=== PATIENT | male | born 1965 | race African-American/Black ===

== ENCOUNTER 2016-10-08 12:25 | Emergency (ER) | payer OTHER ==
[~2016-10-08] VITALS: Ht 188 cm; Wt 117.0 kg
[~2016-10-08 12:25] MED LIST: AMLO10TA2 PO; KEPP10002 PO; LISI-515 PO
[2016-10-08 12:27] VITALS: BP 197/133; PULSE 78; RESP 20; TEMP 98.2; O2SAT 98
[2016-10-08] MEDS ORDERED: LISI-515 PO (12:59)
[2016-10-08] MEDS ORDERED: KEPP10002 PO (12:59)
--- NOTE | 2016-10-08 12:59 | PD ---
HPI . Refill request Chief Complaint: Medication Refill Request Time Seen by Provider: 12:52 Travel History International Travel<30 days: No Contact w/Intl Traveler<30days: No Traveled to known affect area: No History of Present Illness HPI Patient presents stating that he is out of his blood pressure and seizure medication. He states he's been out for about a month. Does not have any specific complaints today. 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, SLURRED SPEECH) Diabetes: Yes Diminished Hearing: No Endocrine: Yes Genitourinary: No Hypertension: Yes Psychiatric: No Reproductive: No Respiratory: Yes Seizures: Yes Past Surgical History AICD: No Genitourinary Surgery: No Pacemaker: No Other Surgery: No Social History Alcohol Use: No Tobacco Use: Yes (LIGHT SMOKER 3-4 CIG PER DAY) Substance Use: No Allergies-Medications (Allergen,Severity, Reaction): Coded Allergies: No Known Allergies (Verified , 08/19/16) Reported Meds & Prescriptions Reported Meds & Active Scripts Active Amlodipine (Amlodipine Besylate) 10 Mg Tab 10 Mg PO DAILY Keppra (Levetiracetam) 1,000 Mg Tab 1,000 Mg PO BID Keppra (Levetiracetam) 1,000 Mg Tab 1,000 Mg PO BID Reported Lisinopril 20 Mg Tab 20 Mg PO DAILY Review of Systems Except as stated in HPI: all other systems reviewed are Neg HENT: Positive: Headaches Physical Exam Narrative GENERAL: This is a patient with an old stroke. He is in no acute distress. SKIN: Warm and dry. HEAD: Atraumatic. Normocephalic. EYES: Pupils equal and round. ENT: No nasal bleeding or discharge. Mucous membranes pink and moist. NECK: Trachea midline. Neck is supple CARDIOVASCULAR: Regular rate and rhythm. Heart sounds are normal. RESPIRATORY: No accessory muscle use. Lungs are clear with full air movement throughout. GASTROINTESTINAL: Abdomen soft, non-tender, nondistended. MUSCULOSKELETAL: No obvious deformities. No edema. NEUROLOGICAL: Awake and alert. No obvious cranial nerve deficits. Motor grossly within normal limits. Slurred speech compatible with previous stroke. PSYCHIATRIC: Appropriate mood and affect; insight and judgment normal. Data Data Last Documented VS Vital Signs Date Time Temp Pulse Resp B/P Pulse Ox O2 Delivery O2 Flow Rate FiO2 10/08/16 12:27 98.2 78 20 197/133 98 Room Air MDM Medical Decision Making Medical Screen Exam Complete: Yes Emergency Medical Condition: Yes Differential Diagnosis Differential diagnosis includes but is not limited to benign essential hypertension, urgency, hypertensive emergency, hepatic encephalopathy. Narrative Course Patient presents requesting refill of his hypertensive and anti-seizure medications. Diagnosis Primary Impression: Hypertension Qualified Code: I10 - Essential hypertension Additional Impression: Seizure disorder Med/Other Pt SpecificInfo: Prescription(s) given Scripts Levetiracetam (Keppra)1,000 Mg Tab1,000 Mg PO BID #60 TAB Ref 0 Prov:Laura Shaffer MD 10/08/16 Lisinopril 20 Mg Tab20 Mg PO DAILY #30 TAB Ref 0 Prov:Laura Shaffer MD 10/08/16 Disposition: 01 DISCHARGE HOME Condition: Stable Laura Shaffer MD Oct 08, 2016 12:59
[2016-10-08 13:25] VITALS: BP 180/82; TEMP 97.8
== END 2016-10-08 13:25 | disposition home or self-care (01) ==
LOC: NEPB 12:25
DX: I10 Essential (primary) hypertension (principal); R56.9 Unspecified convulsions; R47.81 Slurred speech; E11.9 Type 2 diabetes mellitus without complications; Z76.0 Encounter for issue of repeat prescription; Z72.0 Tobacco use; Z86.73 Personal history of transient ischemic attack (TIA), and cerebral infarction without residual deficits
CPT/HCPCS: 99281

== ENCOUNTER 2016-11-09 14:13 | Emergency (ER) | payer OTHER ==
[~2016-11-09] VITALS: Ht 182.9 cm; Wt 120.0 kg
[~2016-11-09 14:13] MED LIST changes: -AMLO10TA2 PO
[2016-11-09 14:14] VITALS: BP 197/122; PULSE 89; RESP 18; TEMP 98.5; O2SAT 98
--- NOTE | 2016-11-09 18:59 | PD ---
HPI Chief Complaint: Medication Refill Request, hypertension, seizure this am Time Seen by Provider: 18:54 Travel History International Travel<30 days: No Contact w/Intl Traveler<30days: No Traveled to known affect area: No History of Present Illness HPI Patient is a 51-year-old male presenting to [facility] for medication refill. He states she's been out of his Keppra and lisinopril for 2 weeks. Patient reports having a seizure this morning that was witnessed by his girlfriend. He denies any physical complaints at this time. He denies any illicit drug use. He does admit to smoking 1-2 cigarettes daily. Patient's past medical history includes CVA, hypertension, seizures, diabetes mellitus. [facility] Past Medical History Asthma: Yes Blood Disorders: No Cancer: No High Cholesterol: Yes Cerebrovascular Accident: Yes Diabetes: Yes Diminished Hearing: No Genitourinary: No Hypertension: Yes Psychiatric: No Reproductive: No Respiratory: Yes Seizures: Yes Past Surgical History Surgical History: No Previous Surgery AICD: No Genitourinary Surgery: No Pacemaker: No Other Surgery: No Social History Alcohol Use: No Tobacco Use: Yes Substance Use: No Allergies-Medications (Allergen,Severity, Reaction): Coded Allergies: No Known Allergies (Verified , 11/09/16) Reported Meds & Prescriptions Reported Meds & Active Scripts Active Lisinopril 20 Mg Tab 20 Mg PO DAILY Keppra (Levetiracetam) 1,000 Mg Tab 1,000 Mg PO BID Review of Systems Except as stated in HPI: all other systems reviewed are Neg Neurologic: Positive: Other (residual left-sided weakness) Physical Exam Narrative GENERAL: Thin, well-developed, alert gentleman. Resting comfortably in no acute distress. SKIN: Warm and dry. HEAD: Atraumatic. Normocephalic. Left facial droop. EYES: Pupils equal and round. No scleral icterus. No injection or drainage. ENT: No nasal bleeding or discharge. Mucous membranes pink and moist. NECK: Trachea midline. No JVD. CARDIOVASCULAR: Regular rate and rhythm. Systolic murmur appreciated. RESPIRATORY: No accessory muscle use. Clear to auscultation. Breath sounds equal bilaterally. GASTROINTESTINAL: Abdomen soft, non-tender, nondistended. Hepatic and splenic margins not palpable. MUSCULOSKELETAL: No obvious deformities. No clubbing. No cyanosis. No edema. NEUROLOGICAL: Awake and alert. No obvious cranial nerve deficits. Residual left -sided weakness. Slightly slurred speech secondary to left facial droop speech. PSYCHIATRIC: Appropriate mood and affect; insight and judgment normal. Data Data Last Documented VS Vital Signs Date Time Temp Pulse Resp B/P Pulse Ox O2 Delivery O2 Flow Rate FiO2 11/09/16 19:30 95 16 200/132 99 11/09/16 14:14 98.5 Room Air Orders Complete Blood Count With Diff (11/09/16 18:53) Drug Screen, Random Urine (11/09/16 18:53) Electrocardiogram (11/09/16 ) Comprehensive Metabolic Panel (11/09/16 18:53) Ua Includes Microscopic (11/09/16 18:53) Labs Laboratory Tests Test 11/09/16 19:00 White Blood Count 5.9 TH/MM3 Red Blood Count 3.78 MIL/MM3 Hemoglobin 11.7 GM/DL Hematocrit 34.3 % Mean Corpuscular Volume 90.6 FL Mean Corpuscular Hemoglobin 31.0 PG Mean Corpuscular Hemoglobin 34.2 % Concent Red Cell Distribution Width 16.6 % Platelet Count 212 TH/MM3 Mean Platelet Volume 9.3 FL Neutrophils (%) (Auto) 59.5 % Lymphocytes (%) (Auto) 29.6 % Monocytes (%) (Auto) 7.0 % Eosinophils (%) (Auto) 2.9 % Basophils (%) (Auto) 1.0 % Neutrophils # (Auto) 3.5 TH/MM3 Lymphocytes # (Auto) 1.8 TH/MM3 Monocytes # (Auto) 0.4 TH/MM3 Eosinophils # (Auto) 0.2 TH/MM3 Basophils # (Auto) 0.1 TH/MM3 CBC Comment DIFF FINAL Differential Comment Sodium Level 143 MEQ/L Potassium Level 4.3 MEQ/L Chloride Level 110 MEQ/L Carbon Dioxide Level 24.6 MEQ/L Anion Gap 8 MEQ/L Blood Urea Nitrogen 41 MG/DL Creatinine 3.19 MG/DL Estimat Glomerular Filtration 25 ML/MIN Rate Random Glucose 130 MG/DL Calcium Level 8.4 MG/DL Total Bilirubin 0.2 MG/DL Aspartate Amino Transf 17 U/L (AST/SGOT) Alanine Aminotransferase 25 U/L (ALT/SGPT) Alkaline Phosphatase 112 U/L Total Protein 7.3 GM/DL Albumin 3.4 GM/DL MDM Medical Decision Making Medical Screen Exam Complete: Yes Emergency Medical Condition: Yes Interpretation(s) Vital Signs Date Time Temp Pulse Resp B/P Pulse Ox O2 Delivery O2 Flow Rate FiO2 11/09/16 14:14 98.5 89 18 197/122 98 Room Air Differential Diagnosis Hypertensive urgency versus seizure disorder versus medication noncompliance versus medication refill versus other Narrative Course Patient's 51-year-old male presenting to emergency department for medication refill. Patient stated that he had a seizure earlier this morning that was witnessed by his girlfriend. Patient's blood pressure is elevated, he has not taken blood pressure medications or seizure medication in 2 weeks. He denies any physical complaints at this time. Patient had a CVA 2 years ago and has residual left-sided weakness and slurred speech. Workup initiated in triage, care patient will be transferred to provider when medical bed is available. Jaylyn Gonzalez Nov 09, 2016 18:59
[2016-11-09 19:30] VITALS: BP 200/132; PULSE 95; RESP 16; O2SAT 99
[2016-11-09 19:32] LABS: AUTOMATED NEUTROPHIL # 3.5 TH/MM3 (1.8-7.7); BASOPHIL # 0.1 TH/MM3 (0-0.2); EOSINOPHIL # 0.2 TH/MM3 (0-0.4); EOSINOPHIL % 2.9 % (0.0-4.0); HEMATOCRIT 34.3 % (39.0-51.0); HEMO FLAGS DIFF FINAL; LYMPH % 29.6 % (9.0-44.0); LYMPHOCYTE # 1.8 TH/MM3 (1.0-4.8); MEAN CELL VOLUME 90.6 FL (80.0-100.0); MEAN CORPUSCULAR HGB CONC 34.2 % (32.0-36.0); NEUT % 59.5 % (16.0-70.0); PLATELET COUNT 212 TH/MM3 (150-450); RED BLOOD COUNT 3.78 MIL/MM3 (4.50-5.90); RED CELL DISTRIBUTION WIDTH 16.6 % (11.6-17.2); WHITE BLOOD COUNT 5.9 TH/MM3 (4.0-11.0)
[2016-11-09 19:53] LABS: ANION GAP 8 MEQ/L (5-15); AST (GOT) 17 U/L (15-37); BICARBONATE 24.6 MEQ/L (21.0-32.0); BLOOD UREA NITROGEN 41 MG/DL (7-18); CHLORIDE 110 MEQ/L (98-107); GLOMERULAR FILTRATION RATE 25 ML/MIN (>89); POTASSIUM 4.3 MEQ/L (3.5-5.1); SODIUM (NA) 143 MEQ/L (136-145)
[2016-11-09 19:57] LABS: ALKALINE PHOSPHATASE 112 U/L (45-117); ALT (GPT) 25 U/L (12-78); TOTAL BILIRUBIN ADULT 0.2 MG/DL (0.2-1.0)
--- NOTE | 2016-11-09 20:11 | PD ---
Physical Exam Time Seen by Provider: 20:11 Narrative 51-year-old male with a history of hypertension, seizure disorder, CVA with left -sided deficits presents to the emergency department requesting medication refills. Patient was seen by provider in triage were initiated workup, please see her documentation. The patient states he has been out of his Keppra for 2 weeks and that this morning around 5 AM he had a seizure lasting about 1 minute witnessed by his girlfriend. States that it resolved on its own and he did experience some mild dizziness following the seizure. States that the dizziness has also resolved since then. States that he has been out of his lisinopril for 2 days. He is here requesting refills of these medications. He denies any chest pain, shortness of breath, lightheadedness, nausea, vomiting, numbness or tingling, weakness. No other complaints. GENERAL: Well-nourished and well-developed pleasant patient in no acute distress who is nontoxic appearing. SKIN: Warm and dry. HEAD: Normocephalic and atraumatic. EYES: No injection, drainage, or hyphema noted. PERRLA. EOMI. ENT: No nasal drainage noted. Oropharynx is clear. NECK: Supple and the trachea is midline. CARDIOVASCULAR: Regular rate and rhythm. RESPIRATORY: Breath sounds are equal bilaterally with no accessory muscle use, wheezing, rhonchi, or crackles. GASTROINTESTINAL: Abdomen is soft, non-tender, and nondistended. MUSCULOSKELETAL: No obvious deformities, swelling, cyanosis, or ecchymosis is present throughout the upper and lower extremities. Patient has full range of motion without any signs of neurovascular compromise. NEUROLOGICAL: Awake, alert, and oriented. Normal speech and gait. Cranial nerves are grossly intact. Chronic left sided facial droop with left sided weakness. Data Data Last Documented VS Vital Signs Date Time Temp Pulse Resp B/P Pulse Ox O2 Delivery O2 Flow Rate FiO2 11/09/16 20:44 95 16 200/135 100 11/09/16 14:14 98.5 Room Air Orders Complete Blood Count With Diff (11/09/16 18:53) Electrocardiogram (11/09/16 ) Comprehensive Metabolic Panel (11/09/16 18:53) Clonidine (Catapres) (11/09/16 20:15) Levetiracetam (Keppra) (11/09/16 20:30) Labs Laboratory Tests Test 11/09/16 19:00 White Blood Count 5.9 TH/MM3 Red Blood Count 3.78 MIL/MM3 Hemoglobin 11.7 GM/DL Hematocrit 34.3 % Mean Corpuscular Volume 90.6 FL Mean Corpuscular Hemoglobin 31.0 PG Mean Corpuscular Hemoglobin 34.2 % Concent Red Cell Distribution Width 16.6 % Platelet Count 212 TH/MM3 Mean Platelet Volume 9.3 FL Neutrophils (%) (Auto) 59.5 % Lymphocytes (%) (Auto) 29.6 % Monocytes (%) (Auto) 7.0 % Eosinophils (%) (Auto) 2.9 % Basophils (%) (Auto) 1.0 % Neutrophils # (Auto) 3.5 TH/MM3 Lymphocytes # (Auto) 1.8 TH/MM3 Monocytes # (Auto) 0.4 TH/MM3 Eosinophils # (Auto) 0.2 TH/MM3 Basophils # (Auto) 0.1 TH/MM3 CBC Comment DIFF FINAL Differential Comment Sodium Level 143 MEQ/L Potassium Level 4.3 MEQ/L Chloride Level 110 MEQ/L Carbon Dioxide Level 24.6 MEQ/L Anion Gap 8 MEQ/L Blood Urea Nitrogen 41 MG/DL Creatinine 3.19 MG/DL Estimat Glomerular Filtration 25 ML/MIN Rate Random Glucose 130 MG/DL Calcium Level 8.4 MG/DL Total Bilirubin 0.2 MG/DL Aspartate Amino Transf 17 U/L (AST/SGOT) Alanine Aminotransferase 25 U/L (ALT/SGPT) Alkaline Phosphatase 112 U/L Total Protein 7.3 GM/DL Albumin 3.4 GM/DL [facility] Supervised Visit with EDINSON: No Differential Diagnosis Medication refill versus medication noncompliance versus seizure disorder Narrative Course 51-year-old male presents to the emergency department requesting medication refills for his Keppra and lisinopril. States he had a seizure earlier this morning. Patient is afebrile. He is hypertensive with a blood pressure of 200/ 132. Physical examination is unremarkable. Labs show chronic kidney disease consistent with previous lab values, otherwise unremarkable. We'll give him clonidine 0.2 mg orally here in the ED. He'll be discharged with a week's supply of his Keppra and lisinopril. Stressed the importance of outpatient follow-up with a primary care physician. Patient verbalizes understanding and agreement with treatment plan. I discussed the case with my attending physician Dr. Ponce who is aware of the patients history, physical examination findings, and treatment plan. Diagnosis Primary Impression: Seizure disorder Additional Impressions: Noncompliance with medications Encounter for medication refill Referrals: Primary Care Physician 3 days Patient Instructions: General Instructions Additional Instruction: Take medications as prescribed. Follow-up with your Primary Care Physician. Return to the ED for any acute worsening of symptoms. Med/Other Pt SpecificInfo: Prescription(s) given Scripts Lisinopril 20 Mg Tab20 Mg PO DAILY 7 Days Ref 0 Prov:Roxanna Ponce MD 11/09/16 Levetiracetam (Keppra)1,000 Mg Tab1,000 Mg PO BID 7 Days Ref 0 Prov:Roxanna Ponce MD 11/09/16 Disposition: 01 DISCHARGE HOME Condition: Stable Allison Smith Nov 09, 2016 20:11
[2016-11-09] MEDS ORDERED: LISI-515 PO (20:12)
[2016-11-09] MEDS ORDERED: KEPP10002 PO (20:12)
[2016-11-09] MEDS ORDERED: cloNIDine HCL 0.2 MG TAB PO ONE (20:15)
[2016-11-09] MEDS ORDERED: levETIRAcetam 500 MG TAB PO ONE (20:30)
[2016-11-09 20:44] VITALS: BP 200/135
--- NOTE | 2016-11-10 13:01 | EKG ---
Date Performed: 11/09/2016 Time Performed: 19:17:04 PTAGE: 51 years EKG: Sinus rhythm POSSIBLE LEFT ATRIAL ENLARGEMENT POSSIBLE LEFT VENTRICULAR HYPERTROPHY POSSIBLE SEPTAL MYOCARDIAL IN FARCTION ABNORMAL ECG PREVIOUS TRACING : 02/19/2016 14.56 Compared to previous tracing, heart rate has increased, QRS voltage in the limb leads has increased. DOCTOR: Vincent Joshua Interpretating Date/Time 11/10/2016 12:59:24
== END 2016-11-09 20:30 | disposition home or self-care (01) ==
LOC: NEPC 14:13
DX: G40.909 Epilepsy, unspecified, not intractable, without status epilepticus (principal); I10 Essential (primary) hypertension; R94.31 Abnormal electrocardiogram [ECG] [EKG]; E11.9 Type 2 diabetes mellitus without complications; E78.00 Pure hypercholesterolemia, unspecified; Z76.0 Encounter for issue of repeat prescription; Z91.14 Patient's other noncompliance with medication regimen; Z72.0 Tobacco use; Z87.09 Personal history of other diseases of the respiratory system; Z86.73 Personal history of transient ischemic attack (TIA), and cerebral infarction without residual deficits
CPT/HCPCS: 80053; 85025; 93005

== ENCOUNTER 2016-12-26 23:42 | Inpatient (IN) | payer OTHER, MEDICARE ==
[~2016-12-26] VITALS: Ht 188 cm; Wt 86.3 kg
[2016-12-26 23:47] VITALS: BP 139/109; PULSE 148; RESP 20; O2SAT 100
[2016-12-27] VITALS (11 sets, daily range): BP systolic 131–179; BP diastolic 89–120; PULSE 67–123; RESP 12–20; TEMP 97.4–97.8; O2SAT 95–100
[2016-12-27] MEDS ORDERED: DILTIAZEM HCL 25 MG/5 ML VIAL IV ONE ×2
[2016-12-27] MEDS ORDERED: SODIUM CHLORIDE 0.9% FLUSH 10 ML FLUSH IVF PRN
[2016-12-27] MEDS ORDERED: DILTIAZEM INJ 125 MG in SODIUM CHLORIDE 0.9% INJ 100 ML IV SCH ×2
--- NOTE | 2016-12-27 00:12 | RADRPT ---
EXAM DATE/TIME: 12/26/2016 23:48 [facility] COMPARISON: CT BRAIN W/O CONTRAST, February 19, 2016, 15:04. INDICATIONS : Altered mental status and seizure. RADIATION DOSE: 56.35 CTDIvol (mGy) MEDICAL HISTORY : Seizures. Hypertension. Diabetes mellitus type 2.CVA. SURGICAL HISTORY : None. ENCOUNTER: Initial ACUITY: 1 day PAIN SCALE: Non-responsive LOCATION: cranial TECHNIQUE: Multiple contiguous axial images were obtained of the head. Using automated exposure control and adj ustment of the mA and/or kV according to patient size, radiation dose was kept as low as reasonably a chievable to obtain optimal diagnostic quality images. FINDINGS: CEREBRUM: Unchanged areas of encephalomalacia are seen involving the right frontal and temporal lobes as well a s the left occipital lobe. Periventricular low attenuation change involving both cerebral hemispheres . The ventricles are normal for age. No evidence of midline shift, mass lesion, hemorrhage or acute infarction. No extra-axial fluid collections are seen. POSTERIOR FOSSA: The cerebellum and brainstem are intact. The 4th ventricle is midline. The cerebellopontine angle i s unremarkable. EXTRACRANIAL: The visualized portion of the orbits is intact. SKULL: The calvaria is intact. No evidence of skull fracture. CONCLUSION: 1. No acute intracranial abnormality. 2. Prior infarctions as detailed above. 3. Chronic small vessel ischemic change. Gume Shahid Jr., MD on December 27, 2016 at 0:09 Board Certified Radiologist. This report was verified electronically.
[2016-12-27 00:57] LABS: AUTOMATED NEUTROPHIL # 6.3 TH/MM3 (1.8-7.7); BASOPHIL # 0.1 TH/MM3 (0-0.2); BASOPHIL % 0.8 % (0.0-2.0); EOSINOPHIL # 0.1 TH/MM3 (0-0.4); EOSINOPHIL % 1.6 % (0.0-4.0); HEMATOCRIT 31.8 % (39.0-51.0); HEMO FLAGS DIFF FINAL; LYMPH % 18.9 % (9.0-44.0); LYMPHOCYTE # 1.6 TH/MM3 (1.0-4.8); MEAN CELL VOLUME 92.6 FL (80.0-100.0); MEAN CORPUSCULAR HEMOGLOBIN 29.6 PG (27.0-34.0); MONO % 4.7 % (0.0-8.0); PLATELET COUNT 189 TH/MM3 (150-450); RED BLOOD COUNT 3.44 MIL/MM3 (4.50-5.90); WHITE BLOOD COUNT 8.6 TH/MM3 (4.0-11.0)
[2016-12-27 01:13] LABS: AMPHETAMINE, URINE NEG (NEG); BARBITURATES, URINE NEG (NEG); COCAINE, URINE NEG (NEG)
[2016-12-27 01:23] LABS: ALKALINE PHOSPHATASE 91 U/L (45-117); CREATINE KINASE 203 U/L (39-308); TOTAL BILIRUBIN ADULT 0.1 MG/DL (0.2-1.0)
--- NOTE | 2016-12-27 01:25 | PD ---
HPI Chief Complaint: Seizure Time Seen by Provider: 23:50 Travel History International Travel<30 days: No Contact w/Intl Traveler<30days: No Traveled to known affect area: No ([place]) History of Present Illness HPI 51-year-old male arrives to the ER by EMS. He was evidently with friends and began seizing. EMS reports tonic activity with a port and leftward conjugate gaze deviation. He has a history of epilepsy and takes Keppra for it. Evidently he missed the evening's dose. EMS administered Ativan 2 mg 3 times. Evidently the patient was answering questions at various points throughout throughout EMS transport. Upon ER arrival the patient was unable to participate with history of present illness. His gag reflex was intact. His heart was 160 upon arrival here. Blood glucose was within normal range. Blood pressure was also about 140 systolic. PFSH Past Medical History Asthma: Yes Blood Disorders: No Cancer: No High Cholesterol: Yes Cerebrovascular Accident: Yes Diabetes: Yes Patient Takes Glucophage: No ([place]) Diminished Hearing: No Genitourinary: No Hypertension: Yes Psychiatric: No Reproductive: No Respiratory: Yes Seizures: Yes Tetanus Vaccination: Unknown Past Surgical History AICD: No Genitourinary Surgery: No Pacemaker: No Other Surgery: No Social History Alcohol Use: No (unknown ) Tobacco Use: Yes (unknown) Substance Use: No Allergies-Medications (Allergen,Severity, Reaction): Coded Allergies: No Known Allergies (Verified , 11/09/16) Reported Meds & Prescriptions Reported Meds & Active Scripts Active Lisinopril 20 Mg Tab 20 Mg PO DAILY 7 Days Keppra (Levetiracetam) 1,000 Mg Tab 1,000 Mg PO BID 7 Days Lisinopril 20 Mg Tab 20 Mg PO DAILY Keppra (Levetiracetam) 1,000 Mg Tab 1,000 Mg PO BID Review of Systems ROS Limitations: Clinical Condition, Altered Mental Status Physical Exam Narrative GENERAL: 51 WNWD, moderate distress with apparent tremor like activity SKIN: Focused skin assessment warm/dry. HEAD: Atraumatic. Normocephalic. EYES: Conjugate L lateral gaze deviation. ENT: No nasal bleeding or discharge. Mucous membranes pink and moist. NECK: Trachea midline. No JVD. CARDIOVASCULAR: Tachycardia at approx 160. Irregular. RESPIRATORY: No accessory muscle use. Clear to auscultation. Breath sounds equal bilaterally. GASTROINTESTINAL: Abdomen soft, non-tender, nondistended. Hepatic and splenic margins not palpable. MUSCULOSKELETAL: No obvious deformities. No clubbing. No cyanosis. No edema. NEUROLOGICAL: minimal tremor diffusely, pt localizes to pain, he attempts to open his eyes when asked to do so however can just barely upon them, non-verbal in ER, + gag reflex PSYCHIATRIC: Unable to assess. Data Data Last Documented VS Vital Signs Date Time Temp Pulse Resp B/P Pulse Ox O2 Delivery O2 Flow Rate FiO2 12/27/16 00:16 123 20 144/101 100 Room Air Temp 97.7, vs reviewed Orders Complete Blood Count With Diff (12/26/16 23:50) Alcohol (Ethanol) (12/26/16 23:50) Drug Screen, Random Urine (12/26/16 23:50) Electrocardiogram (12/26/16 ) Ct Brain W/O Iv Contrast(Rout) (12/26/16 ) Blood Glucose (12/26/16 23:50) Ecg Monitoring (12/26/16 23:50) Iv Access Insert/Monitor (12/26/16 23:50) Oximetry (12/26/16 23:50) Oxygen Administration (12/26/16 23:50) Cath For Specimen (12/26/16 23:50) Comprehensive Metabolic Panel (12/26/16 23:50) Sodium Chloride 0.9% Flush (Ns Flush) (12/27/16 00:00) Ua Includes Microscopic (12/26/16 23:50) Diltiazem Inj (Cardizem Inj) (12/27/16 00:00) Diltiazem Inj (Cardizem Inj) (12/27/16 00:00) Diltiazem Inj (Cardizem Inj) (12/27/16 00:00) Creatine Kinase (Cpk) (12/27/16 00:05) Troponin I (12/27/16 00:05) Sodium Chlor 0.9% 1000 Ml Inj (Ns 1000 M (12/27/16 01:30) Urine Culture (12/27/16 01:30) Admit Order (Ed Use Only) (12/27/16 02:24) Labs Laboratory Tests Test 12/27/16 12/27/16 00:05 00:16 White Blood Count 8.6 TH/MM3 Red Blood Count 3.44 MIL/MM3 Hemoglobin 10.2 GM/DL Hematocrit 31.8 % Mean Corpuscular Volume 92.6 FL Mean Corpuscular Hemoglobin 29.6 PG Mean Corpuscular Hemoglobin 32.0 % Concent Red Cell Distribution Width 16.0 % Platelet Count 189 TH/MM3 Mean Platelet Volume 8.8 FL Neutrophils (%) (Auto) 74.0 % Lymphocytes (%) (Auto) 18.9 % Monocytes (%) (Auto) 4.7 % Eosinophils (%) (Auto) 1.6 % Basophils (%) (Auto) 0.8 % Neutrophils # (Auto) 6.3 TH/MM3 Lymphocytes # (Auto) 1.6 TH/MM3 Monocytes # (Auto) 0.4 TH/MM3 Eosinophils # (Auto) 0.1 TH/MM3 Basophils # (Auto) 0.1 TH/MM3 CBC Comment DIFF FINAL Differential Comment Sodium Level 142 MEQ/L Potassium Level 4.5 MEQ/L Chloride Level 112 MEQ/L Carbon Dioxide Level 18.7 MEQ/L Anion Gap 11 MEQ/L Blood Urea Nitrogen 55 MG/DL Creatinine 3.97 MG/DL Estimat Glomerular Filtration 19 ML/MIN Rate Random Glucose 107 MG/DL Calcium Level 8.4 MG/DL Total Bilirubin 0.1 MG/DL Aspartate Amino Transf 15 U/L (AST/SGOT) Alanine Aminotransferase 11 U/L (ALT/SGPT) Alkaline Phosphatase 91 U/L Total Creatine Kinase 203 U/L Troponin I LESS THAN 0.02 NG/ML Total Protein 6.9 GM/DL Albumin 3.4 GM/DL Ethyl Alcohol Level LESS THAN 3 MG/DL Urine Color YELLOW Urine Turbidity HAZY Urine pH 6.0 Urine Specific [place] 1.017 Urine Protein 300 mg/dL Urine Glucose (UA) NEG mg/dL Urine Ketones NEG mg/dL Urine Occult Blood SMALL Urine Nitrite NEG Urine Bilirubin NEG Urine Urobilinogen LESS THAN 2.0 MG/DL Urine Leukocyte Esterase NEG Urine RBC 3 /hpf Urine WBC 6 /hpf Urine Squamous Epithelial <1 /hpf Cells Urine Amorphous Sediment RARE Urine Bacteria RARE /hpf Urine Mucus FEW /lpf Urine Opiates Screen NEG Urine Barbiturates Screen NEG Urine Amphetamines Screen NEG Urine Benzodiazepines Screen NEG Urine Cocaine Screen NEG Urine Cannabinoids Screen NEG MDM Medical Decision Making Medical Screen Exam Complete: Yes Emergency Medical Condition: Yes Medical Record Reviewed: Yes Differential Diagnosis Status epilepticus, electrolyte imbalance, infection, polypharmacy, antiepileptic noncompliance, drug abuse, intracranial mass Narrative Course CBC & BMP Diagram 12/27/16 00:05 LFTs normal Tn < 0.02 UA no UTI Urine drug ledezma-negative EtOH negative The patient received 2 L crystalloid here. 20 mg diltiazem given here. Heart rate sinus at time of admission. He has been resting throughout his ER stay. He was following commands upon arrival when he was tremulous. No leukocytosis or fever. Admission for monitoring and further diagnostic evaluation. Discussed with Dr. Dumont. Diagnosis Primary Impression: Seizure disorder Additional Impression: Altered mental status Qualified Code: R41.82 - Altered mental status, unspecified altered mental status type Admitting Information Admitting Physician Requests: Admit Jey Cha MD Dec 27, 2016 01:25
[2016-12-27] MEDS ORDERED: SODIUM CHLOR 0.9% 1000 ML INJ 1,000 ML IV ONE (01:30)
[2016-12-27 01:39] LABS: ALT (GPT) 11 U/L (12-78); ANION GAP 11 MEQ/L (5-15); AST (GOT) 15 U/L (15-37); BICARBONATE 18.7 MEQ/L (21.0-32.0); BLOOD UREA NITROGEN 55 MG/DL (7-18); CHLORIDE 112 MEQ/L (98-107); GLOMERULAR FILTRATION RATE 19 ML/MIN (>89); POTASSIUM 4.5 MEQ/L (3.5-5.1); SODIUM (NA) 142 MEQ/L (136-145)
[2016-12-27 02:09] LABS: BACTERIA, URINE RARE /hpf; BLOOD, URINE SMALL (NEG); GLUCOSE,URINE NEG (NEG); KETONE, URINE NEG (NEG); MUCUS URINE FEW /lpf (OCC); NITRITE,URINE NEG (NEG); SQUAMOUS EPITHELIAL CELL URINE <1 /hpf (0-5); URINE COLOR YELLOW (YELLW/STRAW)
--- NOTE | 2016-12-27 03:22 | HHI.HP ---
[facility] Service [facility] Primary Care Physician Unknown Admission Diagnosis Seizures, AMS Diagnoses: Chief Complaint: Seizure Travel History International Travel<30 Days: No Contact w/Intl Traveler <30 Da: No Traveled to Known Affected Are: No (iliana) History of Present Illness 51-year-old male with past medical history significant for seizure disorder for which he takes Keppra, CVA, hypertension, and diabetes mellitus was brought into the emergency department by EMS. He was with friends when he began seizing. EMS reports seizure-like activity with a leftward conjugate gaze. He was given 2 mg of Ativan 3 by EMS prior to arrival in the emergency department. The patient was apparently answering questions at various points in time throughout EMS transport. Upon arrival to the emergency department the patient was unable to participate in the history of present illness. He does respond to sternal rub and will open his eyes on command. Review of Systems Unable to obtain review of systems secondary to clinical condition Past Family Social History Past Medical History (Obtained from medical record) Seizure disorder CVA Hypertension Diabetes mellitus Past Surgical History None Reported Medications Reported Meds & Active Scripts Active Lisinopril 20 Mg Tab 20 Mg PO DAILY 7 Days Keppra (Levetiracetam) 1,000 Mg Tab 1,000 Mg PO BID 7 Days Lisinopril 20 Mg Tab 20 Mg PO DAILY Keppra (Levetiracetam) 1,000 Mg Tab 1,000 Mg PO BID Allergies: Coded Allergies: No Known Allergies (Verified , 11/09/16) Family History Noncontributory Social History Smokes 45 cigarettes per day. Denies alcohol and illicit drug use. Physical Exam Vital Signs Vital Signs Date Time Temp Pulse Resp B/P Pulse Ox O2 Delivery O2 Flow Rate FiO2 12/27/16 00:16 123 20 144/101 100 Room Air 12/26/16 23:47 148 20 139/109 100 Physical Exam Gen.: No acute distress Head: Normocephalic. Atraumatic. EENT: Pupils pinpoint. Nose without drainage. Airway intact. Throat without injection. Cardiovascular: Regular rate and rhythm. No murmurs, rubs or gallops. Respiratory: Lungs clear to auscultation bilaterally in the anterior renteria. No wheezes or rhonchi. Abdomen: Soft, nontender, nondistended. No peritoneal signs. Musculoskeletal: No gross deformities. No edema. Skin: No obvious rashes or erythema. Neuro: Responded to sternal rub. Would open eyes on command. Laboratory Laboratory Tests Test 12/27/16 12/27/16 00:05 00:16 White Blood Count 8.6 Red Blood Count 3.44 Hemoglobin 10.2 Hematocrit 31.8 Mean Corpuscular Volume 92.6 Mean Corpuscular Hemoglobin 29.6 Mean Corpuscular Hemoglobin 32.0 Concent Red Cell Distribution Width 16.0 Platelet Count 189 Mean Platelet Volume 8.8 Neutrophils (%) (Auto) 74.0 Lymphocytes (%) (Auto) 18.9 Monocytes (%) (Auto) 4.7 Eosinophils (%) (Auto) 1.6 Basophils (%) (Auto) 0.8 Neutrophils # (Auto) 6.3 Lymphocytes # (Auto) 1.6 Monocytes # (Auto) 0.4 Eosinophils # (Auto) 0.1 Basophils # (Auto) 0.1 CBC Comment DIFF FINAL Differential Comment Sodium Level 142 Potassium Level 4.5 Chloride Level 112 Carbon Dioxide Level 18.7 Anion Gap 11 Blood Urea Nitrogen 55 Creatinine 3.97 Estimat Glomerular Filtration 19 Rate Random Glucose 107 Calcium Level 8.4 Total Bilirubin 0.1 Aspartate Amino Transf 15 (AST/SGOT) Alanine Aminotransferase 11 (ALT/SGPT) Alkaline Phosphatase 91 Total Creatine Kinase 203 Troponin I LESS THAN 0.02 Total Protein 6.9 Albumin 3.4 Ethyl Alcohol Level LESS THAN 3 Urine Color YELLOW Urine Turbidity HAZY Urine pH 6.0 Urine Specific [place] 1.017 Urine Protein 300 Urine Glucose (UA) NEG Urine Ketones NEG Urine Occult Blood SMALL Urine Nitrite NEG Urine Bilirubin NEG Urine Urobilinogen LESS THAN 2.0 Urine Leukocyte Esterase NEG Urine RBC 3 Urine WBC 6 Urine Squamous Epithelial <1 Cells Urine Amorphous Sediment RARE Urine Bacteria RARE Urine Mucus FEW Urine Opiates Screen NEG Urine Barbiturates Screen NEG Urine Amphetamines Screen NEG Urine Benzodiazepines Screen NEG Urine Cocaine Screen NEG Urine Cannabinoids Screen NEG Date/Time Procedure Status Source Growth 12/27/16 00:16 Urine Culture Received Urine Catheterized Urine Pending Result Diagram: 12/27/16 0005 12/27/16 0005 Assessment and Plan Problem List: (1) Diabetes mellitus type 2 ICD Code: 250.00 (2) Chronic kidney disease ICD Code: N18.9 Status: Acute (3) Hypertension ICD Code: I10 Status: Acute (4) Seizure disorder ICD Code: G40.909 Status: Acute Assessment and Plan 51-year-old male who presents with: 1. Seizure disorder/questionable seizure versus altered mental status Unclear when patient last took his Keppra Was intermittently responsive during interaction with EMS, question whether seizure versus altered mental status CT head showed prior CVAs and small vessel changes without acute event Neurology consulted and appreciate their recommendations EEG pending 2. Tachycardia Patient tachycardic to the 140s on arrival to the ED EKG pending Given 20 mg diltiazem with resolution of tachycardia Telemetry 3. Chronic kidney disease Patient's creatinine 3.97, BUN 55 (baseline 3) Gentle hydration 4. Hypertension Continue home medications Hydralazine when necessary 5. Type 2 diabetes mellitus Sliding scale insulin 6. FEN Normal saline at 100 cc/hour Monitor electrolytes Diabetic diet once swallow eval passed Physician Certification 2 Midnight Certification Type: Admission for Inpatient Services Order for Inpatient Services The services are ordered in accordance with Medicare regulations or non- Medicare payer requirements, as applicable. In the case of services not specified as inpatient-only, they are appropriately provided as inpatient services in accordance with the 2-midnight benchmark. Estimated LOS (days): 2 2 days is the estimated time the patient will need to remain in the hospital, assuming treatment plan goals are met and no additional complications. Post-Hospital Plan: Home Thais Dumont MD R3 Dec 27, 2016 03:22
[2016-12-27] MEDS ORDERED: DEXTROSE 50% IN WATER 50 ML VIAL(D50) IV PUSH PRN (03:30)
[2016-12-27] MEDS ORDERED: GLUCAGON 1 MG/ML VIAL OTHER PRN (03:30)
[2016-12-27] MEDS ORDERED: SODIUM CHLORIDE 0.9% FLUSH 10 ML FLUSH IV FLUSH PRN (03:30)
[2016-12-27] MEDS: hydrALAZINE HCL 20 MG/ML VIAL IV PUSH PRN ×2 (04:26→07:23)
[2016-12-27] MEDS ORDERED: CHLORHEXIDINE GLUCONATE 2 % 1 PACK (2 CLOTHS)(extra cloths) TOPICAL PRN (06:30)
[2016-12-27] MEDS: INSULIN ASPART SUPPLEMENTAL SCALE SQ SCH ×4 (06:44→20:28)
[2016-12-27] MEDS ORDERED: SODIUM CHLOR 0.9% 1000 ML INJ 1,000 ML IV SCH (08:30)
[2016-12-27] MEDS ORDERED: LISINOPRIL 20 MG TAB PO SCH (09:00)
[2016-12-27] MEDS: SODIUM CHLORIDE 0.9% FLUSH 10 ML FLUSH IV FLUSH SCH ×2 (09:00→20:28)
[2016-12-27] MEDS ORDERED: levETIRAcetam 500 MG TAB PO SCH (09:00)
[2016-12-27] MEDS: LABETALOL HCL 100 MG/20 ML VIAL IV PUSH PRN ×2 (09:16→22:12)
--- NOTE | 2016-12-27 09:16 | MB ---
cc: SHARA FERRIS M.D. DATE OF CONSULTATION: 12/27/2016 REASON FOR CONSULTATION: This is a 51-year-old with history of seizures and stroke. HISTORY OF PRESENT ILLNESS The patient came in yesterday with seizures apparently witnessed by friends. He was given Ativan in multiple occasions, total of 6 mg given. After transfer to the intensive care unit, no further seizures. He has a history of a stroke apparently in 2012 or 2013 causing left hemiparesis. He walks with a quad cane. He takes Keppra and he admits to me that he ran out of the Keppra a week or so ago. The dose appears to be 1000 mg twice a day. He takes lisinopril and also has a history of hypertension and diabetes. On exam the patient was asleep but awakened and started verbalizing some short phrases, provides information. He knows he is at [place]. He gave me the history about running out of Keppra. He apparently follows with Dr. Garcia. He has a spastic left hemiparesis. The arm is quite more spastic, he starts raising the left arm and it is flexed at the elbow. He is able to raise the left leg with less spasticity. The reflexes are brisk on the left with left Babinski. He also has relatively brisk reflexes on the right. He gazed to the right and left and was able to count fingers. There is left facial weakness and left-sided lip injury. LABORATORY DATA The white count was 8.6, hemoglobin 10.2, platelets 189. Sodium, potassium normal. BUN 55, creatinine 3.97, calcium 8.4. Urine toxicology negative. IMAGING STUDIES CT head shows no acute abnormality, prior infarctions. ASSESSMENT Multiple seizures yesterday. Poor compliance to anticonvulsant medications. Prior stroke with left spastic hemiparesis. He is back on the Keppra 1000 mg twice a day. He is having an EEG today. We will need additional history in terms of a stroke to determine any further evaluation and treatment. There is ongoing renal failure, uncertain if this is all new or chronic. Diabetes mellitus. I observed that this patient has been in the hospital on multiple occasions before because of seizures. I will follow the neurological course. Thank you for asking us to assist in his care. MD JIMMY Masterson/[facility] /8:46 AM /8:59 AM
[2016-12-27] MEDS: levETIRAcetam INJ 1,000 MG in SODIUM CHLORIDE 0.9% INJ 100 ML IV SCH ×2 (10:04→20:29)
[2016-12-27] MEDS ORDERED: amLODIPine BESYLATE 5 MG TAB PO SCH (10:30)
[2016-12-27] MEDS: cloNIDine HCL 0.1 MG TAB PO PRN ×2 (10:50→21:18)
[2016-12-27] MEDS ORDERED: DEXTROSE 50% IN WATER 50 ML SYRINGE ONE (11:57)
[2016-12-27] MEDS ORDERED: niCARdipine INJ 25 MG in SODIUM CHLOR 0.9% 250 ML INJ 250 ML IV SCH (12:15)
[2016-12-27] MEDS: DEXT 5%-NACL 0.45% 1000 ML INJ 1,000 ML IV SCH (12:21)
--- NOTE | 2016-12-27 13:13 | HHI.PR ---
Subjective Remarks f/u for seizure and post ictal. patient continues to be post ictal but can be aroused. I asked him in regards to his arm weakness and he stated that is not new. Otherwise he does not want to answer my questions. When I asked patient multiple times he finally yelled ." stop yelling at me!" Other no other events except difficulty controlling BP which is now controlled with cardene gtt. Objective Vitals Vital Signs Date Time Temp Pulse Resp B/P Pulse Ox O2 Delivery O2 Flow Rate FiO2 12/27/16 06:31 97.8 102 12 173/115 95 12/27/16 04:26 85 18 162/107 99 Nasal Cannula 12/27/16 04:25 100 12/27/16 03:30 78 19 179/110 99 Room Air 12/27/16 02:00 90 19 152/98 99 Room Air 12/27/16 00:16 123 20 144/101 100 Room Air 12/26/16 23:47 148 20 139/109 100 Result Diagram: 12/27/16 0005 12/27/16 0005 Objective Remarks GENERAL: in NAD and lethargic. EYES: No scleral icterus. No injection or drainage. PEARRLA NECK: Supple, trachea midline. No JVD or lymphadenopathy. CARDIOVASCULAR: Regular rate and rhythm without murmurs, gallops, or rubs. RESPIRATORY: Breath sounds equal bilaterally. No accessory muscle use. GASTROINTESTINAL: Abdomen soft, non-tender, nondistended. NEURO\\: too lethargic to participate but did yell at me. Patient unable to move RUE. able to move other other ext. right LE 4/4 Medications and IVs Current Medications Sodium Chloride (NS Flush) 2 ml UNSCH PRN IVF FLUSH AFTER USING IV ACCESS Last administered on 12/27/16 03:13; Start 12/27/16 at 00:00; Stop 12/27/16 at 03:39 ; Status DC Diltiazem HCl (Cardizem Inj) 20 mg ONCE ONCE IV Last administered on 00:11; Start 12/27/16 at 00:00; Stop 12/27/16 at 02:26; Status DC Diltiazem HCl 20 mg 20 mg ONCE ONCE IV ; Start 12/27/16 at 00:00; Stop at 01:26; Status DC Diltiazem HCl 125 mg/Sodium Chloride 125 ml @ 0 mls/hr TITRATE IV ; Start at 00:00; Stop 12/27/16 at 01:26; Status DC Sodium Chloride (NS 1000 ml Inj) 1,000 ml @ 999 mls/hr BOLUS ONCE IV Last administered on 12/27/16 03:12; Start 12/27/16 at 01:30; Stop 12/27/16 at 02:30 ; Status DC Sodium Chloride (NS Flush) 2 ml UNSCH PRN IV FLUSH FLUSH AFTER USING IV ACCESS ; Start 12/27/16 at 03:30 Sodium Chloride (NS Flush) 2 ml BID IV FLUSH Last administered on 12/27/16 09: 00; Start 12/27/16 at 09:00 Levetriacetam (Keppra) 1,000 mg BID PO ; Start 12/27/16 at 09:00; Stop 12/27/16 at 09:00; Status DC Lisinopril (Prinivil) 20 mg DAILY PO ; Start 12/27/16 at 09:00; Stop 12/27/16 at 09:00; Status DC Dextrose (D50w (Vial) Inj) 25 ml UNSCH PRN IV PUSH HYPOGLYCEMIA-SEE COMMENTS; Start 12/27/16 at 03:30 Glucagon (Glucagon Inj) 1 mg UNSCH PRN OTHER HYPOGLYCEMIA-SEE COMMENTS; Start 12/27/16 at 03:30 Insulin Aspart (NovoLOG SUPPLEMENTAL SCALE) 1 ACHS SLIDING SCALE SQ ; Start at 07:00 Hydralazine HCl (Apresoline Inj) 10 mg Q4H PRN IV PUSH SBP>180, DBP>100 Last administered on 12/27/16 07:23; Start 12/27/16 at 03:45 Miscellaneous Information Patient in critical care unit? Ass... Q361D .XX Last administered on 12/27/16 06:30; Start 12/27/16 at 06:30 Chlorhexidine Gluconate (Chlorhexidine 2% Cloth) 3 pack DAILY@04 TOPICAL ; Start 12/28/16 at 04:00; Stop 01/01/17 at 04:01 Chlorhexidine Gluconate (Chlorhexidine 2% Cloth) 3 pack UNSCH PRN TOPICAL HYGIENIC CARE; Start 12/27/16 at 06:30; Stop 01/01/17 at 06:24 Labetalol HCl 10 mg 10 mg Q4H PRN IV PUSH SBP >180 or DBP >100 Last administered on 12/27/16 09:16; Start 12/27/16 at 08:30 Sodium Chloride 1,000 ml @ 70 mls/hr [id number] IV Last administered on 09:17; Start 12/27/16 at 08:30; Stop 12/27/16 at 12:05; Status DC Levetriacetam/ Sodium Chloride (Keppra Inj/NS Inj) 110 ml @ 420 mls/hr Q12HR IV Last administered on 12/27/16 10:04; Start 12/27/16 at 09:00 Clonidine (Catapres) 0.1 mg Q8HR PRN PO SBP>180 or DBP>100 Last administered on 12/27/16 10:50; Start 12/27/16 at 10:30 Amlodipine Besylate (Norvasc) 5 mg DAILY PO Last administered on 12/27/16 10: 50; Start 12/27/16 at 10:30 Dextrose 50 ml 50 ml STK-MED ONCE .ROUTE Last administered on 12/27/16 12:14; Start 12/27/16 at 11:57; Stop 12/27/16 at 11:58; Status DC Nicardipine HCl 25 mg/Sodium Chloride 260 ml @ 0 mls/hr TITRATE IV Last administered on 12/27/16 12:30; Start 12/27/16 at 12:15 Dextrose/Sodium Chloride (D5W-1/2 NS 1000 ml Inj) 1,000 ml @ 84 mls/hr [id number] IV Last administered on 12/27/16 12:21; Start 12/27/16 at 12:15 A/P Problem List: (1) Diabetes mellitus type 2 ICD Code: 250.00 (2) Chronic kidney disease ICD Code: N18.9 Status: Acute (3) Hypertension ICD Code: I10 Status: Acute (4) Seizure disorder ICD Code: G40.909 Status: Acute Assessment and Plan 51-year-old male who presents with: 1. Seizure disorder/questionable seizure versus altered mental status Unclear when patient last took his Keppra Was intermittently responsive during interaction with EMS, question whether seizure versus altered mental status CT head showed prior CVAs and small vessel changes without acute event EEG pending -will get Keppra level and change to IV since he is lethargic and still post ictal. -neurologist ff 2. Tachycardia Patient tachycardic to the 140s on arrival to the ED IMPROVED. most likely due to agitation. Telemetry 3. Acute Chronic kidney disease Patient's creatinine 3.97, BUN 55 (baseline 3) Gentle hydration -avoid nephrotoxins -strict I/O. 4. Hypertension -uncontrolled. tried Hydralazine, labetolol, clonidine with no improvement. -start Cardene gtt. add amlodipine. held madeleine due to acute on CKD. will restart once this improved. 5. Type 2 diabetes mellitus Sliding scale insulin 6. FEN change to D5 1/2 NS due to decrease PO intake. Monitor electrolytes Diabetic diet once swallow eval passed Discharge Planning d/w patient's nurse Laure Paulino MD Dec 27, 2016 13:13
--- NOTE | 2016-12-27 19:10 | MG ---
cc: SHARA FERRIS M.D. Lab No: Date: 12/27/2016 Age: 51 Sex: M Race: REQUESTING: Dr. Padilla. HISTORY: EEG was obtained on this 51-year-old patient with history of recurrent seizures. DESCRIPTION OF THE RECORDING: The patient is described as awake and asleep. There is low amplitude beta background suggesting sleep activity. Some intermixed alpha rhythms are seen and also some sleep spindles. Eventually the patient awakens and there is lot of muscle artifact and the background seems reactive but then the patient quickly falls back asleep. Occasional brief awakening is noted during this recording. Photic stimulation disclosed no change. INTERPRETATION: Normal predominantly asleep EEG. Only limited awake type of amount of recording is documented. No epileptiform features present. MD JIMMY Masterosn/[facility] /6:51 PM /7:07 PM
[2016-12-28] VITALS (14 sets, daily range): BP systolic 130–154; BP diastolic 92–105; PULSE 53–80; RESP 14–22; TEMP 97–97.5; O2SAT 98–100
[2016-12-28] MEDS: DEXT 5%-NACL 0.45% 1000 ML INJ 1,000 ML IV SCH ×2 (01:04→13:34)
[2016-12-28] MEDS: CHLORHEXIDINE GLUCONATE 2 % 1 PACK (2 CLOTHS)(taper/protocol) TOPICAL SCH (04:00)
[2016-12-28] MEDS: INSULIN ASPART SUPPLEMENTAL SCALE SQ SCH ×4 (06:30→21:00)
[2016-12-28 06:53] LABS: HEMATOCRIT 31.1 % (39.0-51.0); MEAN CELL VOLUME 91.9 FL (80.0-100.0); MEAN CORPUSCULAR HGB CONC 32.6 % (32.0-36.0); PLATELET COUNT 184 TH/MM3 (150-450); RED BLOOD COUNT 3.39 MIL/MM3 (4.50-5.90); RED CELL DISTRIBUTION WIDTH 16.5 % (11.6-17.2); REVIEW FLAG FINAL; WHITE BLOOD COUNT 4.2 TH/MM3 (4.0-11.0)
[2016-12-28 07:25] LABS: BICARBONATE 22.2 MEQ/L (21.0-32.0); MAGNESIUM 2.5 MG/DL (1.5-2.5); POTASSIUM 4.4 MEQ/L (3.5-5.1)
[2016-12-28] MEDS: levETIRAcetam INJ 1,000 MG in SODIUM CHLORIDE 0.9% INJ 100 ML IV SCH ×2 (07:39→22:37)
[2016-12-28] MEDS: cloNIDine HCL 0.1 MG TAB PO PRN (11:05)
--- NOTE | 2016-12-28 11:10 | HHI.PR ---
Review/Management Daily Summary 12/28 no further seizures eeg seen more alert and responsive will monitor continue keppra 1000 mg bid etc Subjective Subjective Comments No acute events reported No headache No chest pain No dyspnea Active Medications Current Medications Medications (Trade) Dose Ordered Sig/Mae Route Start Time Stop Time Status Last Admin (NS Flush) 2 ml UNSCH PRN IV FLUSH 12/27/16 03:30 (NS Flush) 2 ml BID IV FLUSH 12/27/16 09:00 12/27/16 20:28 (D50w (Vial) Inj) 25 ml UNSCH PRN IV PUSH 12/27/16 03:30 (Glucagon Inj) 1 mg UNSCH PRN OTHER 12/27/16 03:30 (Apresoline Inj) 10 mg Q4H PRN IV PUSH 12/27/16 03:45 12/27/16 07:23 Miscellaneous Information Patient in critical care unit? Ass... Q361D .XX 12/27/16 06:30 12/27/16 06:30 (Chlorhexidine 2% Cloth) 3 pack DAILY@04 TOPICAL 12/28/16 04:00 01/01/17 04:01 12/28/16 04:00 (Chlorhexidine 2% Cloth) 3 pack UNSCH PRN TOPICAL 12/27/16 06:30 01/01/17 06:24 Labetalol HCl 10 mg 10 mg Q4H PRN IV PUSH 12/27/16 08:30 12/27/16 22:12 (Keppra Inj/NS Inj) 110 ml @ 420 mls/hr Q12HR IV 12/27/16 09:00 12/28/16 07:39 Clonidine 0.1 mg 0.1 mg Q8HR PRN PO 12/27/16 10:30 12/27/16 21:18 (D5W-1/2 NS 1000 ml Inj) 1,000 ml @ 84 mls/hr [id number] IV 12/27/16 12:15 12/28/16 01:04 (Norvasc) 10 mg DAILY PO 12/28/16 09:00 12/28/16 07:40 Allergies Allergies Coded Allergies No Known Allergies (Verified11/09/16) Exam I&O / VS 12/27/16 12/27/16 12/28/16 15:00 23:00 07:00 Intake Total 450 ml 945 ml 677 ml Output Total 800 ml 950 ml 325 ml Balance -350 ml -5 ml 352 ml Intake Oral 240 ml IV Total 450 ml 705 ml 677 ml Output Urine Total 800 ml 950 ml 325 ml Vital Signs Date Time Temp Pulse Resp B/P Pulse Ox O2 Delivery O2 Flow Rate FiO2 12/28/16 10:00 53 12/28/16 08:00 97.0 73 16 154/105 100 12/28/16 08:00 53 12/28/16 06:00 67 12/28/16 04:00 69 14 130/93 100 12/28/16 04:00 69 12/28/16 02:00 75 12/28/16 00:00 73 12/28/16 00:00 97.5 73 16 130/92 100 12/27/16 22:00 67 12/27/16 20:00 75 12/27/16 20:00 97.4 75 16 131/93 100 12/27/16 16:00 97.5 89 18 136/89 100 12/27/16 12:00 97.4 91 16 176/120 100 Eye: PERRL, EOMI, Other Respiratory: Lungs CTA, BS equal, Symmetrical expansion Cardiology: Normal rate, No murmur Musculoskeletal: Tenderness Objective Micro and Labs Laboratory Tests Test 12/28/16 06:04 White Blood Count 4.2 Red Blood Count 3.39 Hemoglobin 10.2 Hematocrit 31.1 Mean Corpuscular Volume 91.9 Mean Corpuscular Hemoglobin 30.0 Mean Corpuscular Hemoglobin 32.6 Concent Red Cell Distribution Width 16.5 Platelet Count 184 Mean Platelet Volume 8.7 Sodium Level 144 Potassium Level 4.4 Chloride Level 115 Carbon Dioxide Level 22.2 Anion Gap 7 Blood Urea Nitrogen 43 Creatinine 3.31 Estimat Glomerular Filtration 24 Rate Random Glucose 86 Calcium Level 8.5 Magnesium Level 2.5 Date/Time Procedure Status Source Growth 12/27/16 00:16 Urine Culture Received Urine Catheterized Urine Pending David Martinez MD Dec 28, 2016 11:10
[2016-12-28] MEDS: hydrALAZINE HCL 50 MG TAB PO SCH ×2 (13:34→22:37)
--- NOTE | 2016-12-28 15:00 | HHI.PR ---
Subjective Remarks f/u for seizure patient has no complaints. He is asking where his clothes and phone is at. He stated that his BP usually runs high but couldn't tell me values. When I continues to ask patient he was annoyed and did not want to answer me anymore. Objective Vitals Vital Signs Date Time Temp Pulse Resp B/P Pulse Ox O2 Delivery O2 Flow Rate FiO2 12/28/16 12:00 53 12/28/16 12:00 97.0 65 16 142/101 100 12/28/16 10:00 53 12/28/16 08:00 97.0 73 16 154/105 100 12/28/16 08:00 98 12/28/16 08:00 53 12/28/16 06:00 67 12/28/16 04:00 69 14 130/93 100 12/28/16 04:00 69 12/28/16 02:00 75 12/28/16 00:00 73 12/28/16 00:00 97.5 73 16 130/92 100 12/27/16 22:00 67 12/27/16 20:00 75 12/27/16 20:00 97.4 75 16 131/93 100 12/27/16 16:00 97.5 89 18 136/89 100 I/O 12/27/16 12/27/16 12/27/16 12/28/16 12/28/16 12/28/16 07:00 15:00 23:00 07:00 15:00 23:00 Intake Total 450 ml 945 ml 677 ml Output Total 800 ml 950 ml 325 ml Balance -350 ml -5 ml 352 ml Intake Oral 240 ml IV Total 450 ml 705 ml 677 ml Output Urine Total 800 ml 950 ml 325 ml Result Diagram: 12/28/16 0604 12/28/16 0604 Objective Remarks GENERAL: in NAD and lethargic. EYES: No scleral icterus. No injection or drainage. PEARLA NECK: Supple, trachea midline. No JVD or lymphadenopathy. CARDIOVASCULAR: Regular rate and rhythm without murmurs, gallops, or rubs. RESPIRATORY: Breath sounds equal bilaterally. No accessory muscle use. GASTROINTESTINAL: Abdomen soft, non-tender, nondistended. NEURO: AAO X 3. Patient unable to move RUE. able to move other other ext. right LE 4/4 Medications and IVs Current Medications Sodium Chloride (NS Flush) 2 ml UNSCH PRN IVF FLUSH AFTER USING IV ACCESS Last administered on 12/27/16 03:13; Start 12/27/16 at 00:00; Stop 12/27/16 at 03:39 ; Status DC Diltiazem HCl (Cardizem Inj) 20 mg ONCE ONCE IV Last administered on 00:11; Start 12/27/16 at 00:00; Stop 12/27/16 at 02:26; Status DC Diltiazem HCl 20 mg 20 mg ONCE ONCE IV ; Start 12/27/16 at 00:00; Stop at 01:26; Status DC Diltiazem HCl 125 mg/Sodium Chloride 125 ml @ 0 mls/hr TITRATE IV ; Start at 00:00; Stop 12/27/16 at 01:26; Status DC Sodium Chloride (NS 1000 ml Inj) 1,000 ml @ 999 mls/hr BOLUS ONCE IV Last administered on 12/27/16 03:12; Start 12/27/16 at 01:30; Stop 12/27/16 at 02:30 ; Status DC Sodium Chloride (NS Flush) 2 ml UNSCH PRN IV FLUSH FLUSH AFTER USING IV ACCESS ; Start 12/27/16 at 03:30 Sodium Chloride (NS Flush) 2 ml BID IV FLUSH Last administered on 12/27/16 20: 28; Start 12/27/16 at 09:00 Levetriacetam (Keppra) 1,000 mg BID PO ; Start 12/27/16 at 09:00; Stop 12/27/16 at 09:00; Status DC Lisinopril (Prinivil) 20 mg DAILY PO ; Start 12/27/16 at 09:00; Stop 12/27/16 at 09:00; Status DC Dextrose (D50w (Vial) Inj) 25 ml UNSCH PRN IV PUSH HYPOGLYCEMIA-SEE COMMENTS; Start 12/27/16 at 03:30 Glucagon (Glucagon Inj) 1 mg UNSCH PRN OTHER HYPOGLYCEMIA-SEE COMMENTS; Start 12/27/16 at 03:30 Insulin Aspart (NovoLOG SUPPLEMENTAL SCALE) 1 ACHS SLIDING SCALE SQ ; Start at 07:00 Hydralazine HCl (Apresoline Inj) 10 mg Q4H PRN IV PUSH SBP>180, DBP>100 Last administered on 12/27/16 07:23; Start 12/27/16 at 03:45 Miscellaneous Information Patient in critical care unit? Ass... Q361D .XX Last administered on 12/27/16 06:30; Start 12/27/16 at 06:30 Chlorhexidine Gluconate (Chlorhexidine 2% Cloth) 3 pack DAILY@04 TOPICAL Last administered on 12/28/16 04:00; Start 12/28/16 at 04:00; Stop 01/01/17 at 04:01 Chlorhexidine Gluconate (Chlorhexidine 2% Cloth) 3 pack UNSCH PRN TOPICAL HYGIENIC CARE; Start 12/27/16 at 06:30; Stop 01/01/17 at 06:24 Labetalol HCl 10 mg 10 mg Q4H PRN IV PUSH SBP >180 or DBP >100 Last administered on 12/27/16 22:12; Start 12/27/16 at 08:30 Sodium Chloride 1,000 ml @ 70 mls/hr [id number] IV Last administered on 09:17; Start 12/27/16 at 08:30; Stop 12/27/16 at 12:05; Status DC Levetriacetam/ Sodium Chloride (Keppra Inj/NS Inj) 110 ml @ 420 mls/hr Q12HR IV Last administered on 12/28/16 07:39; Start 12/27/16 at 09:00 Clonidine (Catapres) 0.1 mg Q8HR PRN PO SBP>180 or DBP>100 Last administered on 12/28/16 11:05; Start 12/27/16 at 10:30 Amlodipine Besylate (Norvasc) 5 mg DAILY PO Last administered on 12/27/16 10: 50; Start 12/27/16 at 10:30; Stop 12/27/16 at 20:54; Status DC Dextrose 50 ml 50 ml STK-MED ONCE .ROUTE Last administered on 12/27/16 12:14; Start 12/27/16 at 11:57; Stop 12/27/16 at 11:58; Status DC Nicardipine HCl 25 mg/Sodium Chloride 260 ml @ 0 mls/hr TITRATE IV Last administered on 12/27/16 12:30; Start 12/27/16 at 12:15; Stop 12/27/16 at 18:30 ; Status DC Dextrose/Sodium Chloride (D5W-1/2 NS 1000 ml Inj) 1,000 ml @ 84 mls/hr [id number] IV Last administered on 12/28/16 13:34; Start 12/27/16 at 12:15 Amlodipine Besylate (Norvasc) 10 mg DAILY PO Last administered on 12/28/16 07: 40; Start 12/28/16 at 09:00 Hydralazine HCl (Apresoline) 50 mg Q12HR PO Last administered on 12/28/16 13: 34; Start 12/28/16 at 11:45 A/P Problem List: (1) Diabetes mellitus type 2 ICD Code: 250.00 (2) Chronic kidney disease ICD Code: N18.9 Status: Acute (3) Hypertension ICD Code: I10 Status: Acute (4) Seizure disorder ICD Code: G40.909 Status: Acute Assessment and Plan 51-year-old male who presents with: 1. Seizure disorder/questionable seizure versus altered mental status Unclear when patient last took his Keppra Was intermittently responsive during interaction with EMS, question whether seizure versus altered mental status CT head showed prior CVAs and small vessel changes without acute event EEG pending normal predominantly asleep EEG. -neurologist ff per neurologist continue with current regimen. 2. Tachycardia RESOLVED. most likely due to agitation. Telemetry 3. Acute Chronic kidney disease -IMPROVING with hydration. Patient's creatinine 3.97, BUN 55 (baseline 3) now3.33 back to baseline. Gentle hydration -avoid nephrotoxins -strict I/O. 4. Hypertension -improving. s/p cardene gtt -continue amlodipine and will add hydralazine. 5. Type 2 diabetes mellitus Sliding scale insulin Discharge Planning lethargy is improving. once cleared by neurologist can be d/c home. Laure Paulino MD Dec 28, 2016 15:00 Diabetic diet once swallow eval passed Discharge Planning d/w patient's nurse Laure Paulino MD Dec 28, 2016 15:00 Laure Paulino MD Dec 28, 2016 15:00
--- NOTE | 2016-12-28 17:31 | EKG ---
Date Performed: 12/26/2016 Time Performed: 23:47:36 PTAGE: 51 years EKG: Supraventricular tachycardia INCOMPLETE RIGHT BUNDLE BRANCH BLOCK VOLTAGE CRITERIA FOR LVH POSSIBLE SEPTAL MYOCARDIAL INFARCTION SVT is new compared to previous ABNORMAL ECG INTERPRETATION [facility] ON A DEFAULT AGE OF 40 YEARS PREVIOUS TRACING : 11/09/2016 19.17 DOCTOR: Seb Banerjee Interpretating Date/Time 12/28/2016 17:30:20
[2016-12-28] MEDS: SODIUM CHLORIDE 0.9% FLUSH 10 ML FLUSH IV FLUSH SCH (22:37)
[2016-12-28] MEDS: LABETALOL HCL 100 MG/20 ML VIAL IV PUSH PRN (22:40)
[2016-12-28] MEDS: hydrALAZINE HCL 20 MG/ML VIAL IV PUSH PRN (23:00)
[2016-12-29] VITALS (11 sets, daily range): BP systolic 134–172; BP diastolic 87–104; PULSE 67–105; RESP 10–21; TEMP 97.2–98.2; O2SAT 98–100
[2016-12-29] MEDS: DEXT 5%-NACL 0.45% 1000 ML INJ 1,000 ML IV SCH ×3 (03:41→21:29)
[2016-12-29] MEDS: CHLORHEXIDINE GLUCONATE 2 % 1 PACK (2 CLOTHS)(taper/protocol) TOPICAL SCH (04:00)
[2016-12-29] MEDS: INSULIN ASPART SUPPLEMENTAL SCALE SQ SCH ×4 (06:02→21:00)
[2016-12-29] MEDS: hydrALAZINE HCL 50 MG TAB PO SCH ×2 (09:11→21:20)
[2016-12-29] MEDS: SODIUM CHLORIDE 0.9% FLUSH 10 ML FLUSH IV FLUSH SCH ×2 (09:11→21:20)
[2016-12-29] MEDS: levETIRAcetam INJ 1,000 MG in SODIUM CHLORIDE 0.9% INJ 100 ML IV SCH ×2 (09:11→21:20)
--- NOTE | 2016-12-29 15:04 | HHI.PR ---
Subjective Remarks f/u for seizure and post ictal state Patient is found sitting right next to the bed eating his lunch. He has no complaints and stated that he is doing a lot better. Patient stated that he feels like he is back to his baseline. He also stated that he has an appointment with the neurologist on 01/14/17. Patient stated that a week before he presented to the hospital he ran out of his Keppra. Patient stated that when he is on his Keppra he does well. He has no other complaints. Objective Vitals Vital Signs Date Time Temp Pulse Resp B/P Pulse Ox O2 Delivery O2 Flow Rate FiO2 12/29/16 10:00 73 12/29/16 08:00 97.8 73 12 134/93 99 12/29/16 08:00 73 12/29/16 06:00 69 12/29/16 04:00 97.4 67 10 148/95 100 12/29/16 04:00 75 12/29/16 02:00 75 12/29/16 00:00 97.6 88 16 145/91 100 12/29/16 00:00 88 12/28/16 22:00 78 12/28/16 20:27 100 12/28/16 20:00 72 12/28/16 19:45 97.5 80 22 150/96 100 12/28/16 18:00 53 12/28/16 16:00 97.0 65 16 143/94 100 12/28/16 16:00 53 I/O 12/28/16 12/28/16 12/28/16 12/29/16 12/29/16 12/29/16 07:00 15:00 23:00 07:00 15:00 23:00 Intake Total 677 ml 970 ml 1521 ml 616 ml Output Total 325 ml 851 ml 400 ml 300 ml Balance 352 ml 119 ml 1121 ml 316 ml Intake Oral 320 ml IV Total 677 ml 650 ml 1521 ml 616 ml Output Urine Total 325 ml 850 ml 400 ml 300 ml Stool Total 1 ml Result Diagram: 12/28/1604 12/28/16 06 Objective Remarks GENERAL: in NAD eating his lunch at the bedside. EYES: No scleral icterus. No injection or drainage. PEARLA NECK: Supple, trachea midline. No JVD or lymphadenopathy. CARDIOVASCULAR: Regular rate and rhythm without murmurs, gallops, or rubs. RESPIRATORY: Breath sounds equal bilaterally. No accessory muscle use. GASTROINTESTINAL: Abdomen soft, non-tender, nondistended. NEURO: AAO X 3 and alert. Decreased movement in his left upper extremity which is his baseline. Medications and IVs Current Medications Sodium Chloride (NS Flush) 2 ml UNSCH PRN IVF FLUSH AFTER USING IV ACCESS Last administered on 12/27/16 03:13; Start 12/27/16 at 00:00; Stop 12/27/16 at 03:39 ; Status DC Diltiazem HCl (Cardizem Inj) 20 mg ONCE ONCE IV Last administered on 00:11; Start 12/27/16 at 00:00; Stop 12/27/16 at 02:26; Status DC Diltiazem HCl 20 mg 20 mg ONCE ONCE IV ; Start 12/27/16 at 00:00; Stop at 01:26; Status DC Diltiazem HCl 125 mg/Sodium Chloride 125 ml @ 0 mls/hr TITRATE IV ; Start at 00:00; Stop 12/27/16 at 01:26; Status DC Sodium Chloride (NS 1000 ml Inj) 1,000 ml @ 999 mls/hr BOLUS ONCE IV Last administered on 12/27/16 03:12; Start 12/27/16 at 01:30; Stop 12/27/16 at 02:30 ; Status DC Sodium Chloride (NS Flush) 2 ml UNSCH PRN IV FLUSH FLUSH AFTER USING IV ACCESS ; Start 12/27/16 at 03:30 Sodium Chloride (NS Flush) 2 ml BID IV FLUSH Last administered on 12/29/16 09: 11; Start 12/27/16 at 09:00 Levetriacetam (Keppra) 1,000 mg BID PO ; Start 12/27/16 at 09:00; Stop 12/27/16 at 09:00; Status DC Lisinopril (Prinivil) 20 mg DAILY PO ; Start 12/27/16 at 09:00; Stop 12/27/16 at 09:00; Status DC Dextrose (D50w (Vial) Inj) 25 ml UNSCH PRN IV PUSH HYPOGLYCEMIA-SEE COMMENTS; Start 12/27/16 at 03:30 Glucagon (Glucagon Inj) 1 mg UNSCH PRN OTHER HYPOGLYCEMIA-SEE COMMENTS; Start 12/27/16 at 03:30 Insulin Aspart (NovoLOG SUPPLEMENTAL SCALE) 1 ACHS SLIDING SCALE SQ ; Start at 07:00 Hydralazine HCl (Apresoline Inj) 10 mg Q4H PRN IV PUSH SBP>180, DBP>100 Last administered on 12/28/16 23:00; Start 12/27/16 at 03:45 Miscellaneous Information Patient in critical care unit? Ass... Q361D .XX Last administered on 12/27/16 06:30; Start 12/27/16 at 06:30 Chlorhexidine Gluconate (Chlorhexidine 2% Cloth) 3 pack DAILY@04 TOPICAL Last administered on 12/28/16 04:00; Start 12/28/16 at 04:00; Stop 01/01/17 at 04:01 Chlorhexidine Gluconate (Chlorhexidine 2% Cloth) 3 pack UNSCH PRN TOPICAL HYGIENIC CARE; Start 12/27/16 at 06:30; Stop 01/01/17 at 06:24 Labetalol HCl 10 mg 10 mg Q4H PRN IV PUSH SBP >180 or DBP >100 Last administered on 12/28/16 22:40; Start 12/27/16 at 08:30 Sodium Chloride 1,000 ml @ 70 mls/hr [id number] IV Last administered on 09:17; Start 12/27/16 at 08:30; Stop 12/27/16 at 12:05; Status DC Levetriacetam/ Sodium Chloride (Keppra Inj/NS Inj) 110 ml @ 420 mls/hr Q12HR IV Last administered on 12/29/16 09:11; Start 12/27/16 at 09:00 Clonidine (Catapres) 0.1 mg Q8HR PRN PO SBP>180 or DBP>100 Last administered on 12/28/16 11:05; Start 12/27/16 at 10:30 Amlodipine Besylate (Norvasc) 5 mg DAILY PO Last administered on 12/27/16 10: 50; Start 12/27/16 at 10:30; Stop 12/27/16 at 20:54; Status DC Dextrose 50 ml 50 ml STK-MED ONCE .ROUTE Last administered on 12/27/16 12:14; Start 12/27/16 at 11:57; Stop 12/27/16 at 11:58; Status DC Nicardipine HCl 25 mg/Sodium Chloride 260 ml @ 0 mls/hr TITRATE IV Last administered on 12/27/16 12:30; Start 12/27/16 at 12:15; Stop 12/27/16 at 18:30 ; Status DC Dextrose/Sodium Chloride (D5W-1/2 NS 1000 ml Inj) 1,000 ml @ 84 mls/hr [id number] IV Last administered on 12/29/16 03:41; Start 12/27/16 at 12:15 Amlodipine Besylate (Norvasc) 10 mg DAILY PO Last administered on 12/29/16 09: 11; Start 12/28/16 at 09:00 Hydralazine HCl (Apresoline) 50 mg Q12HR PO Last administered on 12/29/16 09: 11; Start 12/28/16 at 11:45 A/P Problem List: (1) Diabetes mellitus type 2 ICD Code: 250.00 (2) Chronic kidney disease ICD Code: N18.9 Status: Acute (3) Hypertension ICD Code: I10 Status: Acute (4) Seizure disorder ICD Code: G40.909 Status: Acute Assessment and Plan 51-year-old male who presents with: 1. Seizure disorder/questionable seizure versus altered mental status Per patient he last took his Keppra 1 week before he was admitted to the hospital. -He is currently back to his baseline. CT head showed prior CVAs and small vessel changes without acute event EEG pending normal predominantly asleep EEG. -Continue with Keppra 1000 mg by mouth twice a day. 2. Tachycardia RESOLVED. most likely due to agitation. Telemetry 3. Acute Chronic kidney disease -IMPROVING with hydration. Patient's creatinine 3.97, BUN 55 (baseline 3) now3.33 back to baseline. Gentle hydration -avoid nephrotoxins -strict I/O. 4. Hypertension -improving. s/p cardene gtt -continue amlodipine and hydralazine. 5. Type 2 diabetes mellitus Sliding scale insulin Discharge Planning Patient seems back to his baseline. Once patient is cleared by neurologist he can be discharged home. Dealt with charge nurse Bianca in regards to this. I will give patient a month's supply of Keppra which should carry him over until he sees his neurologist on 01/14/17. Laure Paulino MD Dec 29, 2016 15:04
[2016-12-29] MEDS: hydrALAZINE HCL 20 MG/ML VIAL IV PUSH PRN (21:20)
[2016-12-30] VITALS (14 sets, daily range): BP systolic 148–189; BP diastolic 92–134; PULSE 72–118; RESP 11–33; TEMP 97.7–99.1; O2SAT 95–100
[2016-12-30] MEDS: CHLORHEXIDINE GLUCONATE 2 % 1 PACK (2 CLOTHS)(taper/protocol) TOPICAL SCH (04:00)
[2016-12-30] MEDS: INSULIN ASPART SUPPLEMENTAL SCALE SQ SCH ×4 (04:56→19:38)
[2016-12-30] MEDS: hydrALAZINE HCL 50 MG TAB PO SCH ×2 (08:22→19:36)
[2016-12-30] MEDS: levETIRAcetam INJ 1,000 MG in SODIUM CHLORIDE 0.9% INJ 100 ML IV SCH ×2 (08:23→19:36)
[2016-12-30] MEDS: SODIUM CHLORIDE 0.9% FLUSH 10 ML FLUSH IV FLUSH SCH ×2 (08:23→19:37)
--- NOTE | 2016-12-30 10:50 | HHI.PR ---
Review/Management Daily Summary 12/28 no further seizures eeg seen more alert and responsive will monitor continue keppra 1000 mg bid etc [id number] no seizures sitting in chair and talking knows had seizure because of not taking meds he wants to follow neuro momin with his neuro dr Alexus logan to d/c to rehab on keppra po Subjective Subjective Comments No acute events reported No headache No chest pain No dyspnea Active Medications Current Medications Medications (Trade) Dose Ordered Sig/Mae Route Start Time Stop Time Status Last Admin (NS Flush) 2 ml UNSCH PRN IV FLUSH 12/27/16 03:30 (NS Flush) 2 ml BID IV FLUSH 12/27/16 09:00 12/30/16 08:23 (D50w (Vial) Inj) 25 ml UNSCH PRN IV PUSH 12/27/16 03:30 (Glucagon Inj) 1 mg UNSCH PRN OTHER 12/27/16 03:30 (Apresoline Inj) 10 mg Q4H PRN IV PUSH 12/27/16 03:45 12/29/16 21:20 Miscellaneous Information Patient in critical care unit? Ass... Q361D .XX 12/27/16 06:30 12/27/16 06:30 (Chlorhexidine 2% Cloth) 3 pack DAILY@04 TOPICAL 12/28/16 04:00 01/01/17 04:01 12/30/16 04:00 (Chlorhexidine 2% Cloth) 3 pack UNSCH PRN TOPICAL 12/27/16 06:30 01/01/17 06:24 Labetalol HCl 10 mg 10 mg Q4H PRN IV PUSH 12/27/16 08:30 12/28/16 22:40 (Keppra Inj/NS Inj) 110 ml @ 420 mls/hr Q12HR IV 12/27/16 09:00 12/30/16 08:23 Clonidine 0.1 mg 0.1 mg Q8HR PRN PO 12/27/16 10:30 12/28/16 11:05 (D5W-1/2 NS 1000 ml Inj) 1,000 ml @ 84 mls/hr [id number] IV 12/27/16 12:15 12/29/16 21:29 (Norvasc) 10 mg DAILY PO 12/28/16 09:00 12/30/16 08:22 (Apresoline) 50 mg Q12HR PO 12/28/16 11:45 12/30/16 08:22 Allergies Allergies Coded Allergies No Known Allergies (Verified11/09/16) Exam I&O / VS 12/29/16 12/29/16 12/30/16 15:00 23:00 07:00 Intake Total 576 ml 670 ml Output Total 500 ml 900 ml Balance 76 ml -230 ml IV Total 576 ml 670 ml Output Urine Total 500 ml 900 ml # Voids 2 # Bowel Movements 1 Vital Signs Date Time Temp Pulse Resp B/P Pulse Ox O2 Delivery O2 Flow Rate FiO2 12/30/16 10:00 112 12/30/16 09:41 98 21 12/30/16 08:00 99.1 84 23 168/109 98 12/30/16 08:00 84 12/30/16 06:00 72 12/30/16 04:00 84 12/30/16 04:00 97.7 84 11 148/92 100 12/30/16 02:00 81 12/30/16 00:00 118 12/30/16 00:00 98.0 118 33 189/134 100 12/29/16 22:00 105 12/29/16 20:00 83 12/29/16 20:00 98.2 83 13 153/104 98 12/29/16 16:00 88 12/29/16 16:00 98.1 98 20 143/87 98 12/29/16 14:00 92 12/29/16 12:00 86 12/29/16 12:00 97.2 91 21 172/92 99 Eye: PERRL, EOMI, Other Respiratory: Lungs CTA, BS equal, Symmetrical expansion Cardiology: Normal rate, No murmur Musculoskeletal: Tenderness Objective Micro and Labs Date/Time Procedure Status Source Growth 12/27/16 00:16 Urine Culture - Final Complete Urine Catheterized Urine NO GROWTH IN 48 HOURS. David Martinez MD Dec 30, 2016 10:50
[2016-12-30] MEDS ORDERED: AMLO10 PO (10:53)
[2016-12-30] MEDS ORDERED: HYDR50TA15 PO (10:53)
--- NOTE | 2016-12-30 10:53 | HHI.DS ---
Discharge Summary Admission Date Dec 27, 2016 at 02:26 Discharge Date: Dec 30, 2016 Admitting Diagnosis Seizures, AMS (1) Seizure disorder ICD Code: G40.909 Diagnosis: Principal (2) Diabetes mellitus type 2 ICD Code: 250.00 Diagnosis: Secondary (3) Chronic kidney disease ICD Code: N18.9 Diagnosis: Secondary (4) Noncompliance with medications ICD Code: Z91.14 Diagnosis: Principal (5) Uncontrolled hypertension ICD Code: I10 Diagnosis: Principal Procedures See hospital course. Brief History - From Admission 51-year-old male with past medical history significant for seizure disorder for which he takes Keppra, CVA, hypertension, and diabetes mellitus was brought into the emergency department by EMS. He was with friends when he began seizing. EMS reports seizure-like activity with a leftward conjugate gaze. He was given 2 mg of Ativan 3 by EMS prior to arrival in the emergency department. The patient was apparently answering questions at various points in time throughout EMS transport. Upon arrival to the emergency department the patient was unable to participate in the history of present illness. He does respond to sternal rub and will open his eyes on command. CBC/BMP: 12/28/16 0604 12/28/16 0604 Significant Findings Laboratory Tests Test 12/28/16 06:04 Red Blood Count 3.39 MIL/MM3 (4.50-5.90) Hemoglobin 10.2 GM/DL (13.0-17.0) Hematocrit 31.1 % (39.0-51.0) Chloride Level 115 MEQ/L (98-107) Blood Urea Nitrogen 43 MG/DL (7-18) Creatinine 3.31 MG/DL (0.60-1.30) Estimat Glomerular Filtration 24 ML/MIN (>89) Rate Imaging Last Impressions Head CT 12/26/16 0000 Signed Impressions: Service Date/Time: Monday, December 26, 2016 23:48 - CONCLUSION: 1. No acute intracranial abnormality. 2. Prior infarctions as detailed above. 3. Chronic small vessel ischemic change. Gume Shahid Jr., MD PE at Discharge GENERAL: in NAD eating his lunch at the bedside. EYES: No scleral icterus. No injection or drainage. PEARLA NECK: Supple, trachea midline. No JVD or lymphadenopathy. CARDIOVASCULAR: Regular rate and rhythm without murmurs, gallops, or rubs. RESPIRATORY: Breath sounds equal bilaterally. No accessory muscle use. GASTROINTESTINAL: Abdomen soft, non-tender, nondistended. NEURO: AAO X 3 and alert. Decreased movement in his left upper extremity which is his baseline. Pt update on day of discharge Follow-up for seizure post ictal state Patient denied any complaints. he stated he is back to his baseline. He has not had any seizure activity since he was admitted to the hospital. Hospital Course 51-year-old male who presents with seizure and is now post ictal 1. Seizure disorder Per patient he last took his Keppra 1 week before he was admitted to the hospital. -CT head showed prior CVAs and small vessel changes without acute event -Patient was started And he was postictal for a couple days. Likely cause of seizure is due to noncompliance as patient hasn't been on his Keppra for 1 week prior to hospitalization. -He had a EEG done which was relatively normal. At the time of discharge patient was back to his baseline. -He is currently back to his baseline. 2. Tachycardia -Initially presented with tachycardia but that resolved quickly. -most likely due to agitation. Telemetry 3. Acute Chronic kidney disease -IMPROVING with hydration. Most likely secondary to dehydration due to seizures. Patient's creatinine 3.97, BUN 55 (baseline 3) now3.33 back to baseline. Gentle hydration -avoid nephrotoxins -strict I/O. 4. Hypertension -Usually uncontrolled. Per patient he does run high but is unsure the value. He was given amlodipine and multiple IV dose of medication with no improvement so was put on the Cardene drip. Blood pressure quickly improved where he was able to be weaned off. Hydralazine was then added. His lisinopril was held secondary to renal sufficiency. Patient to follow-up with his PCP regards lisinopril. 5. Type 2 diabetes mellitus -during hospital course sugars were well controlled. Sliding scale insulin Pt Condition on Discharge: Good Discharge Disposition: Discharge to SNF Discharge Time: <= 30 minutes Discharge Instructions DIET: Follow Instructions for: Heart Healthy Diet, Diabetic Diet Activities you can perform: Regular-No Restrictions Activities to Avoid: Driving Other Activity Instructions: Patient stated that he cannot drive, operate heavy machinery, or swimming alone for at least 6 months or until cleared by his neurologist. Follow up Referrals: Neurology - 2 Weeks SNF/[facility]/HH - 2 Days New Medications: Amlodipine (Norvasc) 10 Mg Tab 10 MG PO DAILY hypertension #30 Ref 0 TAB Hydralazine (Hydralazine) 50 Mg Tab 50 MG PO Q12HR hypertension #60 Ref 0 TAB Continued Medications: Levetiracetam (Keppra) 1,000 Mg Tab 1000 MG PO BID Control Seizures #60 Ref 0 TAB Discontinued Medications: Lisinopril (Lisinopril) 20 Mg Tab 20 MG PO DAILY #30 Ref 0 TAB Lisinopril (Lisinopril) 20 Mg Tab 20 MG PO DAILY Days 7 Ref 0 TAB Laure Paulino MD Dec 30, 2016 10:53
--- NOTE | 2016-12-30 10:53 | HHI.DCPOC ---
Discharge Care Plan Diagnosis: (1) Seizure disorder (2) Chronic kidney disease Goals to Promote Your Health * To prevent worsening of your condition and complications * To maintain your health at the optimal level Directions to Meet Your Goals Take your medications as prescribed Follow your dietary instruction Follow activity as directed Keep your appointments as scheduled Take your immunizations and boosters as scheduled If your symptoms worsen call your PCP, if no PCP go to Urgent Care Center or Emergency Room Smoking is Dangerous to Your Health. Avoid second hand smoke Call the 24-hour hour crisis hotline for domestic abuse at Laure Paulino MD Dec 30, 2016 10:53
[2016-12-30] MEDS: DEXT 5%-NACL 0.45% 1000 ML INJ 1,000 ML IV SCH ×2 (11:46→23:40)
[2016-12-31] VITALS (8 sets, daily range): BP systolic 142–160; BP diastolic 93–106; PULSE 71–103; RESP 11–22; TEMP 97.8–98.6; O2SAT 95–98
[2016-12-31] MEDS: CHLORHEXIDINE GLUCONATE 2 % 1 PACK (2 CLOTHS)(taper/protocol) TOPICAL SCH (04:00)
[2016-12-31] MEDS: INSULIN ASPART SUPPLEMENTAL SCALE SQ SCH ×2 (07:00→11:00)
[2016-12-31] MEDS: hydrALAZINE HCL 50 MG TAB PO SCH (07:49)
[2016-12-31] MEDS: levETIRAcetam INJ 1,000 MG in SODIUM CHLORIDE 0.9% INJ 100 ML IV SCH (07:51)
[2016-12-31] MEDS: SODIUM CHLORIDE 0.9% FLUSH 10 ML FLUSH IV FLUSH SCH (07:51)
[2016-12-31] MEDS: DEXT 5%-NACL 0.45% 1000 ML INJ 1,000 ML IV SCH (07:52)
== END 2016-12-31 13:44 | DRG 101 ==
LOC: NEPC 23:42 → NEDA 12-27 02:26 → HIME 12-27 06:15
PROVIDERS: ADMIT Family Medicine; ATTEND Family Medicine
DX: G40.909 Epilepsy, unspecified, not intractable, without status epilepticus (principal); E11.22 Type 2 diabetes mellitus with diabetic chronic kidney disease; I69.354 Hemiplegia and hemiparesis following cerebral infarction affecting left non-dominant side; I12.9 Hypertensive chronic kidney disease with stage 1 through stage 4 chronic kidney disease, or unspecified chronic kidney disease; R00.0 Tachycardia, unspecified; E86.0 Dehydration; N18.9 Chronic kidney disease, unspecified; Z79.4 Long term (current) use of insulin; Z91.14 Patient's other noncompliance with medication regimen
CPT/HCPCS: 70450; 80048; 80053; 80177; 80307; 81001; 82550; 82948; 83735; 84484; 85025; 85027; 87086; 87641; 93005; 95819; 96374; J0360; J1815; J1953; J7030; J7050; P9612

== ENCOUNTER 2017-01-03 02:49 | Emergency (ER) | payer OTHER ==
[~2017-01-03] VITALS: Ht 185.4 cm; Wt 82.0 kg
[2017-01-03] VITALS (7 sets, daily range): BP systolic 148–178; BP diastolic 92–112; PULSE 72–115; RESP 14–20; TEMP 97.8; O2SAT 94–98
[~2017-01-03 02:49] MED LIST changes: +AMLO10 PO; +HYDR50TA15 PO; -LISI-515 PO
--- NOTE | 2017-01-03 03:24 | PD ---
HPI Chief Complaint: Respiratory Distress Time Seen by Provider: 03:19 Travel History International Travel<30 days: No Contact w/Intl Traveler<30days: No Traveled to known affect area: No History of Present Illness HPI 50 year-old male presents to the emergency department by EMS transport non- emergently from [facility]. Patient is a recent resident of [facility] where he was admitted after hospital admission for seizure. 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 Here patient denies any pain. Patient states that he cannot breathe out of his nose and can only breathe through his mouth. Patient presents with dry oral mucous membranes. Patient denies any recent injury or fall. Patient denies chest pain. Patient denies fever or chills. Patient denies any pain, intensity 0/10. No recent seizure activity. Patient has been compliant with medications are provided by [facility] staff. [facility] Past Medical History Narrative Medical Asthma, dyslipidemia, CVA with left-sided weakness, diabetes, hypertension, seizure; no surgeries; denies alcohol or tobacco use: Nursing notes reviewed Asthma: Yes Blood Disorders: No Cancer: No High Cholesterol: Yes Cerebrovascular Accident: Yes Diabetes: Yes Patient Takes Glucophage: No Diminished Hearing: No Genitourinary: No Hypertension: Yes Psychiatric: No Reproductive: No Respiratory: Yes Seizures: Yes Past Surgical History AICD: No Genitourinary Surgery: No Pacemaker: No Other Surgery: No Social History Alcohol Use: No (unknown ) Tobacco Use: Yes (unknown) Substance Use: No Allergies-Medications (Allergen,Severity, Reaction): Coded Allergies: No Known Allergies (Verified , 01/03/17) Reported Meds & Prescriptions Reported Meds & Active Scripts Active Hydralazine (Hydralazine HCl) 50 Mg Tab 50 Mg PO Q12HR Norvasc (Amlodipine Besylate) 10 Mg Tab 10 Mg PO DAILY Keppra (Levetiracetam) 1,000 Mg Tab 1,000 Mg PO BID Reported Nicotine Patch (Nicotine) 21 Mg/24 Hr Patch 21 Mg T-DERMAL DAILY Vasotec (Enalapril Maleate) 10 Mg Tab 10 Mg PO DAILY Review of Systems Except as stated in HPI: all other systems reviewed are Neg General / Constitutional: No: Fever, Chills HENT: No: Headaches, Congestion Cardiovascular: No: Chest Pain or Discomfort Respiratory: Positive: Shortness of Breath, No: Cough Gastrointestinal: No: Nausea, Vomiting, Abdominal Pain Genitourinary: No: Flank Pain Musculoskeletal: No: Myalgias, Arthralgias, Edema Skin: No Rash Neurologic: No: Weakness, Syncope Psychiatric: No: Anxiety Hematologic/Lymphatic: No: Lymph Node Enlargement Physical Exam Narrative GENERAL: Well-developed adult male in no acute distress no respiratory distress some mild hoarseness of speech without stridor. SKIN: Warm and dry. HEAD: Normocephalic. EYES: No scleral icterus. No injection or drainage. NECK: Supple, trachea midline. No JVD or lymphadenopathy. CARDIOVASCULAR: Regular rate and rhythm without murmurs, gallops, or rubs. RESPIRATORY: Breath sounds equal bilaterally few prolonged expiratory wheezes. No accessory muscle use. GASTROINTESTINAL: Abdomen soft, non-tender, nondistended. MUSCULOSKELETAL: No cyanosis, or edema. BACK: Nontender without obvious deformity. No CVA tenderness. Data Data Last Documented VS Vital Signs Date Time Temp Pulse Resp B/P Pulse Ox O2 Delivery O2 Flow Rate FiO2 01/03/17 06:56 99 18 159/105 94 01/03/17 06:48 Room Air 01/03/17 02:52 97.8 Orders Complete Blood Count With Diff (01/03/17 03:19) Basic Metabolic Panel (Bmp) (01/03/17 03:19) B-Type Natriuretic Peptide (01/03/17 03:19) Act Partial Throm Time (Ptt) (01/03/17 03:19) Prothrombin Time / Inr (Pt) (01/03/17 03:19) Magnesium (Mg) (01/03/17 03:19) Troponin I (01/03/17 03:19) Iv Access Insert/Monitor (01/03/17 03:19) Electrocardiogram (01/03/17 03:19) Ecg Monitoring (01/03/17 03:19) Oximetry (01/03/17 03:19) Oxygen Administration (01/03/17 03:19) Chest, Single Ap (01/03/17 03:19) Sodium Chloride 0.9% Flush (Ns Flush) (01/03/17 03:30) Urinalysis - C+S If Indicated (01/03/17 05:19) Urinary Catheter Insert/Apply (01/03/17 05:19) Sodium Chlor 0.9% 250 Ml Inj (Ns 250 Ml (01/03/17 06:15) Sodium Chlor 0.9% 1000 Ml Inj (Ns 1000 M (01/03/17 06:15) Labetalol Inj (Trandate Inj) (01/03/17 06:15) Urine Culture (01/03/17 05:56) Ceftriaxone Inj (Rocephin Inj) (01/03/17 06:45) Amlodipine (Norvasc) (01/03/17 06:45) Levetiracetam (Keppra) (01/03/17 06:45) Labetalol Inj (Trandate Inj) (01/03/17 07:45) Labs Laboratory Tests Test 01/03/17 01/03/17 03:23 05:56 White Blood Count 7.9 TH/MM3 Red Blood Count 3.43 MIL/MM3 Hemoglobin 10.5 GM/DL Hematocrit 31.5 % Mean Corpuscular Volume 91.9 FL Mean Corpuscular Hemoglobin 30.5 PG Mean Corpuscular Hemoglobin 33.2 % Concent Red Cell Distribution Width 16.5 % Platelet Count 277 TH/MM3 Mean Platelet Volume 8.2 FL Neutrophils (%) (Auto) 89.5 % Lymphocytes (%) (Auto) 5.8 % Monocytes (%) (Auto) 4.3 % Eosinophils (%) (Auto) 0.0 % Basophils (%) (Auto) 0.4 % Neutrophils # (Auto) 7.1 TH/MM3 Lymphocytes # (Auto) 0.5 TH/MM3 Monocytes # (Auto) 0.3 TH/MM3 Eosinophils # (Auto) 0.0 TH/MM3 Basophils # (Auto) 0.0 TH/MM3 CBC Comment DIFF FINAL Differential Comment Prothrombin Time 10.0 SEC Prothromb Time International 0.9 RATIO Ratio Activated Partial 28.5 SEC Thromboplast Time Sodium Level 143 MEQ/L Potassium Level 4.7 MEQ/L Chloride Level 112 MEQ/L Carbon Dioxide Level 23.0 MEQ/L Anion Gap 8 MEQ/L Blood Urea Nitrogen 44 MG/DL Creatinine 3.50 MG/DL Estimat Glomerular Filtration 22 ML/MIN Rate Random Glucose 164 MG/DL Calcium Level 9.0 MG/DL Magnesium Level 2.6 MG/DL Troponin I 0.03 NG/ML B-Type Natriuretic Peptide 30 PG/ML Urine Color YELLOW Urine Turbidity HAZY Urine pH 5.5 Urine Specific [place] 1.013 Urine Protein 100 mg/dL Urine Glucose (UA) NEG mg/dL Urine Ketones NEG mg/dL Urine Occult Blood NEG Urine Nitrite NEG Urine Bilirubin NEG Urine Urobilinogen LESS THAN 2.0 MG/DL Urine Leukocyte Esterase NEG Urine RBC 2 /hpf Urine WBC LESS THAN 1 /hpf Urine Bacteria MOD /hpf Urine Mucus FEW /lpf Microscopic Urinalysis Comment CATH-CULTURE IND MDM Medical Decision Making Medical Screen Exam Complete: Yes Emergency Medical Condition: Yes Medical Record Reviewed: Yes Interpretation(s) EKG: Sinus tachycardia rate 109 left atrial enlargement left axis deviation and LVH incomplete right bundle-branch block no acute ST elevation or injury pattern change noted Last Impressions Chest X-Ray 01/03/17318 Signed Impressions: Service Date/Time: Tuesday, January 03, 2017 03:51 - CONCLUSION: Mild bibasilar atelectasis. Horacio Rivera MD CBC & BMP Diagram 01/03/17 03:23 Troponin I: 0.03, within normal range Urinalysis: Catheterized specimen moderate bacteria cultures indicated patient given first dose of IV antibiotic Rocephin 1 g Differential Diagnosis Reactive airways disease, bronchitis, viral syndrome, laryngitis, ACS, MO, PE Narrative Course Patient with complaint of shortness of breath stating he can't breathe through his nose noted to be tachycardic and hypertensive; specimens collected and sent for resulting Patient complaint nurse that he needed to urinate but was unable to do so urinary catheter was placed and patient was identified to have urinary retention of 900 cc of urine urinary catheter In place and specimen sent for resulting improvement blood pressure and heart rate Patient remains hypertensive with recent hospitalization with difficult management of his blood pressure requiring nicardipine infusion during hospitalization. Labetalol 10 mg IV administered At 8 AM blood pressure 146/106 heart rate 85 and sinus rhythm room air O2 saturation 98% patient reports he feels improved is desirous of being discharged ; patient has just completed or IV antibiotic and is stable for outpatient management will be return to [facility] to continue with blood pressure management ongoing seizure medications and new prescription for antibiotic for UTI. Diagnosis Primary Impression: UTI (urinary tract infection) Qualified Code: N30.00 - Acute cystitis without hematuria Additional Impressions: HTN (hypertension) Qualified Code: I10 - Essential hypertension Chronic kidney disease Qualified Code: N18.9 - Chronic kidney disease, unspecified stage Referrals: Primary Care Physician 2 days Patient Instructions: General Instructions Additional Instructions: Continue current medications as prescribed Complete course of antibiotic Return to the emergency department for any concerns or change in condition Follow-up with primary care provider to have urinary catheter removed in 2 days Take acetaminophen/Tylenol every 4 hours as needed for fever 100.4F or greater Med/Other Pt SpecificInfo: Prescription(s) given Scripts Cephalexin (Keflex)500 Mg [id number] Mg PO Q6H 7 Days Ref 0 Prov:Adrienne Frias MD 01/03/17 Disposition: 01 DISCHARGE HOME Condition: Stable Adrienne Frias MD Jan 03, 2017 03:23
[2017-01-03] MEDS ORDERED: SODIUM CHLORIDE 0.9% FLUSH 10 ML FLUSH IVF PRN (03:30)
[2017-01-03 03:37] LABS: AUTOMATED NEUTROPHIL # 7.1 TH/MM3 (1.8-7.7); BASOPHIL % 0.4 % (0.0-2.0); HEMATOCRIT 31.5 % (39.0-51.0); HEMO FLAGS DIFF FINAL; LYMPH % 5.8 % (9.0-44.0); LYMPHOCYTE # 0.5 TH/MM3 (1.0-4.8); MEAN CELL VOLUME 91.9 FL (80.0-100.0); MEAN CORPUSCULAR HEMOGLOBIN 30.5 PG (27.0-34.0); MEAN CORPUSCULAR HGB CONC 33.2 % (32.0-36.0); MONO % 4.3 % (0.0-8.0); NEUT % 89.5 % (16.0-70.0); PLATELET COUNT 277 TH/MM3 (150-450); RED BLOOD COUNT 3.43 MIL/MM3 (4.50-5.90); RED CELL DISTRIBUTION WIDTH 16.5 % (11.6-17.2); WHITE BLOOD COUNT 7.9 TH/MM3 (4.0-11.0)
[2017-01-03 03:49] LABS: APTT (PATIENT) 28.5 SEC (24.3-30.1); INTERNATIONAL NORMALIZED RATIO 0.9 RATIO
[2017-01-03 04:05] LABS: MAGNESIUM 2.6 MG/DL (1.5-2.5); POTASSIUM 4.7 MEQ/L (3.5-5.1)
--- NOTE | 2017-01-03 04:28 | RADRPT ---
EXAM DATE/TIME: 01/03/2017 03:51 [facility] COMPARISON: CHEST SINGLE AP, January 20, 2016, 16:41. INDICATIONS : Short of breath. MEDICAL HISTORY : Hypertension. SURGICAL HISTORY : None. ENCOUNTER: Initial ACUITY: 1 day PAIN SCORE: 6/10 LOCATION: Bilateral chest FINDINGS: There is mild bibasilar atelectasis. No pleural effusion seen. No pneumothorax. Heart size upper limits of normal. Thoracic aorta is mildly tortuous. CONCLUSION: Mild bibasilar atelectasis. Horacio Rivera MD on January 03, 2017 at 4:25 Board Certified Radiologist. This report was verified electronically.
[2017-01-03] MEDS ORDERED: SODIUM CHLOR 0.9% 1000 ML INJ 1,000 ML IV SCH (06:15)
[2017-01-03] MEDS ORDERED: SODIUM CHLOR 0.9% 250 ML INJ 250 ML IV ONE (06:15)
[2017-01-03] MEDS ORDERED: LABETALOL HCL 100 MG/20 ML VIAL IV PUSH ONE ×2 (06:15→07:45)
[2017-01-03 06:23] LABS: BACTERIA, URINE MOD /hpf; BLOOD, URINE NEG (NEG); COMMENT (UR) CATH-CULTURE IND; CULTURE IF INDICATED CATH CULTURE IND; GLUCOSE,URINE NEG (NEG); KETONE, URINE NEG (NEG); MUCUS URINE FEW /lpf (OCC); NITRITE,URINE NEG (NEG); PH, URINE 5.5 (5.0-8.5); URINE COLOR YELLOW (YELLW/STRAW)
[2017-01-03] MEDS ORDERED: NICO21DI2 T-DERMAL (06:39)
[2017-01-03] MEDS ORDERED: VASO10TA8 PO (06:39)
[2017-01-03] MEDS ORDERED: cefTRIAXone INJ 1,000 MG in SODIUM CHLORIDE 0.9% INJ 100 ML IV ONE (06:45)
[2017-01-03] MEDS ORDERED: levETIRAcetam 500 MG TAB PO ONE (06:45)
[2017-01-03] MEDS ORDERED: CEPH-460 PO (08:18)
--- NOTE | 2017-01-03 18:41 | EKG ---
Date Performed: 01/03/2017 Time Performed: 03:32:20 PTAGE: 51 years EKG: SINUS TACHYCARDIA POSSIBLE LEFT ATRIAL ENLARGEMENT MARKED LEFT AXIS DEVIATION INCOMPLETE RI GHT BUNDLE BRANCH BLOCK POSSIBLE LEFT VENTRICULAR HYPERTROPHY NONSPECIFIC T-WAVE ABNORMALITY ABNORMAL ECG PREVIOUS TRACING : 12/26/2016 23.47 Compared to the previous tracing rate slower DOCTOR: Mallory Estrada Interpretating Date/Time 01/03/2017 18:40:14
== END 2017-01-03 10:44 | disposition home or self-care (01) ==
LOC: NEPC 02:49
DX: N39.0 Urinary tract infection, site not specified (principal); I12.9 Hypertensive chronic kidney disease with stage 1 through stage 4 chronic kidney disease, or unspecified chronic kidney disease; R00.0 Tachycardia, unspecified; R06.02 Shortness of breath; I45.10 Unspecified right bundle-branch block; J45.909 Unspecified asthma, uncomplicated; E78.00 Pure hypercholesterolemia, unspecified; E11.9 Type 2 diabetes mellitus without complications; Z72.0 Tobacco use; R94.31 Abnormal electrocardiogram [ECG] [EKG]
CPT/HCPCS: 51702; 71010; 80048; 81001; 83735; 83880; 84484; 85025; 85610; 85730; 87086; 93005; 96365; 96375; 96376; 99284; J0696; J7030

== ENCOUNTER 2017-02-17 13:02 | Emergency (ER) | payer OTHER ==
[~2017-02-17] VITALS: Ht 182.9 cm; Wt 100.0 kg
[~2017-02-17 13:02] MED LIST changes: +CEPH-460 PO; +NICO21DI2 T-DERMAL; +VASO10TA8 PO
[2017-02-17 13:13] VITALS: BP 173/126; PULSE 72; RESP 20; TEMP 98.7; O2SAT 98
--- NOTE | 2017-02-17 13:18 | PD ---
Physical Exam Time Seen by Provider: 13:13 Narrative 51 year old male brought in by ambulance for evaluation of elevated BP & dizziness. Patients behavioral health care coordinator called EMS after she checked his blood pressure and it was apparently high. The actual reading is unknown. Patient reports dizziness x 30 minutes. He denies headache, visual changes, chest pain, or sob. Hx of previous stroke with left sided deficits. Patient seen at triage desk. VS reviewed. Patient waiting bed placement. MDM Supervised Visit with EDINSON: Esthela Palafox Feb 17, 2017 13:18
[2017-02-17] MEDS ORDERED: LISI-515 PO ×2 (13:26→13:41)
--- NOTE | 2017-02-17 13:26 | PD ---
HPI . here for elevated bp and refills Chief Complaint: Hypertension Time Seen by Provider: 13:26 Travel History International Travel<30 days: No Contact w/Intl Traveler<30days: No Traveled to known affect area: No History of Present Illness HPI 51-year-old male with history of hypertension, diabetes, CVA in 2013 here with complaints of elevated blood pressure. Patient was brought in by EMS due to elevated blood pressure. He tells me that he ran out of his blood pressure medications about a week ago as he was doubling up to keep his blood pressure under control. He tells me he called his primary care provider Dr. Garcia and was told that they would not provide him with early refills on lisinopril, therefore he decided to come to the emergency department. The tells me that he needs a refill on his Keppra as he took his last pill today. He tells me he was dizzy. He has no dizziness now. He says he intermittently gets dizzy at home. He denies any other issues. He has no complaints. PFSH Past Medical History Asthma: Yes Blood Disorders: No Cancer: No High Cholesterol: Yes Cerebrovascular Accident: Yes (2013) Diabetes: Yes Diminished Hearing: No Genitourinary: No Hypertension: Yes Psychiatric: No Reproductive: No Respiratory: Yes Seizures: Yes Past Surgical History AICD: No Genitourinary Surgery: No Pacemaker: No Other Surgery: No Social History Alcohol Use: No (unknown ) Tobacco Use: Yes (unknown) Substance Use: No Allergies-Medications (Allergen,Severity, Reaction): Coded Allergies: No Known Allergies (Verified , 02/17/17) Reported Meds & Prescriptions Reported Meds & Active Scripts Active Lisinopril 20 Mg Tab 20 Mg PO BID 30 Days Keppra (Levetiracetam) 1,000 Mg Tab 1,000 Mg PO BID 30 Days Review of Systems General / Constitutional: No: Fever Eyes: No: Visual changes HENT: No: Headaches Cardiovascular: No: Chest Pain or Discomfort Respiratory: No: Shortness of Breath Gastrointestinal: No: Abdominal Pain Genitourinary: No: Dysuria Musculoskeletal: No: Pain Skin: No Rash Neurologic: No: Weakness Psychiatric: No: Depression Endocrine: No: Polydipsia Hematologic/Lymphatic: No: Easy Bruising Physical Exam Narrative GENERAL: AAO x 3, no acute distress, Well-nourished, well-developed patient. SKIN: Warm and dry. No visible rashes or bruising. HEAD: Normocephalic and atraumatic. EYES: No scleral icterus. No injection or drainage. EOM intact, PERRLA ENT: No nasal drainage noted. Mucous membranes pink. Airway patent. left sided facial droop (chronic due to old CVA) NECK: Supple, trachea midline. No JVD. CARDIOVASCULAR: Regular rate and rhythm without murmurs, gallops, or rubs. RESPIRATORY: Breath sounds equal bilaterally. No accessory muscle use. No rhonchi or rales. GASTROINTESTINAL: Abdomen soft, non-tender, nondistended. EXTREMITIES: No cyanosis or edema. BACK: Nontender without obvious deformity. No CVA tenderness. 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 Data Data Last Documented VS Vital Signs Date Time Temp Pulse Resp B/P Pulse Ox O2 Delivery O2 Flow Rate FiO2 02/17/17 13:50 186/121 02/17/17 13:13 98.7 72 20 98 Room Air Orders Lisinopril (Prinivil) (02/17/17 14:00) MDM Medical Decision Making Medical Screen Exam Complete: Yes Emergency Medical Condition: Yes Medical Record Reviewed: Yes Differential Diagnosis Uncontrolled hypertension, medication refill, Narrative Course 51-year-old male here with complaints of hypertension. Patient requesting refills on his lisinopril and Keppra. I've advised him that I will provide him with refills, but ultimately he will need to follow-up with his primary care provider. He is currently asymptomatic and only here for medication refills at they were declined by his primary care provider. Patient verbalized understanding of instructions, questions were answered, and thanked me for their care. I advised them if their condition worsens, please return to the nearest emergency room for further care. Diagnosis Primary Impression: HTN (hypertension) Qualified Code: I10 - Essential hypertension Additional Impression: Encounter for medication refill Patient Instructions: General Instructions Med/Other Pt SpecificInfo: Prescription(s) given Scripts Lisinopril 20 Mg Tab20 Mg PO BID 30 Days Ref 0 Prov:Marta Polanco MD 02/17/17 Levetiracetam (Keppra)1,000 Mg Tab1,000 Mg PO BID 30 Days Ref 0 Prov:Marta Polanco MD 02/17/17 Disposition: 01 DISCHARGE HOME Condition: Stable Leela Rodriguez Feb 17, 2017 13:26
[2017-02-17 13:31] VITALS: BP 195/125
[2017-02-17] MEDS ORDERED: KEPP10002 PO (13:41)
[2017-02-17 13:50] VITALS: BP 186/121
[2017-02-17] MEDS ORDERED: LISINOPRIL 20 MG TAB PO ONE (14:00)
== END 2017-02-17 14:51 | disposition home or self-care (01) ==
LOC: NEPD 13:02
DX: I10 Essential (primary) hypertension (principal); Z76.0 Encounter for issue of repeat prescription
CPT/HCPCS: 99284

== ENCOUNTER 2017-04-04 10:59 | Inpatient (IN) | payer OTHER, MEDICARE ==
[~2017-04-04] VITALS: Ht 188 cm; Wt 75.0 kg
[~2017-04-04 10:59] MED LIST changes: -AMLO10 PO; -CEPH-460 PO; -HYDR50TA15 PO; +LISI-515 PO; -NICO21DI2 T-DERMAL; -VASO10TA8 PO
[2017-04-04 11:12] VITALS: BP 197/123; PULSE 59; RESP 20; TEMP 98.3; O2SAT 100
--- NOTE | 2017-04-04 11:14 | PD ---
HPI Chief Complaint: Numbness/Tingling Time Seen by Provider: 11:11 Travel History International Travel<30 days: No Contact w/Intl Traveler<30days: No History of Present Illness HPI 51 YO M with PMH of HTN, CKD, DMT2, seizures, stroke with residual left sided deficit presents to the ED via EMS for evaluation of ~2 hour history of numbness and tingling of the "middle of my body." Onset gradual, as he was eating breakfast. Accompanied by dull headache. Patient states that symptoms resolved spontaneously after "30 minutes or so." Asymptomatic on presentation. Denies dizziness, speech difficulties, memory problems, changes in physical deficits. He states that these symptoms are similar to aura of seizure in the past. Patient states that he has been out of lisinopril and Keppra for two weeks. Also states that he hasn't taken ASA or blood thinners "in a while." PCP Dr. Garcia. [facility] Past Medical History Asthma: Yes (child) Blood Disorders: No Cancer: No High Cholesterol: Yes Cerebrovascular Accident: Yes (2014) Diabetes: Yes Diminished Hearing: No Genitourinary: No Hypertension: Yes Psychiatric: No Reproductive: No Respiratory: Yes Seizures: Yes Past Surgical History AICD: No Genitourinary Surgery: No Pacemaker: No Other Surgery: No Social History Alcohol Use: No Tobacco Use: Yes Substance Use: No Allergies-Medications (Allergen,Severity, Reaction): Coded Allergies: No Known Allergies (Verified , 02/17/17) Reported Meds & Prescriptions Reported Meds & Active Scripts Active Lisinopril 20 Mg Tab 20 Mg PO BID 30 Days Keppra (Levetiracetam) 1,000 Mg Tab 1,000 Mg PO BID 30 Days Review of Systems Except as stated in HPI: all other systems reviewed are Neg Physical Exam Narrative GENERAL: Well-nourished, well-developed AA male in NAD. SKIN: Focused skin assessment warm/dry. HEAD: Normocephalic. EYES: No scleral icterus. No injection or drainage. NECK: Supple, trachea midline. No JVD or lymphadenopathy. CARDIOVASCULAR: Regular rate and rhythm without murmurs, gallops, or rubs. RESPIRATORY: Breath sounds equal bilaterally. No accessory muscle use. GASTROINTESTINAL: Abdomen soft, non-tender, nondistended. MUSCULOSKELETAL: No cyanosis, or edema. NEUROLOGICAL: Awake and alert. Cranial nerves II through XII intact. Motor and sensory grossly within normal limits. Left sided deficit of strength which the patient states is his normal. Normal speech. No pronator drift. BACK: Nontender without obvious deformity. No CVA tenderness. Data Data Last Documented VS Vital Signs Date Time Temp Pulse Resp B/P Pulse Ox O2 Delivery O2 Flow Rate FiO2 04/04/17 12:40 61 168/113 04/04/17 12:15 18 100 Room Air 04/04/17 11:12 98.3 Orders Electrocardiogram (04/04/17 11:21) Prothrombin Time / Inr (Pt) (04/04/17 11:21) Act Partial Throm Time (Ptt) (04/04/17 11:21) Complete Blood Count With Diff (04/04/17 11:21) Comprehensive Metabolic Panel (04/04/17 11:21) Creatine Kinase (Cpk) (04/04/17 11:21) Drug Screen, Random Urine (04/04/17 11:21) Troponin I (04/04/17 11:21) Urinalysis - C+S If Indicated (04/04/17 11:21) Chest, Single Ap (04/04/17 11:21) Ecg Monitoring (04/04/17 11:21) Iv Access Insert/Monitor (04/04/17 11:21) Oximetry (04/04/17 11:21) Sodium Chloride 0.9% Flush (Ns Flush) (04/04/17 11:30) Ct Brain W/O Iv Contrast(Rout) (04/04/17 11:21) Nicardipine Inj (Cardene Inj) (04/04/17 11:45) Admit Order (Ed Use Only) (04/04/17 13:41) Labs Laboratory Tests Test 04/04/17 04/04/17 11:10 12:35 White Blood Count 4.7 TH/MM3 Red Blood Count 3.43 MIL/MM3 Hemoglobin 10.5 GM/DL Hematocrit 31.9 % Mean Corpuscular Volume 93.0 FL Mean Corpuscular Hemoglobin 30.6 PG Mean Corpuscular Hemoglobin 33.0 % Concent Red Cell Distribution Width 14.9 % Platelet Count 202 TH/MM3 Mean Platelet Volume 8.9 FL Neutrophils (%) (Auto) 61.6 % Lymphocytes (%) (Auto) 29.5 % Monocytes (%) (Auto) 5.4 % Eosinophils (%) (Auto) 2.9 % Basophils (%) (Auto) 0.6 % Neutrophils # (Auto) 2.9 TH/MM3 Lymphocytes # (Auto) 1.4 TH/MM3 Monocytes # (Auto) 0.3 TH/MM3 Eosinophils # (Auto) 0.1 TH/MM3 Basophils # (Auto) 0.0 TH/MM3 CBC Comment DIFF FINAL Differential Comment Prothrombin Time 10.6 SEC Prothromb Time International 1.0 RATIO Ratio Activated Partial 30.3 SEC Thromboplast Time Sodium Level 139 MEQ/L Potassium Level 4.0 MEQ/L Chloride Level 108 MEQ/L Carbon Dioxide Level 23.7 MEQ/L Anion Gap 7 MEQ/L Blood Urea Nitrogen 51 MG/DL Creatinine 4.08 MG/DL Estimat Glomerular Filtration 19 ML/MIN Rate Random Glucose 91 MG/DL Calcium Level 8.8 MG/DL Total Bilirubin 0.3 MG/DL Aspartate Amino Transf 9 U/L (AST/SGOT) Alanine Aminotransferase 12 U/L (ALT/SGPT) Alkaline Phosphatase 96 U/L Total Creatine Kinase 138 U/L Troponin I LESS THAN 0.02 NG/ML Total Protein 7.1 GM/DL Albumin 3.4 GM/DL Urine Color LIGHT-YELLOW Urine Turbidity CLEAR Urine pH 5.5 Urine Specific [place] 1.011 Urine Protein 30 mg/dL Urine Glucose (UA) NEG mg/dL Urine Ketones NEG mg/dL Urine Occult Blood TRACE Urine Nitrite NEG Urine Bilirubin NEG Urine Urobilinogen LESS THAN 2.0 MG/DL Urine Leukocyte Esterase NEG Urine RBC 1 /hpf Urine WBC 1 /hpf Microscopic Urinalysis Comment CULT NOT INDICATED Urine Opiates Screen NEG Urine Barbiturates Screen NEG Urine Amphetamines Screen NEG Urine Benzodiazepines Screen NEG Urine Cocaine Screen NEG Urine Cannabinoids Screen NEG MDM Medical Decision Making Medical Screen Exam Complete: Yes Emergency Medical Condition: Yes Differential Diagnosis hypertensive urgency versus hypertensive emergency versus CVA versus TIA versus noncompliance versus other Narrative Course 51 YO M with PMH of HTN, CKD, DMT2, seizure, stroke with residual left sided weakness presents to the ED via EMS of evaluation of 2 hour history of numbness and tingling of "the middle of my body" and dull headache. Symptoms onset gradually at rest, lasted 30 mins, resolved spontaneously. Denies dizziness, speech difficulties, memory problems, changes in physical deficits. Symptoms are similar to aura of seizure in the past. Patient states that he has been out of lisinopril and Keppra for two weeks. PCP Dr. Garcia. BP 197/123 on presentation. No new focal neuro deficit on exam. CBC: WBC 4.7, Hgb 10.5 CMP: BUN 51, Cr 4.08, slightly worse than baseline Coags: INR 1.0 UA: no culture indicated. Drug screen: negative CT Brain: Old infarction, negative for acute process per radiology read. EKG: rate 60, sinus rhythm. [place] intervals 208, QRS 98, QTC 440 ms. Left axis deviation. No acute ST changes. Reviewed by Dr. Cho. CXR: No acute disease per radiology read. Cardiac enzymes: negative x 1 Dr. Cho spoke with Dr. Ibarra and a Cardene drip was initiated. BP 165/ 106 on recheck. Plan to admit for TIA, hypertensive urgency. Patient is agreeable. Dr. Paulino agrees to accept the patient to the medicine service. Please see medicine notes for disposition. Rocio Rick Apr 04, 2017 11:14
[2017-04-04] MEDS ORDERED: SODIUM CHLORIDE 0.9% FLUSH 10 ML FLUSH IVF PRN (11:30)
[2017-04-04] MEDS ORDERED: niCARdipine INJ 25 MG in SODIUM CHLOR 0.9% 250 ML INJ 250 ML IV ONE (11:45)
--- NOTE | 2017-04-04 11:53 | RADRPT ---
EXAM DATE/TIME: 04/04/2017 11:43 [facility] COMPARISON: CHEST SINGLE AP, January 03, 2017, 3:51. INDICATIONS : Shortness of breath. MEDICAL HISTORY : Diabetes mellitus type II. SURGICAL HISTORY : None. ENCOUNTER: Initial ACUITY: 1 day PAIN SCORE: 0/10 LOCATION: Bilateral chest FINDINGS: A single view of the chest demonstrates the lungs to be symmetrically aerated without evidence of mas s, infiltrate or effusion. The cardiomediastinal contours are unremarkable. Osseous structures are intact. CONCLUSION: No acute disease. Franco Pichardo MD FACR on April 04, 2017 at 11:52 Board Certified Radiologist. This report was verified electronically.
--- NOTE | 2017-04-04 11:55 | PD ---
Physical Exam Narrative GENERAL: Well-nourished, well-developed patient. SKIN: Warm and dry. HEAD: Normocephalic and atraumatic. EYES: No injection or drainage. ENT: No nasal drainage noted. NECK: Supple, trachea midline. CARDIOVASCULAR: Regular rate and rhythm RESPIRATORY: no increased effort. No accessory muscle use. GASTROINTESTINAL: Abdomen nondistended. NEUROLOGICAL: Awake. Left-sided deficit noted which patient states is at his baseline otherwise nonfocal exam. Normal speech. Data Data Last Documented VS Vital Signs Date Time Temp Pulse Resp B/P Pulse Ox O2 Delivery O2 Flow Rate FiO2 04/04/17 12:40 61 168/113 04/04/17 12:15 18 100 Room Air 04/04/17 11:12 98.3 Orders Electrocardiogram (04/04/17 11:21) Prothrombin Time / Inr (Pt) (04/04/17 11:21) Act Partial Throm Time (Ptt) (04/04/17 11:21) Complete Blood Count With Diff (04/04/17 11:21) Comprehensive Metabolic Panel (04/04/17 11:21) Creatine Kinase (Cpk) (04/04/17 11:21) Drug Screen, Random Urine (04/04/17 11:21) Troponin I (04/04/17 11:21) Urinalysis - C+S If Indicated (04/04/17 11:21) Chest, Single Ap (04/04/17 11:21) Ecg Monitoring (04/04/17 11:21) Iv Access Insert/Monitor (04/04/17 11:21) Oximetry (04/04/17 11:21) Sodium Chloride 0.9% Flush (Ns Flush) (04/04/17 11:30) Ct Brain W/O Iv Contrast(Rout) (04/04/17 11:21) Nicardipine Inj (Cardene Inj) (04/04/17 11:45) Admit Order (Ed Use Only) (04/04/17 13:41) Labs Laboratory Tests Test 04/04/17 04/04/17 11:10 12:35 White Blood Count 4.7 TH/MM3 Red Blood Count 3.43 MIL/MM3 Hemoglobin 10.5 GM/DL Hematocrit 31.9 % Mean Corpuscular Volume 93.0 FL Mean Corpuscular Hemoglobin 30.6 PG Mean Corpuscular Hemoglobin 33.0 % Concent Red Cell Distribution Width 14.9 % Platelet Count 202 TH/MM3 Mean Platelet Volume 8.9 FL Neutrophils (%) (Auto) 61.6 % Lymphocytes (%) (Auto) 29.5 % Monocytes (%) (Auto) 5.4 % Eosinophils (%) (Auto) 2.9 % Basophils (%) (Auto) 0.6 % Neutrophils # (Auto) 2.9 TH/MM3 Lymphocytes # (Auto) 1.4 TH/MM3 Monocytes # (Auto) 0.3 TH/MM3 Eosinophils # (Auto) 0.1 TH/MM3 Basophils # (Auto) 0.0 TH/MM3 CBC Comment DIFF FINAL Differential Comment Prothrombin Time 10.6 SEC Prothromb Time International 1.0 RATIO Ratio Activated Partial 30.3 SEC Thromboplast Time Sodium Level 139 MEQ/L Potassium Level 4.0 MEQ/L Chloride Level 108 MEQ/L Carbon Dioxide Level 23.7 MEQ/L Anion Gap 7 MEQ/L Blood Urea Nitrogen 51 MG/DL Creatinine 4.08 MG/DL Estimat Glomerular Filtration 19 ML/MIN Rate Random Glucose 91 MG/DL Calcium Level 8.8 MG/DL Total Bilirubin 0.3 MG/DL Aspartate Amino Transf 9 U/L (AST/SGOT) Alanine Aminotransferase 12 U/L (ALT/SGPT) Alkaline Phosphatase 96 U/L Total Creatine Kinase 138 U/L Troponin I LESS THAN 0.02 NG/ML Total Protein 7.1 GM/DL Albumin 3.4 GM/DL Urine Color LIGHT-YELLOW Urine Turbidity CLEAR Urine pH 5.5 Urine Specific [place] 1.011 Urine Protein 30 mg/dL Urine Glucose (UA) NEG mg/dL Urine Ketones NEG mg/dL Urine Occult Blood TRACE Urine Nitrite NEG Urine Bilirubin NEG Urine Urobilinogen LESS THAN 2.0 MG/DL Urine Leukocyte Esterase NEG Urine RBC 1 /hpf Urine WBC 1 /hpf Microscopic Urinalysis Comment CULT NOT INDICATED Urine Opiates Screen NEG Urine Barbiturates Screen NEG Urine Amphetamines Screen NEG Urine Benzodiazepines Screen NEG Urine Cocaine Screen NEG Urine Cannabinoids Screen NEG MDM Supervised Visit with EDINSON: Yes Interpretation(s) CBC & BMP Diagram 04/04/17 11:10 Last [address] 04/04/17 1121 Signed Impressions: Service Date/Time: Tuesday, April 04, 2017 11:31 - CONCLUSION: Old infarction otherwise negative for an acute process. Franco Pichardo MD FACR Chest X-Ray 04/04/17 1121 Signed Impressions: Service Date/Time: Tuesday, April 04, 2017 11:43 - CONCLUSION: No acute disease. Franco Pichardo MD FACR Narrative Course I, Dr. connell, have reviewed the advance practice practitioner's documentation and am in agreement, met with the patient face to face, made the diagnosis, and the medical decision making was done by me. *My assessment and Findings: 51-year-old male presents with developing left- sided numbness at 9:30 this morning that has now resolved. He states he is off of his seizure and blood pressure medication and has been off of it for a couple weeks. He states that he's had a stroke a couple years ago that is made him weak on the left before and he feels like he is back to his baseline now. He denies other significant complaints at this time. Given time of symptoms discuss with neurology and records reviewed. Cardene was started for blood pressure control and he will be admitted for further care BP improved on Cardene. We will allow permissive hypertension with current blood pressure 177/104 on low dose Cardene Critical Care Narrative Aggregate critical care time was 31 minutes. Time to perform other separately billable procedures was not included in the critical care time. My time did not include minutes spent treating any other patients simultaneously or on activities that did not directly contribute to the patient's treatment. The services I provided to this patient were to treat and/or prevent clinically significant deterioration that could result in: stroke, I provided critical care services requiring my management, as noted below: Chart data review, documentation time, medication orders and management, vital sign assessments/reviewing monitor data, ordering and reviewing lab tests, ordering and interpreting/reviewing x-rays and diagnostic studies, care of the patient and discussion of the patient with the admitting physicians. Physician Communication Physician Communication dr renee agrees no stroke alert given symptoms at baseline and to bp control, will start cardene after discussed bp goals with him and antihypertensive choice Diagnosis Primary Impression: Uncontrolled hypertension Additional Impression: Left sided numbness Admitting Information Admitting Physician Requests: Admit Kaylen Connell MD Apr 04, 2017 11:55
[2017-04-04 12:02] LABS: AUTOMATED NEUTROPHIL # 2.9 TH/MM3 (1.8-7.7); BASOPHIL % 0.6 % (0.0-2.0); EOSINOPHIL # 0.1 TH/MM3 (0-0.4); EOSINOPHIL % 2.9 % (0.0-4.0); HEMATOCRIT 31.9 % (39.0-51.0); HEMO FLAGS DIFF FINAL; LYMPH % 29.5 % (9.0-44.0); LYMPHOCYTE # 1.4 TH/MM3 (1.0-4.8); MEAN CORPUSCULAR HEMOGLOBIN 30.6 PG (27.0-34.0); MONO % 5.4 % (0.0-8.0); NEUT % 61.6 % (16.0-70.0); PLATELET COUNT 202 TH/MM3 (150-450); RED BLOOD COUNT 3.43 MIL/MM3 (4.50-5.90); RED CELL DISTRIBUTION WIDTH 14.9 % (11.6-17.2); WHITE BLOOD COUNT 4.7 TH/MM3 (4.0-11.0)
[2017-04-04 12:13] LABS: APTT (PATIENT) 30.3 SEC (24.3-30.1); PROTHROMBIN TIME - PATIENT 10.6 SEC (9.8-11.6)
[2017-04-04 12:15] VITALS: BP 174/116; PULSE 60; RESP 18; O2SAT 100
--- NOTE | 2017-04-04 12:20 | RADRPT ---
EXAM DATE/TIME: 04/04/2017 11:31 [facility] COMPARISON: CT BRAIN W/O CONTRAST, December 26, 2016, 23:48. INDICATIONS : Left sided numbness, tingling,weakness for a week. RADIATION DOSE: 56.39 CTDIvol (mGy) MEDICAL HISTORY : Cardiovascular disease. Seizures. Hypertension. Old CVA, Diabetes SURGICAL HISTORY : None. ENCOUNTER: Initial ACUITY: 1 week PAIN SCALE: 0/10 LOCATION: Cranial TECHNIQUE: Multiple contiguous axial images were obtained of the head. Using automated exposure control and adj ustment of the mA and/or kV according to patient size, radiation dose was kept as low as reasonably a chievable to obtain optimal diagnostic quality images. DICOM format image data is available electro nically for review and comparison. FINDINGS: There is an old infarct in the right orbital frontal region and the left occipital region. There is moderate central and cortical atrophy. There is dilatation of ventricular and sulcal spaces. There is no parenchymal hemorrhage, evidence for acute infarction or mass lesion. Posterior fossa is unremarkable. CONCLUSION: Old infarction otherwise negative for an acute process. Franco Pichardo MD FACR on April 04, 2017 at 11:51 Board Certified Radiologist. This report was verified electronically.
[2017-04-04 12:36] LABS: ANION GAP 7 MEQ/L (5-15); AST (GOT) 9 U/L (15-37); BICARBONATE 23.7 MEQ/L (21.0-32.0); BLOOD UREA NITROGEN 51 MG/DL (7-18); CHLORIDE 108 MEQ/L (98-107); GLOMERULAR FILTRATION RATE 19 ML/MIN (>89); SODIUM (NA) 139 MEQ/L (136-145)
[2017-04-04 12:37] LABS: ALT (GPT) 12 U/L (12-78)
[2017-04-04 12:40] VITALS: BP 168/113; PULSE 61
[2017-04-04 12:41] LABS: ALKALINE PHOSPHATASE 96 U/L (45-117); CREATINE KINASE 138 U/L (39-308); TOTAL BILIRUBIN ADULT 0.3 MG/DL (0.2-1.0)
[2017-04-04 12:50] LABS: BLOOD, URINE TRACE (NEG); COMMENT (UR) CULT NOT INDICATED; CULTURE IF INDICATED CULT NOT INDICATED; GLUCOSE,URINE NEG (NEG); KETONE, URINE NEG (NEG); NITRITE,URINE NEG (NEG); PH, URINE 5.5 (5.0-8.5); URINE COLOR LIGHT-YELLOW (YELLW/STRAW)
[2017-04-04 13:00] LABS: AMPHETAMINE, URINE NEG (NEG); BARBITURATES, URINE NEG (NEG); COCAINE, URINE NEG (NEG)
[2017-04-04] MEDS ORDERED: LACTULOSE SYRUP 20 GM/30 ML CUP PO PRN (14:30)
[2017-04-04] MEDS ORDERED: ENALAPRILAT 1.25 MG/ML VIAL IV PUSH PRN (14:30)
[2017-04-04] MEDS ORDERED: LISINOPRIL 20 MG TAB PO SCH (14:30)
[2017-04-04] MEDS ORDERED: ONDANSETRON HCL 4 MG/2 ML VIAL IVP PRN (14:30)
[2017-04-04] MEDS ORDERED: NALOXONE HCL 0.4 MG/ML AMP IV PRN (14:30)
[2017-04-04] MEDS ORDERED: SENNOSIDES 8.6 MG TAB PO PRN (14:30)
[2017-04-04] MEDS ORDERED: BISACODYL 10 MG SUPP RECTAL PRN (14:30)
[2017-04-04] MEDS ORDERED: MAGNESIUM HYDROXIDE SUSP 30 ML CUP PO PRN (14:30)
[2017-04-04] MEDS ORDERED: SODIUM CHLORIDE 0.9% FLUSH 10 ML FLUSH IV FLUSH PRN (14:30)
[2017-04-04] MEDS ORDERED: TEMAZEPAM 15 MG CAP PO PRN (14:30)
--- NOTE | 2017-04-04 14:35 | HHI.HP ---
HPI Service [facility] Hospitalists Primary Care Physician Horacio Garcia MD Admission Diagnosis TIA, hypertensive urgency Diagnoses: Chief Complaint: Headache LUE numbness/tingling Uncontrolled HTN Travel History International Travel<30 Days: No Contact w/Intl Traveler <30 Da: No Traveled to Known Affected Are: No History of Present Illness This is a 51 yo male with a PMHX significant for CVA with residual left sided weakness, HTN, seizure disorder and DM who presented to [facility] ED with complaints of left upper extremity numbness. Patient reports he developed a severe headache followed by numbness in the left arm that lasted for about 30mins before resolving on its on. He admits he ran out of his medications about 2 weeks ago due to transportation issues. He denies any associated slurred speech, weakness or blurry vision. He also denies any associated dizziness, N/V, chest pain, shortness of breath or abdominal pain. Patient has a smoking history but reports quitting 2 weeks ago. He denies any recent illness or fever/chills. He denies any recent seizure activity. His last seizure was 2 1/2 yrs ago per patient report. He is not on any anticoagulation at home. In the ED, patients blood pressure was 197/123. CT head was negative. His creatinine is elevated at 4.08. Review of Systems Except as stated in HPI: all other systems reviewed are Neg Past Family Social History Past Medical History H/O CVA with residual left hemiparesis HTN Seizure disorder DM Past Surgical History Patient denies any previous surgeries. Reported Medications Keppra 1000mg po BID Lisinopril 20mg po BID Allergies: Coded Allergies: No Known Allergies (Verified , 02/17/17) Active Ordered Medications Current Medications Medications (Trade) Dose Ordered Sig/Mae Route Start Time Stop Time Status Last Admin (NS Flush) 2 ml UNSCH PRN IVF 04/04/17 11:30 Family History Mother and Grandmother, HTN Social History Patient reports history of tobacco use of 3-4 cigarettes/day x 20years but quit 2 weeks ago Patient denies any alcohol consumption or illicit drug use. He is legally but does not know where his is. He lives alone and ambulates with the assistance of a cane. Physical Exam Vital Signs Vital Signs Date Time Temp Pulse Resp B/P Pulse Ox O2 Delivery O2 Flow Rate FiO2 04/04/17 12:40 61 168/113 04/04/17 12:15 60 18 174/116 100 Room Air 04/04/17 11:12 58 20 100 Room Air 04/04/17 11:12 98.3 59 20 197/123 100 Physical Exam GENERAL: This is a well-nourished, well-developed patient, in no apparent distress. Awake and alert. Sitting up on side of hospital bed. SKIN: No rashes, ecchymoses or lesions. Cool and dry. HEAD: Atraumatic. Normocephalic. No temporal or scalp tenderness. Slight left facial droop noted. EYES: Pupils equal round and reactive. Extraocular motions intact. No scleral icterus. No injection or drainage. ENT: Nose without bleeding or purulent drainage. Throat without erythema, tonsillar hypertrophy or exudate. Uvula midline. Airway patent. NECK: Trachea midline. No lymphadenopathy. Supple, nontender, no meningeal signs. CARDIOVASCULAR: Regular rate and rhythm without murmurs, gallops, or rubs. RESPIRATORY: Clear to auscultation. Breath sounds equal bilaterally. No wheezes , rales, or rhonchi. GASTROINTESTINAL: Abdomen soft, non-tender, nondistended. No hepato-splenomegaly , or palpable masses. No guarding. MUSCULOSKELETAL: Extremities without clubbing, cyanosis, or edema. No joint tenderness, effusion, or edema noted. No calf tenderness. NEUROLOGICAL: Awake and alert. Able to move all extremities. Motor and sensory function RUE and RLE grossly intact, 5/5. Decreased motor function LUE 4+/5 and LLE 4-/5. Slow but appropriate responses. Slightly dysarthric speech. Laboratory Laboratory Tests Test 04/04/17 04/04/17 11:10 12:35 White Blood Count 4.7 Red Blood Count 3.43 Hemoglobin 10.5 Hematocrit 31.9 Mean Corpuscular Volume 93.0 Mean Corpuscular Hemoglobin 30.6 Mean Corpuscular Hemoglobin 33.0 Concent Red Cell Distribution Width 14.9 Platelet Count 202 Mean Platelet Volume 8.9 Neutrophils (%) (Auto) 61.6 Lymphocytes (%) (Auto) 29.5 Monocytes (%) (Auto) 5.4 Eosinophils (%) (Auto) 2.9 Basophils (%) (Auto) 0.6 Neutrophils # (Auto) 2.9 Lymphocytes # (Auto) 1.4 Monocytes # (Auto) 0.3 Eosinophils # (Auto) 0.1 Basophils # (Auto) 0.0 CBC Comment DIFF FINAL Differential Comment Prothrombin Time 10.6 Prothromb Time International 1.0 Ratio Activated Partial 30.3 Thromboplast Time Sodium Level 139 Potassium Level 4.0 Chloride Level 108 Carbon Dioxide Level 23.7 Anion Gap 7 Blood Urea Nitrogen 51 Creatinine 4.08 Estimat Glomerular Filtration 19 Rate Random Glucose 91 Calcium Level 8.8 Total Bilirubin 0.3 Aspartate Amino Transf 9 (AST/SGOT) Alanine Aminotransferase 12 (ALT/SGPT) Alkaline Phosphatase 96 Total Creatine Kinase 138 Troponin I LESS THAN 0.02 Total Protein 7.1 Albumin 3.4 Urine Color LIGHT-YELLOW Urine Turbidity CLEAR Urine pH 5.5 Urine Specific [place] 1.011 Urine Protein 30 Urine Glucose (UA) NEG Urine Ketones NEG Urine Occult Blood TRACE Urine Nitrite NEG Urine Bilirubin NEG Urine Urobilinogen LESS THAN 2.0 Urine Leukocyte Esterase NEG Urine RBC 1 Urine WBC 1 Microscopic Urinalysis Comment CULT NOT INDICATED Urine Opiates Screen NEG Urine Barbiturates Screen NEG Urine Amphetamines Screen NEG Urine Benzodiazepines Screen NEG Urine Cocaine Screen NEG Urine Cannabinoids Screen NEG Result Diagram: 04/04/17 1110 04/04/17 1110 Imaging Last Impressions Head CT 04/04/17 1121 Signed Impressions: Service Date/Time: Tuesday, April 04, 2017 11:31 - CONCLUSION: Old infarction otherwise negative for an acute process. Franco Pichardo MD FACR Chest X-Ray 04/04/17 1121 Signed Impressions: Service Date/Time: Tuesday, April 04, 2017 11:43 - CONCLUSION: No acute disease. Fracno Pichardo MD FACR Assessment and Plan Assessment and Plan 51 yo male with a PMHX significant for CVA with residual left sided weakness, HTN, seizure disorder and DM who presented to [facility] ED with complaints of left upper extremity numbness and found to have BP of 197/123. Rule out CVA H/O previous CVA with residual left hemiparesis - CT head personally reviewed and negative for ICH - allow permissive HTN x 24hrs. Stop Cardene gtt. - MRI - Carotid US - MRA Head - ECHO - Lipitor 40mg daily - ASA daily - obtain fasting lipid panel and HgbA1c - bedside swallow evaluation - PT and OT eval/tx Hypertensive urgency Medication noncompliance - hold patients home ACEI due to poor kidney fxn and allowing permissive HTN - Labetalol 10mg IVq2h prn SBP>220 or DBP>120 or Hydralazine 20mg [id number] SBP> 220 or DBP>120 - monitor BP - obtain TSH level - consult case management to assist with obtaining medications due to patient repetitively running out due to transportation issues - if MRI negative, will begin antihypertensive tx Hypertensive nephropathy Acute on chronic kidney disease - creatinine 4.08, baseline appears to be around 3 - also may be due to dehydration - avoid nephrotoxic agents - IVF - repeat labs in am Seizure disorder - resume home dose of Keppra - seizure precautions DM - accuchecks - ISS - obtain HgbA1c DVT prophylaxis - bilateral SCD/GALLO samson Discussed Condition With patient, nursing staff Collaborating MD Comments Patient was interviewed. He stated that he had left forearm numbness and tingling and weakness. He stated that he could not lift his left forearm that occurred today 30 minutes after headache. He stated this is worse than his residual CVA. He stated that he still has weakness and has not improved and continues to be symptomatic. Patient stated that he has been off his medication for 2 weeks. He stated that he doesn't have transportation to get his medication. Otherwise he has no complaints. He denies any headache, chest pain, shortness of breathing, nausea or vomiting at the moment. Patient is a poor historian in which may be due to his history of seizures and CVA and is noncompliant. All other review symptoms were reviewed and all negative. Gen NAD HEENT: PERRLA, EOMI CV RRR. no r/m/g Resp CTA B/L NEURO CN 2-12 intake. Left arm able to squeeze same as right but will not life arm due to weakness. otherwise strength is intact. he seems to not want to lift his left arm himself and stated it's because of weakness. Sensation is grossly intact. Rule out CVA -Patient does have a history of CVA. Since he continues to be symptomatic will need to rule out CVA. CT scan of the brain is negative for any intracranial hemorrhage. -Will follow stroke protocol. -Allow permissive hypertension. So will stop the Cardizem drip. -PT/OT/ST -Continue aspirin and atorvastatin. Hypertensive urgency -Will need to rule out CVA. -Once that is ruled out will start him on oral antihypertensive medication. Acute on chronic renal failure/hypertensive renal failure -Most likely secondary to dehydration -Will replenish fluid. -strict ins and outs. Avoid nephrotoxins. Continue to monitor creatinine. Seizure disorder -Resume home medication. Noncompliance -Per patient he is not able to get his medication due to transportation. Will consult case management see if anything we could do about this. Attestation The exam, history, and the medical decision-making described in the above note were completed with the assistance of the mid-level provider. I reviewed and agree with the findings presented. I attest that I had a [id number] encounter with the patient on the same day, and personally performed and documented my assessment and findings in the medical record. Physician Certification 2 Midnight Certification Type: Admission for Inpatient Services Order for Inpatient Services The services are ordered in accordance with Medicare regulations or non- Medicare payer requirements, as applicable. In the case of services not specified as inpatient-only, they are appropriately provided as inpatient services in accordance with the 2-midnight benchmark. Estimated LOS (days): 3 3 days is the estimated time the patient will need to remain in the hospital, assuming treatment plan goals are met and no additional complications. Post-Hospital Plan: Not yet determined Jeannine Watson Apr 04, 2017 14:35 Laure Paulino MD Apr 04, 2017 15:31
[2017-04-04] MEDS ORDERED: ATORVASTATIN 40 MG TAB PO ONE (14:45)
[2017-04-04] MEDS: levETIRAcetam 500 MG TAB PO SCH ×2 (14:52→20:44)
[2017-04-04] MEDS: SODIUM CHLOR 0.9% 1000 ML INJ 1,000 ML IV SCH (14:52)
[2017-04-04] MEDS ORDERED: ASPIRIN EC 81 MG TABEC PO ONE (15:00)
[2017-04-04] MEDS ORDERED: DEXTROSE 50% IN WATER 50 ML VIAL(D50) IV PRN (15:15)
[2017-04-04] MEDS ORDERED: LABETALOL HCL 100 MG/20 ML VIAL IV PRN (15:15)
[2017-04-04] MEDS ORDERED: GLUCAGON 1 MG/ML VIAL OTHER PRN (15:15)
--- NOTE | 2017-04-04 15:18 | RADRPT ---
EXAM DATE/TIME: 04/04/2017 14:49 [facility] COMPARISON: No previous studies available for comparison. INDICATIONS : Bilateral leg swelling. MEDICAL HISTORY : Hypercholesterolemia. Hypertension. Seizures. Stroke. Diabetes. SURGICAL HISTORY : None. ENCOUNTER: Initial ACUITY: 1 day PAIN SCORE: 1/10 LOCATION: Bilateral legs. TECHNIQUE: Venous ultrasound of the left and right leg was performed from the inguinal ligament to the proximal calf. Real-time, color Doppler and spectral tracing, compression and augmentation techniques were us ed. FINDINGS: RIGHT LEG: There is normal compressibility of the deep venous system from the inguinal region to the proximal ca lf. No echogenic clot is seen in the lumen of the common femoral, femoral, popliteal, and posterior tibial veins. There is a normal response of the venous system to proximal and distal augmentation an d respiration. LEFT LEG: There is normal compressibility of the deep venous system from the inguinal region to the proximal ca lf. No echogenic clot is seen in the lumen of the common femoral, femoral, popliteal, and posterior tibial veins. There is a normal response of the venous system to proximal and distal augmentation an d respiration. CONCLUSION: No evidence of deep venous thrombosis within the lower extremities. Boni Ash MD on April 04, 2017 at 15:16 Board Certified Radiologist. This report was verified electronically.
[2017-04-04] MEDS ORDERED: hydrALAZINE HCL 20 MG/ML VIAL IV PUSH PRN (15:30)
--- NOTE | 2017-04-04 15:53 | EKG ---
Date Performed: 04/04/2017 Time Performed: 11:12:55 PTAGE: 51 years EKG: Sinus rhythm MARKED LEFT AXIS DEVIATION VOLTAGE CRITERIA FOR LVH NONSPECIFIC T-WAVE ABNORMALITY ABNORMAL ECG Comp ared to PREVIOUS TRACING , QRS voltage is more prominent and the T-wave changes are new. PREVIOUS TRACIN01/03/2017 03.32 DOCTOR: David Barger Interpretating Date/Time 04/04/2017 15:53:18
--- NOTE | 2017-04-04 15:58 | PD.CONS ---
History of Present Illness Service Neurology Consult Requested By er Reason for Consult tia Primary Care Physician Horacio Garcia MD History of Present Illness 51 y/o m admitted for hypertensive urgency. presented to [facility] ED with complaints of left upper extremity numbness and concerns about his bp as he ran out of meds 2 weeks ago. does not take aspirin qd. ct brain- old strokes. glucose 91, blood pressure 197/123 numbness resolved. denies any new symptom. He denies any recent illness or fever/chills. He denies any recent seizure activity. His last seizure was 2 1/2 yrs ago per patient; states he had sz's associated with his stroke. . He is not on any anticoagulation at home. has residual gait d/o, speech changes since his stroke. 2012 left occipital/temporal lobe stroke Review of Systems Except as stated in HPI: all other systems reviewed are Neg Past Family Social History Past Medical History 02/2013 left hemispheric stroke HTN Seizure disorder DM Past Surgical History Patient denies any previous surgeries. Reported Medications Keppra 1000mg po BID Lisinopril 20mg po BID Allergies: Coded Allergies: No Known Allergies (Verified , 02/17/17) Family History Mother and Grandmother, HTN Social History tobacco use quit 2 weeks ago Patient denies any alcohol consumption or illicit drug use. He lives alone and ambulates with the assistance of a cane. Review of Systems All other ROS: ROS reviewed as documented in chart Past Family Social History Allergies: Coded Allergies: No Known Allergies (Verified , 02/17/17) Active Ordered Medications Current Medications Medications (Trade) Dose Ordered Sig/Mae Route Start Time Stop Time Status Last Admin (NS Flush) 2 ml UNSCH PRN IV FLUSH 04/04/17 14:30 (NS Flush) 2 ml BID IV FLUSH 04/04/17 21:00 (Tylenol) 650 mg Q4H PRN PO 04/04/17 14:30 (Zofran Inj) 4 mg Q6H PRN IVP 04/04/17 14:30 (Restoril) 15 mg HS PRN PO 04/04/17 14:30 (Narcan Inj) 0.4 mg UNSCH PRN IV 04/04/17 14:30 (Selena-Colace) 1 tab BID PO 04/04/17 21:00 (Milk Of Magnesia Liq) 30 ml Q12H PRN PO 04/04/17 14:30 (Senokot) 17.2 mg Q12H PRN PO 04/04/17 14:30 (Dulcolax Supp) 10 mg DAILY PRN RECTAL 04/04/17 14:30 (Lactulose Liq) 30 ml DAILY PRN PO 04/04/17 14:30 Levetriacetam 1000 mg 1,000 mg BID PO 04/04/17 14:30 04/04/17 14:52 (NS 1000 ml Inj) 1,000 ml @ 84 mls/hr [id number] IV 04/04/17 14:30 04/04/17 14:52 (Lipitor) 40 mg DAILY PO 04/05/17 09:00 (Trandate Inj) 10 mg Q2H PRN IV 04/04/17 15:15 (D50w (Vial) Inj) 50 ml UNSCH PRN IV 04/04/17 15:15 (Glucagon Inj) 1 mg UNSCH PRN OTHER 04/04/17 15:15 (Aspirin) 325 mg DAILY PO 04/04/17 16:00 (Heparin Inj) 5,000 units BID SQ 04/04/17 21:00 (Apresoline Inj) 20 mg Q4H PRN IV PUSH 04/04/17 15:30 Exam I&O / VS Vital Signs Date Time Temp Pulse Resp B/P Pulse Ox O2 Delivery O2 Flow Rate FiO2 04/04/17 12:40 61 168/113 04/04/17 12:15 60 18 174/116 100 Room Air 04/04/17 11:12 58 20 100 Room Air 04/04/17 11:12 98.3 59 20 197/123 100 General: Alert and Oriented, No acute distress Eye: PERRL, EOMI, Other Respiratory: Non-labored respirations, BS equal, Symmetrical expansion Cardiology: Normal rate, No murmur Musculoskeletal: Tenderness Neurologic: Alert, Oriented Psychiatric: Cooperative Exam Comments ox 3, mild dysarthric speech, follows, eomi, minimal rt upper hh, mild reduced rt nlf, no focal weakness but slow [place] on rt side, wide based gait with cane Review/Management Diagnosis/Plan: (1) Hypertension Plan: gradually bring down to normotensive range restart home bp meds compliance with meds strongly encouraged to pt (2) Chronic ischemic left [employer] stroke Plan: needs to control bp and take aspirin daily at high risk for recurrent stroke with elevated bp's and past hx of stroke- d/w pt (3) Noncompliance with diet and medication regimen (4) Chronic kidney disease Problem Qualifiers (1) Hypertension: Qualified Code: I10 - Essential hypertension (2) Chronic kidney disease: Qualified Code: N18.9 - Chronic kidney disease, unspecified CKD stage Carlitos Ibarra MD Apr 04, 2017 15:58
[2017-04-04] MEDS: INSULIN ASPART SUPPLEMENTAL SCALE SQ SCH ×2 (16:00→21:00)
--- NOTE | 2017-04-04 16:29 | RADRPT ---
EXAM DATE/TIME: 04/04/2017 14:40 [facility] COMPARISON: No previous studies available for comparison. INDICATIONS : Syncope. MEDICAL HISTORY : Hypercholesterolemia. Hypertension. Seizures. Stroke. Diabetes. SURGICAL HISTORY : None. ENCOUNTER: Initial ACUITY: 1 day PAIN SCORE: 10 LOCATION: Bilateral neck PEAK SYSTOLIC VELOCITIES (cm/sec): ICA/CCA RATIO: Right: 1.3 Left: 2.0 ICA: Right: 93 Left: 126 CCA: Right: 72 Left: 61 ECA: Right: 76 Left: 72 VERTEBRAL: Right: 36 antegrade Left: 58 antegrade Elevated flow velocities and ICA/CCA ratios have been found to correlate with increased degrees of vessel stenosis, calculated as percentage of diameter relative to a normal segment of distal ICA/CCA FINDINGS: RIGHT CAROTID: No significant stenosis is visualized. The waveforms are within normal limits. LEFT CAROTID: Mild plaque formation in the common carotid artery and carotid bulb. No widening of the spectral wav eform in the internal carotid artery. VERTEBRAL ARTERIES: Antegrade flow is seen in both vertebral arteries. MISCELLANEOUS: None. CONCLUSION: 1. Normal hemodynamic profile right carotid. 2. Mild plaque formation in the left carotid with hemodynamic parameters characteristic of 50-69% luis manuel nosis. Gume Uriarte MD on April 04, 2017 at 16:25 Board Certified Radiologist. This report was verified electronically.
[2017-04-04] MEDS: ASPIRIN 325 MG TAB PO SCH (16:46)
--- NOTE | 2017-04-04 17:11 | RADRPT ---
EXAM DATE/TIME: 04/04/2017 16:46 [facility] COMPARISON: No previous studies available for comparison. INDICATIONS : Cephalgia. MEDICAL HISTORY : Hypertension. Cerebrovascular disease. SURGICAL HISTORY : None. ENCOUNTER: Initial ACUITY: 1 day PAIN SCORE: 0/10 LOCATION: cranial Please note a normal MRA of the brain does not entirely exclude the possibility of a small aneurysm, nor the possibility of distal intracranial vessel disease. TECHNIQUE: 3D time of flight MRA was performed. Source images, multiplanar STS MIP, and 3D volume MIP reconstru ctions were reviewed. FINDINGS: There is excellent visualization of the major intracranial arteries out to the second-order branch ve ssels. There is no evidence for aneurysm, vessel truncation or stenosis, and no evidence for vascula r malformation. Both posterior cerebral arteries arise from the anterior circulation. No flow seen in the anterior communicating artery. CONCLUSION: No evidence of vessel truncation or aneurysm. Gume Uriarte MD on April 04, 2017 at 17:07 Board Certified Radiologist. This report was verified electronically.
--- NOTE | 2017-04-04 17:43 | RADRPT ---
EXAM DATE/TIME: 04/04/2017 16:46 [facility] COMPARISON: CT BRAIN W/O CONTRAST, April 04, 2017, 11:31. INDICATIONS : Cephalgia. MEDICAL HISTORY : Hypertension. Cerebrovascular disease. SURGICAL HISTORY : None. ENCOUNTER: Initial ACUITY: 1 day PAIN SCORE: 0/10 LOCATION: Cranial TECHNIQUE: Multiplanar, multisequence MRI of the brain was performed without contrast. FINDINGS: Encephalomalacia is noted within the right frontal parietal lobe and left occipital lobe consistent w ith old infarcts. Moderate to severe periventricular and subcortical white matter small vessel ische rhina changes are noted bilaterally. Scattered old lacunar infarcts are noted within the bilateral bas al ganglia. Cerebral atrophy is noted. There are old lacunar infarcts or focal ischemic changes inv olving the right eva. There is no acute infarct, midline shift or extra-axial fluid collections. N o acute hemorrhage is noted. CONCLUSION: 1. Old infarcts involving the right the right frontal parietal and left occipital lobes. 2. Scattered old lacunar infarcts within the bilateral basal ganglia. 3. Focal signal abnormalities with the right eva consistent with focal ischemic changes versus old l acunar infarcts. 4. Severe periventricular and subcortical white matter small vessel ischemic changes bilaterally. 5. No acute infarct, acute hemorrhage, midline shift or extra-axial fluid collections. 6. Cerebral atrophy. Boni Ash MD on April 04, 2017 at 17:23 Board Certified Radiologist. This report was verified electronically.
[2017-04-04 18:00] VITALS: BP 164/121; PULSE 65; RESP 14; TEMP 98.2; O2SAT 99
[2017-04-04 20:00] VITALS: BP 168/109; PULSE 52; RESP 18; TEMP 97.7; O2SAT 100
[2017-04-04] MEDS: SODIUM CHLORIDE 0.9% FLUSH 10 ML FLUSH IV FLUSH SCH (20:43)
[2017-04-04] MEDS: DOCUSATE SODIUM 50 MG/SENNA 8.6 MG TAB PO SCH (20:44)
[2017-04-04] MEDS: HEPARIN SODIUM - SQ 10,000 UNITS/ML VIAL SQ SCH (20:44)
[2017-04-04 22:00] VITALS: BP 166/108; PULSE 56; RESP 11; O2SAT 99
[2017-04-05] VITALS (14 sets, daily range): BP systolic 152–178; BP diastolic 100–117; PULSE 48–80; RESP 12–18; TEMP 97.8–98.1; O2SAT 96–100
[2017-04-05] MEDS: SODIUM CHLOR 0.9% 1000 ML INJ 1,000 ML IV SCH ×2 (02:57→14:20)
[2017-04-05] MEDS: INSULIN ASPART SUPPLEMENTAL SCALE SQ SCH ×4 (06:44→21:00)
[2017-04-05 06:49] LABS: AUTOMATED NEUTROPHIL # 1.9 TH/MM3 (1.8-7.7); BASOPHIL % 0.7 % (0.0-2.0); EOSINOPHIL # 0.1 TH/MM3 (0-0.4); EOSINOPHIL % 3.1 % (0.0-4.0); HEMATOCRIT 31.5 % (39.0-51.0); HEMO FLAGS DIFF FINAL; LYMPH % 46.6 % (9.0-44.0); MEAN CELL VOLUME 91.8 FL (80.0-100.0); MEAN CORPUSCULAR HGB CONC 33.8 % (32.0-36.0); MONO % 5.7 % (0.0-8.0); NEUT % 43.9 % (16.0-70.0); PLATELET COUNT 199 TH/MM3 (150-450); RED BLOOD COUNT 3.43 MIL/MM3 (4.50-5.90); RED CELL DISTRIBUTION WIDTH 14.5 % (11.6-17.2); WHITE BLOOD COUNT 4.3 TH/MM3 (4.0-11.0)
[2017-04-05 07:15] LABS: ALT (GPT) 11 U/L (12-78); ANION GAP 8 MEQ/L (5-15); AST (GOT) 7 U/L (15-37); BICARBONATE 23.3 MEQ/L (21.0-32.0); BLOOD UREA NITROGEN 45 MG/DL (7-18); CHLORIDE 112 MEQ/L (98-107); GLOMERULAR FILTRATION RATE 23 ML/MIN (>89); SODIUM (NA) 143 MEQ/L (136-145)
[2017-04-05 07:17] LABS: ALKALINE PHOSPHATASE 92 U/L (45-117); LDL CHOLESTEROL 136 MG/DL (0-99); TOTAL BILIRUBIN ADULT 0.3 MG/DL (0.2-1.0)
[2017-04-05] MEDS: DOCUSATE SODIUM 50 MG/SENNA 8.6 MG TAB PO SCH ×2 (08:37→20:45)
[2017-04-05] MEDS: SODIUM CHLORIDE 0.9% FLUSH 10 ML FLUSH IV FLUSH SCH ×2 (08:37→20:46)
[2017-04-05] MEDS: ATORVASTATIN 40 MG TAB PO SCH (08:38)
[2017-04-05] MEDS: ASPIRIN 325 MG TAB PO SCH (08:40)
[2017-04-05] MEDS: HEPARIN SODIUM - SQ 10,000 UNITS/ML VIAL SQ SCH ×2 (08:40→20:46)
[2017-04-05] MEDS: levETIRAcetam 500 MG TAB PO SCH ×2 (08:42→20:45)
[2017-04-05] MEDS ORDERED: ASPIRIN EC 81 MG TABEC PO SCH (09:00)
[2017-04-05] MEDS ORDERED: cloNIDine HCL 0.1 MG TAB PO SCH (13:30)
--- NOTE | 2017-04-05 13:55 | ECHRPT ---
Indication: CVA/TIA CONCLUSIONS The left ventricular systolic function is normal with an estimated ejection fraction in the range of 55-60%. Mildly dilated left ventricle. Doppler parameters are consistent with impaired left ventricular relaxtion (grade 1 diastolic dysfun ction). [id number] mitral valve regurgitation. Mild aortic valve regurgitation. BP: / HR: Rhythm: Sinus MEASUREMENTS (Male / Female) Normal Values Technical Quality:Good 2D ECHO LV Diastolic Diameter PLAX 5.3 cm 4.2 - 5.9 / 3.9 - 5.3 cm LV Systolic Diameter PLAX 3.9 cm IVS Diastolic Thickness 1.6 cm 0.6 - 1.0 / 0.6 - 0.9 cm LVPW Diastolic Thickness 0.9 cm 0.6 - 1.0 / 0.6 - 0.9 cm LV Relative Wall Thickness 0.5 LA Systolic Diameter LX 3.8 cm 3.0 - 4.0 / 2.7 - 3.8 cm DOPPLER AV Peak Velocity 150.0 cm/s AV Peak Gradient 9.0 mmHg LVOT Peak Velocity 97.5 cm/s LVOT Peak Gradient 3.8 mmHg MR Peak Velocity 525.0 cm/s MR Peak Gradient 110.3 mmHg Mitral E Point Velocity 51.3 cm/s Mitral A Point Velocity 64.2 cm/s Mitral E to A Ratio 0.8 LV E' Lateral Velocity 5.6 cm/s Mitral E to LV E' Lateral Ratio 9.2 TR Peak Velocity 140.0 cm/s TR Peak Gradient 7.8 mmHg FINDINGS LEFT VENTRICLE Mildly dilated left ventricle. The left ventricular systolic function is normal with an estimated ejection fraction in the range of 55-60%. Doppler parameters are consistent with impaired left ventricular relaxtion (grade 1 diastolic dysfun ction). There is assymetric septal hypertrophy. RIGHT VENTRICLE Normal right ventricular size and systolic function. LEFT ATRIUM The left atrial size is upper limits of normal. RIGHT ATRIUM The right atrial size is normal. ATRIAL SEPTUM The interatrial septum not well visualized. AORTA The aortic root and proximal ascending aorta are normal in size on limited imaging. MITRAL VALVE Structurally normal mitral valve. [id number] mitral valve regurgitation. No mitral valve stenosis. AORTIC VALVE Probably trileaflet although difficult to determine Mild aortic valve regurgitation. No aortic valve stenosis. TRICUSPID VALVE Structurally normal tricuspid valve. There is trace tricuspid valve regurgitation. PULMONARY VALVE The pulmonary valve is not well visualized. VESSELS The inferior vena cava is normal in size. PERICARDIUM No pericardial effusion. Seb Cha DO (Electronically Signed) Final Date:05 April 2017 13:54
[2017-04-05] MEDS: hydrALAZINE HCL 50 MG TAB PO SCH ×2 (14:09→20:45)
--- NOTE | 2017-04-05 15:20 | HHI.PR ---
Subjective Remarks Follow-up for chronic stroke, seizure disorder, noncompliance, and hypertensive urgency Patient has no complaints. He is asking when he can go home. He stated that his left arm feels better. Denied any chest pain, headache, visual changes, lightheadedness or dizziness or shortness of breathing. Dealt with patient's nurse at the bedside. Objective Vitals Vital Signs Date Time Temp Pulse Resp B/P Pulse Ox O2 Delivery O2 Flow Rate FiO2 04/05/17 12:00 97.9 48 18 171/108 100 04/05/17 12:00 49 04/05/17 10:00 56 04/05/17 08:00 68 04/05/17 08:00 97.9 68 12 178/117 100 04/05/17 07:00 100 Room Air 04/05/17 06:00 58 04/05/17 06:00 58 13 167/110 96 04/05/17 04:00 97.8 54 14 165/105 100 04/05/17 04:00 54 04/05/17 02:00 60 13 178/109 98 04/05/17 02:00 60 04/05/17 00:00 98.0 60 13 156/101 100 04/05/17 00:00 60 04/04/17 22:00 56 04/04/17 22:00 56 11 166/108 99 04/04/17 20:00 52 04/04/17 20:00 97.7 52 18 168/109 100 04/04/17 19:00 100 Room Air 04/04/17 18:00 98.2 65 14 164/121 99 I/O 04/04/17 04/04/17 04/04/17 04/05/17 04/05/17 04/05/17 07:00 15:00 23:00 07:00 15:00 23:00 Intake Total 25 ml 599 ml 598 ml Output Total 450 ml 900 ml Balance 25 ml 149 ml -302 ml Intake Oral 250 ml IV Total 25 ml 349 ml 598 ml Output Urine Total 450 ml 900 ml # Voids 1 # Bowel Movements 0 0 Result Diagram: 04/05/17 0625 04/05/17 0625 Imaging Last Impressions Head CT 04/04/17 1121 Signed Impressions: Service Date/Time: Tuesday, April 04, 2017 11:31 - CONCLUSION: Old infarction otherwise negative for an acute process. Franco Pichardo MD FACR Chest X-Ray 04/04/17 1121 Signed Impressions: Service Date/Time: Tuesday, April 04, 2017 11:43 - CONCLUSION: No acute disease. Franco Pichardo MD FACR Lower Extremity Ultrasound 04/04/17 0000 Signed Impressions: Service Date/Time: Tuesday, April 04, 2017 14:49 - CONCLUSION: No evidence of deep venous thrombosis within the lower extremities. Boni Ash MD Head Magnetic Resonance Angiography 04/04/17 0000 Signed Impressions: Service Date/Time: Tuesday, April 04, 2017 16:46 - CONCLUSION: No evidence of vessel truncation or aneurysm. Gume Uriarte MD Carotid Artery Ultrasound 04/04/17 0000 Signed Impressions: Service Date/Time: Tuesday, April 04, 2017 14:40 - CONCLUSION: 1. Normal hemodynamic profile right carotid. 2. Mild plaque formation in the left carotid with hemodynamic parameters characteristic of 50-69%% stenosis. Gume Uriarte MD Brain MRI 04/04/17 0000 Signed Impressions: Service Date/Time: Tuesday, April 04, 2017 16:46 - CONCLUSION: 1. Old infarcts involving the right the right frontal parietal and left occipital lobes. 2. Scattered old lacunar infarcts within the bilateral basal ganglia. 3. Focal signal abnormalities with the right eva consistent with focal ischemic changes versus old lacunar infarcts. 4. Severe periventricular and subcortical white matter small vessel ischemic changes bilaterally. 5. No acute infarct, acute hemorrhage, midline shift or extra-axial fluid collections. 6. Cerebral atrophy. Boni Ash MD Objective Remarks GENERAL: In no acute distress CARDIOVASCULAR: Regular rate and rhythm without murmurs, gallops, or rubs. RESPIRATORY: Breath sounds equal bilaterally. No accessory muscle use. GASTROINTESTINAL: Abdomen soft, non-tender, nondistended. MUSCULOSKELETAL: No cyanosis, or edema. Neurological: AAO 3. Cranial 2-12 intact. 5/5 UE and LE strength but patient does have decrease range of motion of his left arm not due to pain. He said this is due to his prior stroke. Medications and IVs Current Medications Sodium Chloride 2 ml 2 ml UNSCH PRN IVF FLUSH AFTER USING IV ACCESS; Start at 11:30; Stop 04/04/17 at 15:22; Status DC Nicardipine HCl/ Sodium Chloride (Cardene Inj/NS 250 ml Inj) 260 ml @ 0 mls/hr TITRATE ONCE IV Last administered on 04/04/17 11:59; Start 04/04/17 at 11:45 ; Stop 04/04/17 at 15:04; Status DC Sodium Chloride (NS Flush) 2 ml UNSCH PRN IV FLUSH FLUSH AFTER USING IV ACCESS ; Start 04/04/17 at 14:30 Sodium Chloride (NS Flush) 2 ml BID IV FLUSH Last administered on 04/05/17 08: 37; Start 04/04/17 at 21:00 Acetaminophen (Tylenol) 650 mg Q4H PRN PO TEMP > 100.4; Start 04/04/17 at 14:30 Ondansetron HCl (Zofran Inj) 4 mg Q6H PRN IVP NAUSEA OR VOMITING; Start at 14:30 Temazepam (Restoril) 15 mg HS PRN PO INSOMNIA; Start 04/04/17 at 14:30 Naloxone HCl (Narcan Inj) 0.4 mg UNSCH PRN IV SEE LABEL COMMENTS; Start at 14:30 Senna/Docusate Sodium (Selena-Colace) 1 tab BID PO Last administered on 08:37; Start 04/04/17 at 21:00 Magnesium Hydroxide (Milk Of Magnesia Liq) 30 ml Q12H PRN PO MILD - MODERATE CONSTIPATION; Start 04/04/17 at 14:30 Sennosides (Senokot) 17.2 mg Q12H PRN PO MODERATE - SEVERE CONSTIPATION; Start 04/04/17 at 14:30 Bisacodyl (Dulcolax Supp) 10 mg DAILY PRN RECTAL SEVERE CONSITIPATION; Start at 14:30 Lactulose (Lactulose Liq) 30 ml DAILY PRN PO SEVERE CONSITIPATION; Start at 14:30 Enalaprilat (Vasotec Inj) 1.25 mg Q6H PRN IV PUSH SBP>220, DBP>120; Start at 14:30; Stop 04/04/17 at 15:22; Status DC Levetriacetam (Keppra) 1,000 mg BID PO Last administered on 04/05/17 08:42; Start 04/04/17 at 14:30 Lisinopril 20 mg 20 mg BID PO ; Start 04/04/17 at 14:30; Stop 04/04/17 at 14:30 ; Status DC Sodium Chloride (NS 1000 ml Inj) 1,000 ml @ 84 mls/hr [id number] IV Last administered on 04/05/17 02:57; Start 04/04/17 at 14:30 Atorvastatin Calcium (Lipitor) 40 mg ONCE ONCE PO Last administered on 16:46; Start 04/04/17 at 14:45; Stop 04/04/17 at 14:55; Status DC Atorvastatin Calcium (Lipitor) 40 mg DAILY PO Last administered on 04/05/17 08 :38; Start 04/05/17 at 09:00 Aspirin (Ecotrin Ec) 81 mg ONCE ONCE PO ; Start 04/04/17 at 15:00; Stop at 15:01; Status Cancel Aspirin (Ecotrin Ec) 81 mg DAILY PO ; Start 04/05/17 at 09:00; Stop 04/05/17 at 09:00; Status DC Labetalol HCl (Trandate Inj) 10 mg Q2H PRN IV For SBP > 220 or DBP > 120 Last administered on 04/04/17 21:05; Start 04/04/17 at 15:15 Dextrose (D50w (Vial) Inj) 50 ml UNSCH PRN IV HYPOGLYCEMIA-SEE COMMENTS; Start 04/04/17 at 15:15 Glucagon (Glucagon Inj) 1 mg UNSCH PRN OTHER HYPOGLYCEMIA-SEE COMMENTS; Start 04/04/17 at 15:15 Insulin Aspart (NovoLOG SUPPLEMENTAL SCALE) 1 ACHS SLIDING SCALE SQ ; Start at 16:00 Aspirin (Aspirin) 325 mg DAILY PO Last administered on 04/05/17 08:40; Start 04/04/17 at 16:00 Heparin Sodium (Porcine) (Heparin Inj) 5,000 units BID SQ Last administered on 04/05/17 08:40; Start 04/04/17 at 21:00 Hydralazine HCl (Apresoline Inj) 20 mg Q4H PRN IV PUSH SBP>220 or DBP>120; Start 04/04/17 at 15:30 Amlodipine Besylate (Norvasc) 10 mg DAILY PO Last administered on 04/04/17 20: 43; Start 04/04/17 at 20:00 Clonidine (Catapres) 0.1 mg Q12HR PO ; Start 04/05/17 at 13:30; Stop 04/05/17 at 13:30; Status DC Hydralazine HCl (Apresoline) 50 mg Q12HR PO Last administered on 04/05/17 14: 09; Start 04/05/17 at 13:30 A/P Assessment and Plan 51 yo male with a PMHX significant for CVA with residual left sided weakness, HTN, seizure disorder and DM who presented to [facility] ED with complaints of left upper extremity numbness and found to have BP of 197/123. Chronic ischemia left [employer] stroke -CT scan was negative for any acute stroke. Shows old strokes. Carotid ultrasound showed mild plaque formation in the left carotid with hemodynamic parameters characteristic of 50-69%% stenosis. MRA showed Old infarcts involving the right the right frontal parietal and left occipital lobes, and scattered old lacunar infarcts within the bilateral basal ganglia, focal signal abnormalities with the right eva consistent with focal ischemic changes versus old lacunar infarcts and severe periventricular and subcortical white matter small vessel ischemic changes bilaterally. -ECHO showed grade 1 diastolic dysfunction and EF of 55%. -Neurologist was consulted. Recommend to control bp and take aspirin daily. Hypertensive urgency -Due to Medication noncompliance - Per neurologist will need to slowly control blood pressure. - Patient was put on amlodipine. Continues to be uncontrolled. Blood pressure choice limited due to acute on chronic renal failure and bradycardia. -Will add hydralazine. Acute on chronic kidney disease -Due to dehydration. - creatinine 4.08, baseline appears to be around 3 -Patient appears to be has baseline now. - avoid nephrotoxic agents Seizure disorder - Continue with Keppra. - seizure precautions Noncompliance with medication -Case management consulted. DVT prophylaxis - bilateral SCD/GALLO hose Discharge Planning Patient can be transferred out of the [facility]. Once blood pressure is better controlled he can be discharged to home. Laure Paulino MD Apr 05, 2017 15:20 Acute on chronic kidney disease - creatinine 4.08, baseline appears to be around 3 - also may be due to dehydration - avoid nephrotoxic agents - IVF - repeat labs in am Seizure disorder - resume home dose of Keppra - seizure precautions DM - accuchecks - ISS - obtain HgbA1c DVT prophylaxis - bilateral SCD/GALLO hose Laure Paulino MD Apr 05, 2017 15:20 Laure Paulino MD Apr 05, 2017 15:20
[2017-04-05 16:23] LABS: HEMOGLOBIN A1a 1.2 %; HEMOGLOBIN A1b 1.5 %; HEMOGLOBIN Ao 84.5 %; HEMOGLOBIN F 0.3 %; HEMOGLOBIN LA1C 1.9 %; HEMOGLOBIN P3 5.9 %
[2017-04-06] VITALS (29 sets, daily range): BP systolic 148–180; BP diastolic 98–127; PULSE 66–106; RESP 16–20; TEMP 97.7–98.9; O2SAT 96–100
[2017-04-06] MEDS: ACETAMINOPHEN 325 MG TAB PO PRN ×2 (00:59→20:41)
[2017-04-06] MEDS: SODIUM CHLOR 0.9% 1000 ML INJ 1,000 ML IV SCH (02:09)
[2017-04-06] MEDS ORDERED: hydrALAZINE HCL 50 MG TAB PO ONE (04:00)
[2017-04-06] MEDS: INSULIN ASPART SUPPLEMENTAL SCALE SQ SCH ×4 (07:00→20:11)
[2017-04-06 08:48] LABS: BICARBONATE 18.8 MEQ/L (21.0-32.0)
[2017-04-06 08:50] LABS: POTASSIUM 5.4 MEQ/L (3.5-5.1)
[2017-04-06] MEDS: HEPARIN SODIUM - SQ 10,000 UNITS/ML VIAL SQ SCH ×2 (08:50→20:41)
[2017-04-06] MEDS: ASPIRIN 325 MG TAB PO SCH (08:50)
[2017-04-06] MEDS: levETIRAcetam 500 MG TAB PO SCH ×2 (08:51→20:41)
[2017-04-06] MEDS: ATORVASTATIN 40 MG TAB PO SCH (08:51)
[2017-04-06] MEDS: SODIUM CHLORIDE 0.9% FLUSH 10 ML FLUSH IV FLUSH SCH ×2 (08:52→20:41)
[2017-04-06] MEDS: DOCUSATE SODIUM 50 MG/SENNA 8.6 MG TAB PO SCH ×2 (08:52→20:40)
[2017-04-06] MEDS: hydrALAZINE HCL 50 MG TAB PO SCH ×2 (08:52→18:07)
--- NOTE | 2017-04-06 09:11 | HHI.PR ---
Subjective Remarks in no acute distress. no new complaints. denies pain. BP still elevated. Objective Vitals Vital Signs Date Time Temp Pulse Resp B/P Pulse Ox O2 Delivery O2 Flow Rate FiO2 04/06/17 08:00 98.5 70 18 158/107 99 04/06/17 08:00 82 04/06/17 07:42 Room Air 04/06/17 07:00 77 04/06/17 06:00 89 04/06/17 05:00 89 04/06/17 04:00 74 04/06/17 04:00 97.7 66 18 175/122 100 04/06/17 03:00 75 04/06/17 02:00 76 04/06/17 01:00 86 04/06/17 00:30 98.0 69 20 180/127 99 04/06/17 00:00 86 04/05/17 23:00 74 04/05/17 22:30 62 04/05/17 22:30 98.0 62 18 163/116 99 04/05/17 21:43 100 21 04/05/17 20:00 98.1 58 18 170/110 99 04/05/17 19:00 100 Room Air 04/05/17 18:00 80 04/05/17 16:00 77 04/05/17 16:00 98.1 77 18 152/100 100 04/05/17 14:00 55 04/05/17 12:00 97.9 48 18 171/108 100 04/05/17 12:00 49 04/05/17 10:00 56 I/O 04/05/17 04/05/17 04/05/17 04/06/17 04/06/17 04/06/17 07:00 15:00 23:00 07:00 15:00 23:00 Intake Total 598 ml 1102 ml 420 ml Output Total 900 ml 650 ml 1200 ml Balance -302 ml 452 ml -780 ml Intake Oral 480 ml 420 ml IV Total 598 ml 622 ml Output Urine Total 900 ml 650 ml 1200 ml # Bowel Movements 0 0 Result Diagram: 04/05/17 0625 04/06/17 0745 Imaging Last Impressions Head CT 04/04/17 1121 Signed Impressions: Service Date/Time: Tuesday, April 04, 2017 11:31 - CONCLUSION: Old infarction otherwise negative for an acute process. Franco Pichardo MD FACR Chest X-Ray 04/04/17 1121 Signed Impressions: Service Date/Time: Tuesday, April 04, 2017 11:43 - CONCLUSION: No acute disease. Franco Pichardo MD FACR Lower Extremity Ultrasound 04/04/17 0000 Signed Impressions: Service Date/Time: Tuesday, April 04, 2017 14:49 - CONCLUSION: No evidence of deep venous thrombosis within the lower extremities. Boni Ash MD Head Magnetic Resonance Angiography 04/04/17 0000 Signed Impressions: Service Date/Time: Tuesday, April 04, 2017 16:46 - CONCLUSION: No evidence of vessel truncation or aneurysm. Gume Uriarte MD Carotid Artery Ultrasound 04/04/17 0000 Signed Impressions: Service Date/Time: Tuesday, April 04, 2017 14:40 - CONCLUSION: 1. Normal hemodynamic profile right carotid. 2. Mild plaque formation in the left carotid with hemodynamic parameters characteristic of 50-69%% stenosis. Gume Uriarte MD Brain MRI 04/04/17 0000 Signed Impressions: Service Date/Time: Tuesday, April 04, 2017 16:46 - CONCLUSION: 1. Old infarcts involving the right the right frontal parietal and left occipital lobes. 2. Scattered old lacunar infarcts within the bilateral basal ganglia. 3. Focal signal abnormalities with the right eva consistent with focal ischemic changes versus old lacunar infarcts. 4. Severe periventricular and subcortical white matter small vessel ischemic changes bilaterally. 5. No acute infarct, acute hemorrhage, midline shift or extra-axial fluid collections. 6. Cerebral atrophy. Boni Ash MD Objective Remarks GENERAL: This is a well-nourished, well-developed patient, in no apparent distress. CARDIOVASCULAR: Regular rate and regular rhythm without murmurs, gallops, or rubs. RESPIRATORY: Clear to auscultation. Breath sounds equal bilaterally. No wheezes , rales, or rhonchi. GASTROINTESTINAL: Abdomen soft, non-tender, nondistended. Normal, active bowel sounds MUSCULOSKELETAL: Extremities without clubbing, cyanosis, or edema. NEURO: awake and alert Procedures none Medications and IVs Current Medications Sodium Chloride 2 ml 2 ml UNSCH PRN IVF FLUSH AFTER USING IV ACCESS; Start at 11:30; Stop 04/04/17 at 15:22; Status DC Nicardipine HCl/ Sodium Chloride (Cardene Inj/NS 250 ml Inj) 260 ml @ 0 mls/hr TITRATE ONCE IV Last administered on 04/04/17 11:59; Start 04/04/17 at 11:45 ; Stop 04/04/17 at 15:04; Status DC Sodium Chloride (NS Flush) 2 ml UNSCH PRN IV FLUSH FLUSH AFTER USING IV ACCESS ; Start 04/04/17 at 14:30 Sodium Chloride (NS Flush) 2 ml BID IV FLUSH Last administered on 04/06/17 08: 52; Start 04/04/17 at 21:00 Acetaminophen (Tylenol) 650 mg Q4H PRN PO TEMP > 100.4 Last administered on 04/06 00:59; Start 04/04/17 at 14:30 Ondansetron HCl (Zofran Inj) 4 mg Q6H PRN IVP NAUSEA OR VOMITING; Start at 14:30 Temazepam (Restoril) 15 mg HS PRN PO INSOMNIA; Start 04/04/17 at 14:30 Naloxone HCl (Narcan Inj) 0.4 mg UNSCH PRN IV SEE LABEL COMMENTS; Start at 14:30 Senna/Docusate Sodium (Selena-Colace) 1 tab BID PO Last administered on 20:45; Start 04/04/17 at 21:00 Magnesium Hydroxide (Milk Of Magnesia Liq) 30 ml Q12H PRN PO MILD - MODERATE CONSTIPATION; Start 04/04/17 at 14:30 Sennosides (Senokot) 17.2 mg Q12H PRN PO MODERATE - SEVERE CONSTIPATION; Start 04/04/17 at 14:30 Bisacodyl (Dulcolax Supp) 10 mg DAILY PRN RECTAL SEVERE CONSITIPATION; Start at 14:30 Lactulose (Lactulose Liq) 30 ml DAILY PRN PO SEVERE CONSITIPATION; Start at 14:30 Enalaprilat (Vasotec Inj) 1.25 mg Q6H PRN IV PUSH SBP>220, DBP>120; Start at 14:30; Stop 04/04/17 at 15:22; Status DC Levetriacetam (Keppra) 1,000 mg BID PO Last administered on 04/06/17 08:51; Start 04/04/17 at 14:30 Lisinopril 20 mg 20 mg BID PO ; Start 04/04/17 at 14:30; Stop 04/04/17 at 14:30 ; Status DC Sodium Chloride (NS 1000 ml Inj) 1,000 ml @ 84 mls/hr [id number] IV Last administered on 04/05/17 02:57; Start 04/04/17 at 14:30 Atorvastatin Calcium (Lipitor) 40 mg ONCE ONCE PO Last administered on 16:46; Start 04/04/17 at 14:45; Stop 04/04/17 at 14:55; Status DC Atorvastatin Calcium (Lipitor) 40 mg DAILY PO Last administered on 04/06/17 08: 51; Start 04/05/17 at 09:00 Aspirin (Ecotrin Ec) 81 mg ONCE ONCE PO ; Start 04/04/17 at 15:00; Stop at 15:01; Status Cancel Aspirin (Ecotrin Ec) 81 mg DAILY PO ; Start 04/05/17 at 09:00; Stop 04/05/17 at 09:00; Status DC Labetalol HCl (Trandate Inj) 10 mg Q2H PRN IV For SBP > 220 or DBP > 120 Last administered on 04/04/17 21:05; Start 04/04/17 at 15:15 Dextrose (D50w (Vial) Inj) 50 ml UNSCH PRN IV HYPOGLYCEMIA-SEE COMMENTS; Start 04/04/17 at 15:15 Glucagon (Glucagon Inj) 1 mg UNSCH PRN OTHER HYPOGLYCEMIA-SEE COMMENTS; Start 04/04/17 at 15:15 Insulin Aspart (NovoLOG SUPPLEMENTAL SCALE) 1 ACHS SLIDING SCALE SQ ; Start at 16:00 Aspirin (Aspirin) 325 mg DAILY PO Last administered on 04/06/17 08:50; Start at 16:00 Heparin Sodium (Porcine) (Heparin Inj) 5,000 units BID SQ Last administered on 04/06/17 08:50; Start 04/04/17 at 21:00 Hydralazine HCl (Apresoline Inj) 20 mg Q4H PRN IV PUSH SBP>220 or DBP>120; Start 04/04/17 at 15:30 Amlodipine Besylate (Norvasc) 10 mg DAILY PO Last administered on 04/06/17 08: 50; Start 04/04/17 at 20:00 Clonidine (Catapres) 0.1 mg Q12HR PO ; Start 04/05/17 at 13:30; Stop 04/05/17 at 13:30; Status DC Hydralazine HCl (Apresoline) 50 mg Q12HR PO Last administered on 04/06/17 08:52 ; Start 04/05/17 at 13:30 Hydralazine HCl (Apresoline) 50 mg ONCE ONCE PO Last administered on 04/06/17 04:03; Start 04/06/17 at 04:00; Stop 04/06/17 at 04:01; Status DC A/P Assessment and Plan Chronic ischemia stroke -CT scan was negative for any acute stroke. Shows old strokes. Carotid ultrasound showed mild plaque formation in the left carotid with hemodynamic parameters characteristic of 50-69%% stenosis. MRA showed Old infarcts involving the right the right frontal parietal and left occipital lobes, and scattered old lacunar infarcts within the bilateral basal ganglia, focal signal abnormalities with the right eva consistent with focal ischemic changes versus old lacunar infarcts and severe periventricular and subcortical white matter small vessel ischemic changes bilaterally. -ECHO showed grade 1 diastolic dysfunction and EF of 55%. -Neurologist was consulted. Recommend to control bp and take aspirin daily. Hypertensive urgency -Due to Medication noncompliance - Per neurologist will need to slowly control blood pressure. - Patient was put on amlodipine. Continues to be uncontrolled. Blood pressure choice limited due to acute on chronic renal failure and bradycardia. -will increase Hydralazine -continue to monitor and adjust the regimen as needed. Acute on chronic kidney disease -Due to dehydration. - baseline appears to be around 3 -Patient appears to be has baseline now. - avoid nephrotoxic agents Seizure disorder - Continue with Keppra. - seizure precautions Noncompliance with medication -Case management consulted. DVT prophylaxis - bilateral SCD/GALLO hose Discharge Planning dc home within the next 24-48 hrs if BP better controlled. case management for [facility]. Michael Choi MD Apr 06, 2017 09:11
--- NOTE | 2017-04-06 09:12 | HHI.FF ---
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 My clinical findings support the need for the requested home health care services because: Ltd mobility - disease progression I certify that my clinical findings support that this patient is homebound because: Unsteady gait/balance Michael Choi MD Apr 06, 2017 09:12
[2017-04-06] MEDS ORDERED: AMLO10 PO (15:32)
[2017-04-06] MEDS ORDERED: HYDR-3800 PO (15:32)
[2017-04-06] MEDS ORDERED: ASPI325T PO (15:32)
[2017-04-06] MEDS ORDERED: ATOR40TA16 PO (15:32)
[2017-04-07] VITALS (17 sets, daily range): BP systolic 143–165; BP diastolic 93–104; PULSE 68–99; RESP 17–18; TEMP 98.7–98.8; O2SAT 97–100
[2017-04-07] MEDS: hydrALAZINE HCL 50 MG TAB PO SCH ×2 (01:15→09:53)
[2017-04-07] MEDS: ACETAMINOPHEN 325 MG TAB PO PRN (03:55)
[2017-04-07] MEDS: INSULIN ASPART SUPPLEMENTAL SCALE SQ SCH (06:10)
--- NOTE | 2017-04-07 09:20 | HHI.PR ---
Subjective Remarks resting comfortably with no distress. denies chest pain or sob. no new complaints. Objective Vitals Vital Signs Date Time Temp Pulse Resp B/P Pulse Ox O2 Delivery O2 Flow Rate FiO2 04/07/17 07:00 98.8 86 18 143/94 100 04/07/17 07:00 85 04/07/17 07:00 100 Room Air 04/07/17 06:00 85 04/07/17 05:28 74 04/07/17 05:05 18 04/07/17 04:00 96 04/07/17 03:55 98.7 83 18 165/97 100 04/07/17 03:00 86 04/07/17 02:38 97 04/07/17 02:00 68 04/07/17 01:00 77 04/07/17 00:00 72 04/06/17 23:04 98.6 85 20 158/110 100 04/06/17 23:00 75 04/06/17 22:00 75 04/06/17 21:00 83 04/06/17 20:00 98.9 103 16 148/101 96 04/06/17 20:00 96 Room Air 04/06/17 19:30 94 04/06/17 18:00 78 04/06/17 17:00 76 04/06/17 16:51 98 21 04/06/17 16:00 72 04/06/17 15:45 98.2 75 20 158/98 99 04/06/17 15:00 66 04/06/17 14:00 82 04/06/17 13:00 80 04/06/17 12:00 78 04/06/17 11:08 98.0 75 20 148/99 99 04/06/17 11:00 75 04/06/17 10:00 84 I/O 04/06/17 04/06/17 04/06/17 04/07/17 04/07/17 04/07/17 07:00 15:00 23:00 07:00 15:00 23:00 Intake Total 420 ml 975 ml 240 ml Output Total 1200 ml 910 ml 700 ml Balance -780 ml 65 ml -460 ml Intake Oral 420 ml 975 ml 240 ml Output Urine Total 1200 ml 910 ml 700 ml # Bowel Movements 0 Result Diagram: 04/05/17 0625 04/06/17 1307 Imaging Last Impressions Head CT 04/04/171120 Signed Impressions: Service Date/Time: Tuesday, April 04, 2017 11:31 - CONCLUSION: Old infarction otherwise negative for an acute process. Franco Pichardo MD FACR Chest X-Ray 04/04/17 1121 Signed Impressions: Service Date/Time: Tuesday, April 04, 2017 11:43 - CONCLUSION: No acute disease. Franco Pichardo MD FACR Lower Extremity Ultrasound 04/04/17 0000 Signed Impressions: Service Date/Time: Tuesday, April 04, 2017 14:49 - CONCLUSION: No evidence of deep venous thrombosis within the lower extremities. Boni Ash MD Head Magnetic Resonance Angiography 04/04/17 0000 Signed Impressions: Service Date/Time: Tuesday, April 04, 2017 16:46 - CONCLUSION: No evidence of vessel truncation or aneurysm. Gume Uriarte MD Carotid Artery Ultrasound 04/04/17 0000 Signed Impressions: Service Date/Time: Tuesday, April 04, 2017 14:40 - CONCLUSION: 1. Normal hemodynamic profile right carotid. 2. Mild plaque formation in the left carotid with hemodynamic parameters characteristic of 50-69%% stenosis. Gume Uriarte MD Brain MRI 04/04/17 0000 Signed Impressions: Service Date/Time: Tuesday, April 04, 2017 16:46 - CONCLUSION: 1. Old infarcts involving the right the right frontal parietal and left occipital lobes. 2. Scattered old lacunar infarcts within the bilateral basal ganglia. 3. Focal signal abnormalities with the right eva consistent with focal ischemic changes versus old lacunar infarcts. 4. Severe periventricular and subcortical white matter small vessel ischemic changes bilaterally. 5. No acute infarct, acute hemorrhage, midline shift or extra-axial fluid collections. 6. Cerebral atrophy. Boni Ash MD Objective Remarks GENERAL: This is a well-nourished, well-developed patient, in no apparent distress. CARDIOVASCULAR: Regular rate and regular rhythm without murmurs, gallops, or rubs. RESPIRATORY: Clear to auscultation. Breath sounds equal bilaterally. No wheezes , rales, or rhonchi. GASTROINTESTINAL: Abdomen soft, non-tender, nondistended. Normal, active bowel sounds MUSCULOSKELETAL: Extremities without clubbing, cyanosis, or edema. NEURO: awake and alert Procedures none Medications and IVs Current Medications Sodium Chloride 2 ml 2 ml UNSCH PRN IVF FLUSH AFTER USING IV ACCESS; Start at 11:30; Stop 04/04/17 at 15:22; Status DC Nicardipine HCl/ Sodium Chloride (Cardene Inj/NS 250 ml Inj) 260 ml @ 0 mls/hr TITRATE ONCE IV Last administered on 04/04/17 11:59; Start 04/04/17 at 11:45 ; Stop 04/04/17 at 15:04; Status DC Sodium Chloride (NS Flush) 2 ml UNSCH PRN IV FLUSH FLUSH AFTER USING IV ACCESS ; Start 04/04/17 at 14:30 Sodium Chloride (NS Flush) 2 ml BID IV FLUSH Last administered on 04/06/17 20: 41; Start 04/04/17 at 21:00 Acetaminophen (Tylenol) 650 mg Q4H PRN PO TEMP > 100.4 Last administered on 04/07 03:55; Start 04/04/17 at 14:30 Ondansetron HCl (Zofran Inj) 4 mg Q6H PRN IVP NAUSEA OR VOMITING; Start at 14:30 Temazepam (Restoril) 15 mg HS PRN PO INSOMNIA; Start 04/04/17 at 14:30 Naloxone HCl (Narcan Inj) 0.4 mg UNSCH PRN IV SEE LABEL COMMENTS; Start at 14:30 Senna/Docusate Sodium (Selena-Colace) 1 tab BID PO Last administered on 04/06/17 20:40; Start 04/04/17 at 21:00 Magnesium Hydroxide (Milk Of Magnesia Liq) 30 ml Q12H PRN PO MILD - MODERATE CONSTIPATION; Start 04/04/17 at 14:30 Sennosides (Senokot) 17.2 mg Q12H PRN PO MODERATE - SEVERE CONSTIPATION; Start 04/04/17 at 14:30 Bisacodyl (Dulcolax Supp) 10 mg DAILY PRN RECTAL SEVERE CONSITIPATION; Start at 14:30 Lactulose (Lactulose Liq) 30 ml DAILY PRN PO SEVERE CONSITIPATION; Start at 14:30 Enalaprilat (Vasotec Inj) 1.25 mg Q6H PRN IV PUSH SBP>220, DBP>120; Start at 14:30; Stop 04/04/17 at 15:22; Status DC Levetriacetam (Keppra) 1,000 mg BID PO Last administered on 04/06/17 20:41; Start 04/04/17 at 14:30 Lisinopril 20 mg 20 mg BID PO ; Start 04/04/17 at 14:30; Stop 04/04/17 at 14:30 ; Status DC Sodium Chloride (NS 1000 ml Inj) 1,000 ml @ 84 mls/hr [id number] IV Last administered on 04/05/17 02:57; Start 04/04/17 at 14:30; Stop 04/06/17 at 09:35 ; Status DC Atorvastatin Calcium (Lipitor) 40 mg ONCE ONCE PO Last administered on 16:46; Start 04/04/17 at 14:45; Stop 04/04/17 at 14:55; Status DC Atorvastatin Calcium (Lipitor) 40 mg DAILY PO Last administered on 04/06/17 08: 51; Start 04/05/17 at 09:00 Aspirin (Ecotrin Ec) 81 mg ONCE ONCE PO ; Start 04/04/17 at 15:00; Stop at 15:01; Status Cancel Aspirin (Ecotrin Ec) 81 mg DAILY PO ; Start 04/05/17 at 09:00; Stop 04/05/17 at 09:00; Status DC Labetalol HCl (Trandate Inj) 10 mg Q2H PRN IV For SBP > 220 or DBP > 120 Last administered on 04/04/17 21:05; Start 04/04/17 at 15:15 Dextrose (D50w (Vial) Inj) 50 ml UNSCH PRN IV HYPOGLYCEMIA-SEE COMMENTS; Start 04/04/17 at 15:15 Glucagon (Glucagon Inj) 1 mg UNSCH PRN OTHER HYPOGLYCEMIA-SEE COMMENTS; Start 04/04/17 at 15:15 Insulin Aspart (NovoLOG SUPPLEMENTAL SCALE) 1 ACHS SLIDING SCALE SQ ; Start at 16:00 Aspirin (Aspirin) 325 mg DAILY PO Last administered on 04/06/17 08:50; Start at 16:00 Heparin Sodium (Porcine) (Heparin Inj) 5,000 units BID SQ Last administered on 04/06/17 20:41; Start 04/04/17 at 21:00 Hydralazine HCl (Apresoline Inj) 20 mg Q4H PRN IV PUSH SBP>220 or DBP>120; Start 04/04/17 at 15:30 Amlodipine Besylate (Norvasc) 10 mg DAILY PO Last administered on 04/06/17 08: 50; Start 04/04/17 at 20:00 Clonidine (Catapres) 0.1 mg Q12HR PO ; Start 04/05/17 at 13:30; Stop 04/05/17 at 13:30; Status DC Hydralazine HCl (Apresoline) 50 mg Q12HR PO Last administered on 04/06/17 08:52 ; Start 04/05/17 at 13:30; Stop 04/06/17 at 09:36; Status DC Hydralazine HCl (Apresoline) 50 mg ONCE ONCE PO Last administered on 04/06/17 04:03; Start 04/06/17 at 04:00; Stop 04/06/17 at 04:01; Status DC Hydralazine HCl (Apresoline) 50 mg Q8H PO Last administered on 04/07/17 01:15; Start 04/06/17 at 17:00 A/P Assessment and Plan Chronic ischemia stroke -CT scan was negative for any acute stroke. Shows old strokes. Carotid ultrasound showed mild plaque formation in the left carotid with hemodynamic parameters characteristic of 50-69%% stenosis. MRA showed Old infarcts involving the right the right frontal parietal and left occipital lobes, and scattered old lacunar infarcts within the bilateral basal ganglia, focal signal abnormalities with the right eva consistent with focal ischemic changes versus old lacunar infarcts and severe periventricular and subcortical white matter small vessel ischemic changes bilaterally. -ECHO showed grade 1 diastolic dysfunction and EF of 55%. -Neurologist was consulted. Recommend to control bp and take aspirin daily. Hypertensive urgency- BP improved. -Due to Medication noncompliance - Per neurologist will need to slowly control blood pressure. - Patient was put on amlodipine. Blood pressure choice limited due to acute on chronic renal failure and bradycardia. -continue Hydralazine -f/u as outpatient. Acute on chronic kidney disease -Due to dehydration. - baseline appears to be around 3 -Patient appears to be has baseline now. - avoid nephrotoxic agents Seizure disorder - Continue with Keppra. - seizure precautions Noncompliance with medication -Case management consulted. DVT prophylaxis - bilateral SCD/GALLO hose Discharge Planning dc home with HHC today. f/u with pcp. see med list. d/w the patient. Michael Choi MD Apr 07, 2017 09:20
--- NOTE | 2017-04-07 09:22 | HHI.DCPOC ---
Discharge Care Plan Diagnosis: (1) Uncontrolled hypertension Additional Problems uncontrolled hypertension. Goals to Promote Your Health * To prevent worsening of your condition and complications * To maintain your health at the optimal level Directions to Meet Your Goals Take your medications as prescribed Follow your dietary instruction Follow activity as directed Keep your appointments as scheduled Take your immunizations and boosters as scheduled If your symptoms worsen call your PCP, if no PCP go to Urgent Care Center or Emergency Room Smoking is Dangerous to Your Health. Avoid second hand smoke Call the 24-hour hour crisis hotline for domestic abuse at Michael Choi MD Apr 07, 2017 09:22
--- NOTE | 2017-04-07 09:23 | HHI.DS ---
Discharge Summary Admission Date Apr 04, 2017 at 13:46 Discharge Date: Apr 07, 2017 Admitting Diagnosis TIA, hypertensive urgency (1) Uncontrolled hypertension ICD Code: I10 Diagnosis: Principal Procedures none Brief History - From Admission This is a 51 yo male with a PMHX significant for CVA with residual left sided weakness, HTN, seizure disorder and DM who presented to [facility] ED with complaints of left upper extremity numbness. Patient reports he developed a severe headache followed by numbness in the left arm that lasted for about 30mins before resolving on its on. He admits he ran out of his medications about 2 weeks ago due to transportation issues. He denies any associated slurred speech, weakness or blurry vision. He also denies any associated dizziness, N/V, chest pain, shortness of breath or abdominal pain. Patient has a smoking history but reports quitting 2 weeks ago. He denies any recent illness or fever/chills. He denies any recent seizure activity. His last seizure was 2 1/2 yrs ago per patient report. He is not on any anticoagulation at home. In the ED, patients blood pressure was 197/123. CT head was negative. His creatinine is elevated at 4.08. CBC/BMP: 04/05/17 0625 04/06/17 1307 Significant Findings Laboratory Tests Test 04/04/17 04/04/17 04/04/17 04/05/17 11:10 12:35 17:56 06:25 Red Blood Count 3.43 MIL/MM3 3.43 MIL/MM3 (4.50-5.90) (4.50-5.90) Hemoglobin 10.5 GM/DL 10.6 GM/DL (13.0-17.0) (13.0-17.0) Hematocrit 31.9 % 31.5 % (39.0-51.0) (39.0-51.0) Activated Partial 30.3 SEC Thromboplast Time (24.3-30.1) Chloride Level 108 MEQ/L 112 MEQ/L (98-107) (98-107) Blood Urea Nitrogen 51 MG/DL (7-18) 45 MG/DL (7-18) Creatinine 4.08 MG/DL 3.43 MG/DL (0.60-1.30) (0.60-1.30) Estimat Glomerular Filtration 19 ML/MIN (>89) 23 ML/MIN (>89) Rate Aspartate Amino Transf 9 U/L (15-37) 7 U/L (15-37) (AST/SGOT) Troponin I LESS THAN 0.02 LESS THAN 0.02 NG/ML NG/ML (0.02-0.05) (0.02-0.05) Urine Protein 30 mg/dL (NEG-TRACE) Urine Occult Blood TRACE (NEG) Lymphocytes (%) (Auto) 46.6 % (9.0-44.0) Random Glucose 69 MG/DL (74-106) Calcium Level 8.4 MG/DL (8.5-10.1) Alanine Aminotransferase 11 U/L (12-78) (ALT/SGPT) Cholesterol Level 204 MG/DL (120-200) LDL Cholesterol 136 MG/DL (0-99) Test 04/06/17 07:45 Potassium Level 5.4 MEQ/L (3.5-5.1) Chloride Level 112 MEQ/L (98-107) Carbon Dioxide Level 18.8 MEQ/L (21.0-32.0) Blood Urea Nitrogen 46 MG/DL (7-18) Creatinine 3.34 MG/DL (0.60-1.30) Estimat Glomerular Filtration 24 ML/MIN (>89) Rate Calcium Level 8.3 MG/DL (8.5-10.1) Imaging Last Impressions Head CT 04/04/17 112 Signed Impressions: Service Date/Time: Tuesday, April 04, 2017 11:31 - CONCLUSION: Old infarction otherwise negative for an acute process. Franco Pichardo MD FACR Chest X-Ray 04/04/17 1121 Signed Impressions: Service Date/Time: Tuesday, April 04, 2017 11:43 - CONCLUSION: No acute disease. Franco Picahrdo MD FACR Lower Extremity Ultrasound 04/04/17 0000 Signed Impressions: Service Date/Time: Tuesday, April 04, 2017 14:49 - CONCLUSION: No evidence of deep venous thrombosis within the lower extremities. Boni Ash MD Head Magnetic Resonance Angiography 7/30/17 0000 Signed Impressions: Service Date/Time: Tuesday, April 04, 2017 16:46 - CONCLUSION: No evidence of vessel truncation or aneurysm. Gume Uriarte MD Carotid Artery Ultrasound 04/04/17 Signed Impressions: Service Date/Time: Tuesday, April 04, 2017 14:40 - CONCLUSION: 1. Normal hemodynamic profile right carotid. 2. Mild plaque formation in the left carotid with hemodynamic parameters characteristic of 50-69%% stenosis. Gume Uriarte MD Brain MRI 04/04/17 Signed Impressions: Service Date/Time: Tuesday, April 04, 2017 16:46 - CONCLUSION: 1. Old infarcts involving the right the right frontal parietal and left occipital lobes. 2. Scattered old lacunar infarcts within the bilateral basal ganglia. 3. Focal signal abnormalities with the right eva consistent with focal ischemic changes versus old lacunar infarcts. 4. Severe periventricular and subcortical white matter small vessel ischemic changes bilaterally. 5. No acute infarct, acute hemorrhage, midline shift or extra-axial fluid collections. 6. Cerebral atrophy. Boni Ash MD PE at Discharge GENERAL: This is a well-nourished, well-developed patient, in no apparent distress. CARDIOVASCULAR: Regular rate and regular rhythm without murmurs, gallops, or rubs. RESPIRATORY: Clear to auscultation. Breath sounds equal bilaterally. No wheezes , rales, or rhonchi. GASTROINTESTINAL: Abdomen soft, non-tender, nondistended. Normal, active bowel sounds MUSCULOSKELETAL: Extremities without clubbing, cyanosis, or edema. NEURO: awake and alert Hospital Course Chronic ischemia stroke -CT scan was negative for any acute stroke. Shows old strokes. Carotid ultrasound showed mild plaque formation in the left carotid with hemodynamic parameters characteristic of 50-69%% stenosis. MRA showed Old infarcts involving the right the right frontal parietal and left occipital lobes, and scattered old lacunar infarcts within the bilateral basal ganglia, focal signal abnormalities with the right eva consistent with focal ischemic changes versus old lacunar infarcts and severe periventricular and subcortical white matter small vessel ischemic changes bilaterally. -ECHO showed grade 1 diastolic dysfunction and EF of 55%. -Neurologist was consulted. Recommend to control bp and take aspirin daily. Hypertensive urgency- BP improved. -Due to Medication noncompliance - Per neurologist will need to slowly control blood pressure. - Patient was put on amlodipine. Blood pressure choice limited due to acute on chronic renal failure and bradycardia. -continue Hydralazine -f/u as outpatient. Acute on chronic kidney disease -Due to dehydration. - baseline appears to be around 3 -Patient appears to be has baseline now. - avoid nephrotoxic agents Seizure disorder - Continue with Keppra. - seizure precautions Noncompliance with medication -Case management consulted. DVT prophylaxis - bilateral SCD/GALLO hose Pt Condition on Discharge: Fair Discharge Disposition: Disch w/ Home Health Serv Discharge Time: <= 30 minutes Discharge Instructions DIET: Follow Instructions for: Heart Healthy Diet Activities you can perform: Regular-No Restrictions Follow up Referrals: Neurology PCP Follow-up New Medications: Amlodipine (Norvasc) 10 Mg Tab 10 MG PO DAILY hypertension Days 30 Ref 0 TAB Aspirin (Aspirin) 325 Mg Tab 325 MG PO DAILY cva Days 30 Ref 0 TAB Atorvastatin (Atorvastatin) 40 Mg Tab 40 MG PO DAILY dyslipidemia Days 30 Ref 0 TAB Hydralazine HCl (Hydralazine HCl) 50 Mg Tablet 50 MG PO Q8H hypertension Days 30 Ref 0 TAB Continued Medications: Levetiracetam (Keppra) 1,000 Mg Tab 1000 MG PO BID Control Seizures Days 30 Ref 0 TAB Discontinued Medications: Lisinopril (Lisinopril) 20 Mg Tab 20 MG PO BID Days 30 Ref 0 TAB Michael Choi MD Apr 07, 2017 09:22
[2017-04-07] MEDS: SODIUM CHLORIDE 0.9% FLUSH 10 ML FLUSH IV FLUSH SCH (09:52)
[2017-04-07] MEDS: ATORVASTATIN 40 MG TAB PO SCH (09:53)
[2017-04-07] MEDS: ASPIRIN 325 MG TAB PO SCH (09:53)
[2017-04-07] MEDS: DOCUSATE SODIUM 50 MG/SENNA 8.6 MG TAB PO SCH (09:53)
[2017-04-07] MEDS: levETIRAcetam 500 MG TAB PO SCH (09:53)
[2017-04-07] MEDS: HEPARIN SODIUM - SQ 10,000 UNITS/ML VIAL SQ SCH (09:54)
== END 2017-04-07 15:08 | disposition home health service (06) | DRG 305 ==
LOC: NEPE 10:59 → NEDA 13:46 → N03A 18:14 → HCIS 04-05 21:50
PROVIDERS: ADMIT Internal Medicine; ATTEND Internal Medicine
DX: I16.0 Hypertensive urgency (principal); N17.9 Acute kidney failure, unspecified; E11.22 Type 2 diabetes mellitus with diabetic chronic kidney disease; I69.354 Hemiplegia and hemiparesis following cerebral infarction affecting left non-dominant side; I12.9 Hypertensive chronic kidney disease with stage 1 through stage 4 chronic kidney disease, or unspecified chronic kidney disease; N18.9 Chronic kidney disease, unspecified; Z91.14 Patient's other noncompliance with medication regimen; Z91.11 Patient's noncompliance with dietary regimen; E86.0 Dehydration; G40.909 Epilepsy, unspecified, not intractable, without status epilepticus; Z87.891 Personal history of nicotine dependence
CPT/HCPCS: 70450; 70544; 70551; 71010; 76937; 80048; 80053; 80061; 80307; 81001; 82550; 82948; 83036; 84132; 84443; 84484; 85025; 85610; 85730; 87641; 93005; 93306; 93880; 93970; 96374; J1644; J7030; J7050

== ENCOUNTER 2017-04-30 13:52 | Emergency (ER) | payer MEDICARE, OTHER ==
[~2017-04-30] VITALS: Ht 188 cm; Wt 72.0 kg
[~2017-04-30 13:52] MED LIST changes: +AMLO10 PO; +ASPI325T PO; +ATOR40TA16 PO; +HYDR-3800 PO; -LISI-515 PO
[2017-04-30 14:35] VITALS: BP 130/80; PULSE 100; RESP 16; TEMP 98.7; O2SAT 97
[2017-04-30 15:00] VITALS: BP 149/100; PULSE 80; RESP 15; O2SAT 100
[2017-04-30] MEDS ORDERED: levETIRAcetam 500 MG TAB PO ONE (15:30)
--- NOTE | 2017-04-30 15:32 | PD ---
HPI Chief Complaint: General Weakness Time Seen by Provider: 15:01 Travel History International Travel<30 days: No Contact w/Intl Traveler<30days: No Traveled to known affect area: No History of Present Illness HPI This patient complains of some generalized weakness and malaise. He felt like he was going to have a seizure today. He did not actually have a seizure. He' s been off his seizure medicine for months. He saw his primary physician today and got a refill prescription for his Keppra 1000 twice a day. Symptoms severity is moderate. Duration one day. No alleviating factors. He denies fever or vomiting or diarrhea PFSH Past Medical History Asthma: Yes (child) Blood Disorders: No Cancer: No Cardiovascular Problems: Yes High Cholesterol: Yes Cerebrovascular Accident: Yes Diabetes: Yes (pt states when he lost weight his DM went away) Patient Takes Glucophage: No Diminished Hearing: No Endocrine: Yes Genitourinary: No Hypertension: Yes Neurologic: Yes Psychiatric: No Reproductive: No Respiratory: No Seizures: Yes (epilepsy ) Tetanus Vaccination: < 5 Years Past Surgical History Surgical History: No Previous Surgery AICD: No Genitourinary Surgery: No Pacemaker: No Other Surgery: No Social History Alcohol Use: No Tobacco Use: Yes Substance Use: No Allergies-Medications (Allergen,Severity, Reaction): Coded Allergies: No Known Allergies (Verified , 04/30/17) Reported Meds & Prescriptions Reported Meds & Active Scripts Active Hydralazine HCl 50 Mg Tablet 50 Mg PO Q8H 30 Days Atorvastatin (Atorvastatin Calcium) 40 Mg Tab 40 Mg PO DAILY 30 Days Aspirin 325 Mg Tab 325 Mg PO DAILY 30 Days Keppra (Levetiracetam) 1,000 Mg Tab 1,000 Mg PO BID 30 Days Review of Systems General / Constitutional: No: Fever Eyes: No: Visual changes HENT: No: Headaches Cardiovascular: No: Chest Pain or Discomfort Respiratory: No: Shortness of Breath Gastrointestinal: No: Abdominal Pain Genitourinary: No: Dysuria Musculoskeletal: Positive: Weakness, No: Pain Skin: No Rash Neurologic: Positive: Weakness, Seizures Psychiatric: No: Depression Endocrine: No: Polydipsia Hematologic/Lymphatic: No: Easy Bruising Physical Exam Narrative GENERAL: Well-nourished, well-developed patient in no apparent distress. SKIN: Focused skin assessment reveals no rash and nodules. Skin is Warm and dry. HEAD: Atraumatic. Normocephalic. EYES: Pupils equal and round. No scleral icterus. No injection or drainage. ENT: No nasal bleeding or discharge. Mucous membranes pink and moist. NECK: Trachea midline. No JVD. CARDIOVASCULAR: Regular rate and rhythm. No murmur appreciated. RESPIRATORY: No accessory muscle use. Clear to auscultation. Breath sounds equal bilaterally. GASTROINTESTINAL: Abdomen soft, non-tender, nondistended. Hepatic and splenic margins not palpable. MUSCULOSKELETAL: No obvious deformities. No clubbing. No cyanosis. No edema. NEUROLOGICAL: Awake and alert. No obvious cranial nerve deficits. Motor grossly within normal limits. Normal speech. PSYCHIATRIC: Appropriate mood and affect; insight and judgment normal. Data Data Last Documented VS Vital Signs Date Time Temp Pulse Resp B/P (MAP) Pulse Ox O2 Delivery O2 Flow Rate FiO2 04/30/17 15:00 80 15 149/100 (116) 100 Room Air 04/30/17 14:35 98.7 Orders Orders Iv Access Insert/Monitor (04/30/17 15:29) Complete Blood Count With Diff (04/30/17 15:29) Basic Metabolic Panel (Bmp) (04/30/17 15:29) Levetiracetam (Keppra) (04/30/17 15:30) Labs Laboratory Tests Test 04/30/17 15:32 White Blood Count 3.2 TH/MM3 Red Blood Count 3.01 MIL/MM3 Hemoglobin 9.1 GM/DL Hematocrit 27.8 % Mean Corpuscular Volume 92.5 FL Mean Corpuscular Hemoglobin 30.3 PG Mean Corpuscular Hemoglobin Concent 32.8 % Red Cell Distribution Width 15.5 % Platelet Count 132 TH/MM3 Mean Platelet Volume 8.9 FL Neutrophils (%) (Auto) 56.0 % Lymphocytes (%) (Auto) 36.8 % Monocytes (%) (Auto) 4.8 % Eosinophils (%) (Auto) 1.7 % Basophils (%) (Auto) 0.7 % Neutrophils # (Auto) 1.8 TH/MM3 Lymphocytes # (Auto) 1.2 TH/MM3 Monocytes # (Auto) 0.2 TH/MM3 Eosinophils # (Auto) 0.1 TH/MM3 Basophils # (Auto) 0.0 TH/MM3 CBC Comment AUTO DIFF Differential Comment AUTO DIFF CONFIRMED Blood Urea Nitrogen 50 MG/DL Creatinine 3.58 MG/DL Random Glucose 69 MG/DL Calcium Level 8.5 MG/DL Sodium Level 139 MEQ/L Potassium Level 4.3 MEQ/L Chloride Level 110 MEQ/L Carbon Dioxide Level 19.0 MEQ/L Anion Gap 10 MEQ/L Estimat Glomerular Filtration Rate 22 ML/MIN MDM Medical Decision Making Medical Screen Exam Complete: Yes Emergency Medical Condition: Yes Medical Record Reviewed: Yes Differential Diagnosis Acute on chronic renal failure, seizure aura, flu syndrome Narrative Course I have reviewed the patient's electronic medical record. Reviewed his prior lab studies. He does have chronic renal failure and hypertension which is poorly controlled IV placed CBC shows pancytopenia Metabolic profile shows he has chronic renal failure He has a systolic blood pressure of 149 Neurologically intact I gave him 1000 mg by mouth Keppra I observed him for several hours and he has had no neurologic complaint or seizure activity Should discuss his renal failure and pancytopenia with his physician stable for outpatient follow-up Diagnosis Primary Impression: Seizure disorder Additional Impression: Chronic kidney disease Qualified Codes: N18.9 - Chronic kidney disease, unspecified Additional Instructions: The patient was advised to follow up with their physician and return if they worsen. Discuss your abnormal CBC and renal function with your physician Start taking your Keppra Med/Other Pt SpecificInfo: Other Disposition: 01 DISCHARGE HOME Condition: Stable Alexis Cameron MD Apr 30, 2017 15:32
[2017-04-30 16:20] LABS: POTASSIUM 4.3 MEQ/L (3.5-5.1)
[2017-04-30 16:28] LABS: AUTOMATED NEUTROPHIL # 1.8 TH/MM3 (1.8-7.7); BASOPHIL % 0.7 % (0.0-2.0); EOSINOPHIL # 0.1 TH/MM3 (0-0.4); EOSINOPHIL % 1.7 % (0.0-4.0); HEMATOCRIT 27.8 % (39.0-51.0); LYMPH % 36.8 % (9.0-44.0); LYMPHOCYTE # 1.2 TH/MM3 (1.0-4.8); MEAN CELL VOLUME 92.5 FL (80.0-100.0); MEAN CORPUSCULAR HEMOGLOBIN 30.3 PG (27.0-34.0); MEAN CORPUSCULAR HGB CONC 32.8 % (32.0-36.0); MONO % 4.8 % (0.0-8.0); PLATELET COUNT 132 TH/MM3 (150-450); RED BLOOD COUNT 3.01 MIL/MM3 (4.50-5.90); RED CELL DISTRIBUTION WIDTH 15.5 % (11.6-17.2); WHITE BLOOD COUNT 3.2 TH/MM3 (4.0-11.0)
[2017-04-30 16:33] LABS: HEMO FLAGS AUTO DIFF
[2017-04-30 17:02] LABS: SCAN/DIFF AUTO DIFF CONFIRMED
== END 2017-04-30 20:02 | disposition home or self-care (01) ==
LOC: NEPC 13:52
DX: G40.909 Epilepsy, unspecified, not intractable, without status epilepticus (principal); E11.22 Type 2 diabetes mellitus with diabetic chronic kidney disease; I12.9 Hypertensive chronic kidney disease with stage 1 through stage 4 chronic kidney disease, or unspecified chronic kidney disease; N18.9 Chronic kidney disease, unspecified; D61.818 Other pancytopenia; R53.1 Weakness; R53.81 Other malaise; J45.909 Unspecified asthma, uncomplicated; E78.00 Pure hypercholesterolemia, unspecified
CPT/HCPCS: 80048; 85025; 99283

== ENCOUNTER 2017-07-20 17:39 | Inpatient (IN) | payer OTHER, MEDICARE ==
[~2017-07-20] VITALS: Ht 180.3 cm; Wt 87.8 kg
[2017-07-20] VITALS (12 sets, daily range): BP systolic 134–198; BP diastolic 97–126; PULSE 72–113; RESP 12–18; TEMP 87–90; O2SAT 97–100
[~2017-07-20 17:39] MED LIST changes: -AMLO10 PO; +ASPI-183 PO; -ASPI325T PO
[2017-07-20] MEDS ORDERED: SODIUM CHLORIDE 0.9% FLUSH 5 ML FLUSH IV FLUSH PRN (18:15)
[2017-07-20 18:47] LABS: AUTOMATED NEUTROPHIL # 3.7 TH/MM3 (1.8-7.7); BASOPHIL % 0.3 % (0.0-2.0); HEMATOCRIT 34.6 % (39.0-51.0); HEMO FLAGS DIFF FINAL; LYMPH % 11.4 % (9.0-44.0); LYMPHOCYTE # 0.5 TH/MM3 (1.0-4.8); MEAN CELL VOLUME 93.6 FL (80.0-100.0); MEAN CORPUSCULAR HEMOGLOBIN 31.1 PG (27.0-34.0); MEAN CORPUSCULAR HGB CONC 33.2 % (32.0-36.0); MONO % 2.7 % (0.0-8.0); NEUT % 85.6 % (16.0-70.0); PLATELET COUNT 212 TH/MM3 (150-450); RED CELL DISTRIBUTION WIDTH 16.4 % (11.6-17.2); WHITE BLOOD COUNT 4.4 TH/MM3 (4.0-11.0)
[2017-07-20 18:50] LABS: BLOOD, URINE LARGE (NEG); COMMENT (UR) CATH-CULT NOT IND; CULTURE IF INDICATED CATH CULTURE NOT IND; GLUCOSE,URINE NEG (NEG); KETONE, URINE NEG (NEG); NITRITE,URINE NEG (NEG); PH, URINE 6.5 (5.0-8.5); SQUAMOUS EPITHELIAL CELL URINE <1 /hpf (0-5); URINE COLOR LIGHT-YELLOW (YELLW/STRAW)
[2017-07-20 18:56] LABS: APTT (PATIENT) 29.8 SEC (24.3-30.1); INTERNATIONAL NORMALIZED RATIO 0.9 RATIO; PROTHROMBIN TIME - PATIENT 10.4 SEC (9.8-11.6)
[2017-07-20 18:59] LABS: ANION GAP 11 MEQ/L (5-15)
--- NOTE | 2017-07-20 19:15 | PD ---
Physical Exam Narrative I was asked by ED physician to put a central line in for a patient in critical condition. Data Data Last Documented VS Vital Signs Date Time Temp Pulse Resp B/P (MAP) Pulse Ox O2 Delivery O2 Flow Rate FiO2 07/20/17 18:18 72 16 198/126 (150) 99 15.00 07/20/17 18:18 87.0 07/20/17 18:00 100 Orders Orders Electrocardiogram (07/20/17 18:15) Ammonia (07/20/17 18:15) Complete Blood Count With Diff (07/20/17 18:15) Comprehensive Metabolic Panel (07/20/17 18:15) Creatine Kinase (Cpk) (07/20/17 18:15) Prothrombin Time / Inr (Pt) (07/20/17:) Act Partial Throm Time (Ptt) (07/20/17 18:15) Troponin I (07/20/17 18:15) Thyroid Stimulating Hormone (07/20/17 18:) Urinalysis - C+S If Indicated (07/20/17 18:) Lactic Acid Sepsis Protocol (07/20/17 18:15) Arterial Blood Gas (Abg) (07/20/17 18:15) Blood Culture (07/20/17 18:15) Chest, Single Ap (07/20/17 18:15) Ct Brain W/O Iv Contrast(Rout) (07/20/17 18:15) Blood Glucose (07/20/17 18:15) Ecg Monitoring (07/20/17 18:15) Iv Access Insert/Monitor (07/20/17 18:15) Oximetry (07/20/17 18:15) Sodium Chloride 0.9% Flush (Ns Flush) (07/20/17 18:15) Drug Screen, Random Urine (07/20/17 18:15) Alcohol (Ethanol) (07/20/17 18:15) Labs Laboratory Tests Test 07/20/17 18:30 07/20/17 18:34 07/20/17 18:40 White Blood Count 4.4 TH/MM3 Red Blood Count 3.70 MIL/MM3 Hemoglobin 11.5 GM/DL Hematocrit 34.6 % Mean Corpuscular Volume 93.6 FL Mean Corpuscular Hemoglobin 31.1 PG Mean Corpuscular Hemoglobin Concent 33.2 % Red Cell Distribution Width 16.4 % Platelet Count 212 TH/MM3 Mean Platelet Volume 8.4 FL Neutrophils (%) (Auto) 85.6 % Lymphocytes (%) (Auto) 11.4 % Monocytes (%) (Auto) 2.7 % Eosinophils (%) (Auto) 0.0 % Basophils (%) (Auto) 0.3 % Neutrophils # (Auto) 3.7 TH/MM3 Lymphocytes # (Auto) 0.5 TH/MM3 Monocytes # (Auto) 0.1 TH/MM3 Eosinophils # (Auto) 0.0 TH/MM3 Basophils # (Auto) 0.0 TH/MM3 CBC Comment DIFF FINAL Differential Comment Prothrombin Time 10.4 SEC Prothromb Time International Ratio 0.9 RATIO Activated Partial Thromboplast Time 29.8 SEC Lactic Acid Level 1.4 mmol/L Urine Color LIGHT-YELLOW Urine Turbidity CLEAR Urine pH 6.5 Urine Specific [place] 1.012 Urine Protein 300 mg/dL Urine Glucose (UA) NEG mg/dL Urine Ketones NEG mg/dL Urine Occult Blood LARGE Urine Nitrite NEG Urine Bilirubin NEG Urine Urobilinogen LESS THAN 2.0 MG/DL Urine Leukocyte Esterase NEG Urine RBC 3 /hpf Urine WBC 1 /hpf Urine Squamous Epithelial Cells <1 /hpf Microscopic Urinalysis Comment CATH-CULT NOT IND MDM Supervised Visit with EDINSON: No Procedures Procedure Narrative CENTRAL VENOUS LINE: The site was prepped with Betadine and sterilely draped. It was infiltrated with 1% lidocaine plain. The deep vein was cannulated using normal Seldinger technique. A triple lumen central line was placed in the left femoral vein site and secured with simple interrupted suture. The site was sterilely dressed. The patient tolerated the procedure well. Patient also has a small hematoma on the left molar area from attempts to establish a central line. Markus Castaneda MD Jul 20, 2017 19:15
[2017-07-20 19:55] LABS: ALKALINE PHOSPHATASE 96 U/L (45-117); ALT (GPT) 19 U/L (12-78); AST (GOT) 37 U/L (15-37); BICARBONATE 22.2 MEQ/L (21.0-32.0); BLOOD UREA NITROGEN 43 MG/DL (7-18); CHLORIDE 109 MEQ/L (98-107); CREATINE KINASE 794 U/L (39-308); GLOMERULAR FILTRATION RATE 22 ML/MIN (>89); SODIUM (NA) 142 MEQ/L (136-145); TOTAL BILIRUBIN ADULT 0.3 MG/DL (0.2-1.0)
[2017-07-20 19:56] LABS: ALCOHOL LESS THAN 3 MG/DL (0-5)
--- NOTE | 2017-07-20 20:03 | HHI.HP ---
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 Date of admission 07/20/2017. 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 Today, this patient was found per report obtunded by roommates. He was last seen in his normal state of health 07/19. They noted that he was having a flexed positioning, questionable decorticate positioning, and unequal pupils, left greater than right. The attempted to intubate the patient on the scene using lorazepam and etomidate without success. The ED physician was not able to get further history from roommates. CT brain revealed a left basal ganglia hemorrhage with extension to the left lateral ventricle, third and fourth ventricle with basilar cistern effacement. 1.3 cm [id number] shift. Patient started on hypertonic saline, mannitol, and tell CO2 between 35 and 40. Neurosurgery was consulted and placed a left ventriculostomy drain. Currently measuring ICPs closely. Review of Systems ROS Limitations: Intubated Past Family Social History Allergies: Coded Allergies: No Known Allergies (Verified Allergy, Unknown, 07/20/17) Past Medical History Right frontoparietal CVA/left occipital, bilateral basal ganglia and right pontine Obstructive sleep apnea Diabetes mellitus type 2 Hypertension Chronic kidney disease stage IV Seizure disorder Anemia likely consistent with anemia of chronic kidney disease Past Surgical History None Reported Medications Levetiracetam 1000 mg by mouth twice a day Atorvastatin 40 mg by mouth daily Hydralazine 50 mg by mouth every 8 hours Aspirin 325 mg by mouth daily Active Ordered Medications Reviewed in EMR Family History Mother and grandmother with hypertension. Mother with CVA. Brother 88 [place]. Social History 3-4 cigarettes a day 20 years. Quit 6 months ago. Very rare alcohol use. No documentation of illicit drug use Physical Exam Vital Signs Vital Signs Date Time Temp Pulse Resp B/P (MAP) Pulse Ox O2 Delivery O2 Flow Rate FiO2 07/20/17 19:21 100 18 195/124 (147) 99 15.00 07/20/17 19:11 113 18 146/100 (115) 97 15.00 07/20/17 18:18 72 16 198/126 (150) 99 15.00 07/20/17 18:18 87.0 72 16 198/126 (150) 99 15.00 07/20/17 18:13 72 16 198/126 (150) 99 07/20/17 18:00 100 100 07/20/17 17:45 100 Physical Exam GENERAL: 52-year-old aa male, currently orotracheally intubated SKIN: Warm and dry. HEAD: Atraumatic. Normocephalic. EYES: Left pupil 3 mm and slightly reactive. Pupil 2 mm and fixed. No scleral icterus. No injection or drainage. ENT: No nasal bleeding or discharge. Mucous membranes pink and moist. NECK: Trachea midline. No JVD. CARDIOVASCULAR: Regular rate and rhythm. S1, S2. No S4. RESPIRATORY: No accessory muscle use. Clear to auscultation. Breath sounds equal bilaterally. GASTROINTESTINAL: Abdomen soft, non-tender, nondistended. Hepatic and splenic margins not palpable. MUSCULOSKELETAL: Extremities without clubbing, cyanosis, or edema. No obvious deformities. Noted bilateral inguinal groin hematomas right greater than left. NEUROLOGICAL: Pupils as above. Positive gag. Does not withdraw to pain. Laboratory Laboratory Tests Test 07/20/17 18:30 07/20/17 18:34 07/20/17 18:40 White Blood Count 4.4 Red Blood Count 3.70 Hemoglobin 11.5 Hematocrit 34.6 Mean Corpuscular Volume 93.6 Mean Corpuscular Hemoglobin 31.1 Mean Corpuscular Hemoglobin Concent 33.2 Red Cell Distribution Width 16.4 Platelet Count 212 Mean Platelet Volume 8.4 Neutrophils (%) (Auto) 85.6 Lymphocytes (%) (Auto) 11.4 Monocytes (%) (Auto) 2.7 Eosinophils (%) (Auto) 0.0 Basophils (%) (Auto) 0.3 Neutrophils # (Auto) 3.7 Lymphocytes # (Auto) 0.5 Monocytes # (Auto) 0.1 Eosinophils # (Auto) 0.0 Basophils # (Auto) 0.0 CBC Comment DIFF FINAL Differential Comment Prothrombin Time 10.4 Prothromb Time International Ratio 0.9 Activated Partial Thromboplast Time 29.8 Blood Urea Nitrogen 43 Creatinine 3.52 Random Glucose 124 Total Protein 7.4 Albumin 3.5 Calcium Level 9.0 Alkaline Phosphatase 96 Aspartate Amino Transf (AST/SGOT) 37 Alanine Aminotransferase (ALT/SGPT) 19 Total Bilirubin 0.3 Sodium Level 142 Potassium Level 4.0 Chloride Level 109 Carbon Dioxide Level 22.2 Anion Gap 11 Estimat Glomerular Filtration Rate 22 Lactic Acid Level 1.4 Total Creatine Kinase 794 Troponin I 0.07 Thyroid Stimulating Hormone 3rd Gen 0.259 Ethyl Alcohol Level LESS THAN 3 Urine Color LIGHT-YELLOW Urine Turbidity CLEAR Urine pH 6.5 Urine Specific [place] 1.012 Urine Protein 300 Urine Glucose (UA) NEG Urine Ketones NEG Urine Occult Blood LARGE Urine Nitrite NEG Urine Bilirubin NEG Urine Urobilinogen LESS THAN 2.0 Urine Leukocyte Esterase NEG Urine RBC 3 Urine WBC 1 Urine Squamous Epithelial Cells <1 Microscopic Urinalysis Comment CATH-CULT NOT IND Ammonia 16 Date/Time Source Procedure Growth Status 07/20/17 18:15 Blood Peripheral Aerobic Blood Culture Pending Received 07/20/17 18:15 Blood Peripheral Anaerobic Blood Culture Pending Received Result Diagram: 07/20/17 1830 07/20/17 183 Imaging Last Impressions Head CT 07/20/171814 Signed Impressions: Service Date/Time: Thursday, July 20, 2017 19:12 - CONCLUSION: Large hemorrhage centered at the left basal ganglia with extension into the ventricles. The ventricles are enlarged. There is 1.3 cm of left to right midline shift and near effacement of the basal cisterns. MD Cayden Easleyi VTE Risk Assessment Capparvizi VTE Risk Assessment: Mod/High Risk (score >= 2) VTE Pharm Contraindication: Hemorrhage Caprini Risk Assessment Model Point Value = 1 Point Value = 2 Point Value = 3 Point Value = 5 Age 41-60 Minor surgery BMI > 25 kg/m2 Swollen legs Varicose veins or History of unexplained or recurrent spontaneous Oral contraceptives or hormone replacement Sepsis (< 1 month) Serious lung disease, including pneumonia (< 1 month) Abnormal pulmonary function Acute myocardial infarction Congestive heart failure (< 1 month) History of inflammatory bowel disease Medical patient at bed rest Age 61-74 Arthroscopic surgery Major open surgery (> 45 min) Laparoscopic surgery (> 45 min) Malignancy Confined to bed (> 72 hours) Immobilizing plaster cast Central venous access Age >= 75 History of VTE Family history of VTE Factor V Leiden Prothrombin [id number] Lupus anticoagulant Anticardiolipin antibodies Elevated serum homocysteine Heparin-induced thrombocytopenia Other congenital or acquired thrombophilia Stroke (< 1 month) Elective arthroplasty Hip, pelvis, or leg fracture Acute spinal cord injury (< 1 month) Prophylaxis Regimen Total Risk Factor Score Risk Level Prophylaxis Regimen 0-1 Low Early ambulation 2 Moderate Order ONE of the following: *Sequential Compression Device (SCD) *Heparin 5000 units SQ BID 3-4 Higher Order ONE of the following medications: *Heparin 5000 units SQ TID *Enoxaparin/Lovenox 40 mg SQ daily (WT < 150 kg, CrCl > 30 mL/min) *Enoxaparin/Lovenox 30 mg SQ daily (WT < 150 kg, CrCl > 10-29 mL/min) *Enoxaparin/Lovenox 30 mg SQ BID (WT < 150 kg, CrCl > 30 mL/min) AND/OR *Sequential Compression Device (SCD) 5 or more Highest Order ONE of the following medications: *Heparin 5000 units SQ TID (Preferred with Epidurals) *Enoxaparin/Lovenox 40 mg SQ daily (WT < 150 kg, CrCl > 30 mL/min) *Enoxaparin/Lovenox 30 mg SQ daily (WT < 150 kg, CrCl > 10-29 mL/min) *Enoxaparin/Lovenox 30 mg SQ BID (WT < 150 kg, CrCl > 30 mL/min) AND *Sequential Compression Device (SCD) Assessment and Plan Assessment and Plan Neuro/Psych: Left basal hemorrhage with intraventricular hemorrhages though left lateral, third and fourth ventricles with basilar cisterna effacement with a 1.3 cm left- to-right shift History of left frontoparietal, old left occipital, bilateral basal ganglia and right pontine CVA - Seizure disorder NOS Currently on propofol/midazolam and fentanyl drips titrating for ICP for sedation/analgesia while intubated No sedation vacation until okay with neurosurgery CT brain imaging as above. Repeat head CT in a.m. Dr. Nettles consulted right-sided ventriculostomy placed. Goal maintain ICPs less than 20 3% saline currently at 30 cc an hour. Goal sodium 150-155 Mannitol 12.5 g every 8 hours. Hold if serum osm > 310 End tidal CO2 35-40 Currently on levetiracetam 1000 mg IV twice a day EEG ordered for a.m. 07/21 Follow-up on CSF studies CV: Hypertension Dyslipidemia Elevated CPK 0.9% Saline at 84 cc an hour Currently on norepinephrine drip to maintain cerebral perfusion pressures greater than or equal to 60 Holding hydralazine 50 mill grams every 8 hours on vasopressors Holding atorvastatin 40 mill grams by mouth daily Holding aspirin 325 mg by mouth daily Resp: Acute respiratory failure History of [facility] /09/10/39 Ventilator bundle Albuterol/ipratropium aerosols every 4 hours with albuterol aerosols every 2 hours. Dyspnea End tidal CO2 between 35 and 40 Follow-up a.m. ABG and chest x-ray GI: Patient is currently nothing by mouth. LIWS Lansoprazole for GI prophylaxis Docusate sodium/senna 1 tablet twice a day for bowel regimen : Patel catheter for accurate I's and O's in a critically ill patient Endo: Diabetes mellitus Low TSH Hyperglycemia Sliding-scale insulin with Novulin R to maintain euglycemia/every 4 hours low regimen Follow-up on free T3/T4 Renal: Acute kidney injury in the setting of Chronic kidney disease stage IV Monitor urine output Accurate I's and O's Avoid nephrotoxic substances Follow-up on urine eosinophils and electrolytes Patient currently oliguric renal failure at the present time. We'll bladder scan Heme: Normocytic anemia Does not meet transfusion thresholds at this time Coags within normal limits. Recheck CBC in a.m. ID: Monitor for infection FEN: Replace electrolytes as clinically indicated MSK: PT evaluate and treat range of motion Access - Left femoral CVL day 1 placed in ED Prophylaxis - GI -lansoprazole/no pharmacological prophylaxis hemorrhage Critical Care: The total critical care time was 35 minutes. Time to perform other separately billable procedures was not included in the critical care time. Code Status Full code Discussed Condition With Dr. Efrain Nettles manager electronic. Care plan discussed and all questions answered. No family available. Problem Qualifiers (1) Acute respiratory failure: Qualified Codes: J96.00 - Acute respiratory failure, unspecified whether with hypoxia or hypercapnia (2) Chronic kidney disease: Qualified Codes: N18.4 - Chronic kidney disease, stage 4 (severe) (3) Diabetes mellitus type 2: Qualified Codes: E11.8 - Type 2 diabetes mellitus with unspecified complications Vinicio Escobedo MD Jul 20, 2017 20:03
[2017-07-20 20:12] LABS: CKMB 26.5 NG/ML (0.5-3.6)
[2017-07-20] MEDS ORDERED: MAGNESIUM HYDROXIDE SUSP 30 ML CUP PO PRN (20:15)
[2017-07-20] MEDS ORDERED: SENNOSIDES 8.6 MG TAB PO PRN (20:15)
[2017-07-20] MEDS ORDERED: LACTULOSE SYRUP 20 GM/30 ML CUP PO PRN (20:15)
[2017-07-20] MEDS ORDERED: ACETAMINOPHEN 325 MG TAB PO PRN (20:15)
[2017-07-20] MEDS ORDERED: RESP: ALBUTEROL 2.5 MG/3 ML NEB (PRN) INH (20:15)
[2017-07-20] MEDS ORDERED: LABETALOL HCL 100 MG/20 ML VIAL IV PUSH PRN (20:15)
[2017-07-20] MEDS ORDERED: SODIUM CHLORIDE 0.9% FLUSH 10 ML FLUSH IV FLUSH PRN (20:15)
[2017-07-20] MEDS ORDERED: CHLORHEXIDINE GLUCONATE 2 % 1 PACK (2 CLOTHS) TOP PRN (20:15)
[2017-07-20] MEDS ORDERED: ONDANSETRON HCL 4 MG/2 ML VIAL IV PUSH PRN (20:15)
[2017-07-20] MEDS ORDERED: niCARdipine INJ 25 MG in SODIUM CHLOR 0.9% 250 ML INJ 240 ML IV PRN (20:15)
[2017-07-20] MEDS ORDERED: BISACODYL 10 MG SUPP RECTAL PRN (20:15)
[2017-07-20] MEDS ORDERED: MISCELLANEOUS NURSING INFORMATION XX SCH (20:15)
[2017-07-20] MEDS ORDERED: PROPOFOL 1000 MG/100 ML INJ 100 ML IV PRN (20:15)
[2017-07-20 20:24] LABS: BLOOD GAS BASE EXCESS -1.8 mmol/L (-2-2); BLOOD GAS CARBOXYHEMOGLOBIN 0.7 % (0-4); BLOOD GAS HCO3 21 mmol/L (22-26); BLOOD GAS METHEMOGLOBIN 0.8 % (0-2); BLOOD GAS O2 HGB SATURATION 99 % (90-100); BLOOD GAS OXYGEN CONTENT 16.4 Vol % (12.0-20.0); BLOOD GAS PCO2 27 mmHg (38-42); BLOOD GAS PO2 559 mmHG (61-120); BLOOD GAS TOTAL HGB 10.8 G/DL (12.0-16.0); CRITICAL VALUE NO; DRAW SITE RT RADIAL; FIO2 100 %; NUMBER OF ARTERIAL PUNCTURES 1; OXYGEN DEVICE VENTILATOR; STAT YES; TEMP CORR TO 98.6; ULNAR PULSE PRESENT; VENT SETTINGS AC/16/550/PEEP5
--- NOTE | 2017-07-20 20:39 | RADRPT ---
EXAM DATE/TIME: 07/20/2017 19:12 [facility] COMPARISON: CT BRAIN W/O CONTRAST, April 04, 2017, 11:31. INDICATIONS : Altered mental status. RADIATION DOSE: 49.23 CTDIvol (mGy) MEDICAL HISTORY : Seizures. Cardiovascular disease Hypertension.Diabetes. CVA. SURGICAL HISTORY : None. ENCOUNTER: Initial ACUITY: 1 day PAIN SCALE: Non-responsive LOCATION: cranial TECHNIQUE: Multiple contiguous axial images were obtained of the head. Using automated exposure control and adj ustment of the mA and/or kV according to patient size, radiation dose was kept as low as reasonably a chievable to obtain optimal diagnostic quality images. DICOM format image data is available electro nically for review and comparison. FINDINGS: CEREBRUM: There is a large 5 cm area of hemorrhage in the left basal ganglia extending into the left lateral ve ntricle. The hemorrhage extends into the right lateral ventricle, third ventricle, and fourth ventric le. There is expansion of the ventricles. The basal cisterns are nearly completely effaced. The there is 1.3 cm of left to right midline shift. There is encephalomalacia at the left occipital lobe and t he right frontal lobe. POSTERIOR FOSSA: The cerebellum and brainstem are intact. The 4th ventricle is midline. Again noted is the hemorrhage in the fourth ventricle. The cerebellopontine angle is unremarkable. EXTRACRANIAL: The visualized portion of the orbits is intact. SKULL: The calvaria is intact. No evidence of skull fracture. CONCLUSION: Large hemorrhage centered at the left basal ganglia with extension into the ventricles. The ventricle s are enlarged. There is 1.3 cm of left to right midline shift and near effacement of the basal ciste rns. Horacio Lebron MD on July 20, 2017 at 20:32 Board Certified Radiologist. This report was verified electronically.
--- NOTE | 2017-07-20 20:42 | RADRPT ---
EXAM DATE/TIME: 07/20/2017 19:19 [facility] COMPARISON: CHEST SINGLE AP, April 04, 2017, 11:43. INDICATIONS : Post intubation. MEDICAL HISTORY : Hypertension. Cerebrovascular disease. SURGICAL HISTORY : None. ENCOUNTER: Initial ACUITY: 1 day PAIN SCORE: Non-responsive. LOCATION: Bilateral chest FINDINGS: The ET tube is in good position 5.4 cm above the vaishnavi. The heart size is normal. The aorta is tortu ous. The lungs are clear. No effusion is seen. CONCLUSION: ET tube in good position. Horacio Lebron MD on July 20, 2017 at 20:39 Board Certified Radiologist. This report was verified electronically.
--- NOTE | 2017-07-20 20:52 | PD ---
HPI Chief Complaint: Altered Mental Status Time Seen by Provider: 18:15 Travel History International Travel<30 days: No Contact w/Intl Traveler<30days: No Traveled to known affect area: No History of Present Illness HPI 52-year-old male patient presents to the ER today brought in by EMS, apparently was found obtunded by roommates, last seen normal yesterday. They noted that he was having a flexed positioning, questionable decorticate positioning, and unequal pupils, attempted to intubate on scene using Ativan and etomidate without significant success. He has been unresponsive to pain. [id number] was initiated on scene. We are not able to get further history from roommates. Modifying Factors: None Associated Signs & Symptoms: Found unresponsive Risk Factors: History of seizure PFSH Past Medical History Asthma: Yes (child) Blood Disorders: No Cancer: No Cardiovascular Problems: Yes High Cholesterol: Yes Cerebrovascular Accident: Yes Diabetes: Yes (pt states when he lost weight his DM went away) Diminished Hearing: No Endocrine: Yes Genitourinary: No Hypertension: Yes Neurologic: Yes Psychiatric: No Reproductive: No Respiratory: No Seizures: Yes (epilepsy ) Past Surgical History AICD: No Genitourinary Surgery: No Pacemaker: No Other Surgery: No Social History Alcohol Use: No Tobacco Use: Yes Substance Use: No Allergies-Medications (Allergen,Severity, Reaction): Coded Allergies: No Known Allergies (Verified , 04/30/17) Reported Meds & Prescriptions Reported Meds & Active Scripts Active Hydralazine HCl 50 Mg Tablet 50 Mg PO Q8H 30 Days Atorvastatin (Atorvastatin Calcium) 40 Mg Tab 40 Mg PO DAILY 30 Days Aspirin 325 Mg Tab 325 Mg PO DAILY 30 Days Keppra (Levetiracetam) 1,000 Mg Tab 1,000 Mg PO BID 30 Days Review of Systems ROS Limitations: Unresponsive Physical Exam Narrative GENERAL: Well-developed middle age white male patient who is currently unresponsive to pain, GCS 3. SKIN: Focused skin assessment cool/diaphoretic. HEAD: Atraumatic. Normocephalic. EYES: Pupils slightly larger on the right than the left, and round, poorly reactive to light. No scleral icterus. No injection or drainage. ENT: No nasal bleeding or discharge. Mucous membranes pink and moist. Poor gag reflex. NECK: Trachea midline. No JVD. CARDIOVASCULAR: Regular rate and rhythm. No murmur appreciated. Pulses are present and equal bilaterally. RESPIRATORY: [id number] initiated. Breath sounds equal bilaterally. No wheezes or crackles. GASTROINTESTINAL: Abdomen soft, nondistended. Hepatic and splenic margins not palpable. MUSCULOSKELETAL: No obvious deformities. No clubbing. No cyanosis. No edema. NEUROLOGICAL: GCS 3, unresponsive. PSYCHIATRIC: Unresponsive. Data Data Last Documented VS Vital Signs Date Time Temp Pulse Resp B/P (MAP) Pulse Ox O2 Delivery O2 Flow Rate FiO2 07/20/17 19:11 113 18 146/100 (115) 97 15.00 07/20/17 18:18 87.0 07/20/17 18:00 100 Orders Orders Electrocardiogram (07/20/17 18:15) Ammonia (07/20/17 18:15) Complete Blood Count With Diff (07/20/17 18:15) Comprehensive Metabolic Panel (07/20/17 18:15) Creatine Kinase (Cpk) (07/20/17 18:15) Prothrombin Time / Inr (Pt) (07/20/17 18:15) Act Partial Throm Time (Ptt) (07/20/17 18:15) Troponin I (07/20/17 18:15) Thyroid Stimulating Hormone (07/20/17 18:15) Urinalysis - C+S If Indicated (07/20/17 18:15) Lactic Acid Sepsis Protocol (07/20/17 18:15) Arterial Blood Gas (Abg) (07/20/17 18:15) Blood Culture (07/20/17 18:15) Chest, Single Ap (07/20/17 18:15) Ct Brain W/O Iv Contrast(Rout) (07/20/17 18:15) Blood Glucose (07/20/17 18:15) Ecg Monitoring (07/20/17 18:15) Iv Access Insert/Monitor (07/20/17 18:15) Oximetry (07/20/17 18:15) Sodium Chloride 0.9% Flush (Ns Flush) (07/20/17 18:15) Drug Screen, Random Urine (07/20/17 18:15) Alcohol (Ethanol) (07/20/17 18:15) Admit Order (Ed Use Only) (07/20/17 19:18) CKMB (07/20/17 18:30) CKMB% (07/20/17 18:30) Labs Laboratory Tests Test 07/20/17 18:30 07/20/17 18:34 07/20/17 18:40 White Blood Count 4.4 TH/MM3 Red Blood Count 3.70 MIL/MM3 Hemoglobin 11.5 GM/DL Hematocrit 34.6 % Mean Corpuscular Volume 93.6 FL Mean Corpuscular Hemoglobin 31.1 PG Mean Corpuscular Hemoglobin Concent 33.2 % Red Cell Distribution Width 16.4 % Platelet Count 212 TH/MM3 Mean Platelet Volume 8.4 FL Neutrophils (%) (Auto) 85.6 % Lymphocytes (%) (Auto) 11.4 % Monocytes (%) (Auto) 2.7 % Eosinophils (%) (Auto) 0.0 % Basophils (%) (Auto) 0.3 % Neutrophils # (Auto) 3.7 TH/MM3 Lymphocytes # (Auto) 0.5 TH/MM3 Monocytes # (Auto) 0.1 TH/MM3 Eosinophils # (Auto) 0.0 TH/MM3 Basophils # (Auto) 0.0 TH/MM3 CBC Comment DIFF FINAL Differential Comment Prothrombin Time 10.4 SEC Prothromb Time International Ratio 0.9 RATIO Activated Partial Thromboplast Time 29.8 SEC Blood Urea Nitrogen 43 MG/DL Creatinine 3.52 MG/DL Random Glucose 124 MG/DL Total Protein 7.4 GM/DL Albumin 3.5 GM/DL Calcium Level 9.0 MG/DL Alkaline Phosphatase 96 U/L Aspartate Amino Transf (AST/SGOT) 37 U/L Alanine Aminotransferase (ALT/SGPT) 19 U/L Total Bilirubin 0.3 MG/DL Sodium Level 142 MEQ/L Potassium Level 4.0 MEQ/L Chloride Level 109 MEQ/L Carbon Dioxide Level 22.2 MEQ/L Anion Gap 11 MEQ/L Estimat Glomerular Filtration Rate 22 ML/MIN Lactic Acid Level 1.4 mmol/L Total Creatine Kinase 794 U/L Creatine Kinase MB 26.5 NG/ML Creatine Kinase MB % 3.3 % Troponin I 0.07 NG/ML Thyroid Stimulating Hormone 3rd Gen 0.259 uIU/ML Ethyl Alcohol Level LESS THAN 3 MG/DL Urine Color LIGHT-YELLOW Urine Turbidity CLEAR Urine pH 6.5 Urine Specific [place] 1.012 Urine Protein 300 mg/dL Urine Glucose (UA) NEG mg/dL Urine Ketones NEG mg/dL Urine Occult Blood LARGE Urine Nitrite NEG Urine Bilirubin NEG Urine Urobilinogen LESS THAN 2.0 MG/DL Urine Leukocyte Esterase NEG Urine RBC 3 /hpf Urine WBC 1 /hpf Urine Squamous Epithelial Cells <1 /hpf Microscopic Urinalysis Comment CATH-CULT NOT IND Ammonia 16 MCMOL/L MDM Medical Decision Making Medical Screen Exam Complete: Yes Emergency Medical Condition: Yes Medical Record Reviewed: Yes Interpretation(s) Laboratory Tests Test 07/20/17 18:30 07/20/17 18:34 07/20/17 18:40 Red Blood Count 3.70 MIL/MM3 (4.50-5.90) Hemoglobin 11.5 GM/DL (13.0-17.0) Hematocrit 34.6 % (39.0-51.0) Neutrophils (%) (Auto) 85.6 % (16.0-70.0) Lymphocytes # (Auto) 0.5 TH/MM3 (1.0-4.8) Blood Urea Nitrogen 43 MG/DL (7-18) Creatinine 3.52 MG/DL (0.60-1.30) Random Glucose 124 MG/DL (74-106) Chloride Level 109 MEQ/L (98-107) Estimat Glomerular Filtration Rate 22 ML/MIN (>89) Total Creatine Kinase 794 U/L (39-308) Creatine Kinase MB 26.5 NG/ML (0.5-3.6) Troponin I 0.07 NG/ML (0.02-0.05) Thyroid Stimulating Hormone 3rd Gen 0.259 uIU/ML (0.358-3.740) Urine Protein 300 mg/dL (NEG-TRACE) Urine Occult Blood LARGE (NEG) Differential Diagnosis Unresponsive/intubated in the ER: Metabolic issues versus dehydration versus acute intercranial processes versus seizure/post ictal Narrative Course Unknown down time, not seen normal since yesterday. Initial blood sugar was within normal limits. He is unresponsive to painful stimuli and barely has a gag reflex. Initial Narcan 2 mg was given but did not show any results. He was intubated for airway protection by me in the ER without issues. Saturations are 100 percent after intubation. Chest x-ray confirmation of ET tube was done. His blood pressure was quite elevated initially in the ER. Considering condition and inability to obtain good IV access, a right femoral central line was attempted, and bright red blood was obtained. At this point, needle was withdrawn. Pressure was placed in the area. There was notable hematoma to that area. However, distal dorsal pulses were present. At this point, I have discussed the case with Dr. Castaneda who helped obtain a left femoral central line. Case was then discussed with Dr. Escobedo for admission to critical care. After admission, CAT scan was able to be obtained and shows intracerebral bleeding with ventricular blood, and the case was discussed with Dr. Nettles for further treatment. Who is planning to come evaluate the patient. Aggregate critical care time was 50 minutes. Time to perform other separately billable procedures was not included in the critical care time. My time did not include minutes spent treating any other patients simultaneously or on activities that did not directly contribute to the patient's treatment. The services I provided to this patient were to treat and/or prevent clinically significant deterioration that could result in: Worsening hypertension, worsening ICH, herniation, I provided critical care services requiring my management, as noted below: Chart data review, documentation time, medication orders and management, vital sign assessments/reviewing monitor data, ordering and reviewing lab tests, ordering and interpreting/reviewing x-rays and diagnostic studies, care of the patient and discussion of the patient with the admitting physicians. Procedures Procedure Narrative Right femoral central line: Area was cleaned and prepped with ChloraPrep, draped in sterile fashion, right femoral artery was identified, and 20-gauge needle was used to identify right femoral vessel. I have obtained flashback but it was noted that it was bright red blood, after removing the syringe, it was noted that was not pulsatile, guidewire passage was attempted but was not passing well and both guidewire needle or withdrawn at this point due to concerns that this may be an arterial puncture. Pressure was placed on the area and there was a notable hematoma. Sandbag he was placed in the area. Pulses were obtained and was notable below site good dorsal pedis pulses were identified and asked was marked to the spot. There was no signs of extremity cyanosis. Gauze was placed over the area and dressed and sandbag was continued. The attempt was discussed with background investigator who was notified of right groin hematoma. Diagnosis Primary Impression: Acute intracerebral hemorrhage Additional Impressions: Intraventricular hemorrhage Airway intubation performed without difficulty Groin hematoma Admitting Information Admitting Physician Requests: Admit Roxanna Ponce MD Jul 20, 2017 20:52
[2017-07-20] MEDS: DOCUSATE SODIUM 50 MG/SENNA 8.6 MG TAB PO SCH (21:00)
[2017-07-20] MEDS ORDERED: hydrALAZINE HCL 50 MG TAB PO SCH (21:00)
[2017-07-20] MEDS: SODIUM CHLOR 0.9% 1000 ML INJ 1,000 ML IV SCH ×2 (21:07→22:07)
--- NOTE | 2017-07-20 21:22 | PD.CONS ---
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 He was last seen in his normal state of health 07/19. He has a , but his reports that he left his home and leave with some roommates. They noted that he was having a flexed positioning with a GCS of 5, decorticate positioning, and unequal pupils, left greater than right. No seizure activity reported. No tonic-clonic movement seen. No tongue biting. No incontinence of stool or urine. He is unable to provide any history. Some history is obtained from his at bedside The paramedics attempted to intubate him on the scene using lorazepam and etomidate without success. The ED physician was not able to get further history from roommates. He wasn't renal failure. Toxicology screen was positive for cocaine CT brain revealed a left basal ganglia hemorrhage with extension to the left lateral ventricle, third and fourth ventricle with basilar cistern effacement, and 1.3 cm [id number] shift. Neurosurgical consultation was requested Review of Systems Not possible due to the patient clinical condition Past Family Social History Allergies: Coded Allergies: No Known Allergies (Verified Allergy, Unknown, 07/20/17) Past Medical History Right frontoparietal CVA/left occipital, bilateral basal ganglia and right pontine Obstructive sleep apnea Diabetes mellitus type 2 Hypertension Chronic kidney disease stage IV Seizure disorder Anemia likely consistent with anemia of chronic kidney disease Reported Medications Levetiracetam 1000 mg by mouth twice a day Atorvastatin 40 mg by mouth daily Hydralazine 50 mg by mouth every 8 hours Aspirin 325 mg by mouth daily Active Ordered Medications Current Medications IV Flush (NS Flush) 2 ml UNSCH PRN IV FLUSH FLUSH AFTER USING IV ACCESS; Start 07/20/17 at 18:15 Chlorhexidine Gluconate (Peridex 0.12% Liq) 15 ml BID@08,20 MT Last administered on 07/21/17 07:49; Start 07/21/17 at 08:00 Propofol 100 ml @ 2.182 mls/ hr TITRATE PRN IV SEDATION Last administered on 07/20/17 22:10; Start 07/20/17 at 20:15 Fentanyl Citrate 250 ml @ 5 mls/hr TITRATE PRN IV SEDATION Last administered on 07/21/17 14:44; Start 07/20/17 at 20:15 Sodium Chloride 1,000 ml @ 84 mls/hr [id number] IV Last administered on 08:20; Start 07/20/17 at 20:05 Sodium Chloride (NS Flush) 2 ml UNSCH PRN IV FLUSH FLUSH AFTER USING IV ACCESS ; Start 07/20/17 at 20:15 Sodium Chloride (NS Flush) 2 ml BID IV FLUSH Last administered on 07/21/17 07 :50; Start 07/20/17 at 21:00 Acetaminophen (Tylenol) 650 mg Q6H PRN PO PAIN 1-10 AND/OR FEVER >101F; Start 07/20/17 at 20:15 Lansoprazole (Prevacid Odt) 30 mg DAILY G-TUBE Last administered on 07/21/17 08:21; Start 07/21/17 at 09:00 Artificial Tears (Tears Naturale Opth Soln) 1 drop TID EACH EYE Last administered on 07/21/17 12:20; Start 07/21/17 at 09:00 Ondansetron HCl (Zofran Inj) 4 mg Q6H PRN IV PUSH NAUSEA OR VOMITING; Start at 20:15 Albuterol/ Ipratropium (Duoneb Neb) 1 ampule Q4HR NEB INH Last administered on 07/21/17 15:08; Start 07/21/17 at 00:00 Albuterol Sulfate (Albuterol Neb) 2.5 mg Q2HR NEB PRN INH SOB/WHEEZING; Start 07/20/17 at 20:15 Miscellaneous Information 1 Q361D XX ; Start 07/20/17 at 20:15 Chlorhexidine Gluconate (Chlorhexidine 2% Cloth) 3 pack Taper DAILY@04 TOP ; Start 07/21/17 at 04:00; Stop 07/17/18 at 03:59 Chlorhexidine Gluconate (Chlorhexidine 2% Cloth) 3 pack UNSCH PRN TOP HYGIENIC CARE; Start 07/20/17 at 20:15 Senna/Docusate Sodium (Selena-Colace) 1 tab BID PO Last administered on 08:21; Start 07/20/17 at 21:00 Magnesium Hydroxide (Milk Of Magnesia Liq) 30 ml Q12H PRN PO Mild constipation ; Start 07/20/17 at 20:15 Sennosides (Senokot) 17.2 mg Q12H PRN PO Moderate constipation; Start at 20:15 Bisacodyl (Dulcolax Supp) 10 mg DAILY PRN RECTAL SEVERE CONSITIPATION; Start 07/20/17 at 20:15 Lactulose (Lactulose Liq) 30 ml DAILY PRN PO SEVERE CONSITIPATION; Start 07/20 at 20:15 Levetriacetam 100 ml @ 400 mls/hr Q12HR IV Last administered on 07/21/17 08: 21; Start 07/20/17 at 21:00 Hydralazine HCl (Apresoline) 50 mg Q8H PO ; Start 07/20/17 at 21:00; Status Future Hold Nicardipine HCl 25 mg/Sodium Chloride 250 ml @ 50 mls/hr TITRATE PRN IV Blood pressure management Last administered on 07/20/17 22:00; Start 07/20/17 at 20 :15 Sodium Chloride 500 ml @ 30 mls/hr CONTINUOUS IV Last administered on 13:45; Start 07/20/17 at 20:15 Mannitol (Mannitol Inj) 12.5 gm Q8H IV Last administered on 07/20/17 21:39; Start 07/20/17 at 21:00 Labetalol HCl (Trandate Inj) 10 mg Q1HR PRN IV PUSH SBP>140, DBP>70, HR>65; Start 07/20/17 at 20:15; Stop 07/21/17 at 02:24; Status DC Norepinephrine Bitartrate (Levophed Inj) 4 mg STK-MED ONCE .ROUTE ; Start 07/20 at 22:18; Stop 07/20/17 at 22:19; Status DC Phenylephrine HCl (Neosynephrine Inj) 40 mg STK-MED ONCE .ROUTE ; Start at 22:29; Stop 07/20/17 at 22:30; Status DC Norepinephrine Bitartrate 4 mg/ Sodium Chloride 250 ml @ 7.5 mls/hr TITRATE PRN IV Blood pressure management Last administered on 07/21/17 11:00; Start 07/20/17 at 23:15 Terbutaline Sulfate (Brethine Inj) 1 mg UNSCH PRN SQ For Extravasation; Start 07/20/17 at 23:15 Epinephrine HCl 2 mg/Dextrose 252 ml @ 22.68 mls/ hr TITRATE PRN IV Blood Pressure Management; Start 07/20/17 at 23:15; Stop 07/21/17 at 00:13; Status DC Midazolam HCl (Versed Inj) 5 mg ONCE ONCE IV PUSH ; Start 07/20/17 at 23:30; Stop 07/20/17 at 23:31; Status DC Midazolam HCl 100 ml @ 2 mls/hr TITRATE PRN IV SEDATION Last administered on 09:52; Start 07/20/17 at 23:30 Epinephrine HCl 2 mg/Sodium Chloride 252 ml @ 22.68 mls/ hr TITRATE PRN IV Blood Pressure Management; Start 07/21/17 at 00:15 Insulin Human Regular (NovoLIN R SUPPLEMENTAL SCALE) 1 Q4HR SQ ; Start at 04:00 Dextrose (D50w (Vial) Inj) 50 ml UNSCH PRN IV PUSH HYPOGLYCEMIA - SEE COMMENTS ; Start 07/21/17 at 01:00 Glucagon (Glucagon Inj) 1 mg UNSCH PRN OTHER HYPOGLYCEMIA-SEE COMMENTS; Start 07/21/17 at 01:00 Sodium Chloride 1,000 ml @ 999 mls/hr BOLUS IV ; Start 07/21/17 at 02:30; Stop 07/22/17 at 03:31 Sodium Chloride 500 ml @ 500 mls/hr BOLUS ONCE IV Last administered on 06:14; Start 07/21/17 at 06:00; Stop 07/21/17 at 06:59; Status DC Phenylephrine HCl 40 mg/Sodium Chloride 500 ml @ 30 mls/hr TITRATE PRN IV Blood Pressure Management Last administered on 07/21/17 12:49; Start at 13:00; Stop 07/21/17 at 13:46; Status DC Terbutaline Sulfate (Brethine Inj) 1 mg UNSCH PRN SQ FOR EXTRAVASATION PROTOCOL ; Start 07/21/17 at 12:15 Vasopressin 40 units/Sodium Chloride 100 ml @ 1.5 mls/hr TITRATE PRN IV Blood Pressure Management Last administered on 07/21/17 12:49; Start 07/21/17 at 13 :00 Phenylephrine HCl (Neosynephrine Inj) 40 mg STK-MED ONCE .ROUTE ; Start at 12:26; Stop 07/21/17 at 12:27; Status DC Sodium Chloride 1,000 ml @ 999 mls/hr BOLUS ONCE IV Last administered on 13:30; Start 07/21/17 at 13:30; Stop 07/21/17 at 14:30; Status DC Sodium Chloride 1,000 ml @ 999 mls/hr BOLUS ONCE IV Last administered on 13:30; Start 07/21/17 at 13:30; Stop 07/21/17 at 14:30; Status DC Phenylephrine HCl 80 mg/Sodium Chloride 500 ml @ 15 mls/hr TITRATE PRN IV Blood pressure Management Last administered on 07/21/17 14:43; Start at 15:00 Terbutaline Sulfate (Brethine Inj) 1 mg UNSCH PRN SQ For Extravasation; Start 07/21/17 at 13:30; Status UNV Family History Mother and grandmother with hypertension. Mother with CVA. Brother 88 PA. Social History Smoker 3-4 cigarettes a day 20 years. Quit 6 months ago. rare alcohol use. No documentation of illicit drug use, however his toxicology screen was positive for cocaine Physical Exam Vital Signs Vital Signs Date Time Temp Pulse Resp B/P (MAP) Pulse Ox O2 Delivery O2 Flow Rate FiO2 07/20/17 21:13 07/20/17 20:57 89.1 86 12 165/97 (119) 100 Ventilator 50 07/20/17 19:21 100 18 195/124 (147) 99 15.00 07/20/17 19:11 113 18 146/100 (115) 97 15.00 07/20/17 18:18 72 16 198/126 (150) 99 15.00 07/20/17 18:18 87.0 72 16 198/126 (150) 99 15.00 07/20/17 18:13 72 16 198/126 (150) 99 07/20/17 18:00 100 100 07/20/17 17:45 100 Physical Exam The patient is intubated and sedated. No response to painful stimuli with all 4 extremities. GCS 3 Cranial Nerves: Pupils unequal, round, left 6mm larger than right 3mm, minimally reactive to light. Eyes appear conjugated. There was no nystagmus, papilledema. Face musculature appeared symmetrical at rest. Face sensation, olfaction, visual renteria, and hearing cannot be adequately assessed due to his neurological condition. The patient has a corneal reflex. He has a gag reflex. The sternocleidomastoid and trapezius are symmetrical. Cervical Spine: His neck with nuchal rigidity. Motor: His muscle tone and bulk are normal. No response to pain Reflexes: Deep tendon reflexes are 1+ and symmetrical in the biceps, triceps, and brachioradialis, bilaterally, in the upper extremities. In the lower extremities, the patellar and ankles are 1+, bilaterally. There is a bilateral Babinski response. There is no clonus Sensory: On examination there is no response to painful stimuli Has bilateral inguinal groin hematomas right greater than left. Cerebellar: Examination cannot be adequately assessed due to the patient's neurological condition. Laboratory Laboratory Tests Test 07/20/17 18:30 07/20/17 18:34 07/20/17 18:40 07/20/17 20:05 White Blood Count 4.4 Red Blood Count 3.70 Hemoglobin 11.5 Hematocrit 34.6 Mean Corpuscular Volume 93.6 Mean Corpuscular Hemoglobin 31.1 Mean Corpuscular Hemoglobin Concent 33.2 Red Cell Distribution Width 16.4 Platelet Count 212 Mean Platelet Volume 8.4 Neutrophils (%) (Auto) 85.6 Lymphocytes (%) (Auto) 11.4 Monocytes (%) (Auto) 2.7 Eosinophils (%) (Auto) 0.0 Basophils (%) (Auto) 0.3 Neutrophils # (Auto) 3.7 Lymphocytes # (Auto) 0.5 Monocytes # (Auto) 0.1 Eosinophils # (Auto) 0.0 Basophils # (Auto) 0.0 CBC Comment DIFF FINAL Differential Comment Prothrombin Time 10.4 Prothromb Time International Ratio 0.9 Activated Partial Thromboplast Time 29.8 Blood Urea Nitrogen 43 Creatinine 3.52 Random Glucose 124 Total Protein 7.4 Albumin 3.5 Calcium Level 9.0 Alkaline Phosphatase 96 Aspartate Amino Transf (AST/SGOT) 37 Alanine Aminotransferase (ALT/SGPT) 19 Total Bilirubin 0.3 Sodium Level 142 Potassium Level 4.0 Chloride Level 109 Carbon Dioxide Level 22.2 Anion Gap 11 Estimat Glomerular Filtration Rate 22 Lactic Acid Level 1.4 Total Creatine Kinase 794 Creatine Kinase MB 26.5 Creatine Kinase MB % 3.3 Troponin I 0.07 Thyroid Stimulating Hormone 3rd Gen 0.259 Ethyl Alcohol Level LESS THAN 3 Urine Color LIGHT-YELLOW Urine Turbidity CLEAR Urine pH 6.5 Urine Specific [place] 1.012 Urine Protein 300 Urine Glucose (UA) NEG Urine Ketones NEG Urine Occult Blood LARGE Urine Nitrite NEG Urine Bilirubin NEG Urine Urobilinogen LESS THAN 2.0 Urine Leukocyte Esterase NEG Urine RBC 3 Urine WBC 1 Urine Squamous Epithelial Cells <1 Microscopic Urinalysis Comment CATH-CULT NOT IND Ammonia 16 Blood Gas Puncture Site RT RADIAL Blood Gas Patient Temperature 98.6 Blood Gas HCO3 21 Blood Gas Base Excess -1.8 Blood Gas Oxygen Saturation 99 Arterial Blood pH 7.50 Arterial Blood Partial Pressure CO2 27 Arterial Blood Partial Pressure O2 559 Arterial Blood Oxygen Content 16.4 Arterial Blood Carboxyhemoglobin 0.7 Arterial Blood Methemoglobin 0.8 Blood Gas Hemoglobin 10.8 Oxygen Delivery Device VENTILATOR Blood Gas Ventilator Setting AC/16/550/PEEP5 Blood Gas Inspired Oxygen 100 Date/Time Source Procedure Growth Status 07/20/17 18:15 Blood Peripheral Aerobic Blood Culture Pending Received 07/20/17 18:15 Blood Peripheral Anaerobic Blood Culture Pending Received Result Diagram: 07/20/17 1830 07/20/17 1830 Imaging Last Impressions Head CT 07/20/171814 Signed Impressions: Service Date/Time: Thursday, July 20, 2017 19:12 - CONCLUSION: Large hemorrhage centered at the left basal ganglia with extension into the ventricles. The ventricles are enlarged. There is 1.3 cm of left to right midline shift and near effacement of the basal cisterns. Horacio Lebron MD Assessment and Plan Assessment and Plan Caprini VTE Risk Assessment Caprini VTE Risk Assessment Caprini VTE Risk Assessment: Mod/High Risk (score >= 2) VTE Pharm Contraindication: Hemorrhage Caprini Risk Assessment Model Point Value = 1 Point Value = 2 Point Value = 3 Point Value = 5 Age 41-60 Minor surgery BMI > 25 kg/m2 Swollen legs Varicose veins or History of unexplained or recurrent spontaneous Oral contraceptives or hormone replacement Sepsis (< 1 month) Serious lung disease, including pneumonia (< 1 month) Abnormal pulmonary function Acute myocardial infarction Congestive heart failure (< 1 month) History of inflammatory bowel disease Medical patient at bed rest Age 61-74 Arthroscopic surgery Major open surgery (> 45 min) Laparoscopic surgery (> 45 min) Malignancy Confined to bed (> 72 hours) Immobilizing plaster cast Central venous access Age >= 75 History of VTE Family history of VTE Factor V Leiden Prothrombin [id number] Lupus anticoagulant Anticardiolipin antibodies Elevated serum homocysteine Heparin-induced thrombocytopenia Other congenital or acquired thrombophilia Stroke (< 1 month) Elective arthroplasty Hip, pelvis, or leg fracture Acute spinal cord injury (< 1 month) Prophylaxis Regimen Total Risk Factor Score Risk Level Prophylaxis Regimen 0-1 Low Early ambulation 2 Moderate Order ONE of the following: *Sequential Compression Device (SCD) *Heparin 5000 units SQ BID 3-4 Higher Order ONE of the following medications: *Heparin 5000 units SQ TID *Enoxaparin/Lovenox 40 mg SQ daily (WT < 150 kg, CrCl > 30 mL/min) *Enoxaparin/Lovenox 30 mg SQ daily (WT < 150 kg, CrCl > 10-29 mL/min) *Enoxaparin/Lovenox 30 mg SQ BID (WT < 150 kg, CrCl > 30 mL/min) AND/OR *Sequential Compression Device (SCD) 5 or more Highest Order ONE of the following medications: *Heparin 5000 units SQ TID (Preferred with Epidurals) *Enoxaparin/Lovenox 40 mg SQ daily (WT < 150 kg, CrCl > 30 mL/min) *Enoxaparin/Lovenox 30 mg SQ daily (WT < 150 kg, CrCl > 10-29 mL/min) *Enoxaparin/Lovenox 30 mg SQ BID (WT < 150 kg, CrCl > 30 mL/min) AND *Sequential Compression Device (SCD) Attending Statement (1) Acute respiratory failure Diagnosis: Principal (2) Intraventricular hemorrhage Diagnosis: Principal (3) Elevated CPK Diagnosis: Principal (4) Low TSH level Diagnosis: Secondary (5) Hyperglycemia Diagnosis: Secondary (6) Normocytic anemia Diagnosis: Secondary (7) 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 He has multiple comorbidities which place him at the extremity high surgical risk Left basal hemorrhage with intraventricular hemorrhages though left lateral, third and fourth ventricles with basilar cisterna effacement with a 1.3 cm left- to-right shift Continue neuro checks in a serial fashion. Emergency placement of a ventriculostomy catheter for decompression of the ventricular system and treatment of his hydrocephalus is necessary, in an attempt to save his life. A follow-up CT of the head will be obtained in 24 hours. 3% saline currently at 30 cc an hour. Goal sodium 150-155 Mannitol 12.5 g every 8 hours. Hold if serum osm > 310 End tidal CO2 35-40 Seizure disorder NOS Currently on levetiracetam 1000 mg IV twice a day EEG ordered for a.m. 07/21 Will asses toxicology screen Hypertension. Cardene drip for blood pressure control Elevated CPK 0.9% Saline at 84 cc an hour Currently on norepinephrine drip to maintain cerebral perfusion pressures greater than or equal to 60 Holding hydralazine 50 mill grams every 8 hours on vasopressors Dyslipidemia Holding atorvastatin 40 mill grams by mouth daily Holding aspirin 325 mg by mouth daily Acute respiratory failure Ventilator bundle. Full mechanical ventilation in assist control mode of mechanical ventilation.. aggressive pulmonary toilette, nasotracheal suction, and breathing treatments with nebulizers. Albuterol/ipratropium aerosols every 4 hours with albuterol aerosols every 2 hours. GI: currently nothing by mouth. Docusate sodium/senna 1 tablet twice a day for bowel regimen : Patel catheter for accurate I's and O's in a critically ill patient Diabetes mellitus. Hyperglycemia Sliding-scale insulin with Novulin R to maintain euglycemia/every 4 hours low regimen Thyroid Follow-up on free T3/T4 Acute kidney injury in the setting of Chronic kidney disease stage IV Monitor urine output Accurate I's and O's Avoid nephrotoxic substances Follow-up on urine eosinophils and electrolytes Patient currently oliguric renal failure at the present time. Recommend to conservative nephrology Renal. Continue to monitor closely urine output, BUN and creatinine ID monitor for signs of infection Protonix for stress ulcer prophylaxis Salty hose and SCD's for DVT prophylaxis Further recommendations will be provided depending on the patient's clinical evaluation and follow up studies. Edwin Nettles MD Jul 20, 2017 21:22
--- NOTE | 2017-07-20 21:28 | EKG ---
Date Performed: 07/20/2017 Time Performed: 18:24:57 PTAGE: 52 years EKG: SINUS TACHYCARDIA VOLTAGE CRITERIA FOR LVH NONSPECIFIC ST & T-WAVE ABNORMALITY ABNORMAL ECG PREVIOUS TRACING : 04/04/2017 11.12 Compared to the previous tracing rate faster DOCTOR: Mallory Estrada Interpretating Date/Time 07/20/2017 21:26:29
[2017-07-20] MEDS: levETIRAcetam 1000 MG INJ 100 ML IV SCH (21:39)
[2017-07-20] MEDS: 3% SALINE INJ 500 ML IV SCH (21:39)
[2017-07-20] MEDS: MANNITOL 12.5 GM/50 ML VIAL IV SCH (21:39)
[2017-07-20] MEDS: SODIUM CHLORIDE 0.9% FLUSH 10 ML FLUSH IV FLUSH SCH (21:40)
[2017-07-20] MEDS: fentaNYL DRIP 250 ML IV PRN (21:48)
[2017-07-20] MEDS ORDERED: NOREPINEPHRINE 4 MG/4 ML AMP ONE (22:18)
[2017-07-20] MEDS ORDERED: PHENYLEPHRINE HCL 10 MG/ML VIAL ONE (22:29)
[2017-07-20] MEDS: NOREPINEPHRINE INJ 4 MG in SODIUM CHLOR 0.9% 250 ML INJ 246 ML IV PRN (22:30)
[2017-07-20 23:04] LABS: BLOOD GAS BASE EXCESS -1.5 mmol/L (-2-2); BLOOD GAS CARBOXYHEMOGLOBIN 0.7 % (0-4); BLOOD GAS HCO3 22 mmol/L (22-26); BLOOD GAS METHEMOGLOBIN 1.2 % (0-2); BLOOD GAS O2 HGB SATURATION 98 % (90-100); BLOOD GAS OXYGEN CONTENT 15.4 Vol % (12.0-20.0); BLOOD GAS PO2 543 mmHg (61-120); BLOOD GAS TOTAL HGB 10.1 G/DL (12.0-16.0); TEMP CORR TO 98.6
[2017-07-20 23:05] LABS: BLOOD GAS PCO2 31 mmHg (38-42); CRITICAL VALUE NO; DRAW SITE ART LINE; FIO2 100 %; OXYGEN DEVICE VENTILATOR; STAT YES; VENT SETTINGS PRVC/AC
[2017-07-20] MEDS ORDERED: EPINEPHrine (1:1000) INJ 2 MG in DEXTROSE 5% IN WATER INJ 250 ML IV PRN ×2 (23:15)
[2017-07-20] MEDS ORDERED: TERBUTALINE INJ 1 MG/ML AMP SQ PRN (23:15)
[2017-07-20] MEDS ORDERED: MIDAZOLAM HCL 2 MG/2 ML VIAL IV PUSH ONE (23:30)
[2017-07-20] MEDS: RESP: ALBUTEROL 2.5 MG/IPRATROPIUM 0.5 MG NEB (SCH) INH (23:33)
[2017-07-20 23:39] LABS: WBC TUBE #1 247 /MM3 (0-10)
[2017-07-21] VITALS (18 sets, daily range): BP systolic 96–158; BP diastolic 65–100; PULSE 70–133; RESP 12–14; TEMP 91.8–99.3; O2SAT 100
[2017-07-21] MEDS ORDERED: EPINEPHrine (1:1000) INJ 2 MG in SODIUM CHLOR 0.9% 250 ML INJ 250 ML IV PRN (00:15)
[2017-07-21] MEDS: MIDAZOLAM 100 MG/100 ML INJ 100 ML IV PRN ×3 (00:49→18:51)
[2017-07-21] MEDS: NOREPINEPHRINE INJ 4 MG in SODIUM CHLOR 0.9% 250 ML INJ 246 ML IV PRN ×3 (01:00→11:00)
[2017-07-21] MEDS ORDERED: DEXTROSE 50% IN WATER 50 ML VIAL(D50) IV PUSH PRN (01:00)
[2017-07-21] MEDS ORDERED: GLUCAGON 1 MG/ML VIAL OTHER PRN (01:00)
[2017-07-21 01:06] LABS: GROSS BLOOD TUBE #1 3+ (0); SUPERNATE COLOR TUBE #1 XANTHOCHROMIC (CLEAR)
[2017-07-21 01:17] LABS: CSF LYMPHOCYTES 13 %; CSF NEUTROPHILS 87 %
[2017-07-21] MEDS: SODIUM CHLOR 0.9% 1000 ML INJ 1,000 ML IV SCH ×2 (01:38→08:20)
[2017-07-21 02:03] LABS: SODIUM (NA) 145 MEQ/L (136-145)
[2017-07-21 02:12] LABS: ACETAMINOPHEN LESS THAN 2.0 MCG/ML (10.0-30.0); FREE T3 1.13 PG/ML (2.18-3.98); FREE T4 1.26 NG/DL (0.76-1.46)
[2017-07-21] MEDS ORDERED: SODIUM CHLOR 0.9% 1000 ML INJ 1,000 ML IV SCH (02:30)
[2017-07-21] MEDS: CHLORHEXIDINE GLUCONATE 2 % 1 PACK (2 CLOTHS) TOP SCH (03:40)
[2017-07-21] MEDS: RESP: ALBUTEROL 2.5 MG/IPRATROPIUM 0.5 MG NEB (SCH) INH ×5 (03:44→19:05)
[2017-07-21] MEDS: INSULIN NovoLIN REGULAR SUPPLEMENTAL SCALE SQ SCH ×5 (04:00→20:00)
[2017-07-21 04:18] LABS: APTT (PATIENT) 29.9 SEC (24.3-30.1); PROTHROMBIN TIME - PATIENT 10.8 SEC (9.8-11.6)
[2017-07-21 04:41] LABS: ALKALINE PHOSPHATASE 73 U/L (45-117); ALT (GPT) 16 U/L (12-78); ANION GAP 11 MEQ/L (5-15); AST (GOT) 24 U/L (15-37); BICARBONATE 21.9 MEQ/L (21.0-32.0); BLOOD UREA NITROGEN 41 MG/DL (7-18); CHLORIDE 115 MEQ/L (98-107); GLOMERULAR FILTRATION RATE 19 ML/MIN (>89); SODIUM (NA) 148 MEQ/L (136-145); TOTAL BILIRUBIN ADULT 0.2 MG/DL (0.2-1.0)
[2017-07-21] MEDS: MANNITOL 12.5 GM/50 ML VIAL IV SCH ×3 (05:00→21:00)
--- NOTE | 2017-07-21 05:39 | RADRPT ---
EXAM DATE/TIME: 07/21/2017 04:27 [facility] COMPARISON: No previous studies available for comparison. INDICATIONS : Follow up hemorrhage. RADIATION DOSE: 37.23 CTDIvol (mGy) MEDICAL HISTORY : Seizures. Hypertension. Cardiovascular disease SURGICAL HISTORY : None. ENCOUNTER: Subsequent ACUITY: 1 day PAIN SCALE: Non-responsive LOCATION: cranial TECHNIQUE: Multiple contiguous axial images were obtained of the head. Using automated exposure control and adj ustment of the mA and/or kV according to patient size, radiation dose was kept as low as reasonably a chievable to obtain optimal diagnostic quality images. DICOM format image data is available electro nically for review and comparison. FINDINGS: CEREBRUM: The patient is a right frontal ventriculostomy catheter. The ventricles remain large with a significa nt amount of intraventricular hemorrhage. There is a large amount of hemorrhage centrally across midl ine and in the left centrum semiovale region likely the epicenter of the hemorrhage. There shift from left to right of 1.3 cm at the level of the septum pellucida. Old stroke of the left occipital lobe POSTERIOR FOSSA: The cerebellum and brainstem are intact. There is hemorrhage within the fourth ventricle and within t he centrum semiovale region. The cerebellopontine angle is unremarkable. EXTRACRANIAL: The visualized portion of the orbits is intact. SKULL: The calvaria is intact. No evidence of skull fracture. CONCLUSION: Again significant amount of intraparenchymal and intraventricular hemorrhage with the epicenter of th e hemorrhage in the left centrum semiovale region. There is continued ventricular enlargement despite placement of ventriculostomy shunt. The amount of hemorrhage is quite similar to the 14th. The hemor rhage extends down to the fourth ventricle and the foramen magnum. Josh Carmen MD on July 21, 2017 at 5:33 Board Certified Radiologist. This report was verified electronically.
[2017-07-21] MEDS ORDERED: SODIUM CHLORID 0.9% 500 ML INJ 500 ML IV ONE (06:00)
[2017-07-21 06:01] LABS: BLOOD GAS BASE EXCESS -5.3 mmol/L (-2-2); BLOOD GAS CARBOXYHEMOGLOBIN 0.7 % (0-4); BLOOD GAS HCO3 19 mmol/L (22-26); BLOOD GAS METHEMOGLOBIN 1.2 % (0-2); BLOOD GAS O2 HGB SATURATION 98 % (90-100); BLOOD GAS OXYGEN CONTENT 11.3 Vol % (12.0-20.0); BLOOD GAS PCO2 34 mmHg (38-42); BLOOD GAS PO2 207 mmHg (61-120); BLOOD GAS TOTAL HGB 7.9 G/DL (12.0-16.0); CRITICAL VALUE NO; OXYGEN DEVICE VENTILATOR; TEMP CORR TO 98.6
[2017-07-21 06:02] LABS: DRAW SITE ART LINE; FIO2 40 %; STAT NO; VENT SETTINGS PRVC/AC
--- NOTE | 2017-07-21 06:23 | RADRPT ---
EXAM DATE/TIME: 07/21/2017 05:27 [facility] COMPARISON: CHEST SINGLE AP, July 20, 2017, 19:19. INDICATIONS : Shortness of breath. MEDICAL HISTORY : Hypertension. Cerebrovascular disease. SURGICAL HISTORY : None. ENCOUNTER: Subsequent ACUITY: 2 days PAIN SCORE: Non-responsive. LOCATION: Bilateral chest FINDINGS: A single view of the chest demonstrates the lungs to be symmetrically aerated without evidence of mas s, infiltrate or effusion. The endotracheal tube and nasogastric are both in good position. The aorta is quite tortuous. The cardiomediastinal contours are unremarkable. Osseous structures are intact. CONCLUSION: ET tube in good position. Lungs are clear. Josh Carmen MD on July 21, 2017 at 6:21 Board Certified Radiologist. This report was verified electronically.
[2017-07-21] MEDS: CHLORHEXIDINE 0.12% (ORAL KIT) 15 ML CUP MT SCH ×2 (07:49→21:07)
[2017-07-21] MEDS: SODIUM CHLORIDE 0.9% FLUSH 10 ML FLUSH IV FLUSH SCH ×2 (07:50→21:32)
[2017-07-21] MEDS: ARTIFICIAL TEARS OPTH SOLN 15 ML BTL EACH EYE SCH ×3 (07:50→18:00)
[2017-07-21] MEDS: 3% SALINE INJ 500 ML IV SCH ×2 (07:52→13:45)
[2017-07-21] MEDS: DOCUSATE SODIUM 50 MG/SENNA 8.6 MG TAB PO SCH ×2 (08:21→21:32)
[2017-07-21] MEDS: LANSOPRAZOLE SOLUTAB 30 MG TAB G-TUBE SCH (08:21)
[2017-07-21] MEDS: levETIRAcetam 1000 MG INJ 100 ML IV SCH ×2 (08:21→21:32)
--- NOTE | 2017-07-21 09:33 | HHI.CCPN ---
Subjective Remarks/Hospital Course This is a 52-year-old AA male. Date of admission 07/20/2017. 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 Today, this patient was found per report obtunded by roommates. He was last seen in his normal state of health 07/19. They noted that he was having a flexed positioning, questionable decorticate positioning, and unequal pupils, left greater than right. The attempted to intubate the patient on the scene using lorazepam and etomidate without success. The ED physician was not able to get further history from roommates. CT brain revealed a left basal ganglia hemorrhage with extension to the left lateral ventricle, third and fourth ventricle with basilar cistern effacement. 1.3 cm [id number] shift. Patient started on hypertonic saline, mannitol, and tell CO2 between 35 and 40. Neurosurgery was consulted and placed a left ventriculostomy drain. Currently measuring ICPs closely. 07/21: Copious ventricular blood, small left basal ganglia hemorrhage. Cocaine and hypertension appear to be causative. EVD draining. BP controlled. Objective Vital Signs Date Time Temp Pulse Resp B/P (MAP) Pulse Ox O2 Delivery O2 Flow Rate FiO2 07/21/17 07:44 100 40 07/21/17 06:00 128 07/21/17 04:00 136/82 07/21/17 04:00 96.6 14 07/20/17 20:57 Ventilator 07/20/17 19:21 15.00 Intake and Output 07/21/17 07/21/17 07/22/17 08:00 16:00 00:00 Intake Total 2721 ml Output Total 356 ml Balance 2365 ml Result Diagram: 07/20/17 1830 07/21/17 0345 Other Results Laboratory Tests Test 07/20/17 20:05 07/20/17 22:55 07/21/17 05:55 Blood Gas Puncture Site RT RADIAL ART LINE ART LINE Blood Gas Patient Temperature 98.6 98.6 98.6 Blood Gas HCO3 21 mmol/L (22-26) 22 mmol/L (22-26) 19 mmol/L (22-26) Blood Gas Base Excess -1.8 mmol/L (-2-2) -1.5 mmol/L (-2-2) -5.3 mmol/L (-2-2) Blood Gas Oxygen Saturation 99 % (90-100) 98 % (90-100) 98 % (90-100) Arterial Blood pH 7.50 (7.380-7.420) 7.46 (7.380-7.420) 7.37 (7.380-7.420) Arterial Blood Partial Pressure CO2 27 mmHg (38-42) 31 mmHg (38-42) 34 mmHg (38-42) Arterial Blood Partial Pressure O2 559 mmHG (61-120) 543 mmHg (61-120) 207 mmHg (61-120) Arterial Blood Oxygen Content 16.4 Vol % (12.0-20.0) 15.4 Vol % (12.0-20.0) 11.3 Vol % (12.0-20.0) Arterial Blood Carboxyhemoglobin 0.7 % (0-4) 0.7 % (0-4) 0.7 % (0-4) Arterial Blood Methemoglobin 0.8 % (0-2) 1.2 % (0-2) 1.2 % (0-2) Blood Gas Hemoglobin 10.8 G/DL (12.0-16.0) 10.1 G/DL (12.0-16.0) 7.9 G/DL (12.0-16.0) Oxygen Delivery Device VENTILATOR VENTILATOR VENTILATOR Blood Gas Ventilator Setting AC/16/550/PEEP5 PRVC/AC PRVC/AC Blood Gas Inspired Oxygen 100 % 100 % 40 % Imaging Last Impressions Head CT 07/20/17 3393 Signed Impressions: Service Date/Time: Thursday, July 20, 2017 19:12 - CONCLUSION: Large hemorrhage centered at the left basal ganglia with extension into the ventricles. The ventricles are enlarged. There is 1.3 cm of left to right midline shift and near effacement of the basal cisterns. Horacio Lebron MD Objective Remarks GENERAL: 52-year-old male. SKIN: Warm and dry. HEAD: Atraumatic. Normocephalic. EYES: Left pupil 3 mm and slightly reactive. Pupil 2 mm and fixed. No scleral icterus. No injection or drainage. ENT: No nasal bleeding or discharge. Mucous membranes pink and moist. NECK: Trachea midline. Orally intubated. CARDIOVASCULAR: Regular rate and rhythm. S1, S2. No S4. RESPIRATORY: Normal excursions. Clear to auscultation. Breath sounds equal bilaterally. GASTROINTESTINAL: Abdomen soft, non-tender, nondistended. BS active. MUSCULOSKELETAL: Extremities without clubbing, cyanosis, or edema. No obvious deformities. NEUROLOGICAL: Pupils as above. Positive gag. Does not withdraw to pain. Unresponsive. A/P Assessment and Plan Neuro/Psych: Left basal hemorrhage with intraventricular hemorrhages though left lateral, third and fourth ventricles with basilar cisterna effacement with a 1.3 cm left- to-right shift History of left frontoparietal, old left occipital, bilateral basal ganglia and right pontine CVA - Seizure disorder NOS Currently on propofol/midazolam and fentanyl drips titrating for ICP for sedation/analgesia while intubated No sedation vacation until okay with neurosurgery CT brain imaging as above. Repeat head CT in a.m. Dr. Nettles consulted right-sided ventriculostomy placed. Goal maintain ICPs less than 20 3% saline currently at 30 cc an hour. Goal sodium 150-155 Mannitol 12.5 g every 8 hours. Hold if serum osm > 310 End tidal CO2 35-40 Currently on levetiracetam 1000 mg IV twice a day EEG ordered for a.m. 07/21 Follow-up on CSF studies Cocaine positive. CV: Hypertension Dyslipidemia Elevated CPK 0.9% Saline at 84 cc an hour Currently on norepinephrine drip to maintain cerebral perfusion pressures greater than or equal to 60 Holding hydralazine 50 mill grams every 8 hours on vasopressors Holding atorvastatin 40 mill grams by mouth daily Holding aspirin 325 mg by mouth daily Resp: Acute respiratory failure History of [facility]MY[facility] /09/10/39 Ventilator bundle Albuterol/ipratropium aerosols every 4 hours with albuterol aerosols every 2 hours. Dyspnea End tidal CO2 between 35 and 40 Follow-up a.m. ABG and chest x-ray GI: Patient is currently nothing by mouth. LIWS Lansoprazole for GI prophylaxis Docusate sodium/senna 1 tablet twice a day for bowel regimen Start trickle feeds. : Patel catheter for accurate I's and O's in a critically ill patient Endo: Diabetes mellitus Low TSH Hyperglycemia Sliding-scale insulin with Novulin R to maintain euglycemia/every 4 hours low regimen Follow-up on free T3/T4 Renal: Acute kidney injury in the setting of Chronic kidney disease stage IV Monitor urine output Accurate I's and O's Avoid nephrotoxic substances Follow-up on urine eosinophils and electrolytes Patient currently oliguric renal failure at the present time. Bladder scan. Heme: Normocytic anemia Does not meet transfusion thresholds at this time Coags within normal limits. Recheck CBC in a.m. ID: Monitor for infection FEN: Replace electrolytes as clinically indicated MSK: PT evaluate and treat range of motion Access - Left femoral CVL day #2 placed in ED Prophylaxis - GI -lansoprazole/no pharmacological prophylaxis hemorrhage, SCDs Overall impression: Hypertensive brain bleed likely incited by cocaine. Severe neurological injury. Prognosis guarded. Critical Care 43 mins Dany Lang MD Jul 21, 2017 09:33
--- NOTE | 2017-07-21 09:47 | HHI.NSPN ---
(Peggy Fuller) Note Status Status: Progress Note (Peggy Fuller) Interval History Interval History 07/21: EVD draining well, intubated and well sedated. 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 He was last seen in his normal state of health 07/19. He has a , but his reports that he left his home and leave with some roommates. They noted that he was having a flexed positioning with a GCS of 5, decorticate positioning, and unequal pupils, left greater than right. No seizure activity reported. No tonic-clonic movement seen. No tongue biting. No incontinence of stool or urine. He is unable to provide any history. Some history is obtained from his at bedside The paramedics attempted to intubate him on the scene using lorazepam and etomidate without success. The ED physician was not able to get further history from roommates. He wasn't renal failure. Toxicology screen was positive for cocaine CT brain revealed a left basal ganglia hemorrhage with extension to the left lateral ventricle, third and fourth ventricle with basilar cistern effacement, and 1.3 cm [id number] shift. Neurosurgical consultation was requested 07/21. REMAINS INTUBATED AND SEDATED. ct BRAIN DONE TODAY (Edwin Nettles MD) Labs, Micro, & Vital Signs Results Date Time Temp Pulse Resp B/P (MAP) Pulse Ox O2 Delivery O2 Flow Rate FiO2 07/21/17 07:44 100 40 07/21/17 07:00 100 Mechanical Ventilator 40 07/21/17 06:00 128 07/21/17 04:15 100 40 07/21/17 04:15 100 100 07/21/17 04:00 126 136/82 07/21/17 04:00 126 07/21/17 04:00 40 07/21/17 04:00 96.6 126 14 136/82 (100) 100 07/21/17 02:00 127 07/21/17 01:29 100 40 07/21/17 01:00 126 130/92 07/21/17 00:00 91.8 120 12 96/72 (80) 100 07/21/17 00:00 40 07/21/17 00:00 120 07/20/17 22:30 92 81/63 07/20/17 22:00 90.0 98 12 134/116 (122) 100 07/20/17 22:00 98 07/20/17 22:00 92 161/122 07/20/17 21:15 92 07/20/17 21:15 100 100 07/20/17 21:15 100 100 07/20/17 21:15 89.2 92 12 161/122 (135) 100 07/20/17 21:13 07/20/17 21:08 100 100 07/20/17 20:57 89.1 86 12 165/97 (119) 100 Ventilator 50 07/20/17 20:54 100 50 07/20/17 20:25 100 100 07/20/17 20:17 100 50 07/20/17 19:21 100 18 195/124 (147) 99 15.00 07/20/17 19:11 113 18 146/100 (115) 97 15.00 07/20/17 18:18 72 16 198/126 (150) 99 15.00 07/20/17 18:18 87.0 72 16 198/126 (150) 99 15.00 07/20/17 18:13 72 16 198/126 (150) 99 07/20/17 18:00 100 100 07/20/17 17:45 100 Constitutional Vital Signs Date Time Temp Pulse Resp B/P (MAP) Pulse Ox O2 Delivery O2 Flow Rate FiO2 07/21/17 07:44 100 40 07/21/17 07:00 100 Mechanical Ventilator 40 07/21/17 06:00 128 07/21/17 04:15 100 40 07/21/17 04:15 100 100 07/21/17 04:00 126 136/82 07/21/17 04:00 126 07/21/17 04:00 40 07/21/17 04:00 96.6 126 14 136/82 (100) 100 07/21/17 02:00 127 07/21/17 01:29 100 40 07/21/17 01:00 126 130/92 07/21/17 00:00 91.8 120 12 96/72 (80) 100 07/21/17 00:00 40 07/21/17 00:00 120 07/20/17 22:30 92 81/63 07/20/17 22:00 90.0 98 12 134/116 (122) 100 07/20/17 22:00 98 07/20/17 22:00 92 161/122 07/20/17 21:15 92 07/20/17 21:15 100 100 07/20/17 21:15 100 100 07/20/17 21:15 89.2 92 12 161/122 (135) 100 07/20/17 21:13 07/20/17 21:08 100 100 07/20/17 20:57 89.1 86 12 165/97 (119) 100 Ventilator 50 07/20/17 20:54 100 50 07/20/17 20:25 100 100 07/20/17 20:17 100 50 07/20/17 19:21 100 18 195/124 (147) 99 15.00 07/20/17 19:11 113 18 146/100 (115) 97 15.00 07/20/17 18:18 72 16 198/126 (150) 99 15.00 07/20/17 18:18 87.0 72 16 198/126 (150) 99 15.00 07/20/17 18:13 72 16 198/126 (150) 99 07/20/17 18:00 100 100 07/20/17 17:45 100 (Peggy Fuller) Review of Systems ROS Limitations: Intubated (Peggy Fuller) Physical Exam Mr. Aponte is intubated and well sedated. Cranial Nerves: left pupils 6 mm nonreactive, right pinpoint. Cervical Spine: soft, supple sensorimotor: His muscle tone and bulk are normal. No withdrawal to pain, well sedated. Cerebellar: cannot assess due to clinical condition Right ventriculostomy drain intact, draining well, sanguinous CSF Plantars silent bilaterally (Peggy Fuller) Mr. Aponte is intubated and well sedated. Cranial Nerves: left pupils 6 mm nonreactive, right pinpoint. Cervical Spine: soft, supple sensorimotor: His muscle tone and bulk are normal. No withdrawal to pain, well sedated. Cerebellar: cannot assess due to clinical condition Right ventriculostomy drain intact, draining well, sanguinous CSF Plantars silent bilaterally (Edwin Nettles MD) Medications Current Medications Current Medications Medications (Trade) Dose Ordered Sig/Mae Route PRN Reason Start Time Stop Time Status Last Admin Dose Admin IV Flush (NS Flush) 2 ml UNSCH PRN IV FLUSH FLUSH AFTER USING IV ACCESS 07/20/17 18:15 Chlorhexidine Gluconate (Peridex 0.12% Liq) 15 ml BID@08,20 MT 07/21/17 08:00 07/21/17 07:49 Propofol 100 ml @ 2.182 mls/ hr TITRATE PRN IV SEDATION 07/20/17 20:15 07/20/17 22:10 Fentanyl Citrate 250 ml @ 5 mls/hr TITRATE PRN IV SEDATION 07/20/17 20:15 07/20/17 21:48 Sodium Chloride 1,000 ml @ 84 mls/hr [id number] IV 07/20/17 20:05 07/21/17 08:20 Sodium Chloride (NS Flush) 2 ml UNSCH PRN IV FLUSH FLUSH AFTER USING IV ACCESS 07/20/17 20:15 Sodium Chloride (NS Flush) 2 ml BID IV FLUSH 07/20/17 21:00 07/21/17 07:50 Acetaminophen (Tylenol) 650 mg Q6H PRN PO PAIN 1-10 AND/OR FEVER >101F 07/20/17 20:15 Lansoprazole (Prevacid Odt) 30 mg DAILY G-TUBE 07/21/17 09:00 07/21/17 08:21 Artificial Tears (Tears Naturale Opth Soln) 1 drop TID EACH EYE 07/21/17 09:00 07/21/17 07:50 Ondansetron HCl (Zofran Inj) 4 mg Q6H PRN IV PUSH NAUSEA OR VOMITING 07/20/17 20:15 Albuterol/ Ipratropium (Duoneb Neb) 1 ampule Q4HR NEB INH 07/21/17 00:00 07/21/17 07:44 Albuterol Sulfate (Albuterol Neb) 2.5 mg Q2HR NEB PRN INH SOB/WHEEZING 07/20/17 20:15 Miscellaneous Information 1 Q361D XX 07/20/17 20:15 Chlorhexidine Gluconate (Chlorhexidine 2% Cloth) 3 pack Taper DAILY@04 TOP 07/21/17 04:00 07/17/18 03:59 Chlorhexidine Gluconate (Chlorhexidine 2% Cloth) 3 pack UNSCH PRN TOP HYGIENIC CARE 07/20/17 20:15 Senna/Docusate Sodium (Selena-Colace) 1 tab BID PO 07/20/17 21:00 07/21/17 08:21 Magnesium Hydroxide (Milk Of Magnesia Liq) 30 ml Q12H PRN PO Mild constipation 07/20/17 20:15 Sennosides (Senokot) 17.2 mg Q12H PRN PO Moderate constipation 07/20/17 20:15 Bisacodyl (Dulcolax Supp) 10 mg DAILY PRN RECTAL SEVERE CONSITIPATION 07/20/17 20:15 Lactulose (Lactulose Liq) 30 ml DAILY PRN PO SEVERE CONSITIPATION 07/20/17 20:15 Levetriacetam 100 ml @ 400 mls/hr Q12HR IV 07/20/17 21:00 07/21/17 08:21 Hydralazine HCl (Apresoline) 50 mg Q8H PO 07/20/17 21:00 Future Hold Nicardipine HCl 25 mg/Sodium Chloride 250 ml @ 50 mls/hr TITRATE PRN IV Blood pressure management 07/20/17 20:15 07/20/17 22:00 Sodium Chloride 500 ml @ 30 mls/hr CONTINUOUS IV 07/20/17 20:15 07/21/17 07:52 Mannitol (Mannitol Inj) 12.5 gm Q8H IV 07/20/17 21:00 07/20/17 21:39 Norepinephrine Bitartrate 4 mg/ Sodium Chloride 250 ml @ 7.5 mls/hr TITRATE PRN IV Blood pressure management 07/20/17 23:15 07/21/17 04:00 Terbutaline Sulfate (Brethine Inj) 1 mg UNSCH PRN SQ For Extravasation 07/20/17 23:15 Midazolam HCl 100 ml @ 2 mls/hr TITRATE PRN IV SEDATION 07/20/17 23:30 07/21/17 00:49 Epinephrine HCl 2 mg/Sodium Chloride 252 ml @ 22.68 mls/ hr TITRATE PRN IV Blood Pressure Management 07/21/17 00:15 Insulin Human Regular (NovoLIN R SUPPLEMENTAL SCALE) 1 Q4HR SQ 07/21/17 04:00 Dextrose (D50w (Vial) Inj) 50 ml UNSCH PRN IV PUSH HYPOGLYCEMIA - SEE COMMENTS 07/21/17 01:00 Glucagon (Glucagon Inj) 1 mg UNSCH PRN OTHER HYPOGLYCEMIA-SEE COMMENTS 07/21/17 01:00 Sodium Chloride 1,000 ml @ 999 mls/hr BOLUS IV 07/21/17 02:30 07/22/17 03:31 (Peggy Fuller) Current Medications Current Medications IV Flush (NS Flush) 2 ml UNSCH PRN IV FLUSH FLUSH AFTER USING IV ACCESS; Start 07/20/17 at 18:15 Chlorhexidine Gluconate (Peridex 0.12% Liq) 15 ml BID@08,20 MT Last administered on 07/21/17 07:49; Start 07/21/17 at 08:00 Propofol 100 ml @ 2.182 mls/ hr TITRATE PRN IV SEDATION Last administered on 07/20/17 22:10; Start 07/20/17 at 20:15 Fentanyl Citrate 250 ml @ 5 mls/hr TITRATE PRN IV SEDATION Last administered on 07/21/17 14:44; Start 07/20/17 at 20:15 Sodium Chloride 1,000 ml @ 84 mls/hr [id number] IV Last administered on 08:20; Start 07/20/17 at 20:05 Sodium Chloride (NS Flush) 2 ml UNSCH PRN IV FLUSH FLUSH AFTER USING IV ACCESS ; Start 07/20/17 at 20:15 Sodium Chloride (NS Flush) 2 ml BID IV FLUSH Last administered on 07/21/17 07 :50; Start 07/20/17 at 21:00 Acetaminophen (Tylenol) 650 mg Q6H PRN PO PAIN 1-10 AND/OR FEVER >101F; Start 07/20/17 at 20:15 Lansoprazole (Prevacid Odt) 30 mg DAILY G-TUBE Last administered on 07/21/17 08:21; Start 07/21/17 at 09:00 Artificial Tears (Tears Naturale Opth Soln) 1 drop TID EACH EYE Last administered on 07/21/17 12:20; Start 07/21/17 at 09:00 Ondansetron HCl (Zofran Inj) 4 mg Q6H PRN IV PUSH NAUSEA OR VOMITING; Start at 20:15 Albuterol/ Ipratropium (Duoneb Neb) 1 ampule Q4HR NEB INH Last administered on 07/21/17 15:08; Start 07/21/17 at 00:00 Albuterol Sulfate (Albuterol Neb) 2.5 mg Q2HR NEB PRN INH SOB/WHEEZING; Start 07/20/17 at 20:15 Miscellaneous Information 1 Q361D XX ; Start 07/20/17 at 20:15 Chlorhexidine Gluconate (Chlorhexidine 2% Cloth) 3 pack Taper DAILY@04 TOP ; Start 07/21/17 at 04:00; Stop 07/17/18 at 03:59 Chlorhexidine Gluconate (Chlorhexidine 2% Cloth) 3 pack UNSCH PRN TOP HYGIENIC CARE; Start 07/20/17 at 20:15 Senna/Docusate Sodium (Selena-Colace) 1 tab BID PO Last administered on 08:21; Start 07/20/17 at 21:00 Magnesium Hydroxide (Milk Of Magnesia Liq) 30 ml Q12H PRN PO Mild constipation ; Start 07/20/17 at 20:15 Sennosides (Senokot) 17.2 mg Q12H PRN PO Moderate constipation; Start at 20:15 Bisacodyl (Dulcolax Supp) 10 mg DAILY PRN RECTAL SEVERE CONSITIPATION; Start 07/20/17 at 20:15 Lactulose (Lactulose Liq) 30 ml DAILY PRN PO SEVERE CONSITIPATION; Start 07/20 at 20:15 Levetriacetam 100 ml @ 400 mls/hr Q12HR IV Last administered on 07/21/17 08: 21; Start 07/20/17 at 21:00 Hydralazine HCl (Apresoline) 50 mg Q8H PO ; Start 07/20/17 at 21:00; Status Future Hold Nicardipine HCl 25 mg/Sodium Chloride 250 ml @ 50 mls/hr TITRATE PRN IV Blood pressure management Last administered on 07/20/17 22:00; Start 07/20/17 at 20 :15 Sodium Chloride 500 ml @ 30 mls/hr CONTINUOUS IV Last administered on 13:45; Start 07/20/17 at 20:15 Mannitol (Mannitol Inj) 12.5 gm Q8H IV Last administered on 07/20/17 21:39; Start 07/20/17 at 21:00 Labetalol HCl (Trandate Inj) 10 mg Q1HR PRN IV PUSH SBP>140, DBP>70, HR>65; Start 07/20/17 at 20:15; Stop 07/21/17 at 02:24; Status DC Norepinephrine Bitartrate (Levophed Inj) 4 mg STK-MED ONCE .ROUTE ; Start 07/20 at 22:18; Stop 07/20/17 at 22:19; Status DC Phenylephrine HCl (Neosynephrine Inj) 40 mg STK-MED ONCE .ROUTE ; Start at 22:29; Stop 07/20/17 at 22:30; Status DC Norepinephrine Bitartrate 4 mg/ Sodium Chloride 250 ml @ 7.5 mls/hr TITRATE PRN IV Blood pressure management Last administered on 07/21/17 11:00; Start 07/20/17 at 23:15 Terbutaline Sulfate (Brethine Inj) 1 mg UNSCH PRN SQ For Extravasation; Start 07/20/17 at 23:15 Epinephrine HCl 2 mg/Dextrose 252 ml @ 22.68 mls/ hr TITRATE PRN IV Blood Pressure Management; Start 07/20/17 at 23:15; Stop 07/21/17 at 00:13; Status DC Midazolam HCl (Versed Inj) 5 mg ONCE ONCE IV PUSH ; Start 07/20/17 at 23:30; Stop 07/20/17 at 23:31; Status DC Midazolam HCl 100 ml @ 2 mls/hr TITRATE PRN IV SEDATION Last administered on 09:52; Start 07/20/17 at 23:30 Epinephrine HCl 2 mg/Sodium Chloride 252 ml @ 22.68 mls/ hr TITRATE PRN IV Blood Pressure Management; Start 07/21/17 at 00:15 Insulin Human Regular (NovoLIN R SUPPLEMENTAL SCALE) 1 Q4HR SQ ; Start at 04:00 Dextrose (D50w (Vial) Inj) 50 ml UNSCH PRN IV PUSH HYPOGLYCEMIA - SEE COMMENTS ; Start 07/21/17 at 01:00 Glucagon (Glucagon Inj) 1 mg UNSCH PRN OTHER HYPOGLYCEMIA-SEE COMMENTS; Start 07/21/17 at 01:00 Sodium Chloride 1,000 ml @ 999 mls/hr BOLUS IV ; Start 07/21/17 at 02:30; Stop 07/22/17 at 03:31 Sodium Chloride 500 ml @ 500 mls/hr BOLUS ONCE IV Last administered on 06:14; Start 07/21/17 at 06:00; Stop 07/21/17 at 06:59; Status DC Phenylephrine HCl 40 mg/Sodium Chloride 500 ml @ 30 mls/hr TITRATE PRN IV Blood Pressure Management Last administered on 07/21/17 12:49; Start at 13:00; Stop 07/21/17 at 13:46; Status DC Terbutaline Sulfate (Brethine Inj) 1 mg UNSCH PRN SQ FOR EXTRAVASATION PROTOCOL ; Start 07/21/17 at 12:15 Vasopressin 40 units/Sodium Chloride 100 ml @ 1.5 mls/hr TITRATE PRN IV Blood Pressure Management Last administered on 07/21/17 12:49; Start 07/21/17 at 13 :00 Phenylephrine HCl (Neosynephrine Inj) 40 mg STK-MED ONCE .ROUTE ; Start at 12:26; Stop 07/21/17 at 12:27; Status DC Sodium Chloride 1,000 ml @ 999 mls/hr BOLUS ONCE IV Last administered on 13:30; Start 07/21/17 at 13:30; Stop 07/21/17 at 14:30; Status DC Sodium Chloride 1,000 ml @ 999 mls/hr BOLUS ONCE IV Last administered on 13:30; Start 07/21/17 at 13:30; Stop 07/21/17 at 14:30; Status DC Phenylephrine HCl 80 mg/Sodium Chloride 500 ml @ 15 mls/hr TITRATE PRN IV Blood pressure Management Last administered on 07/21/17 14:43; Start at 15:00 Terbutaline Sulfate (Brethine Inj) 1 mg UNSCH PRN SQ For Extravasation; Start 07/21/17 at 13:30; Status UNV Current Medications IV Flush (NS Flush) 2 ml UNSCH PRN IV FLUSH FLUSH AFTER USING IV ACCESS; Start 07/20/17 at 18:15 Chlorhexidine Gluconate (Peridex 0.12% Liq) 15 ml BID@08,20 MT Last administered on 07/21/17 07:49; Start 07/21/17 at 08:00 Propofol 100 ml @ 2.182 mls/ hr TITRATE PRN IV SEDATION Last administered on 07/20/17 22:10; Start 07/20/17 at 20:15 Fentanyl Citrate 250 ml @ 5 mls/hr TITRATE PRN IV SEDATION Last administered on 07/21/17 14:44; Start 07/20/17 at 20:15 Sodium Chloride 1,000 ml @ 84 mls/hr [id number] IV Last administered on 08:20; Start 07/20/17 at 20:05 Sodium Chloride (NS Flush) 2 ml UNSCH PRN IV FLUSH FLUSH AFTER USING IV ACCESS ; Start 07/20/17 at 20:15 Sodium Chloride (NS Flush) 2 ml BID IV FLUSH Last administered on 07/21/17 07 :50; Start 07/20/17 at 21:00 Acetaminophen (Tylenol) 650 mg Q6H PRN PO PAIN 1-10 AND/OR FEVER >101F; Start 07/20/17 at 20:15 Lansoprazole (Prevacid Odt) 30 mg DAILY G-TUBE Last administered on 07/21/17 08:21; Start 07/21/17 at 09:00 Artificial Tears (Tears Naturale Opth Soln) 1 drop TID EACH EYE Last administered on 07/21/17 12:20; Start 07/21/17 at 09:00 Ondansetron HCl (Zofran Inj) 4 mg Q6H PRN IV PUSH NAUSEA OR VOMITING; Start at 20:15 Albuterol/ Ipratropium (Duoneb Neb) 1 ampule Q4HR NEB INH Last administered on 07/21/17 15:08; Start 07/21/17 at 00:00 Albuterol Sulfate (Albuterol Neb) 2.5 mg Q2HR NEB PRN INH SOB/WHEEZING; Start 07/20/17 at 20:15 Miscellaneous Information 1 Q361D XX ; Start 07/20/17 at 20:15 Chlorhexidine Gluconate (Chlorhexidine 2% Cloth) 3 pack Taper DAILY@04 TOP ; Start 07/21/17 at 04:00; Stop 07/17/18 at 03:59 Chlorhexidine Gluconate (Chlorhexidine 2% Cloth) 3 pack UNSCH PRN TOP HYGIENIC CARE; Start 07/20/17 at 20:15 Senna/Docusate Sodium (Selena-Colace) 1 tab BID PO Last administered on 08:21; Start 07/20/17 at 21:00 Magnesium Hydroxide (Milk Of Magnesia Liq) 30 ml Q12H PRN PO Mild constipation ; Start 07/20/17 at 20:15 Sennosides (Senokot) 17.2 mg Q12H PRN PO Moderate constipation; Start at 20:15 Bisacodyl (Dulcolax Supp) 10 mg DAILY PRN RECTAL SEVERE CONSITIPATION; Start 07/20/17 at 20:15 Lactulose (Lactulose Liq) 30 ml DAILY PRN PO SEVERE CONSITIPATION; Start 07/20 at 20:15 Levetriacetam 100 ml @ 400 mls/hr Q12HR IV Last administered on 07/21/17 08: 21; Start 07/20/17 at 21:00 Hydralazine HCl (Apresoline) 50 mg Q8H PO ; Start 07/20/17 at 21:00; Status Future Hold Nicardipine HCl 25 mg/Sodium Chloride 250 ml @ 50 mls/hr TITRATE PRN IV Blood pressure management Last administered on 07/20/17 22:00; Start 07/20/17 at 20 :15 Sodium Chloride 500 ml @ 30 mls/hr CONTINUOUS IV Last administered on 13:45; Start 07/20/17 at 20:15 Mannitol (Mannitol Inj) 12.5 gm Q8H IV Last administered on 07/20/17 21:39; Start 07/20/17 at 21:00 Labetalol HCl (Trandate Inj) 10 mg Q1HR PRN IV PUSH SBP>140, DBP>70, HR>65; Start 07/20/17 at 20:15; Stop 07/21/17 at 02:24; Status DC Norepinephrine Bitartrate (Levophed Inj) 4 mg STK-MED ONCE .ROUTE ; Start 07/20 at 22:18; Stop 07/20/17 at 22:19; Status DC Phenylephrine HCl (Neosynephrine Inj) 40 mg STK-MED ONCE .ROUTE ; Start at 22:29; Stop 07/20/17 at 22:30; Status DC Norepinephrine Bitartrate 4 mg/ Sodium Chloride 250 ml @ 7.5 mls/hr TITRATE PRN IV Blood pressure management Last administered on 07/21/17 11:00; Start 07/20/17 at 23:15 Terbutaline Sulfate (Brethine Inj) 1 mg UNSCH PRN SQ For Extravasation; Start 07/20/17 at 23:15 Epinephrine HCl 2 mg/Dextrose 252 ml @ 22.68 mls/ hr TITRATE PRN IV Blood Pressure Management; Start 07/20/17 at 23:15; Stop 07/21/17 at 00:13; Status DC Midazolam HCl (Versed Inj) 5 mg ONCE ONCE IV PUSH ; Start 07/20/17 at 23:30; Stop 07/20/17 at 23:31; Status DC Midazolam HCl 100 ml @ 2 mls/hr TITRATE PRN IV SEDATION Last administered on 09:52; Start 07/20/17 at 23:30 Epinephrine HCl 2 mg/Sodium Chloride 252 ml @ 22.68 mls/ hr TITRATE PRN IV Blood Pressure Management; Start 07/21/17 at 00:15 Insulin Human Regular (NovoLIN R SUPPLEMENTAL SCALE) 1 Q4HR SQ ; Start at 04:00 Dextrose (D50w (Vial) Inj) 50 ml UNSCH PRN IV PUSH HYPOGLYCEMIA - SEE COMMENTS ; Start 07/21/17 at 01:00 Glucagon (Glucagon Inj) 1 mg UNSCH PRN OTHER HYPOGLYCEMIA-SEE COMMENTS; Start 07/21/17 at 01:00 Sodium Chloride 1,000 ml @ 999 mls/hr BOLUS IV ; Start 07/21/17 at 02:30; Stop 07/22/17 at 03:31 Sodium Chloride 500 ml @ 500 mls/hr BOLUS ONCE IV Last administered on 06:14; Start 07/21/17 at 06:00; Stop 07/21/17 at 06:59; Status DC Phenylephrine HCl 40 mg/Sodium Chloride 500 ml @ 30 mls/hr TITRATE PRN IV Blood Pressure Management Last administered on 07/21/17 12:49; Start at 13:00; Stop 07/21/17 at 13:46; Status DC Terbutaline Sulfate (Brethine Inj) 1 mg UNSCH PRN SQ FOR EXTRAVASATION PROTOCOL ; Start 07/21/17 at 12:15 Vasopressin 40 units/Sodium Chloride 100 ml @ 1.5 mls/hr TITRATE PRN IV Blood Pressure Management Last administered on 07/21/17 12:49; Start 07/21/17 at 13 :00 Phenylephrine HCl (Neosynephrine Inj) 40 mg STK-MED ONCE .ROUTE ; Start at 12:26; Stop 07/21/17 at 12:27; Status DC Sodium Chloride 1,000 ml @ 999 mls/hr BOLUS ONCE IV Last administered on 13:30; Start 07/21/17 at 13:30; Stop 07/21/17 at 14:30; Status DC Sodium Chloride 1,000 ml @ 999 mls/hr BOLUS ONCE IV Last administered on 13:30; Start 07/21/17 at 13:30; Stop 07/21/17 at 14:30; Status DC Phenylephrine HCl 80 mg/Sodium Chloride 500 ml @ 15 mls/hr TITRATE PRN IV Blood pressure Management Last administered on 07/21/17 14:43; Start at 15:00 Terbutaline Sulfate (Brethine Inj) 1 mg UNSCH PRN SQ For Extravasation; Start 07/21/17 at 13:30; Status UNV (Edwin Nettles MD) Medical Decision Making MDM Remarks 52 year old male with large intraparenchymal hemorrhage with large extension into ventricles with hydrocephalus, s/p placement of ventriculostomy drain 07/20 f/u CT Head 07/21 with some worsening of hemorrhage, persistent hydrocephalus positive cocaine hypertensive crisis (Peggy Fuller) MDM Remarks Last [address] 07/21/17 0600 Signed Impressions: Service Date/Time: Friday, July 21, 2017 04:27 - CONCLUSION: Again significant amount of intraparenchymal and intraventricular hemorrhage with the epicenter of the hemorrhage in the left centrum semiovale region. There is continued ventricular enlargement despite placement of ventriculostomy shunt. The amount of hemorrhage is quite similar to the 14th. The hemorrhage extends down to the fourth ventricle and the foramen magnum. Josh Carmen MD Chest X-Ray 07/21/17 0000 Signed Impressions: Service Date/Time: Friday, July 21, 2017 05:27 - CONCLUSION: ET tube in good position. Lungs are clear. Josh Carmen MD Head CT [id number]/20/[id number] Signed Impressions: Service Date/Time: Thursday, July 20, 2017 19:12 - CONCLUSION: Large hemorrhage centered at the left basal ganglia with extension into the ventricles. The ventricles are enlarged. There is 1.3 cm of left to right midline shift and near effacement of the basal cisterns. Horacio Lebron MD Chest X-Ray [id number]/20/[id number] Signed Impressions: Service Date/Time: Thursday, July 20, 2017 19:19 - CONCLUSION: ET tube in good position. Horacio Lebron MD (Edwin Nettles MD) Plan Plan Remarks cont ventriculostomy draining, decrease level to 0 cm H20, critical care mgt - blood pressure control nonchemical dvt prophylaxis in view of ICH, protonix for stress ulcer proph serial neuro checks (Peggy Fuller) Plan Remarks Caprini VTE Risk Assessment Caprini VTE Risk Assessment Caprini VTE Risk Assessment: Mod/High Risk (score >= 2) VTE Pharm Contraindication: Hemorrhage Caprini Risk Assessment Model Point Value = 1 Point Value = 2 Point Value = 3 Point Value = 5 Age 41-60 Minor surgery BMI > 25 kg/m2 Swollen legs Varicose veins or History of unexplained or recurrent spontaneous Oral contraceptives or hormone replacement Sepsis (< 1 month) Serious lung disease, including pneumonia (< 1 month) Abnormal pulmonary function Acute myocardial infarction Congestive heart failure (< 1 month) History of inflammatory bowel disease Medical patient at bed rest Age 61-74 Arthroscopic surgery Major open surgery (> 45 min) Laparoscopic surgery (> 45 min) Malignancy Confined to bed (> 72 hours) Immobilizing plaster cast Central venous access Age >= 75 History of VTE Family history of VTE Factor V Leiden Prothrombin [id number] Lupus anticoagulant Anticardiolipin antibodies Elevated serum homocysteine Heparin-induced thrombocytopenia Other congenital or acquired thrombophilia Stroke (< 1 month) Elective arthroplasty Hip, pelvis, or leg fracture Acute spinal cord injury (< 1 month) Prophylaxis Regimen Total Risk Factor Score Risk Level Prophylaxis Regimen 0-1 Low Early ambulation 2 Moderate Order ONE of the following: *Sequential Compression Device (SCD) *Heparin 5000 units SQ BID 3-4 Higher Order ONE of the following medications: *Heparin 5000 units SQ TID *Enoxaparin/Lovenox 40 mg SQ daily (WT < 150 kg, CrCl > 30 mL/min) *Enoxaparin/Lovenox 30 mg SQ daily (WT < 150 kg, CrCl > 10-29 mL/min) *Enoxaparin/Lovenox 30 mg SQ BID (WT < 150 kg, CrCl > 30 mL/min) AND/OR *Sequential Compression Device (SCD) 5 or more Highest Order ONE of the following medications: *Heparin 5000 units SQ TID (Preferred with Epidurals) *Enoxaparin/Lovenox 40 mg SQ daily (WT < 150 kg, CrCl > 30 mL/min) *Enoxaparin/Lovenox 30 mg SQ daily (WT < 150 kg, CrCl > 10-29 mL/min) *Enoxaparin/Lovenox 30 mg SQ BID (WT < 150 kg, CrCl > 30 mL/min) AND *Sequential Compression Device (SCD) (Edwin Nettles MD) Attending Statement Inpatient MDM Attending Statement (1) Acute respiratory failure Diagnosis: Principal (2) Intraventricular hemorrhage Diagnosis: Principal (3) Elevated CPK Diagnosis: Principal (4) Low TSH level Diagnosis: Secondary (5) Hyperglycemia Diagnosis: Secondary (6) Normocytic anemia Diagnosis: Secondary (7) Chronic ischemic left MANAGER ANALYSIS stroke Diagnosis: Secondary (8) Uncontrolled hypertension Diagnosis: Secondary (9) Seizure disorder Diagnosis: Secondary (10) Chronic kidney disease Diagnosis: Principal (11) Diabetes mellitus type 2 Diagnosis: Principal (12) Obstructive sleep apnea syndrome Diagnosis: Secondary This patient is an extremely critical condition, unlikely without and emergency surgical intervention. He has multiple comorbidities which place him at the extremity high surgical risk Left basal hemorrhage with intraventricular hemorrhages though left lateral, third and fourth ventricles with basilar cisterna effacement with a 1.3 cm left- to-right shift Continue neuro checks in a serial fashion. I reviewed his follow-up CT of the brain. He is status post placement of a ventriculostomy catheter for decompression of the ventricular system and treatment of his hydrocephalus. Continue to drain CSF. Monitor ICPs Continue 3% saline currently at 30 cc an hour. Goal sodium 150-155 Mannitol 12.5 g every 8 hours. Hold if serum osm > 310 End tidal CO2 35-40 Seizure disorder NOS Continue levetiracetam 1000 mg IV twice a day EEG ordered for a.m. 07/21 Hypertension. Continue Cardene drip for blood pressure control Elevated CPK 0.9% Saline at 84 cc an hour Currently on norepinephrine drip to maintain cerebral perfusion pressures greater than or equal to 60 Holding hydralazine 50 mill grams every 8 hours on vasopressors Dyslipidemia atorvastatin 40 mill grams by mouth daily Holding aspirin 325 mg by mouth daily Acute respiratory failure Ventilator bundle. Full mechanical ventilation in assist control mode of mechanical ventilation.. aggressive pulmonary toilette, nasotracheal suction, and breathing treatments with nebulizers. Albuterol/ipratropium aerosols every 4 hours with albuterol aerosols every 2 hours. GI: currently nothing by mouth. Docusate sodium/senna 1 tablet twice a day for bowel regimen : Patel catheter for accurate I's and O's in a critically ill patient Diabetes mellitus. Hyperglycemia Continue Sliding-scale insulin with Novulin R to maintain euglycemia/every 4 hours low regimen Thyroidism. Follow-up on free T3/T4 Acute kidney injury in the setting of Chronic kidney disease stage IV Monitor urine output Accurate I's and O's Avoid nephrotoxic substances Follow-up on urine eosinophils and electrolytes Patient currently oliguric renal failure at the present time. Recommend to conservative nephrology Renal. Continue to monitor closely urine output, BUN and creatinine ID continue to monitor for signs of infection Continue Protonix for stress ulcer prophylaxis Continue Salty hose and SCD's for DVT prophylaxis Further recommendations will be provided depending on the patient's clinical evaluation and follow up studies. The exam, history, and the medical decision-making described in the above note were completed with the assistance of the mid-level provider. I reviewed and agree with the findings presented. I attest that I had a [id number] encounter with the patient on the same day, and personally performed and documented my assessment and findings in the medical record. (Edwin Nettles MD) Peggy Fuller Jul 21, 2017 09:47 Edwin Nettles MD Jul 21, 2017 16:28
[2017-07-21] MEDS ORDERED: TERBUTALINE INJ 1 MG/ML AMP SQ PRN ×2 (12:15→13:30)
[2017-07-21] MEDS ORDERED: PHENYLEPHRINE HCL 10 MG/ML VIAL ONE (12:26)
[2017-07-21] MEDS: VASOPRESSIN 40 U/D5W 100 ML Titrate, Post Cardiac Surgery IV PRN ×2 (12:49)
[2017-07-21] MEDS ORDERED: PHENYLEPHRINE 40 MG in D5W 500 ML IV PRN (13:00)
[2017-07-21] MEDS ORDERED: SODIUM CHLOR 0.9% 1000 ML INJ 1,000 ML IV ONE ×2 (13:30)
[2017-07-21] MEDS: fentaNYL DRIP 250 ML IV PRN (14:44)
[2017-07-21] MEDS ORDERED: PHENYLEPHRINE INJ 80 MG in SODIUM CHLORID 0.9% 500 ML INJ 492 ML IV PRN (15:00)
--- NOTE | 2017-07-21 15:47 | PD.OP ---
Operative Report Date of Surgery: Jul 20, 2017 Preoperative Diagnosis: Intraventricular hemorrhage with hydrocephalus Postoperative Diagnosis: Intraventricular hemorrhage with hydrocephalus Procedure: Right frontal twist drill with placement of a ventriculostomy catheter Anesthesia: local Surgeon: Edwin Nettles Brick Baker(s): MATTHEW Operation and Findings: INDICATIONS FOR THE PROCEDURE Mr Claudio is an adult male who was brought to [facility] with severe Intraventricular hemorrhage with hydrocephalus. He had a GCS of 3 Placement of a venriculostomy catheter was indicated as recommended by the [employer] of [place] [employer] DETAILS OF THE SURGICAL PROCEDURE The right frontal area was shaved, prepped and draped in the usual sterile fashion. An entry point was selected 90 millimeters posterior to the supraorbital rim and 25 millimeters from the midline. The area was infiltrated with 1% lidocaine with epinephrine. A skin incision was made with a #15 blade down to the level of the periosteum. Using a twist drill, a annamarie hole was made. The dura was carefully opened with a brain needle and a ventriculostomy catheter was advanced into the ventricular system. At a depth of 60 millimeters, cerebrospinal fluid was obtained. Opening pressure was 20 centimeters of water. A specimen of cerebrospinal fluid was collected and sent to the lab for analysis of the glucose, protein, cell count and cultures. The catheter was then tunneled under the galea and externalized through a separate stab incision. The incision was closed with 3-0 nylon in a single plane. The patient tolerated the procedure well. COMPLICATIONS There were no intraoperative complications. BLOOD LOSS Blood loss was minimal. Edwin Nettles MD Jul 21, 2017 15:47
[2017-07-22] VITALS (26 sets, daily range): BP systolic 102–151; BP diastolic 62–82; PULSE 73–95; RESP 10–12; TEMP 97–100.2; O2SAT 100
[2017-07-22] MEDS: fentaNYL DRIP 250 ML IV PRN ×3 (00:17→19:53)
[2017-07-22] MEDS: RESP: ALBUTEROL 2.5 MG/IPRATROPIUM 0.5 MG NEB (SCH) INH ×6 (00:27→19:45)
[2017-07-22 03:13] LABS: AUTOMATED NEUTROPHIL # 5.1 TH/MM3 (1.8-7.7); BASOPHIL % 0.1 % (0.0-2.0); LYMPH % 8.3 % (9.0-44.0); LYMPHOCYTE # 0.5 TH/MM3 (1.0-4.8); MEAN CELL VOLUME 94.9 FL (80.0-100.0); MEAN CORPUSCULAR HEMOGLOBIN 30.8 PG (27.0-34.0); MEAN CORPUSCULAR HGB CONC 32.5 % (32.0-36.0); MONO % 6.3 % (0.0-8.0); NEUT % 85.3 % (16.0-70.0); PLATELET COUNT 136 TH/MM3 (150-450); RED BLOOD COUNT 1.88 MIL/MM3 (4.50-5.90); RED CELL DISTRIBUTION WIDTH 16.8 % (11.6-17.2); WHITE BLOOD COUNT 5.9 TH/MM3 (4.0-11.0)
[2017-07-22 03:15] LABS: HEMO FLAGS DIFF FINAL
[2017-07-22 03:18] LABS: HEMATOCRIT 17.8 % (39.0-51.0)
[2017-07-22 03:37] LABS: BICARBONATE 18.9 MEQ/L (21.0-32.0); POTASSIUM 4.6 MEQ/L (3.5-5.1)
[2017-07-22 03:39] LABS: BLOOD GAS BASE EXCESS -9.4 mmol/L (-2-2); BLOOD GAS CARBOXYHEMOGLOBIN 0.9 % (0-4); BLOOD GAS HCO3 16 mmol/L (22-26); BLOOD GAS METHEMOGLOBIN 1.3 % (0-2); BLOOD GAS O2 HGB SATURATION 97 % (90-100); BLOOD GAS OXYGEN CONTENT 7.7 Vol % (12.0-20.0); BLOOD GAS PCO2 33 mmHg (38-42); BLOOD GAS PO2 203 mmHg (61-120); BLOOD GAS TOTAL HGB 5.2 G/DL (12.0-16.0); TEMP CORR TO 98.6
[2017-07-22 03:40] LABS: CRITICAL VALUE YES; DRAW SITE A; FIO2 40 %; OXYGEN DEVICE VENT; STAT NO; ULNAR PULSE PRESENT
[2017-07-22] MEDS: MIDAZOLAM 100 MG/100 ML INJ 100 ML IV PRN ×3 (04:00→23:11)
[2017-07-22] MEDS: CHLORHEXIDINE GLUCONATE 2 % 1 PACK (2 CLOTHS) TOP SCH (04:00)
[2017-07-22] MEDS ORDERED: 3% SALINE INJ 500 ML IV SCH (04:00)
[2017-07-22] MEDS: INSULIN NovoLIN REGULAR SUPPLEMENTAL SCALE SQ SCH ×7 (04:00→23:18)
[2017-07-22 04:29] LABS: CALCIUM-PROTEIN CORRECTED 7.9 MG/DL (8.5-10.1)
[2017-07-22] MEDS: MANNITOL 12.5 GM/50 ML VIAL IV SCH ×3 (05:00→21:00)
[2017-07-22 05:52] LABS: PROTHROMBIN TIME - PATIENT 11.4 SEC (9.8-11.6)
--- NOTE | 2017-07-22 06:28 | RADRPT ---
EXAM DATE/TIME: 07/22/2017 05:54 [place] COMPARISON: CHEST SINGLE AP, July 21, 2017, 5:27. INDICATIONS : Short of breath. MEDICAL HISTORY : Hypertension. Cerebrovascular disease. SURGICAL HISTORY : None. ENCOUNTER: Subsequent ACUITY: 3 days PAIN SCORE: Non-responsive. LOCATION: Bilateral chest FINDINGS: A single view of the chest demonstrates the lungs to be symmetrically aerated without evidence of mas s, infiltrate or effusion. The endotracheal tube and nasogastric are both in good position. The cardi omediastinal contours are unremarkable. Osseous structures are intact. CONCLUSION: Endotracheal tube in good position. Lungs are clear. Josh Carmen MD on July 22, 2017 at 6:25 Board Certified Radiologist. This report was verified electronically.
[2017-07-22] MEDS: VASOPRESSIN 40 U/D5W 100 ML Titrate, Post Cardiac Surgery IV PRN ×2 (07:58)
[2017-07-22] MEDS: CHLORHEXIDINE 0.12% (ORAL KIT) 15 ML CUP MT SCH ×2 (08:00→19:53)
--- NOTE | 2017-07-22 08:09 | HHI.CCPN ---
Subjective Remarks/Hospital Course This is a 52-year-old AA male. Date of admission 07/20/2017. 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 Today, this patient was found per report obtunded by roommates. He was last seen in his normal state of health 07/19. They noted that he was having a flexed positioning, questionable decorticate positioning, and unequal pupils, left greater than right. The attempted to intubate the patient on the scene using lorazepam and etomidate without success. The ED physician was not able to get further history from roommates. CT brain revealed a left basal ganglia hemorrhage with extension to the left lateral ventricle, third and fourth ventricle with basilar cistern effacement. 1.3 cm [id number] shift. Patient started on hypertonic saline, mannitol, and tell CO2 between 35 and 40. Neurosurgery was consulted and placed a left ventriculostomy drain. Currently measuring ICPs closely. 07/21: Copious ventricular blood, small left basal ganglia hemorrhage. Cocaine and hypertension appear to be causative. EVD draining. BP controlled. 07/22: Marked Hgb decline over past 48 hours. Source unclear. Start with GI tract. Objective Vital Signs Date Time Temp Pulse Resp B/P (MAP) Pulse Ox O2 Delivery O2 Flow Rate FiO2 07/22/17 07:58 76 123/74 07/22/17 07:42 97.5 10 100 07/22/17 04:00 40 07/21/17 19:00 Mechanical Ventilator 07/20/17 19:21 15.00 Intake and Output 07/22/17 07/22/17 07/23/17 08:00 16:00 00:00 Intake Total 2145.9 ml Output Total 396 ml Balance 1749.9 ml Result Diagram: 07/22/17 0258 07/22/17 0258 Other Results Laboratory Tests Test 07/22/17 03:25 Blood Gas Puncture Site A Blood Gas Patient Temperature 98.6 Blood Gas HCO3 16 mmol/L (22-26) Blood Gas Base Excess -9.4 mmol/L (-2-2) Blood Gas Oxygen Saturation 97 % (90-100) Arterial Blood pH 7.30 (7.380-7.420) Arterial Blood Partial Pressure CO2 33 mmHg (38-42) Arterial Blood Partial Pressure O2 203 mmHg (61-120) Arterial Blood Oxygen Content 7.7 Vol % (12.0-20.0) Arterial Blood Carboxyhemoglobin 0.9 % (0-4) Arterial Blood Methemoglobin 1.3 % (0-2) Blood Gas Hemoglobin 5.2 G/DL (12.0-16.0) Oxygen Delivery Device VENT Blood Gas Ventilator Setting SEE COMMENT Blood Gas Inspired Oxygen 40 % Imaging Last Impressions Head CT 07/20/170 Signed Impressions: Service Date/Time: Thursday, July 20, 2017 19:12 - CONCLUSION: Large hemorrhage centered at the left basal ganglia with extension into the ventricles. The ventricles are enlarged. There is 1.3 cm of left to right midline shift and near effacement of the basal cisterns. Horacio Lebron MD Objective Remarks GENERAL: 52-year-old male. SKIN: Warm and dry. HEAD: Atraumatic. Normocephalic. EYES: Left pupil 3 mm and minimally reactive. Pupil 2 mm and fixed. No scleral icterus. No injection or drainage. ENT: No nasal bleeding or discharge. Mucous membranes pink and moist. NECK: Trachea midline. Orally intubated. CARDIOVASCULAR: Regular rate and rhythm. S1, S2. No JVD. RESPIRATORY: Normal excursions. Clear to auscultation. Breath sounds equal bilaterally. GASTROINTESTINAL: Abdomen soft, non-tender, nondistended. BS active. Nondistended. MUSCULOSKELETAL: Extremities without clubbing, cyanosis, or edema. Tepid. NEUROLOGICAL: Pupils as above. Does not withdraw to pain. Unresponsive. Heavily sedated for ICP control. A/P Assessment and Plan Neuro/Psych: Left basal hemorrhage with intraventricular hemorrhages though left lateral, third and fourth ventricles with basilar cisterna effacement with a 1.3 cm left- to-right shift History of left frontoparietal, old left occipital, bilateral basal ganglia and right pontine CVA - Seizure disorder NOS Currently on propofol/midazolam and fentanyl drips titrating for ICP for sedation/analgesia while intubated No sedation vacation until okay with neurosurgery CT brain imaging as above. Repeat head CT in a.m. Dr. Nettles consulted right-sided ventriculostomy placed. Goal maintain ICPs less than 20 3% saline currently at 30 cc an hour. Goal sodium 150-155 Mannitol 12.5 g every 8 hours. Hold if serum osm > 310 End tidal CO2 35-40 Currently on levetiracetam 1000 mg IV twice a day EEG ordered for a.m. 07/21 Follow-up on CSF studies Cocaine positive. CV: Hypertension Dyslipidemia Elevated CPK 0.9% Saline at 84 cc an hour Currently on norepinephrine drip to maintain cerebral perfusion pressures greater than or equal to 60 Holding hydralazine 50 mill grams every 8 hours on vasopressors Holding atorvastatin 40 mill grams by mouth daily Holding aspirin 325 mg by mouth daily Resp: Acute respiratory failure History of JAZMYNE [facility] /09/10/39 Ventilator bundle Albuterol/ipratropium aerosols every 4 hours with albuterol aerosols every 2 hours. Dyspnea End tidal CO2 between 35 and 40 Follow-up a.m. ABG and chest x-ray GI: Patient is currently nothing by mouth. LIWS Lansoprazole for GI prophylaxis Docusate sodium/senna 1 tablet twice a day for bowel regimen Start trickle feeds. : Patel catheter for accurate I's and O's in a critically ill patient Endo: Diabetes mellitus Low TSH Hyperglycemia Sliding-scale insulin with Novulin R to maintain euglycemia/every 4 hours low regimen Follow-up on free T3/T4 Renal: Acute kidney injury in the setting of Chronic kidney disease stage IV Monitor urine output Accurate I's and O's Avoid nephrotoxic substances Follow-up on urine eosinophils and electrolytes Patient currently oliguric renal failure at the present time. Bladder scan. Heme: Normocytic anemia Hgb decline. Transfuse 2 units PRBCs. Coags within normal limits. Start serial Hgb. ID: Monitor for infection FEN: Replace electrolytes as clinically indicated MSK: PT evaluate and treat range of motion Access - Left femoral CVL day #3 placed in ED Prophylaxis - GI -lansoprazole/no pharmacological prophylaxis hemorrhage, SCDs Overall impression: Hypertensive brain bleed likely incited by cocaine use. Severe neurological injury. Prognosis guarded. Now with unstable hemodynamics and acute anemia, likely blood loss. Critical Care 40 mins Dany Lang MD Jul 22, 2017 08:09
[2017-07-22] MEDS: ARTIFICIAL TEARS OPTH SOLN 15 ML BTL EACH EYE SCH ×3 (08:14→17:03)
[2017-07-22] MEDS: levETIRAcetam 1000 MG INJ 100 ML IV SCH ×2 (08:14→19:53)
[2017-07-22] MEDS: LANSOPRAZOLE SOLUTAB 30 MG TAB G-TUBE SCH (08:14)
[2017-07-22] MEDS: SODIUM CHLORIDE 0.9% FLUSH 10 ML FLUSH IV FLUSH SCH ×2 (08:14→20:33)
[2017-07-22] MEDS: DOCUSATE SODIUM 50 MG/SENNA 8.6 MG TAB PO SCH ×2 (08:15→19:53)
[2017-07-22] MEDS: SODIUM CHLOR 0.9% 1000 ML INJ 1,000 ML IV SCH ×2 (08:22→21:00)
--- NOTE | 2017-07-22 10:28 | HHI.NSPN ---
(Peggy Fuller) Note Status Status: Progress Note (Peggy uFller) Interval History Interval History 07/21: EVD draining well, intubated and well sedated. f/u CT Head completed this morning 07/22: intubated and sedated on fentanyl and versed drips. EVD draining well with gross bloody CSF, ICPs wnl overnight. 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 He was last seen in his normal state of health 07/19. He has a , but his reports that he left his home and leave with some roommates. They noted that he was having a flexed positioning with a GCS of 5, decorticate positioning, and unequal pupils, left greater than right. No seizure activity reported. No tonic-clonic movement seen. No tongue biting. No incontinence of stool or urine. He is unable to provide any history. Some history is obtained from his at bedside The paramedics attempted to intubate him on the scene using lorazepam and etomidate without success. The ED physician was not able to get further history from roommates. He wasn't renal failure. Toxicology screen was positive for cocaine CT brain revealed a left basal ganglia hemorrhage with extension to the left lateral ventricle, third and fourth ventricle with basilar cistern effacement, and 1.3 cm [id number] shift. Neurosurgical consultation was requested (Edwin Nettles MD) Labs, Micro, & Vital Signs Results Date Time Temp Pulse Resp B/P (MAP) Pulse Ox O2 Delivery O2 Flow Rate FiO2 07/22/17 08:45 97.9 78 10 132/78 100 07/22/17 08:30 97.9 78 10 133/78 100 07/22/17 08:14 40 07/22/17 08:14 100 40 07/22/17 08:00 79 07/22/17 08:00 40 07/22/17 08:00 97.2 74 10 122/74 (90) 100 07/22/17 07:58 76 123/74 07/22/17 07:42 97.5 75 10 121/73 100 07/22/17 07:27 97.5 77 10 120/73 100 07/22/17 07:00 100 Mechanical Ventilator 40 07/22/17 07:00 77 121/73 07/22/17 06:20 98.4 83 10 106/62 100 07/22/17 06:00 98.5 83 10 102/66 100 07/22/17 06:00 83 07/22/17 04:00 93 07/22/17 04:00 99.0 94 10 110/68 (82) 100 07/22/17 04:00 40 07/22/17 03:43 100 40 07/22/17 02:00 88 07/22/17 01:11 90 98/61 07/22/17 00:38 89 108/64 07/22/17 00:21 100 40 07/22/17 00:15 88 105/69 07/22/17 00:00 97.5 86 12 110/74 (86) 100 07/22/17 00:00 40 07/22/17 00:00 89 07/21/17 22:30 40 07/21/17 22:00 89 07/21/17 21:32 94 128/74 07/21/17 20:00 99.3 87 14 148/94 (112) 100 07/21/17 20:00 40 07/21/17 20:00 88 07/21/17 19:30 87 148/96 07/21/17 19:05 100 40 07/21/17 19:00 100 Mechanical Ventilator 40 07/21/17 18:00 76 07/21/17 18:00 84 158/100 (119) 07/21/17 16:00 83 07/21/17 16:00 40 07/21/17 16:00 97.7 70 14 154/98 (116) 100 07/21/17 15:08 100 40 07/21/17 14:43 83 112/81 07/21/17 14:30 70 118/82 07/21/17 14:10 78 150/98 07/21/17 14:00 86 07/21/17 14:00 86 114/98 07/21/17 13:20 117 124/84 07/21/17 13:10 122 132/92 07/21/17 13:00 120 146/92 07/21/17 12:50 120 122/78 07/21/17 12:49 133 116/72 07/21/17 12:49 132 113/74 07/21/17 12:49 120 122/78 07/21/17 12:40 149 122/78 07/21/17 12:30 140 118/78 07/21/17 12:20 120 118/78 07/21/17 12:10 132 114/43 07/21/17 12:00 98.6 133 14 117/77 (90) 100 07/21/17 12:00 133 07/21/17 12:00 134 114/76 07/21/17 12:00 40 07/21/17 11:50 133 116/76 07/21/17 11:40 130 138/88 07/21/17 11:30 125 140/88 07/21/17 11:20 121 128/82 07/21/17 11:14 100 40 07/21/17 11:10 134 124/80 07/21/17 11:00 120 138/88 07/23/17 07:00 Intake Total 1190 ml Balance 1190 ml Constitutional Vital Signs Date Time Temp Pulse Resp B/P (MAP) Pulse Ox O2 Delivery O2 Flow Rate FiO2 07/22/17 08:45 97.9 78 10 132/78 100 07/22/17 08:30 97.9 78 10 133/78 100 07/22/17 08:14 40 07/22/17 08:14 100 40 07/22/17 08:00 79 07/22/17 08:00 40 07/22/17 08:00 97.2 74 10 122/74 (90) 100 07/22/17 07:58 76 123/74 07/22/17 07:42 97.5 75 10 121/73 100 07/22/17 07:27 97.5 77 10 120/73 100 07/22/17 07:00 100 Mechanical Ventilator 40 07/22/17 07:00 77 121/73 07/22/17 06:20 98.4 83 10 106/62 100 11/16/17 06:00 98.5 83 10 102/66 100 07/22/17 06:00 83 07/22/17 04:00 93 07/22/17 04:00 99.0 94 10 110/68 (82) 100 07/22/17 04:00 40 07/22/17 03:43 100 40 07/22/17 02:00 88 07/22/17 01:11 90 98/61 07/22/17 00:38 89 108/64 07/22/17 00:21 100 40 07/22/17 00:15 88 105/69 07/22/17 00:00 97.5 86 12 110/74 (86) 100 07/22/17 00:00 40 07/22/17 00:00 89 07/21/17 22:30 40 07/21/17 22:00 89 07/21/17 21:32 94 128/74 07/21/17 20:00 99.3 87 14 148/94 (112) 100 07/21/17 20:00 40 07/21/17 20:00 88 07/21/17 19:30 87 148/96 07/21/17 19:05 100 40 07/21/17 19:00 100 Mechanical Ventilator 40 07/21/17 18:00 76 07/21/17 18:00 84 158/100 (119) 07/21/17 16:00 83 07/21/17 16:00 40 07/21/17 16:00 97.7 70 14 154/98 (116) 100 07/21/17 15:08 100 40 07/21/17 14:43 83 112/81 07/21/17 14:30 70 118/82 07/21/17 14:10 78 150/98 07/21/17 14:00 86 07/21/17 14:00 86 114/98 07/21/17 13:20 117 124/84 07/21/17 13:10 122 132/92 07/21/17 13:00 120 146/92 07/21/17 12:50 120 122/78 07/21/17 12:49 133 116/72 07/21/17 12:49 132 113/74 07/21/17 12:49 120 122/78 07/21/17 12:40 149 122/78 07/21/17 12:30 140 118/78 07/21/17 12:20 120 118/78 07/21/17 12:10 132 114/43 07/21/17 12:00 98.6 133 14 117/77 (90) 100 07/21/17 12:00 133 07/21/17 12:00 134 114/76 07/21/17 12:00 40 07/21/17 11:50 133 116/76 07/21/17 11:40 130 138/88 07/21/17 11:30 125 140/88 07/21/17 11:20 121 128/82 07/21/17 11:14 100 40 07/21/17 11:10 134 124/80 07/21/17 11:00 120 138/88 07/23/17 07:00 Intake Total 1190 ml Balance 1190 ml (Peggy Fuller) Physical Exam Mr. Aponte is intubated and well sedated. Cranial Nerves: left pupils 6 mm nonreactive, right pinpoint. Cervical Spine: soft, supple sensorimotor: His muscle tone and bulk are normal. No withdrawal to pain, well sedated. Cerebellar: cannot assess due to clinical condition Right ventriculostomy drain intact, draining well, sanguinous CSF Plantars silent bilaterally (Peggy Fuller) Mr. Claudio remains intubated and well sedated on fentanyl and versed drips. Cranial Nerves: left pupils 6 mm nonreactive, right pinpoint. sensorimotor: His muscle tone and bulk are normal. No withdrawal to pain, well sedated. Cerebellar: cannot assess due to clinical condition Right ventriculostomy drain intact, draining well at 0 cm H20, bloody CSF Response to plantar stimulation silent bilaterally (Edwin Nettles MD) Medications Current Medications Current Medications Medications (Trade) Dose Ordered Sig/Mae Route PRN Reason Start Time Stop Time Status Last Admin Dose Admin IV Flush (NS Flush) 2 ml UNSCH PRN IV FLUSH FLUSH AFTER USING IV ACCESS 07/20/17 18:15 Chlorhexidine Gluconate (Peridex 0.12% Liq) 15 ml BID@08,20 MT 07/21/17 08:00 07/22/17 08:00 Propofol 100 ml @ 2.182 mls/ hr TITRATE PRN IV SEDATION 07/20/17 20:15 07/20/17 22:10 Fentanyl Citrate 250 ml @ 5 mls/hr TITRATE PRN IV SEDATION 07/20/17 20:15 07/22/17 09:52 Sodium Chloride 1,000 ml @ 84 mls/hr [id number] IV 07/20/17 20:05 07/22/17 08:22 Sodium Chloride (NS Flush) 2 ml UNSCH PRN IV FLUSH FLUSH AFTER USING IV ACCESS 07/20/17 20:15 Sodium Chloride (NS Flush) 2 ml BID IV FLUSH 07/20/17 21:00 07/22/17 08:14 Acetaminophen (Tylenol) 650 mg Q6H PRN PO PAIN 1-10 AND/OR FEVER >101F 07/20/17 20:15 Lansoprazole (Prevacid Odt) 30 mg DAILY G-TUBE 07/21/17 09:00 07/22/17 08:14 Artificial Tears (Tears Naturale Opth Soln) 1 drop TID EACH EYE 07/21/17 09:00 07/22/17 08:14 Ondansetron HCl (Zofran Inj) 4 mg Q6H PRN IV PUSH NAUSEA OR VOMITING 07/20/17 20:15 Albuterol/ Ipratropium (Duoneb Neb) 1 ampule Q4HR NEB INH 07/21/17 00:00 07/22/17 08:13 Albuterol Sulfate (Albuterol Neb) 2.5 mg Q2HR NEB PRN INH SOB/WHEEZING 07/20/17 20:15 Miscellaneous Information 1 Q361D XX 07/20/17 20:15 Chlorhexidine Gluconate (Chlorhexidine 2% Cloth) 3 pack Taper DAILY@04 TOP 07/21/17 04:00 07/17/18 03:59 Chlorhexidine Gluconate (Chlorhexidine 2% Cloth) 3 pack UNSCH PRN TOP HYGIENIC CARE 07/20/17 20:15 Senna/Docusate Sodium (Selena-Colace) 1 tab BID PO 07/20/17 21:00 07/22/17 08:15 Magnesium Hydroxide (Milk Of Magnesia Liq) 30 ml Q12H PRN PO Mild constipation 07/20/17 20:15 Sennosides (Senokot) 17.2 mg Q12H PRN PO Moderate constipation 07/20/17 20:15 Bisacodyl (Dulcolax Supp) 10 mg DAILY PRN RECTAL SEVERE CONSITIPATION 07/20/17 20:15 Lactulose (Lactulose Liq) 30 ml DAILY PRN PO SEVERE CONSITIPATION 07/20/17 20:15 Levetriacetam 100 ml @ 400 mls/hr Q12HR IV 07/20/17 21:00 07/22/17 08:14 Hydralazine HCl (Apresoline) 50 mg Q8H PO 07/20/17 21:00 Future Hold Nicardipine HCl 25 mg/Sodium Chloride 250 ml @ 50 mls/hr TITRATE PRN IV Blood pressure management 07/20/17 20:15 07/20/17 22:00 Mannitol (Mannitol Inj) 12.5 gm Q8H IV 07/20/17 21:00 07/20/17 21:39 Norepinephrine Bitartrate 4 mg/ Sodium Chloride 250 ml @ 7.5 mls/hr TITRATE PRN IV Blood pressure management 07/20/17 23:15 07/21/17 11:00 Terbutaline Sulfate (Brethine Inj) 1 mg UNSCH PRN SQ For Extravasation 07/20/17 23:15 Midazolam HCl 100 ml @ 2 mls/hr TITRATE PRN IV SEDATION 07/20/17 23:30 07/22/17 04:00 Epinephrine HCl 2 mg/Sodium Chloride 252 ml @ 22.68 mls/ hr TITRATE PRN IV Blood Pressure Management 07/21/17 00:15 Insulin Human Regular (NovoLIN R SUPPLEMENTAL SCALE) 1 Q4HR SQ 07/21/17 04:00 Dextrose (D50w (Vial) Inj) 50 ml UNSCH PRN IV PUSH HYPOGLYCEMIA - SEE COMMENTS 07/21/17 01:00 Glucagon (Glucagon Inj) 1 mg UNSCH PRN OTHER HYPOGLYCEMIA-SEE COMMENTS 07/21/17 01:00 Terbutaline Sulfate (Brethine Inj) 1 mg UNSCH PRN SQ FOR EXTRAVASATION PROTOCOL 07/21/17 12:15 Vasopressin 40 units/Sodium Chloride 100 ml @ 1.5 mls/hr TITRATE PRN IV Blood Pressure Management 07/21/17 13:00 07/22/17 07:58 Phenylephrine HCl 80 mg/Sodium Chloride 500 ml @ 15 mls/hr TITRATE PRN IV Blood pressure Management 07/21/17 15:00 07/21/17 14:43 (Peggy Fuller) Current Medications Current Medications IV Flush (NS Flush) 2 ml UNSCH PRN IV FLUSH FLUSH AFTER USING IV ACCESS; Start 07/20/17 at 18:15; Stop 07/22/17 at 21:25; Status DC Chlorhexidine Gluconate (Peridex 0.12% Liq) 15 ml BID@08,20 MT Last administered on 07/23/17 08:00; Start 07/21/17 at 08:00 Propofol 100 ml @ 2.182 mls/ hr TITRATE PRN IV SEDATION Last administered on 07/20/17 22:10; Start 07/20/17 at 20:15 Fentanyl Citrate 250 ml @ 5 mls/hr TITRATE PRN IV SEDATION Last administered on 07/23/17 05:06; Start 07/20/17 at 20:15 Sodium Chloride 1,000 ml @ 84 mls/hr [id number] IV Last administered on 08:43; Start 07/20/17 at 20:05 Sodium Chloride (NS Flush) 2 ml UNSCH PRN IV FLUSH FLUSH AFTER USING IV ACCESS ; Start 07/20/17 at 20:15 Sodium Chloride (NS Flush) 2 ml BID IV FLUSH Last administered on 07/23/17 08 :30; Start 07/20/17 at 21:00 Acetaminophen (Tylenol) 650 mg Q6H PRN PO PAIN 1-10 AND/OR FEVER >101F; Start 07/20/17 at 20:15 Lansoprazole (Prevacid Odt) 30 mg DAILY G-TUBE Last administered on 07/22/17 08:14; Start 07/21/17 at 09:00; Stop 07/22/17 at 21:16; Status DC Artificial Tears (Tears Naturale Opth Soln) 1 drop TID EACH EYE Last administered on 07/23/17 08:30; Start 07/21/17 at 09:00 Ondansetron HCl (Zofran Inj) 4 mg Q6H PRN IV PUSH NAUSEA OR VOMITING; Start at 20:15 Albuterol/ Ipratropium (Duoneb Neb) 1 ampule Q4HR NEB INH Last administered on 07/23/17 07:53; Start 07/21/17 at 00:00 Albuterol Sulfate (Albuterol Neb) 2.5 mg Q2HR NEB PRN INH SOB/WHEEZING; Start 07/20/17 at 20:15 Miscellaneous Information 1 Q361D XX ; Start 07/20/17 at 20:15 Chlorhexidine Gluconate (Chlorhexidine 2% Cloth) 3 pack Taper DAILY@04 TOP ; Start 07/21/17 at 04:00; Stop 07/17/18 at 03:59 Chlorhexidine Gluconate (Chlorhexidine 2% Cloth) 3 pack UNSCH PRN TOP HYGIENIC CARE; Start 07/20/17 at 20:15 Senna/Docusate Sodium (Selena-Colace) 1 tab BID PO Last administered on 08:30; Start 07/20/17 at 21:00 Magnesium Hydroxide (Milk Of Magnesia Liq) 30 ml Q12H PRN PO Mild constipation ; Start 07/20/17 at 20:15 Sennosides (Senokot) 17.2 mg Q12H PRN PO Moderate constipation; Start at 20:15 Bisacodyl (Dulcolax Supp) 10 mg DAILY PRN RECTAL SEVERE CONSITIPATION; Start 07/20/17 at 20:15 Lactulose (Lactulose Liq) 30 ml DAILY PRN PO SEVERE CONSITIPATION; Start 07/20 at 20:15 Levetriacetam 100 ml @ 400 mls/hr Q12HR IV Last administered on 07/23/17 08: 30; Start 07/20/17 at 21:00 Hydralazine HCl (Apresoline) 50 mg Q8H PO ; Start 07/20/17 at 21:00; Status Future Hold Nicardipine HCl 25 mg/Sodium Chloride 250 ml @ 50 mls/hr TITRATE PRN IV Blood pressure management Last administered on 07/20/17 22:00; Start 07/20/17 at 20 :15; Stop 07/23/17 at 04:57; Status DC Sodium Chloride 500 ml @ 30 mls/hr CONTINUOUS IV Last administered on 13:45; Start 07/20/17 at 20:15; Stop 07/22/17 at 03:59; Status DC Mannitol (Mannitol Inj) 12.5 gm Q8H IV Last administered on 07/20/17 21:39; Start 07/20/17 at 21:00 Labetalol HCl (Trandate Inj) 10 mg Q1HR PRN IV PUSH SBP>140, DBP>70, HR>65; Start 07/20/17 at 20:15; Stop 07/21/17 at 02:24; Status DC Norepinephrine Bitartrate (Levophed Inj) 4 mg STK-MED ONCE .ROUTE ; Start 07/20 at 22:18; Stop 07/20/17 at 22:19; Status DC Phenylephrine HCl (Neosynephrine Inj) 40 mg STK-MED ONCE .ROUTE ; Start at 22:29; Stop 07/20/17 at 22:30; Status DC Norepinephrine Bitartrate 4 mg/ Sodium Chloride 250 ml @ 7.5 mls/hr TITRATE PRN IV Blood pressure management Last administered on 07/21/17 11:00; Start 07/20/17 at 23:15 Terbutaline Sulfate (Brethine Inj) 1 mg UNSCH PRN SQ For Extravasation; Start 07/20/17 at 23:15; Stop 07/22/17 at 21:26; Status DC Epinephrine HCl 2 mg/Dextrose 252 ml @ 22.68 mls/ hr TITRATE PRN IV Blood Pressure Management; Start 07/20/17 at 23:15; Stop 07/21/17 at 00:13; Status DC Midazolam HCl (Versed Inj) 5 mg ONCE ONCE IV PUSH ; Start 07/20/17 at 23:30; Stop 07/20/17 at 23:31; Status DC Midazolam HCl 100 ml @ 2 mls/hr TITRATE PRN IV SEDATION Last administered on 08:43; Start 07/20/17 at 23:30 Epinephrine HCl 2 mg/Sodium Chloride 252 ml @ 22.68 mls/ hr TITRATE PRN IV Blood Pressure Management; Start 07/21/17 at 00:15; Stop 07/22/17 at 21:16; Status DC Insulin Human Regular (NovoLIN R SUPPLEMENTAL SCALE) 1 Q4HR SQ ; Start at 04:00 Dextrose (D50w (Vial) Inj) 50 ml UNSCH PRN IV PUSH HYPOGLYCEMIA - SEE COMMENTS ; Start 07/21/17 at 01:00 Glucagon (Glucagon Inj) 1 mg UNSCH PRN OTHER HYPOGLYCEMIA-SEE COMMENTS; Start 07/21/17 at 01:00 Sodium Chloride 1,000 ml @ 999 mls/hr BOLUS IV ; Start 07/21/17 at 02:30; Stop 07/22/17 at 03:31; Status DC Sodium Chloride 500 ml @ 500 mls/hr BOLUS ONCE IV Last administered on 06:14; Start 07/21/17 at 06:00; Stop 07/21/17 at 06:59; Status DC Phenylephrine HCl 40 mg/Sodium Chloride 500 ml @ 30 mls/hr TITRATE PRN IV Blood Pressure Management Last administered on 07/21/17 12:49; Start at 13:00; Stop 07/21/17 at 13:46; Status DC Terbutaline Sulfate (Brethine Inj) 1 mg UNSCH PRN SQ FOR EXTRAVASATION PROTOCOL ; Start 07/21/17 at 12:15 Vasopressin 40 units/Sodium Chloride 100 ml @ 1.5 mls/hr TITRATE PRN IV Blood Pressure Management Last administered on 07/22/17 07:58; Start 07/21/17 at 13 :00 Phenylephrine HCl (Neosynephrine Inj) 40 mg STK-MED ONCE .ROUTE ; Start at 12:26; Stop 07/21/17 at 12:27; Status DC Sodium Chloride 1,000 ml @ 999 mls/hr BOLUS ONCE IV Last administered on 13:30; Start 07/21/17 at 13:30; Stop 07/21/17 at 14:30; Status DC Sodium Chloride 1,000 ml @ 999 mls/hr BOLUS ONCE IV Last administered on 13:30; Start 07/21/17 at 13:30; Stop 07/21/17 at 14:30; Status DC Phenylephrine HCl 80 mg/Sodium Chloride 500 ml @ 15 mls/hr TITRATE PRN IV Blood pressure Management Last administered on 07/21/17 14:43; Start at 15:00; Stop 07/22/17 at 21:16; Status DC Terbutaline Sulfate (Brethine Inj) 1 mg UNSCH PRN SQ For Extravasation; Start 07/21/17 at 13:30; Status UNV Sodium Chloride 500 ml @ 10 mls/hr CONTINUOUS IV Last administered on 07:55; Start 07/22/17 at 04:00; Stop 07/22/17 at 08:03; Status DC Sodium Bicarbonate 150 meq/Sterile Water 1,000 ml @ 75 mls/hr [id number] IV Last administered on 07/22/17 23:20; Start 07/22/17 at 11:00 Pantoprazole Sodium (Protonix Inj) 40 mg Q12H IV PUSH Last administered on 08:30; Start 07/22/17 at 22:00 Nicardipine HCl 25 mg/Sodium Chloride 250 ml @ 50 mls/hr TITRATE PRN IV Blood pressure management; Start 07/23/17 at 05:00 Labetalol HCl (Trandate Inj) 10 mg Q6H PRN IV PUSH SBP >150; Start 07/23/17 at 05:00 (Edwin Nettles MD) Medical Decision Making MDM Remarks 52 year old male with large intraparenchymal hemorrhage with large extension into ventricles with hydrocephalus, s/p placement of ventriculostomy drain 07/20 f/u CT Head 07/21 with some worsening of hemorrhage, persistent hydrocephalus positive cocaine hypertensive crisis (Peggy Fuller) MDM Remarks Last 48 hours Impressions Chest X-Ray 07/22/17 0400 Signed Impressions: Service Date/Time: , July 22, 2017 05:54 - CONCLUSION: Endotracheal tube in good position. Lungs are clear. Josh Carmen MD (Edwin Nettles MD) Plan Plan Remarks cont ventriculostomy draining, decrease level to 0 cm H20, critical care mgt - blood pressure control nonchemical dvt prophylaxis in view of ICH, protonix for stress ulcer proph serial neuro checks (Peggy Fuller) Plan Remarks Caprini VTE Risk Assessment Caprini VTE Risk Assessment Caprini VTE Risk Assessment: Mod/High Risk (score >= 2) VTE Pharm Contraindication: Hemorrhage Caprini Risk Assessment Model Point Value = 1 Point Value = 2 Point Value = 3 Point Value = 5 Age 41-60 Minor surgery BMI > 25 kg/m2 Swollen legs Varicose veins or History of unexplained or recurrent spontaneous Oral contraceptives or hormone replacement Sepsis (< 1 month) Serious lung disease, including pneumonia (< 1 month) Abnormal pulmonary function Acute myocardial infarction Congestive heart failure (< 1 month) History of inflammatory bowel disease Medical patient at bed rest Age 61-74 Arthroscopic surgery Major open surgery (> 45 min) Laparoscopic surgery (> 45 min) Malignancy Confined to bed (> 72 hours) Immobilizing plaster cast Central venous access Age >= 75 History of VTE Family history of VTE Factor V Leiden Prothrombin 11057H Lupus anticoagulant Anticardiolipin antibodies Elevated serum homocysteine Heparin-induced thrombocytopenia Other congenital or acquired thrombophilia Stroke (< 1 month) Elective arthroplasty Hip, pelvis, or leg fracture Acute spinal cord injury (< 1 month) Prophylaxis Regimen Total Risk Factor Score Risk Level Prophylaxis Regimen 0-1 Low Early ambulation 2 Moderate Order ONE of the following: *Sequential Compression Device (SCD) *Heparin 5000 units SQ BID 3-4 Higher Order ONE of the following medications: *Heparin 5000 units SQ TID *Enoxaparin/Lovenox 40 mg SQ daily (WT < 150 kg, CrCl > 30 mL/min) *Enoxaparin/Lovenox 30 mg SQ daily (WT < 150 kg, CrCl > 10-29 mL/min) *Enoxaparin/Lovenox 30 mg SQ BID (WT < 150 kg, CrCl > 30 mL/min) AND/OR *Sequential Compression Device (SCD) 5 or more Highest Order ONE of the following medications: *Heparin 5000 units SQ TID (Preferred with Epidurals) *Enoxaparin/Lovenox 40 mg SQ daily (WT < 150 kg, CrCl > 30 mL/min) *Enoxaparin/Lovenox 30 mg SQ daily (WT < 150 kg, CrCl > 10-29 mL/min) *Enoxaparin/Lovenox 30 mg SQ BID (WT < 150 kg, CrCl > 30 mL/min) AND *Sequential Compression Device (SCD) PROBLEM LIST (1) Acute respiratory failure Diagnosis: Principal (2) Intraventricular hemorrhage Diagnosis: Principal (3) Elevated CPK Diagnosis: Principal (4) Low TSH level Diagnosis: Secondary (5) Hyperglycemia Diagnosis: Secondary (6) Normocytic anemia Diagnosis: Secondary (7) 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 I reviewed his follow-up CT of the brain. He is status post placement of a ventriculostomy catheter for decompression of the ventricular system. Continue to drain CSF. Monitor ICPs Continue 3% saline currently at 30 cc an hour. Goal sodium 150-155 Mannitol 12.5 g every 8 hours. Hold if serum osm > 310 End tidal CO2 35-40 Seizure disorder NOS Continue levetiracetam 1000 mg IV twice a day EEG ordered for a.m. 07/21 Hypertension. Continue Cardene drip for blood pressure control Elevated CPK 0.9% Saline at 84 cc an hour Currently on norepinephrine drip to maintain cerebral perfusion pressures greater than or equal to 60 Holding hydralazine 50 mill grams every 8 hours on vasopressors Dyslipidemia atorvastatin 40 mill grams by mouth daily Holding aspirin 325 mg by mouth daily Acute respiratory failure Ventilator bundle. Full mechanical ventilation in assist control mode of mechanical ventilation.. aggressive pulmonary toilette, nasotracheal suction, and breathing treatments with nebulizers. Albuterol/ipratropium aerosols every 4 hours with albuterol aerosols every 2 hours. GI: currently nothing by mouth. Docusate sodium/senna 1 tablet twice a day for bowel regimen : Patel catheter for accurate I's and O's in a critically ill patient Diabetes mellitus. Hyperglycemia Continue Sliding-scale insulin with Novulin R to maintain euglycemia/every 4 hours low regimen Thyroidism. Follow-up on free T3/T4 Acute kidney injury in the setting of Chronic kidney disease stage IV Monitor urine output Accurate I's and O's Avoid nephrotoxic substances Follow-up on urine eosinophils and electrolytes Patient currently oliguric renal failure at the present time. Recommend to conservative nephrology Renal. Continue to monitor closely urine output, BUN and creatinine ID continue to monitor for signs of infection Continue Protonix for stress ulcer prophylaxis Continue Salty hose and SCD's for DVT prophylaxis Further recommendations will be provided depending on the patient's clinical evaluation and follow up studies. The exam, history, and the medical decision-making described in the above note were completed with the assistance of the mid-level provider. I reviewed and agree with the findings presented. I attest that I had a [id number] encounter with the patient on the same day, and personally performed and documented my assessment and findings in the medical record. (Edwin Nettles MD) Peggy Fuller Jul 22, 2017 10:28 Edwin Nettles MD Jul 23, 2017 10:38
[2017-07-22] MEDS: SODIUM BICARBONATE 8.4% INJ 150 MEQ in WATER STERILE FOR INJ 850 ML IV SCH ×2 (11:22→23:20)
[2017-07-22 14:46] LABS: HEMATOCRIT 21.2 % (39.0-51.0)
[2017-07-22 14:58] LABS: REVIEW FLAG FINAL
--- NOTE | 2017-07-22 17:13 | ECHRPT ---
Indication: Heart failure, unspecified CONCLUSIONS Moderate concentric left ventricular hypertrophy. Normal LV systolic function EF 60% No aortic valve stenosis trace aortic valve regurgitation. There is trace tricuspid valve regurgitation. There is no pericardial effusion. BP: 99 / 65 HR: 117 Rhythm: MEASUREMENTS (Male / Female) Normal Values Technical Quality:Good 2D ECHO LV Diastolic Diameter PLAX 4.9 cm 4.2 - 5.9 / 3.9 - 5.3 cm LV Systolic Diameter PLAX 3.4 cm IVS Diastolic Thickness 1.4 cm 0.6 - 1.0 / 0.6 - 0.9 cm LVPW Diastolic Thickness 1.9 cm 0.6 - 1.0 / 0.6 - 0.9 cm LV Relative Wall Thickness 0.7 RV Internal Dim ED PLAX 2.5 cm M-MODE Aortic Root Diameter MM 3.7 cm LA Systolic Diameter MM 4.5 cm LA Ao Ratio MM 1.2 AV Cusp Separation MM 1.7 cm DOPPLER AI Peak Velocity 392.0 cm/s AI Peak Gradient 61.5 mmHg AI Pressure Half Time 635.0 ms Mitral E Point Velocity 85.5 cm/s Mitral A Point Velocity 121.0 cm/s Mitral E to A Ratio 0.7 TR Peak Velocity 237.0 cm/s TR Peak Gradient 22.5 mmHg Right Atrial Pressure 10.0 mmHg Pulmonary Artery Systolic Pressu 32.5 mmHg Right Ventricular Systolic Press 32.5 mmHg FINDINGS LEFT VENTRICLE Moderate concentric left ventricular hypertrophy. The left ventricular systolic function is normal with an estimated ejection fraction in the range of 60-65%. RIGHT VENTRICLE Normal right ventricular size and systolic function. LEFT ATRIUM The left atrial size is normal. RIGHT ATRIUM The right atrial size is normal. ATRIAL SEPTUM Normal atrial septal thickness without atrial level shunting by limited color doppler interrogation. AORTA The aortic root and proximal ascending aorta are not well visualized. MITRAL VALVE Structurally normal mitral valve. No mitral valve stenosis or regurgitation. AORTIC VALVE Trileaflet aortic valve. No aortic valve stenosis trace aortic valve regurgitation. TRICUSPID VALVE Structurally normal tricuspid valve. There is trace tricuspid valve regurgitation. PULMONARY VALVE No pulmonary valve regurgitation or stenosis. VESSELS The inferior vena cava is normal in size. PERICARDIUM There is no pericardial effusion. João White MD (Electronically Signed) Final Date:22 July 2017 17:12
[2017-07-22 21:00] LABS: HEMATOCRIT 23.4 % (39.0-51.0); REVIEW FLAG FINAL
[2017-07-22] MEDS: PANTOPRAZOLE SODIUM 40 MG VIAL IV PUSH SCH (21:30)
[2017-07-23] VITALS (17 sets, daily range): BP systolic 100–149; BP diastolic 55–77; PULSE 90–109; RESP 10–18; TEMP 97.8–100; O2SAT 96–100
[2017-07-23] MEDS: RESP: ALBUTEROL 2.5 MG/IPRATROPIUM 0.5 MG NEB (SCH) INH ×6 (00:19→19:33)
[2017-07-23 02:27] LABS: HEMATOCRIT 23.6 % (39.0-51.0); MEAN CELL VOLUME 93.3 FL (80.0-100.0); MEAN CORPUSCULAR HEMOGLOBIN 31.8 PG (27.0-34.0); MEAN CORPUSCULAR HGB CONC 34.1 % (32.0-36.0); PLATELET COUNT 107 TH/MM3 (150-450); RED BLOOD COUNT 2.53 MIL/MM3 (4.50-5.90); RED CELL DISTRIBUTION WIDTH 16.7 % (11.6-17.2); REVIEW FLAG FINAL; WHITE BLOOD COUNT 6.7 TH/MM3 (4.0-11.0)
[2017-07-23] MEDS: CHLORHEXIDINE GLUCONATE 2 % 1 PACK (2 CLOTHS) TOP SCH (02:50)
[2017-07-23] MEDS: INSULIN NovoLIN REGULAR SUPPLEMENTAL SCALE SQ SCH ×6 (04:00→23:57)
[2017-07-23] MEDS: MANNITOL 12.5 GM/50 ML VIAL IV SCH ×3 (05:00→21:00)
[2017-07-23] MEDS ORDERED: LABETALOL HCL 100 MG/20 ML VIAL IV PUSH PRN (05:00)
[2017-07-23] MEDS ORDERED: niCARdipine INJ 25 MG in SODIUM CHLOR 0.9% 250 ML INJ 240 ML IV PRN (05:00)
[2017-07-23] MEDS: fentaNYL DRIP 250 ML IV PRN (05:06)
[2017-07-23] MEDS: CHLORHEXIDINE 0.12% (ORAL KIT) 15 ML CUP MT SCH ×2 (08:00→20:32)
[2017-07-23 08:04] LABS: BLOOD GAS BASE EXCESS -4.8 mmol/L (-2-2); BLOOD GAS CARBOXYHEMOGLOBIN 1.4 % (0-4); BLOOD GAS HCO3 21 mmol/L (22-26); BLOOD GAS METHEMOGLOBIN 1.4 % (0-2); BLOOD GAS O2 HGB SATURATION 93 % (90-100); BLOOD GAS OXYGEN CONTENT 11.1 Vol % (12.0-20.0); BLOOD GAS PCO2 46 mmHg (38-42); BLOOD GAS PO2 83 mmHg (61-120); BLOOD GAS TOTAL HGB 8.4 G/DL (12.0-16.0); CRITICAL VALUE YES; DRAW SITE ART LINE; FIO2 30 %; NUMBER OF ARTERIAL PUNCTURES 0; OXYGEN DEVICE VENTILATOR; STAT NO; TEMP CORR TO 98.6; ULNAR PULSE PRESENT; VENT SETTINGS PRVC/10/500/1.0/+5
--- NOTE | 2017-07-23 08:05 | HHI.CCPN ---
Subjective Remarks/Hospital Course This is a 52-year-old AA male. Date of admission 07/20/2017. 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 Today, this patient was found per report obtunded by roommates. He was last seen in his normal state of health 07/19. They noted that he was having a flexed positioning, questionable decorticate positioning, and unequal pupils, left greater than right. The attempted to intubate the patient on the scene using lorazepam and etomidate without success. The ED physician was not able to get further history from roommates. CT brain revealed a left basal ganglia hemorrhage with extension to the left lateral ventricle, third and fourth ventricle with basilar cistern effacement. 1.3 cm [id number] shift. Patient started on hypertonic saline, mannitol, and tell CO2 between 35 and 40. Neurosurgery was consulted and placed a left ventriculostomy drain. Currently measuring ICPs closely. 07/21: Copious ventricular blood, small left basal ganglia hemorrhage. Cocaine and hypertension appear to be causative. EVD draining. BP controlled. 07/22: Marked Hgb decline over past 48 hours. Source unclear. Start with GI tract. 07/23: No improvement in neurological function. No bleeding source identified. Objective Vital Signs Date Time Temp Pulse Resp B/P (MAP) Pulse Ox O2 Delivery O2 Flow Rate FiO2 07/23/17 07:00 100 Mechanical Ventilator 40 07/23/17 06:00 95 07/23/17 04:00 97.8 10 140/74 (96) 07/20/17 19:21 15.00 Intake and Output 07/23/17 07/23/17 07/24/17 08:00 16:00 00:00 Intake Total 2755.5 ml Output Total 785 ml Balance 1970.5 ml Result Diagram: 07/23/1720907/23/17209 Imaging Last Impressions Head CT 07/20/171814 Signed Impressions: Service Date/Time: Thursday, July 20, 2017 19:12 - CONCLUSION: Large hemorrhage centered at the left basal ganglia with extension into the ventricles. The ventricles are enlarged. There is 1.3 cm of left to right midline shift and near effacement of the basal cisterns. Horacio Lebron MD Objective Remarks GENERAL: 52-year-old male. SKIN: Warm and dry. HEAD: Atraumatic. Normocephalic. EYES: Left pupil 3 mm and minimally reactive. Pupil 2 mm and fixed. No scleral icterus. No injection or drainage. ENT: No nasal bleeding or discharge. Mucous membranes pink and moist. NECK: Trachea midline. Orally intubated. CARDIOVASCULAR: Regular rate and rhythm. S1, S2. No JVD. RESPIRATORY: Normal excursions. Clear to auscultation. Breath sounds equal bilaterally. GASTROINTESTINAL: Abdomen soft, non-tender, nondistended. BS active. Nondistended. MUSCULOSKELETAL: Extremities without clubbing, cyanosis, or edema. Warm. NEUROLOGICAL: Pupils as above. Does not withdraw to pain. Unresponsive. Leave sedated for ICP control. A/P Assessment and Plan Neuro/Psych: Left basal hemorrhage with intraventricular hemorrhages though left lateral, third and fourth ventricles with basilar cisterna effacement with a 1.3 cm left- to-right shift History of left frontoparietal, old left occipital, bilateral basal ganglia and right pontine CVA - Seizure disorder NOS Currently on propofol/midazolam and fentanyl drips titrating for ICP for sedation/analgesia while intubated No sedation vacation until okay with neurosurgery CT brain imaging as above. Repeat head CT in a.m. Dr. Nettles consulted right-sided ventriculostomy placed. Goal maintain ICPs less than 20 3% saline currently at 30 cc an hour. Goal sodium 150-155 Mannitol 12.5 g every 8 hours. Hold if serum osm > 310 End tidal CO2 35-40 Currently on levetiracetam 1000 mg IV twice a day EEG ordered for a.m. 07/21 Follow-up on CSF studies Cocaine positive. CV: Hypertension Dyslipidemia Elevated CPK 0.9% Saline at 84 cc an hour Currently on norepinephrine drip to maintain cerebral perfusion pressures greater than or equal to 60 Holding hydralazine 50 mill grams every 8 hours on vasopressors Holding atorvastatin 40 mill grams by mouth daily Holding aspirin 325 mg by mouth daily Resp: Acute respiratory failure History of JAZMYNE PRVC 12/500/40 Ventilator bundle Albuterol/ipratropium aerosols every 4 hours with albuterol aerosols every 2 hours. Dyspnea End tidal CO2 between 35 and 40 Follow-up a.m. ABG and chest x-ray GI: Patient is currently nothing by mouth. LIWS Lansoprazole for GI prophylaxis Docusate sodium/senna 1 tablet twice a day for bowel regimen Start trickle feeds. : Patel catheter for accurate I's and O's in a critically ill patient Endo: Diabetes mellitus Low TSH Hyperglycemia Sliding-scale insulin with Novulin R to maintain euglycemia/every 4 hours low regimen Follow-up on free T3/T4 Renal: Acute kidney injury in the setting of Chronic kidney disease stage IV Monitor urine output Accurate I's and O's Avoid nephrotoxic substances Follow-up on urine eosinophils and electrolytes Patient currently oliguric renal failure at the present time. Bladder scan. Heme: Normocytic anemia Hgb decline. Transfuse 2 units PRBCs. Coags within normal limits. Start serial Hgb. ID: Monitor for infection FEN: Replace electrolytes as clinically indicated MSK: PT evaluate and treat range of motion Access - Left femoral CVL day #4 placed in ED Prophylaxis - GI -lansoprazole/no pharmacological prophylaxis hemorrhage, SCDs Overall impression: Hypertensive brain bleed likely incited by cocaine use. Severe neurological injury. Prognosis guarded. Now with unstable hemodynamics and acute anemia, likely acute blood loss. Critical Care 38 mins Dany Lang MD Jul 23, 2017 08:05
[2017-07-23] MEDS: DOCUSATE SODIUM 50 MG/SENNA 8.6 MG TAB PO SCH ×2 (08:30→20:31)
[2017-07-23] MEDS: levETIRAcetam 1000 MG INJ 100 ML IV SCH ×2 (08:30→20:32)
[2017-07-23] MEDS: SODIUM CHLORIDE 0.9% FLUSH 10 ML FLUSH IV FLUSH SCH ×2 (08:30→20:32)
[2017-07-23] MEDS: PANTOPRAZOLE SODIUM 40 MG VIAL IV PUSH SCH ×2 (08:30→20:32)
[2017-07-23] MEDS: ARTIFICIAL TEARS OPTH SOLN 15 ML BTL EACH EYE SCH ×3 (08:30→17:53)
--- NOTE | 2017-07-23 08:39 | PQ ---
Physician Query Response Document PATIENT: KORINA REYES : 1965 ADMIT DATE: 07/20/2017 7:19 PM DISCH DATE: RESPONDING PROVIDER #: [email or web address] QUERY TEXT: Clarification of Clinical Diagnostic Findings Please clarify documentation or clinical relevance for the clinical / diagnostic findings or whether those are insignificant or unable to be further specified. ? Brain herniation ? Compression of the brain ? Cerebral edema ? Other (*please specify) ? Unable to determine (*please explain) The patient's Clinical Indicators include: Patient is documented as unresponsive w left basal ganglia hemorrhage with extension to the left lateral ventricle, third and fourth ventricl e with basilar cistern effacement. 1.3 cm svcu-ry-[id number] shift. Patient started on hypertonic saline, mannitol, and tell CO2 between 35 and 40 Query created by: Margarita Betancourt on 07/21/2017 2:35 PM RESPONSE TEXT: Brain compression by expanding hematoma. Electronically signed by: Fuad Lang MD 07/23/2017 8:36 AM
[2017-07-23] MEDS: SODIUM CHLOR 0.9% 1000 ML INJ 1,000 ML IV SCH (08:43)
[2017-07-23] MEDS: MIDAZOLAM 100 MG/100 ML INJ 100 ML IV PRN (08:43)
[2017-07-23 09:07] LABS: HEMATOCRIT 23.7 % (39.0-51.0); REVIEW FLAG FINAL
--- NOTE | 2017-07-23 09:13 | HHI.NSPN ---
(Peggy Fuller) Note Status Status: Progress Note (Peggy Fuller) Interval History Interval History 07/21: EVD draining well, intubated and well sedated. f/u CT Head completed this morning 07/22: intubated and sedated on fentanyl and versed drips. EVD draining well with gross bloody CSF, ICPs wnl overnight. 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 He was last seen in his normal state of health 07/19. He has a , but his reports that he left his home and leave with some roommates. They noted that he was having a flexed positioning with a GCS of 5, decorticate positioning, and unequal pupils, left greater than right. No seizure activity reported. No tonic-clonic movement seen. No tongue biting. No incontinence of stool or urine. He is unable to provide any history. Some history is obtained from his at bedside The paramedics attempted to intubate him on the scene using lorazepam and etomidate without success. The ED physician was not able to get further history from roommates. He wasn't renal failure. Toxicology screen was positive for cocaine CT brain revealed a left basal ganglia hemorrhage with extension to the left lateral ventricle, third and fourth ventricle with basilar cistern effacement, and 1.3 cm bbby-[id number]-iiszm shift. Neurosurgical consultation was requested (Edwin Nettles MD) Labs, Micro, & Vital Signs Results Date Time Temp Pulse Resp B/P (MAP) Pulse Ox O2 Delivery O2 Flow Rate FiO2 07/23/17 08:00 99 07/23/17 08:00 40 07/23/17 07:53 98 30 07/23/17 07:00 100 Mechanical Ventilator 40 07/23/17 06:00 95 07/23/17 04:00 40 07/23/17 04:00 96 07/23/17 04:00 97.8 96 10 140/74 (96) 100 07/23/17 03:37 100 30 07/23/17 02:00 92 07/23/17 00:15 100 30 07/23/17 00:00 92 07/23/17 00:00 40 07/23/17 00:00 97.9 90 10 132/74 (93) 100 07/22/17 22:00 95 07/22/17 21:35 96 134/71 07/22/17 21:25 96 132/72 07/22/17 21:15 98 135/72 07/22/17 21:05 97 136/72 07/22/17 21:00 98 138/72 07/22/17 20:55 95 136/73 07/22/17 20:45 92 134/72 07/22/17 20:00 95 07/22/17 20:00 40 07/22/17 20:00 100.2 92 10 132/72 (92) 100 07/22/17 19:46 100 30 07/22/17 19:00 100 Mechanical Ventilator 40 07/22/17 18:10 98.3 88 10 130/73 100 07/22/17 18:00 88 07/22/17 16:47 97.5 86 10 129/73 100 07/22/17 16:22 97.0 73 10 151/82 100 07/22/17 16:00 40 07/22/17 16:00 85 07/22/17 16:00 97.0 79 10 124/70 (88) 100 07/22/17 15:39 100 30 07/22/17 14:00 80 07/22/17 13:34 81 120/68 07/22/17 12:00 80 07/22/17 12:00 98.8 84 10 114/68 (83) 100 07/22/17 12:00 40 07/22/17 11:53 100 30 07/22/17 10:00 78 07/24/17 07:00 Intake Total 347 ml Balance 347 ml Constitutional Vital Signs Date Time Temp Pulse Resp B/P (MAP) Pulse Ox O2 Delivery O2 Flow Rate FiO2 07/23/17 08:00 99 07/23/17 08:00 40 07/23/17 07:53 98 30 07/23/17 07:00 100 Mechanical Ventilator 40 07/23/17 06:00 95 07/23/17 04:00 40 07/23/17 04:00 96 07/23/17 04:00 97.8 96 10 140/74 (96) 100 07/23/17 03:37 100 30 07/23/17 02:00 92 07/23/17 00:15 100 30 07/23/17 00:00 92 07/23/17 00:00 40 07/23/17 00:00 97.9 90 10 132/74 (93) 100 07/22/17 22:00 95 07/22/17 21:35 96 134/71 07/22/17 21:25 96 132/72 07/22/17 21:15 98 135/72 07/22/17 21:05 97 136/72 07/22/17 21:00 98 138/72 07/22/17 20:55 95 136/73 07/22/17 20:45 92 134/72 07/22/17 20:00 95 07/22/17 20:00 40 07/22/17 20:00 100.2 92 10 132/72 (92) 100 07/22/17 19:46 100 30 07/22/17 19:00 100 Mechanical Ventilator 40 07/22/17 18:10 98.3 88 10 130/73 100 07/22/17 18:00 88 07/22/17 16:47 97.5 86 10 129/73 100 07/22/17 16:22 97.0 73 10 151/82 100 07/22/17 16:00 40 07/22/17 16:00 85 07/22/17 16:00 97.0 79 10 124/70 (88) 100 07/22/17 15:39 100 30 07/22/17 14:00 80 07/22/17 13:34 81 120/68 07/22/17 12:00 80 07/22/17 12:00 98.8 84 10 114/68 (83) 100 07/22/17 12:00 40 07/22/17 11:53 100 30 07/22/17 10:00 78 07/24/17 07:00 Intake Total 347 ml Balance 347 ml (Peggy Fuller) Physical Exam Mr. Aponte is intubated and well sedated on fentanyl and versed drips. Cranial Nerves: left pupils 6 mm nonreactive, right pinpoint. sensorimotor: His muscle tone and bulk are normal. No withdrawal to pain, well sedated. Cerebellar: cannot assess due to clinical condition Right ventriculostomy drain intact, draining well at 0 cm H20, bloody CSF Plantars silent bilaterally (Peggy Fuller) Mr. Claudio remains intubated and well sedated on fentanyl and versed drips. Cranial Nerves: left pupils 6 mm nonreactive, right pinpoint. sensorimotor: His muscle tone and bulk are normal. No withdrawal to pain, well sedated. Cerebellar: cannot assess due to clinical condition Right ventriculostomy drain intact, draining well at 0 cm H20, bloody CSF Response to plantar stimulation silent bilaterally (Edwin Nettles MD) Medications Current Medications Current Medications Medications (Trade) Dose Ordered Sig/Mae Route PRN Reason Start Time Stop Time Status Last Admin Dose Admin Chlorhexidine Gluconate (Peridex 0.12% Liq) 15 ml BID@08,20 MT 07/21/17 08:00 07/23/17 08:00 Propofol 100 ml @ 2.182 mls/ hr TITRATE PRN IV SEDATION 07/20/17 20:15 07/20/17 22:10 Fentanyl Citrate 250 ml @ 5 mls/hr TITRATE PRN IV SEDATION 07/20/17 20:15 07/23/17 05:06 Sodium Chloride 1,000 ml @ 84 mls/hr [id number] IV 07/20/17 20:05 07/23/17 08:43 Sodium Chloride (NS Flush) 2 ml UNSCH PRN IV FLUSH FLUSH AFTER USING IV ACCESS 07/20/17 20:15 Sodium Chloride (NS Flush) 2 ml BID IV FLUSH 07/20/17 21:00 07/23/17 08:30 Acetaminophen (Tylenol) 650 mg Q6H PRN PO PAIN 1-10 AND/OR FEVER >101F 07/20/17 20:15 Artificial Tears (Tears Naturale Opth Soln) 1 drop TID EACH EYE 07/21/17 09:00 07/23/17 08:30 Ondansetron HCl (Zofran Inj) 4 mg Q6H PRN IV PUSH NAUSEA OR VOMITING 07/20/17 20:15 Albuterol/ Ipratropium (Duoneb Neb) 1 ampule Q4HR NEB INH 07/21/17 00:00 07/23/17 07:53 Albuterol Sulfate (Albuterol Neb) 2.5 mg Q2HR NEB PRN INH SOB/WHEEZING 07/20/17 20:15 Miscellaneous Information 1 [id number] XX 07/20/17 20:15 Chlorhexidine Gluconate (Chlorhexidine 2% Cloth) 3 pack Taper DAILY@04 TOP 07/21/17 04:00 07/17/18 03:59 Chlorhexidine Gluconate (Chlorhexidine 2% Cloth) 3 pack UNSCH PRN TOP HYGIENIC CARE 07/20/17 20:15 Senna/Docusate Sodium (Selena-Colace) 1 tab BID PO 07/20/17 21:00 07/23/17 08:30 Magnesium Hydroxide (Milk Of Magnesia Liq) 30 ml Q12H PRN PO Mild constipation 07/20/17 20:15 Sennosides (Senokot) 17.2 mg Q12H PRN PO Moderate constipation 07/20/17 20:15 Bisacodyl (Dulcolax Supp) 10 mg DAILY PRN RECTAL SEVERE CONSITIPATION 07/20/17 20:15 Lactulose (Lactulose Liq) 30 ml DAILY PRN PO SEVERE CONSITIPATION 07/20/17 20:15 Levetriacetam 100 ml @ 400 mls/hr Q12HR IV 07/20/17 21:00 07/23/17 08:30 Hydralazine HCl (Apresoline) 50 mg Q8H PO 07/20/17 21:00 Future Hold Mannitol (Mannitol Inj) 12.5 gm Q8H IV 07/20/17 21:00 07/20/17 21:39 Norepinephrine Bitartrate 4 mg/ Sodium Chloride 250 ml @ 7.5 mls/hr TITRATE PRN IV Blood pressure management 07/20/17 23:15 07/21/17 11:00 Midazolam HCl 100 ml @ 2 mls/hr TITRATE PRN IV SEDATION 07/20/17 23:30 07/23/17 08:43 Insulin Human Regular (NovoLIN R SUPPLEMENTAL SCALE) 1 Q4HR SQ 11/15/17 04:00 Dextrose (D50w (Vial) Inj) 50 ml UNSCH PRN IV PUSH HYPOGLYCEMIA - SEE COMMENTS 07/21/17 01:00 Glucagon (Glucagon Inj) 1 mg UNSCH PRN OTHER HYPOGLYCEMIA-SEE COMMENTS 07/21/17 01:00 Terbutaline Sulfate (Brethine Inj) 1 mg UNSCH PRN SQ FOR EXTRAVASATION PROTOCOL 07/21/17 12:15 Vasopressin 40 units/Sodium Chloride 100 ml @ 1.5 mls/hr TITRATE PRN IV Blood Pressure Management 07/21/17 13:00 07/22/17 07:58 Sodium Bicarbonate 150 meq/Sterile Water 1,000 ml @ 75 mls/hr [id number] IV 07/22/17 11:00 07/22/17 23:20 Pantoprazole Sodium (Protonix Inj) 40 mg Q12H IV PUSH 07/22/17 22:00 07/23/17 08:30 Nicardipine HCl 25 mg/Sodium Chloride 250 ml @ 50 mls/hr TITRATE PRN IV Blood pressure management 07/23/17 05:00 Labetalol HCl (Trandate Inj) 10 mg Q6H PRN IV PUSH SBP >150 07/23/17 05:00 (Peggy Fuller) Medical Decision Making MDM Remarks 52 year old male with large intraparenchymal hemorrhage with large extension into ventricles with hydrocephalus, s/p placement of ventriculostomy drain 07/20 f/u CT Head 07/21 with some worsening of hemorrhage, persistent hydrocephalus positive cocaine hypertensive crisis (Peggy Fuller) Plan Plan Remarks cont ventriculostomy draining at 0 cm H20, critical care mgt - blood pressure control nonchemical dvt prophylaxis in view of ICH, protonix for stress ulcer proph cont serial neuro checks (Peggy Fuller) Plan Remarks Caprini VTE Risk Assessment Caprini VTE Risk Assessment Caprini VTE Risk Assessment: Mod/High Risk (score >= 2) VTE Pharm Contraindication: Hemorrhage Caprini Risk Assessment Model Point Value = 1 Point Value = 2 Point Value = 3 Point Value = 5 Age 41-60 Minor surgery BMI > 25 kg/m2 Swollen legs Varicose veins or History of unexplained or recurrent spontaneous Oral contraceptives or hormone replacement Sepsis (< 1 month) Serious lung disease, including pneumonia (< 1 month) Abnormal pulmonary function Acute myocardial infarction Congestive heart failure (< 1 month) History of inflammatory bowel disease Medical patient at bed rest Age 61-74 Arthroscopic surgery Major open surgery (> 45 min) Laparoscopic surgery (> 45 min) Malignancy Confined to bed (> 72 hours) Immobilizing plaster cast Central venous access Age >= 75 History of VTE Family history of VTE Factor V Leiden Prothrombin [id number] Lupus anticoagulant Anticardiolipin antibodies Elevated serum homocysteine Heparin-induced thrombocytopenia Other congenital or acquired thrombophilia Stroke (< 1 month) Elective arthroplasty Hip, pelvis, or leg fracture Acute spinal cord injury (< 1 month) Prophylaxis Regimen Total Risk Factor Score Risk Level Prophylaxis Regimen 0-1 Low Early ambulation 2 Moderate Order ONE of the following: *Sequential Compression Device (SCD) *Heparin 5000 units SQ BID 3-4 Higher Order ONE of the following medications: *Heparin 5000 units SQ TID *Enoxaparin/Lovenox 40 mg SQ daily (WT < 150 kg, CrCl > 30 mL/min) *Enoxaparin/Lovenox 30 mg SQ daily (WT < 150 kg, CrCl > 10-29 mL/min) *Enoxaparin/Lovenox 30 mg SQ BID (WT < 150 kg, CrCl > 30 mL/min) AND/OR *Sequential Compression Device (SCD) 5 or more Highest Order ONE of the following medications: *Heparin 5000 units SQ TID (Preferred with Epidurals) *Enoxaparin/Lovenox 40 mg SQ daily (WT < 150 kg, CrCl > 30 mL/min) *Enoxaparin/Lovenox 30 mg SQ daily (WT < 150 kg, CrCl > 10-29 mL/min) *Enoxaparin/Lovenox 30 mg SQ BID (WT < 150 kg, CrCl > 30 mL/min) AND *Sequential Compression Device (SCD) (Edwin Nettles MD) Attending Statement PROBEM LIST (1) Acute respiratory failure Diagnosis: Principal (2) Intraventricular hemorrhage Diagnosis: Principal (3) Elevated CPK Diagnosis: Principal (4) Low TSH level Diagnosis: Secondary (5) Hyperglycemia Diagnosis: Secondary (6) Normocytic anemia Diagnosis: Secondary (7) Chronic ischemic left [employer] stroke Diagnosis: Secondary (8) Uncontrolled hypertension Diagnosis: Secondary (9) Seizure disorder Diagnosis: Secondary (10) Chronic kidney disease Diagnosis: Principal (11) Diabetes mellitus type 2 Diagnosis: Principal (12) Obstructive sleep apnea syndrome Diagnosis: Secondary Left basal hemorrhage with intraventricular hemorrhages though left lateral, third and fourth ventricles with basilar cisterna effacement with a 1.3 cm left- to-right shift Continue neuro checks in a serial fashion. Follow-up CT of the brain TOMORROW. He is status post placement of a ventriculostomy catheter for decompression of the ventricular system. Continue to drain CSF. Monitor ICPs Toxicology screen positive Continue 3% saline currently at 30 cc an hour. Goal sodium 150-155 Mannitol 12.5 g every 8 hours. Hold if serum osm > 310 End tidal CO2 35-40 Seizure disorder NOS Continue levetiracetam 1000 mg IV twice a day EEG ordered for a.m. 07/21 Hypertension. Continue Cardene drip for blood pressure control Elevated CPK 0.9% Saline at 84 cc an hour Currently on norepinephrine drip to maintain cerebral perfusion pressures greater than or equal to 60 Holding hydralazine 50 mill grams every 8 hours on vasopressors Dyslipidemia atorvastatin 40 mill grams by mouth daily Holding aspirin 325 mg by mouth daily Acute respiratory failure Ventilator bundle. Full mechanical ventilation in assist control mode of mechanical ventilation.. aggressive pulmonary toilette, nasotracheal suction, and breathing treatments with nebulizers. Albuterol/ipratropium aerosols every 4 hours with albuterol aerosols every 2 hours. GI: currently nothing by mouth. Docusate sodium/senna 1 tablet twice a day for bowel regimen : Patel catheter for accurate I's and O's in a critically ill patient Diabetes mellitus. Hyperglycemia Continue Sliding-scale insulin with Novulin R to maintain euglycemia/every 4 hours low regimen Thyroidism. Follow-up on free T3/T4 Acute kidney injury in the setting of Chronic kidney disease stage IV Monitor urine output Accurate I's and O's Avoid nephrotoxic substances Follow-up on urine eosinophils and electrolytes Patient currently oliguric renal failure at the present time. Recommend to conservative nephrology Renal. Continue to monitor closely urine output, BUN and creatinine ID continue to monitor for signs of infection Continue Protonix for stress ulcer prophylaxis Continue Salty hose and SCD's for DVT prophylaxis Further recommendations will be provided depending on the patient's clinical evaluation and follow up studies. The exam, history, and the medical decision-making described in the above note were completed with the assistance of the mid-level provider. I reviewed and agree with the findings presented. I attest that I had a [id number] encounter with the patient on the same day, and personally performed and documented my assessment and findings in the medical record. (Edwin Nettles MD) Peggy Fuller Jul 23, 2017 09:13 Edwin Nettles MD Jul 23, 2017 10:36
[2017-07-23 09:36] LABS: BICARBONATE 22.6 MEQ/L (21.0-32.0)
[2017-07-23 09:53] LABS: CALCIUM-PROTEIN CORRECTED 8.5 MG/DL (8.5-10.1)
[2017-07-23] MEDS: SODIUM BICARBONATE 8.4% INJ 150 MEQ in WATER STERILE FOR INJ 850 ML IV SCH (12:46)
[2017-07-23 14:04] LABS: HEMATOCRIT 24.3 % (39.0-51.0); REVIEW FLAG FINAL
[2017-07-23] MEDS: hydrALAZINE HCL 50 MG TAB PO SCH ×2 (15:00→22:00)
[2017-07-23] MEDS: METOPROLOL TARTRATE 50 MG TAB PO SCH ×2 (15:00→17:54)
[2017-07-23 20:33] LABS: HEMATOCRIT 25.5 % (39.0-51.0); REVIEW FLAG FINAL
[2017-07-24] VITALS (17 sets, daily range): BP systolic 97–120; BP diastolic 53–84; PULSE 97–125; RESP 14–21; TEMP 97.9–99.9; O2SAT 91–100
[2017-07-24] MEDS: RESP: ALBUTEROL 2.5 MG/IPRATROPIUM 0.5 MG NEB (SCH) INH ×7 (00:16→22:49)
[2017-07-24] MEDS: METOPROLOL TARTRATE 50 MG TAB PO SCH ×4 (00:30→17:43)
[2017-07-24] MEDS: SODIUM BICARBONATE 8.4% INJ 150 MEQ in WATER STERILE FOR INJ 850 ML IV SCH ×2 (00:34→15:30)
[2017-07-24] MEDS: INSULIN NovoLIN REGULAR SUPPLEMENTAL SCALE SQ SCH ×5 (03:21→20:00)
[2017-07-24 03:45] LABS: HEMATOCRIT 25.2 % (39.0-51.0); REVIEW FLAG FINAL
[2017-07-24] MEDS: CHLORHEXIDINE GLUCONATE 2 % 1 PACK (2 CLOTHS) TOP SCH (04:00)
[2017-07-24 04:19] LABS: BICARBONATE 23.2 MEQ/L (21.0-32.0); POTASSIUM 3.5 MEQ/L (3.5-5.1)
[2017-07-24 04:41] LABS: CALCIUM-PROTEIN CORRECTED 8.5 MG/DL (8.5-10.1)
[2017-07-24] MEDS: MANNITOL 12.5 GM/50 ML VIAL IV SCH ×3 (05:00→20:38)
[2017-07-24] MEDS: hydrALAZINE HCL 50 MG TAB PO SCH ×3 (05:33→22:00)
--- NOTE | 2017-07-24 05:41 | RADRPT ---
EXAM DATE/TIME: 07/24/2017 04:27 [place] COMPARISON: CT BRAIN W/O CONTRAST, July 21, 2017, 4:27. INDICATIONS : Hemorrhage. Follow up. RADIATION DOSE: 61.32 CTDIvol (mGy) ; Tabletop CT Head MEDICAL HISTORY : Cardiovascular disease. Hypertension. Seizures. SURGICAL HISTORY : None. ENCOUNTER: Subsequent ACUITY: 4 - 6 days PAIN SCALE: Non-responsive LOCATION: cranial TECHNIQUE: Multiple contiguous axial images were obtained of the head. Using automated exposure control and adj ustment of the mA and/or kV according to patient size, radiation dose was kept as low as reasonably a chievable to obtain optimal diagnostic quality images. DICOM format image data is available electro nically for review and comparison. FINDINGS: There has been interval increase in the amount of intraventricular blood in the occipital horn on the left side. On the right side, the right lateral ventricle is effaced and was dilated on prior CT sc an. There has been increase in midline shift to the right, measuring 2.2 cm (previously measured 1.3 cm). Right frontal ventriculostomy catheter tip remains projected in the 3rd ventricle. The conflu ent areas of hemorrhage which extend into the left centrum semiovale is similar in size to prior. He morrhage extends through the aqueduct of Sylvius into the 4th ventricle; amount of hemorrhage in the 4th ventricle has decreased. There is effacement of the right temporal horn and partial effacement l eft temporal horn (these were enlarged on the prior scan). Interval development of large air-fluid level right maxillary sinus and moderate the callosal thicken ing in the left maxillary sinus. There is a new small air-fluid level in the central sphenoid sinus. CONCLUSION: Interval increase in the amount of mass effect in the left hemisphere with an increase in midline bassem ft towards the right, now measuring 2.2 cm. There has been an increase in the amount of blood in the left occipital horn, interval development of effacement of the right frontal, occipital, and tempora l horns, and a decrease in the amount of intraventricular blood in the 4th ventricle. Gume Uriarte MD on July 24, 2017 at 5:34 Board Certified Radiologist. This report was verified electronically.
[2017-07-24] MEDS: CHLORHEXIDINE 0.12% (ORAL KIT) 15 ML CUP MT SCH ×2 (08:00→20:00)
[2017-07-24] MEDS: SODIUM CHLORIDE 0.9% FLUSH 10 ML FLUSH IV FLUSH SCH ×2 (08:41→20:40)
[2017-07-24] MEDS: levETIRAcetam 1000 MG INJ 100 ML IV SCH ×2 (08:41→20:40)
[2017-07-24] MEDS: ARTIFICIAL TEARS OPTH SOLN 15 ML BTL EACH EYE SCH ×3 (08:41→17:43)
[2017-07-24] MEDS: DOCUSATE SODIUM 50 MG/SENNA 8.6 MG TAB PO SCH ×2 (08:41→20:40)
[2017-07-24 08:46] LABS: BLOOD GAS BASE EXCESS -1.3 mmol/L (-2-2); BLOOD GAS CARBOXYHEMOGLOBIN 1.4 % (0-4); BLOOD GAS HCO3 23 mmol/L (22-26); BLOOD GAS O2 HGB SATURATION 92 % (90-100); BLOOD GAS OXYGEN CONTENT 10.8 Vol % (12.0-20.0); BLOOD GAS PCO2 37 mmHg (38-42); BLOOD GAS PO2 73 mmHg (61-120); BLOOD GAS TOTAL HGB 8.3 G/DL (12.0-16.0); CRITICAL VALUE NO; OXYGEN DEVICE VENTILATOR; TEMP CORR TO 98.6
[2017-07-24 08:47] LABS: DRAW SITE ART LINE; FIO2 45 %; STAT YES; VENT SETTINGS PRVC/VT500/R10/P5/1.
[2017-07-24 08:48] LABS: HEMATOCRIT 26.2 % (39.0-51.0); REVIEW FLAG FINAL
[2017-07-24] MEDS: PANTOPRAZOLE SODIUM 40 MG VIAL IV PUSH SCH ×2 (10:30→21:55)
--- NOTE | 2017-07-24 10:45 | HHI.NSPN ---
(Terrance Curtis) History Chief Complaint: Unable to obtain due to patient's clinical condition. 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 He was last seen in his normal state of health 07/19. He has a , but his reports that he left his home and leave with some roommates. They noted that he was having a flexed positioning with a GCS of 5, decorticate positioning, and unequal pupils, left greater than right. No seizure activity reported. No tonic-clonic movement seen. No tongue biting. No incontinence of stool or urine. He is unable to provide any history. Some history is obtained from his at bedside The paramedics attempted to intubate him on the scene using lorazepam and etomidate without success. The ED physician was not able to get further history from roommates. He wasn't renal failure. Toxicology screen was positive for cocaine CT brain revealed a left basal ganglia hemorrhage with extension to the left lateral ventricle, third and fourth ventricle with basilar cistern effacement, and 1.3 cm [id number] shift. Neurosurgical consultation was requested 07/21: EVD draining well, intubated and well sedated. f/u CT Head completed this morning 07/22: intubated and sedated on fentanyl and versed drips. EVD draining well with gross bloody CSF, ICPs wnl overnight. 07/23: intubated and sedated, EVD draining well, ICPs stable 07/24: Patient obtunded. Ventriculostomy in place and draining. Nursing reports ICPs ranging from 0 to 1 cm H2O pressure. He also reports that the patient did not respond to noxious stimulation but did have a cough reflex. Earlier the patient was hypertensive but it came down without any intervention per Nursing. The patient's sedation was discontinued yesterday. (Terrance Curtis) System Review Comments Unable to obtain due to patient's clinical condition. (Terrance Curtis) Exam Results 07/22/17 07/22/17 07/23/17 07/23/17 07/24/17 07/24/17 06:00 18:00 06:00 18:00 06:00 18:00 Intake Total 15 ml 5337.9 ml 4430.5 ml 949 ml Output Total 1463 ml 1655 ml 476 ml Balance 15 ml 3874.9 ml 2775.5 ml 473 ml Intake IV Total 15 ml 3737.9 ml 4368.5 ml 949 ml Tube Feeding 62 ml Packed Cells 1200 ml Blood Product IV Normal Saline Flush 400 ml Output Urine Total 650 ml 1175 ml 400 ml Gastric Drainage Total 560 ml 275 ml Drainage Total 253 ml 205 ml 76 ml # Bowel Movements 0 0 Vital Signs Date Time Temp Pulse Resp B/P (MAP) Pulse Ox O2 Delivery O2 Flow Rate FiO2 07/24/17 10:00 104 07/24/17 08:30 92 45 07/24/17 08:30 92 45 07/24/17 08:00 99 07/24/17 07:00 95 Mechanical Ventilator 30 07/24/17 06:00 100 07/24/17 04:00 40 07/24/17 04:00 98.3 100 14 110/84 (93) 95 07/24/17 04:00 100 07/24/17 03:47 99 30 07/24/17 03:47 100 30 07/24/17 02:00 97 07/24/17 00:18 99 30 07/24/17 00:00 97 07/24/17 00:00 99.1 100 14 120/65 (83) 100 114/81 (92) 07/24/17 00:00 40 07/23/17 22:00 97 07/23/17 20:00 98 07/23/17 20:00 99.8 109 14 112/55 (74) 100 100/70 (80) 07/23/17 20:00 40 07/23/17 19:34 96 30 07/23/17 19:00 100 Mechanical Ventilator 40 07/23/17 18:00 102 07/23/17 16:00 98 30 07/23/17 16:00 104 07/23/17 16:00 100.0 98 18 127/61 (83) 100 07/23/17 16:00 40 07/23/17 14:00 104 07/23/17 12:28 40 07/23/17 12:22 100 30 07/23/17 12:00 99 07/23/17 12:00 99.9 98 18 149/77 (101) 100 07/23/17 12:00 40 07/23/17 10:00 99 07/23/17 08:00 99 07/23/17 08:00 99.0 98 18 102/69 (80) 100 07/23/17 08:00 40 07/23/17 07:53 98 30 07/23/17 07:00 100 Mechanical Ventilator 40 07/23/17 06:00 95 07/23/17 04:00 40 07/23/17 04:00 96 07/23/17 04:00 97.8 96 10 140/74 (96) 100 07/23/17 03:37 100 30 07/23/17 02:00 92 07/23/17 00:15 100 30 07/23/17 00:00 92 07/23/17 00:00 40 07/23/17 00:00 97.9 90 10 132/74 (93) 100 07/22/17 22:00 95 07/22/17 21:35 96 134/71 07/22/17 21:25 96 132/72 07/22/17 21:15 98 135/72 07/22/17 21:05 97 136/72 07/22/17 21:00 98 138/72 07/22/17 20:55 95 136/73 07/22/17 20:45 92 134/72 07/22/17 20:00 95 07/22/17 20:00 40 07/22/17 20:00 100.2 92 10 132/72 (92) 100 07/22/17 19:46 100 30 07/22/17 19:00 100 Mechanical Ventilator 40 07/22/17 18:10 98.3 88 10 130/73 100 07/22/17 18:00 88 07/22/17 16:47 97.5 86 10 129/73 100 07/22/17 16:22 97.0 73 10 151/82 100 07/22/17 16:00 40 07/22/17 16:00 85 07/22/17 16:00 97.0 79 10 124/70 (88) 100 07/22/17 15:39 100 30 07/22/17 14:00 80 07/22/17 13:34 81 120/68 07/22/17 12:00 80 07/22/17 12:00 98.8 84 10 114/68 (83) 100 07/22/17 12:00 40 07/22/17 11:53 100 30 07/22/17 10:00 78 07/22/17 08:45 97.9 78 10 132/78 100 07/22/17 08:30 97.9 78 10 133/78 100 07/22/17 08:14 40 07/22/17 08:14 100 40 07/22/17 08:00 79 07/22/17 08:00 40 07/22/17 08:00 97.2 74 10 122/74 (90) 100 07/22/17 07:58 76 123/74 07/22/17 07:42 97.5 75 10 121/73 100 07/22/17 07:27 97.5 77 10 120/73 100 07/22/17 07:00 100 Mechanical Ventilator 40 07/22/17 07:00 77 121/73 07/22/17 06:20 98.4 83 10 106/62 100 07/22/17 06:00 98.5 83 10 102/66 100 07/22/17 06:00 83 07/22/17 04:00 93 07/22/17 04:00 99.0 94 10 110/68 (82) 100 07/22/17 04:00 40 07/22/17 03:43 100 40 07/22/17 02:00 88 07/22/17 01:11 90 98/61 07/22/17 00:38 89 108/64 07/22/17 00:21 100 40 07/22/17 00:15 88 105/69 07/22/17 00:00 97.5 86 12 110/74 (86) 100 07/22/17 00:00 40 07/22/17 00:00 89 07/21/17 22:30 40 07/21/17 22:00 89 07/21/17 21:32 94 128/74 07/21/17 20:00 99.3 87 14 148/94 (112) 100 07/21/17 20:00 40 07/21/17 20:00 88 07/21/17 19:30 87 148/96 07/21/17 19:05 100 40 07/21/17 19:00 100 Mechanical Ventilator 40 07/21/17 18:00 76 07/21/17 18:00 84 158/100 (119) 07/21/17 16:00 83 07/21/17 16:00 40 07/21/17 16:00 97.7 70 14 154/98 (116) 100 07/21/17 15:08 100 40 07/21/17 14:43 83 112/81 07/21/17 14:30 70 118/82 07/21/17 14:10 78 150/98 07/21/17 14:00 86 07/21/17 14:00 86 114/98 07/21/17 13:20 117 124/84 07/21/17 13:10 122 132/92 07/21/17 13:00 120 146/92 07/21/17 12:50 120 122/78 07/21/17 12:49 133 116/72 07/21/17 12:49 132 113/74 07/21/17 12:49 120 122/78 07/21/17 12:40 149 122/78 07/21/17 12:30 140 118/78 07/21/17 12:20 120 118/78 07/21/17 12:10 132 114/43 07/21/17 12:00 98.6 133 14 117/77 (90) 100 07/21/17 12:00 133 07/21/17 12:00 134 114/76 07/21/17 12:00 40 07/21/17 11:50 133 116/76 07/21/17 11:40 130 138/88 07/21/17 11:30 125 140/88 07/21/17 11:20 121 128/82 07/21/17 11:14 100 40 07/21/17 11:10 134 124/80 07/21/17 11:00 120 138/88 (Terrance Curtis) Physical Examination GENERAL: Obtunded, intubated, no sedation. No evident distress. HEENT: Right-sided ventriculostomy drain insertion site w/o drainage, erythema or streaking. Right pupil 2 mm & left pupil 4 mm, both nonreactive. Orally intubated. OGT. MUSCULOSKELETAL: No movement except w/left foot to stimulation. No evident deformity or clubbing. NEUROLOGICAL: Obtunded, GCS 5T (E1 V1T M3). Orally intubated. Did not follow commands. Right pupil 2 mm & left pupil 4 mm, both nonreactive. Gaze appears fixed. No corneal reflex bilaterally. No cough reflex. Flexion response left foot x2 to local noxious stimulation, no other motor responses to local or central noxious stimulation. (Terrance Curtis) Lab, Micro, Other Results Recent Impressions Head CT 07/24/17 0000 Signed Impressions: Service Date/Time: Monday, July 24, 2017 04:27 - CONCLUSION: Interval increase in the amount of mass effect in the left hemisphere with an increase in midline shift towards the right, now measuring 2.2 cm. There has been an increase in the amount of blood in the left occipital horn, interval development of effacement of the right frontal, occipital, and temporal horns, and a decrease in the amount of intraventricular blood in the 4th ventricle. Gume Uriarte MD Chest X-Ray 07/22/17 0400 Signed Impressions: Service Date/Time: July 05:54 - CONCLUSION: Endotracheal tube in good position. Lungs are clear. Josh Carmen MD Laboratory Tests Test 07/21/17 20:19 07/22/17 02:58 07/22/17 03:25 07/22/17 05:34 Sodium Level 153 MEQ/L 158 MEQ/L Serum Osmolality 323 MOSM/KG 333 MOSM/KG White Blood Count 5.9 TH/MM3 Red Blood Count 1.88 MIL/MM3 Hemoglobin 5.8 GM/DL Hematocrit 17.8 % Mean Corpuscular Volume 94.9 FL Mean Corpuscular Hemoglobin 30.8 PG Mean Corpuscular Hemoglobin Concent 32.5 % Red Cell Distribution Width 16.8 % Platelet Count 136 TH/MM3 Mean Platelet Volume 8.2 FL Neutrophils (%) (Auto) 85.3 % Lymphocytes (%) (Auto) 8.3 % Monocytes (%) (Auto) 6.3 % Eosinophils (%) (Auto) 0.0 % Basophils (%) (Auto) 0.1 % Neutrophils # (Auto) 5.1 TH/MM3 Lymphocytes # (Auto) 0.5 TH/MM3 Monocytes # (Auto) 0.4 TH/MM3 Eosinophils # (Auto) 0.0 TH/MM3 Basophils # (Auto) 0.0 TH/MM3 CBC Comment DIFF FINAL Differential Comment Blood Urea Nitrogen 43 MG/DL Creatinine 4.66 MG/DL Random Glucose 118 MG/DL Total Protein 4.7 GM/DL Calcium Level 6.7 MG/DL Potassium Level 4.6 MEQ/L Chloride Level 128 MEQ/L Carbon Dioxide Level 18.9 MEQ/L Anion Gap 11 MEQ/L Estimat Glomerular Filtration Rate 16 ML/MIN Protein Corrected Calcium 7.9 MG/DL Blood Gas Puncture Site A Blood Gas Patient Temperature 98.6 Blood Gas HCO3 16 mmol/L Blood Gas Base Excess -9.4 mmol/L Blood Gas Oxygen Saturation 97 % Arterial Blood pH 7.30 Arterial Blood Partial Pressure CO2 33 mmHg Arterial Blood Partial Pressure O2 203 mmHg Arterial Blood Oxygen Content 7.7 Vol % Arterial Blood Carboxyhemoglobin 0.9 % Arterial Blood Methemoglobin 1.3 % Blood Gas Hemoglobin 5.2 G/DL Oxygen Delivery Device VENT Blood Gas Ventilator Setting SEE COMMENT Blood Gas Inspired Oxygen 40 % Prothrombin Time 11.4 SEC Prothromb Time International Ratio 1.0 RATIO Fibrinogen 300 mg/dL Test 07/22/17 09:00 07/22/17 14:00 07/22/17 20:00 07/23/17 02:10 Sodium Level 157 MEQ/L 157 MEQ/L 157 MEQ/L 158 MEQ/L Serum Osmolality 330 MOSM/KG 333 MOSM/KG 330 MOSM/KG 332 MOSM/KG Hemoglobin 6.9 GM/DL 7.9 GM/DL 8.1 GM/DL Hematocrit 21.2 % 23.4 % 23.6 % White Blood Count 6.7 TH/MM3 Red Blood Count 2.53 MIL/MM3 Mean Corpuscular Volume 93.3 FL Mean Corpuscular Hemoglobin 31.8 PG Mean Corpuscular Hemoglobin Concent 34.1 % Red Cell Distribution Width 16.7 % Platelet Count 107 TH/MM3 Mean Platelet Volume 8.6 FL Test 07/23/17 07:56 07/23/17 08:00 07/23/17 13:56 07/23/17 19:55 Blood Gas Puncture Site ART LINE Blood Gas Patient Temperature 98.6 Blood Gas HCO3 21 mmol/L Blood Gas Base Excess -4.8 mmol/L Blood Gas Oxygen Saturation 93 % Arterial Blood pH 7.28 Arterial Blood Partial Pressure CO2 46 mmHg Arterial Blood Partial Pressure O2 83 mmHg Arterial Blood Oxygen Content 11.1 Vol % Arterial Blood Carboxyhemoglobin 1.4 % Arterial Blood Methemoglobin 1.4 % Blood Gas Hemoglobin 8.4 G/DL Oxygen Delivery Device VENTILATOR Blood Gas Ventilator Setting PRVC/10/500/1.0/+5 Blood Gas Inspired Oxygen 30 % Hemoglobin 8.1 GM/DL 8.3 GM/DL 8.5 GM/DL Hematocrit 23.7 % 24.3 % 25.5 % Blood Urea Nitrogen 48 MG/DL Creatinine 4.48 MG/DL Random Glucose 77 MG/DL Total Protein 4.7 GM/DL Calcium Level 7.2 MG/DL Sodium Level 156 MEQ/L 157 MEQ/L 157 MEQ/L Potassium Level 4.0 MEQ/L Chloride Level 126 MEQ/L Carbon Dioxide Level 22.6 MEQ/L Anion Gap 7 MEQ/L Estimat Glomerular Filtration Rate 17 ML/MIN Serum Osmolality 332 MOSM/KG 330 MOSM/KG 333 MOSM/KG Protein Corrected Calcium 8.5 MG/DL Test 07/24/17 03:29 07/24/17 08:30 07/24/17 08:35 Hemoglobin 8.5 GM/DL 8.6 GM/DL Hematocrit 25.2 % 26.2 % Blood Urea Nitrogen 57 MG/DL Creatinine 4.90 MG/DL Random Glucose 100 MG/DL Total Protein 4.6 GM/DL Calcium Level 7.1 MG/DL Sodium Level 157 MEQ/L Potassium Level 3.5 MEQ/L Chloride Level 124 MEQ/L Carbon Dioxide Level 23.2 MEQ/L Anion Gap 10 MEQ/L Estimat Glomerular Filtration Rate 15 ML/MIN Serum Osmolality 334 MOSM/KG Protein Corrected Calcium 8.5 MG/DL Blood Gas Puncture Site ART LINE Blood Gas Patient Temperature 98.6 Blood Gas HCO3 23 mmol/L Blood Gas Base Excess -1.3 mmol/L Blood Gas Oxygen Saturation 92 % Arterial Blood pH 7.41 Arterial Blood Partial Pressure CO2 37 mmHg Arterial Blood Partial Pressure O2 73 mmHg Arterial Blood Oxygen Content 10.8 Vol % Arterial Blood Carboxyhemoglobin 1.4 % Arterial Blood Methemoglobin 1.0 % Blood Gas Hemoglobin 8.3 G/DL Oxygen Delivery Device VENTILATOR Blood Gas Ventilator Setting [facility]/VT500/R10/P5/1. Blood Gas Inspired Oxygen 45 % (Terrance Curtis) Medical Decision Making Impression and Plan Impression: Large intraparenchymal hemorrhage with large extension into ventricles with hydrocephalus Positive cocaine Hypertensive crisis CT Head 07/21 with some worsening of hemorrhage, persistent hydrocephalus CT brain demonstrates an interval increase to the left hemisphere mass effect and midline shift to the right. There is also an increase in the left occipital horn blood although the IVH to the 4th ventricle has decreased. There is interval effacement of the right frontal, occipital and temporal horns. Patient obtunded, only response to any stimulation was slight upward movement of left foot to local noxious stimulation. POD #4 () s/p: Right frontal twist drill with placement of a ventriculostomy catheter Postoperative Diagnosis: Intraventricular hemorrhage with hydrocephalus Plan: Critical care management & blood pressure control per Model Making Supervisor. Frequent neuro checks. Continue ventriculostomy draining at 0 cm H20. Mechanical DVT prophylaxis. Stress ulcer prophylaxis. Consider Palliative Care consult. (Terrance Curtis) Attending Statement The exam, history, and the medical decision-making described in the above note were completed with the assistance of the mid-level provider. I reviewed and agree with the findings presented. I attest that I had a [id number] encounter with the patient on the same day, and personally performed and documented my assessment and findings in the medical record. On my examination today, the patient remains intubated. He has been off sedation today. There is no eye opening to voice or deep pain are spontaneous. There is a tonic left gaze with minimal oculocephalic responses. Pupils are unequal, nonreactive. Absent corneal responses Positive cough response No response to deep pain all extremities 07/24/17 CT scan head images are reviewed. This study reveals a moderate enlargement in the focal midline shift now greater than 2 cm, but mostly at the level of the ventricle. There is persistent very large intraventricular midbrain hemorrhage extending towards the upper eva. Good decompression of the ventricles with the drain in place. The findings were discussed at length with multiple family members today. I reviewed the recent and previous CT scan head images with him. I advised him that the patient has sustained a severe intracranial hemorrhage and neurologic deficit with very poor overall prognosis for meaningful recovery. After my discussion with the family, they have signed a power of electrician elevator maintenance to make decisions, and per nursing staff have elected to withdraw patient from ventilatory support on 07/25/17. (Jarrett Michael MD) Terrance Curtis Jul 24, 2017 10:45 Jarrett Michael MD Jul 24, 2017 22:05
--- NOTE | 2017-07-24 10:47 | HHI.CCPN ---
Subjective Remarks/Hospital Course This is a 52-year-old AA male. Date of admission 07/20/2017. 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 Today, this patient was found per report obtunded by roommates. He was last seen in his normal state of health 07/19. They noted that he was having a flexed positioning, questionable decorticate positioning, and unequal pupils, left greater than right. The attempted to intubate the patient on the scene using lorazepam and etomidate without success. The ED physician was not able to get further history from roommates. CT brain revealed a left basal ganglia hemorrhage with extension to the left lateral ventricle, third and fourth ventricle with basilar cistern effacement. 1.3 cm [id number] shift. Patient started on hypertonic saline, mannitol, and tell CO2 between 35 and 40. Neurosurgery was consulted and placed a left ventriculostomy drain. Currently measuring ICPs closely. 07/21: Copious ventricular blood, small left basal ganglia hemorrhage. Cocaine and hypertension appear to be causative. EVD draining. BP controlled. 07/22: Marked Hgb decline over past 48 hours. Source unclear. Start with GI tract. 07/23: No improvement in neurological function. No bleeding source identified. 07/24: Worsening edema and midline shift despite osmolality > 330. Increasing vasogenic edema around initial basal ganglia bleed. Prognosis poor for any meaningful recovery. Objective Vital Signs Date Time Temp Pulse Resp B/P (MAP) Pulse Ox O2 Delivery O2 Flow Rate FiO2 07/24/17 10:00 104 07/24/17 08:30 92 45 07/24/17 08:00 97.9 15 97/53 (68) 07/24/17 07:00 Mechanical Ventilator 07/20/17 19:21 15.00 Intake and Output 07/24/17 07/24/17 07/25/17 08:00 16:00 00:00 Intake Total 949 ml Output Total 576.0 ml Balance 373.0 ml Result Diagram: 07/24/17 0830 07/24/17 0329 Other Results Laboratory Tests Test 07/24/17 08:35 Blood Gas Puncture Site ART LINE Blood Gas Patient Temperature 98.6 Blood Gas HCO3 23 mmol/L (22-26) Blood Gas Base Excess -1.3 mmol/L (-2-2) Blood Gas Oxygen Saturation 92 % (90-100) Arterial Blood pH 7.41 (7.380-7.420) Arterial Blood Partial Pressure CO2 37 mmHg (38-42) Arterial Blood Partial Pressure O2 73 mmHg (61-120) Arterial Blood Oxygen Content 10.8 Vol % (12.0-20.0) Arterial Blood Carboxyhemoglobin 1.4 % (0-4) Arterial Blood Methemoglobin 1.0 % (0-2) Blood Gas Hemoglobin 8.3 G/DL (12.0-16.0) Oxygen Delivery Device VENTILATOR Blood Gas Ventilator Setting PRVC/VT500/R10/P5/1. Blood Gas Inspired Oxygen 45 % Imaging Last Impressions Head CT 07/20/171814 Signed Impressions: Service Date/Time: Thursday, July 20, 2017 19:12 - CONCLUSION: Large hemorrhage centered at the left basal ganglia with extension into the ventricles. The ventricles are enlarged. There is 1.3 cm of left to right midline shift and near effacement of the basal cisterns. Horacio Lebron MD Objective Remarks GENERAL: 52-year-old male. SKIN: Warm and dry. HEAD: Atraumatic. Normocephalic. EYES: Left pupil 3 mm and non reactive. Right pupil 2 mm and fixed. No scleral icterus. No injection or drainage. ENT: No nasal bleeding or discharge. Mucous membranes pink and moist. NECK: Trachea midline. Orally intubated. CARDIOVASCULAR: Regular rate and rhythm. S1, S2. No JVD. RESPIRATORY: Normal excursions. Clear to auscultation. Breath sounds equal bilaterally. GASTROINTESTINAL: Abdomen soft, non-tender, nondistended. BS active. Nondistended. MUSCULOSKELETAL: Extremities without clubbing, cyanosis, or edema. Warm. Well perfused. NEUROLOGICAL: Pupils as above. Does not withdraw to pain. Unresponsive. Less sedated, will d/c if ICP OK. A/P Assessment and Plan Neuro/Psych: Left basal hemorrhage with intraventricular hemorrhages though left lateral, third and fourth ventricles with basilar cisterna effacement with a 1.3 cm left- to-right shift History of left frontoparietal, old left occipital, bilateral basal ganglia and right pontine CVA - Seizure disorder NOS Currently on propofol/midazolam and fentanyl drips titrating for ICP for sedation/analgesia while intubated No sedation vacation until okay with neurosurgery CT brain imaging as above. Repeat head CT in a.m. Dr. Nettles consulted right-sided ventriculostomy placed. Goal maintain ICPs less than 20 3% saline currently at 30 cc an hour. Goal sodium 150-155 Mannitol 12.5 g every 8 hours. Hold if serum osm > 310 End tidal CO2 35-40 Currently on levetiracetam 1000 mg IV twice a day EEG ordered for a.m. 07/21 Follow-up on CSF studies Cocaine positive. CV: Hypertension Dyslipidemia Elevated CPK 0.9% Saline at 84 cc an hour Currently on norepinephrine drip to maintain cerebral perfusion pressures greater than or equal to 60 Holding hydralazine 50 mill grams every 8 hours on vasopressors Holding atorvastatin 40 mill grams by mouth daily Holding aspirin 325 mg by mouth daily Resp: Acute respiratory failure History of JAZMYNE PRVC 12/500/09/10/39 Ventilator bundle Albuterol/ipratropium aerosols every 4 hours with albuterol aerosols every 2 hours. Dyspnea End tidal CO2 between 35 and 40 Follow-up a.m. ABG and chest x-ray GI: Patient is currently nothing by mouth. LIWS Lansoprazole for GI prophylaxis Docusate sodium/senna 1 tablet twice a day for bowel regimen Start trickle feeds. : Patel catheter for accurate I's and O's in a critically ill patient Endo: Diabetes mellitus Low TSH Hyperglycemia Sliding-scale insulin with Novulin R to maintain euglycemia/every 4 hours low regimen Follow-up on free T3/T4 Renal: Acute kidney injury in the setting of Chronic kidney disease stage IV Monitor urine output Accurate I's and O's Avoid nephrotoxic substances Follow-up on urine eosinophils and electrolytes Patient currently oliguric renal failure at the present time. Bladder scan. Heme: Normocytic anemia Hgb decline. Transfuse 2 units PRBCs. Coags within normal limits. Start serial Hgb. ID: Monitor for infection FEN: Replace electrolytes as clinically indicated MSK: PT evaluate and treat range of motion Access - Left femoral CVL day #5 placed in ED Prophylaxis - GI -lansoprazole/no pharmacological prophylaxis hemorrhage, SCDs Overall impression: Hypertensive brain bleed likely incited by cocaine use. Severe neurological injury. Prognosis guarded. Unstable hemodynamics and acute anemia, likely acute blood loss. CT head continues to deteriorate. Critical Care 35 mins Dany Lang MD Jul 24, 2017 10:46
[2017-07-24 14:29] LABS: HEMATOCRIT 27.5 % (39.0-51.0); REVIEW FLAG FINAL
[2017-07-24 21:16] LABS: REVIEW FLAG FINAL
[2017-07-25] VITALS: BP 89/53; PULSE 121; RESP 21; TEMP 99; O2SAT 95
[2017-07-25 00:54] VITALS: O2SAT 96
[2017-07-25 02:00] VITALS: PULSE 119
[2017-07-25 04:00] VITALS: BP 87/57; PULSE 121; RESP 19; TEMP 98.2; O2SAT 64; O2SAT 94
[2017-07-25] MEDS: CHLORHEXIDINE GLUCONATE 2 % 1 PACK (2 CLOTHS) TOP SCH (04:00)
[2017-07-25] MEDS: INSULIN NovoLIN REGULAR SUPPLEMENTAL SCALE SQ SCH ×2 (04:00)
[2017-07-25 04:30] VITALS: O2SAT 86
[2017-07-25] MEDS: MANNITOL 12.5 GM/50 ML VIAL IV SCH (05:00)
[2017-07-25] MEDS: SODIUM BICARBONATE 8.4% INJ 150 MEQ in WATER STERILE FOR INJ 850 ML IV SCH (05:05)
[2017-07-25 06:00] VITALS: PULSE 134
[2017-07-25] MEDS: hydrALAZINE HCL 50 MG TAB PO SCH (06:00)
[2017-07-25] MEDS: METOPROLOL TARTRATE 50 MG TAB PO SCH ×2 (06:00)
--- NOTE | 2017-07-25 06:01 | HHI.CCPN ---
Subjective Remarks/Hospital Course This is a 52-year-old AA male. Date of admission 07/20/2017. 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 Today, this patient was found per report obtunded by roommates. He was last seen in his normal state of health 07/19. They noted that he was having a flexed positioning, questionable decorticate positioning, and unequal pupils, left greater than right. The attempted to intubate the patient on the scene using lorazepam and etomidate without success. The ED physician was not able to get further history from roommates. CT brain revealed a left basal ganglia hemorrhage with extension to the left lateral ventricle, third and fourth ventricle with basilar cistern effacement. 1.3 cm [id number] shift. Patient started on hypertonic saline, mannitol, and tell CO2 between 35 and 40. Neurosurgery was consulted and placed a left ventriculostomy drain. Currently measuring ICPs closely. 07/21: Copious ventricular blood, small left basal ganglia hemorrhage. Cocaine and hypertension appear to be causative. EVD draining. BP controlled. 07/22: Marked Hgb decline over past 48 hours. Source unclear. Start with GI tract. 07/23: No improvement in neurological function. No bleeding source identified. 07/24: Worsening edema and midline shift despite osmolality > 330. Increasing vasogenic edema around initial basal ganglia bleed. Prognosis poor for any meaningful recovery. 07/25: Lengthy discussion with family yesterday, including his son whom the estranged has made POA for healthcare. POA made him DNR yesterday and planned to withdraw artificial support today. The patient has continued to deteriorate overnight with weaker cough reflex and absent other reflexes and responses. The son specifically did not want to escalate aggressiveness of care. The patient appears to be herniating. Objective Vital Signs Date Time Temp Pulse Resp B/P (MAP) Pulse Ox O2 Delivery O2 Flow Rate FiO2 07/25/17 04:30 86 100 07/25/17 04:00 98.2 121 19 87/57 (67) 07/24/17 19:00 Mechanical Ventilator Result Diagram: 07/24/17202907/24/17 1620 Other Results Laboratory Tests Test 07/24/17 08:35 Blood Gas Puncture Site ART LINE Blood Gas Patient Temperature 98.6 Blood Gas HCO3 23 mmol/L (22-26) Blood Gas Base Excess -1.3 mmol/L (-2-2) Blood Gas Oxygen Saturation 92 % (90-100) Arterial Blood pH 7.41 (7.380-7.420) Arterial Blood Partial Pressure CO2 37 mmHg (38-42) Arterial Blood Partial Pressure O2 73 mmHg (61-120) Arterial Blood Oxygen Content 10.8 Vol % (12.0-20.0) Arterial Blood Carboxyhemoglobin 1.4 % (0-4) Arterial Blood Methemoglobin 1.0 % (0-2) Blood Gas Hemoglobin 8.3 G/DL (12.0-16.0) Oxygen Delivery Device VENTILATOR Blood Gas Ventilator Setting PRVC/VT500/R10/P5/1. Blood Gas Inspired Oxygen 45 % Imaging Last Impressions Head CT 07/20/171 Signed Impressions: Service Date/Time: Thursday, July 20, 2017 19:12 - CONCLUSION: Large hemorrhage centered at the left basal ganglia with extension into the ventricles. The ventricles are enlarged. There is 1.3 cm of left to right midline shift and near effacement of the basal cisterns. Horacio Lebron MD Objective Remarks GENERAL: 52-year-old male. SKIN: Warm and dry. HEAD: Atraumatic. Normocephalic. EYES: Left pupil 3 mm and non reactive. Right pupil 3 mm and fixed. No scleral icterus. No injection or drainage. ENT: No nasal bleeding or discharge. Mucous membranes pink and moist. NECK: Trachea midline. Orally intubated. CARDIOVASCULAR: Regular rate and rhythm. S1, S2. No JVD. RESPIRATORY: Normal excursions. Clear to auscultation. Breath sounds equal bilaterally. GASTROINTESTINAL: Abdomen soft, non-tender, nondistended. BS absent. Nondistended. MUSCULOSKELETAL: Extremities without clubbing, cyanosis, or edema. Warm. Well perfused. NEUROLOGICAL: Pupils fixed. Does not withdraw to pain. Unresponsive. Sedation is off. Does not breathe over ventilator. A/P Assessment and Plan Neuro/Psych: Left basal hemorrhage with intraventricular hemorrhages though left lateral, third and fourth ventricles with basilar cisterna effacement with a 1.3 cm left- to-right shift History of left frontoparietal, old left occipital, bilateral basal ganglia and right pontine CVA - Seizure disorder NOS Currently on propofol/midazolam and fentanyl drips titrating for ICP for sedation/analgesia while intubated No sedation vacation until okay with neurosurgery CT brain imaging as above. Repeat head CT in a.m. Dr. Nettles consulted right-sided ventriculostomy placed. Goal maintain ICPs less than 20 3% saline currently at 30 cc an hour. Goal sodium 150-155 Mannitol 12.5 g every 8 hours. Hold if serum osm > 310 End tidal CO2 35-40 Currently on levetiracetam 1000 mg IV twice a day EEG ordered for a.m. 07/21 Follow-up on CSF studies Cocaine positive. CV: Hypertension Dyslipidemia Elevated CPK 0.9% Saline at 84 cc an hour Currently on norepinephrine drip to maintain cerebral perfusion pressures greater than or equal to 60 Holding hydralazine 50 mill grams every 8 hours on vasopressors Holding atorvastatin 40 mill grams by mouth daily Holding aspirin 325 mg by mouth daily Resp: Acute respiratory failure History of [facility] /09/10/39 Ventilator bundle Albuterol/ipratropium aerosols every 4 hours with albuterol aerosols every 2 hours. Dyspnea End tidal CO2 between 35 and 40 Follow-up a.m. ABG and chest x-ray GI: Patient is currently nothing by mouth. LIWS Lansoprazole for GI prophylaxis Docusate sodium/senna 1 tablet twice a day for bowel regimen Start trickle feeds. : Patel catheter for accurate I's and O's in a critically ill patient Endo: Diabetes mellitus Low TSH Hyperglycemia Sliding-scale insulin with Novulin R to maintain euglycemia/every 4 hours low regimen Follow-up on free T3/T4 Renal: Acute kidney injury in the setting of Chronic kidney disease stage IV Monitor urine output Accurate I's and O's Avoid nephrotoxic substances Follow-up on urine eosinophils and electrolytes Patient currently oliguric renal failure at the present time. Worsening renal function. Heme: Normocytic anemia Hgb decline. Transfuse 2 units PRBCs. Coags within normal limits. Start serial Hgb. ID: Monitor for infection FEN: Replace electrolytes as clinically indicated MSK: PT evaluate and treat range of motion Access - Left femoral CVL day #6 placed in ED Prophylaxis - GI -lansoprazole/no pharmacological prophylaxis hemorrhage, SCDs Overall impression: Hypertensive brain bleed likely incited by cocaine use. Severe neurological injury. Prognosis guarded and deteriorating. Unstable hemodynamics. CT head continues to deteriorate. Family anticipates compassionate extubation today but patient will likely not live through the morning. Critical Care 40 mins Dany Lang MD Jul 25, 2017 06:01
[2017-07-25] MEDS ORDERED: fentaNYL DRIP 250 ML IV PRN (07:15)
[2017-07-25] MEDS: MIDAZOLAM HCL 5 MG/5 ML VIAL IV PUSH PRN ×3 (07:20→08:39)
== END 2017-07-25 11:07 | disposition expired | DRG 23 ==
LOC: NEPE 17:39 → NEDA 19:19 → N03A 21:13
PROVIDERS: ADMIT Internal Medicine Critical Care Medicine; ATTEND Internal Medicine Critical Care Medicine
PROC: 009630Z Drainage of Cerebral Ventricle with Drainage Device, Percutaneous Approach (ICD-10-PCS; principal; 2017-07-20)
PROC: 06HN33Z Insertion of Infusion Device into Left Femoral Vein, Percutaneous Approach (ICD-10-PCS; 2017-07-20)
PROC: 5A1955Z Respiratory Ventilation, Greater than 96 Consecutive Hours (ICD-10-PCS; 2017-07-20)
PROC: 0BH17EZ Insertion of Endotracheal Airway into Trachea, Via Natural or Artificial Opening (ICD-10-PCS; 2017-07-20)
PROC: 30233N1 Transfusion of Nonautologous Red Blood Cells into Peripheral Vein, Percutaneous Approach (ICD-10-PCS; 2017-07-22)
DX: I61.0 Nontraumatic intracerebral hemorrhage in hemisphere, subcortical (principal); J96.00 Acute respiratory failure, unspecified whether with hypoxia or hypercapnia; G93.5 Compression of brain; N18.4 Chronic kidney disease, stage 4 (severe); G91.9 Hydrocephalus, unspecified; N17.9 Acute kidney failure, unspecified; D62 Acute posthemorrhagic anemia; I16.9 Hypertensive crisis, unspecified; E11.22 Type 2 diabetes mellitus with diabetic chronic kidney disease; E11.65 Type 2 diabetes mellitus with hyperglycemia; F14.988 Cocaine use, unspecified with other cocaine-induced disorder; R40.2432 Glasgow coma scale score 3-8, at arrival to emergency department; I12.9 Hypertensive chronic kidney disease with stage 1 through stage 4 chronic kidney disease, or unspecified chronic kidney disease; G47.33 Obstructive sleep apnea (adult) (pediatric); Z86.73 Personal history of transient ischemic attack (TIA), and cerebral infarction without residual deficits; G40.909 Epilepsy, unspecified, not intractable, without status epilepticus; D63.1 Anemia in chronic kidney disease; R82.5 Elevated urine levels of drugs, medicaments and biological substances; Z66 Do not resuscitate; E78.5 Hyperlipidemia, unspecified; Z87.891 Personal history of nicotine dependence
CPT/HCPCS: 31500; 36430; 36556; 36600; 36620; 43753; 70450; 71010; 80048; 80053; 80177; 80307; 81001; 82140; 82550; 82552; 82570; 82805; 82945; 82948; 83605; 83735; 83930; 84100; 84155; 84157; 84295; 84300; 84439; 84443; 84481; 84484; 85014; 85018; 85025; 85027; 85384; 85610; 85730; 86850; 86900; 86901; 86920; 87040; 87070; 87205; 87641; 89051; 93005; 93306; 94002; 94003; 94640; 94664; 94770; 95819; C9113; J1953; J2150; J2250; J2370; J3010; J7030; J7040; J7050; P9016